=== PATIENT | male | born 1945 | race Caucasian/White ===

== ENCOUNTER 2022-11-19 13:27 | Inpatient (IN) | payer OTHER ==
--- OUTSIDE RECORDS SUMMARY | 2022-11-19 13:44 | XMS REPORT | Continuity of Care Document ---
:1945 Author Organization [facility] t Address [address] [place] [address] [place] [id number] Care Team Providers Name Role Phone Bishop Guerrero MD Primary Care Physician BISHOP GUERRERO Attending Clinician Unavailable Doctor Unassigned, [place] Attending Clinician Unavailable Bishop Guerrero MD Attending Clinician Minnie Appiah MD Attending Clinician [phone] Yaya Perea MD Attending Clinician Tran Ferrer MA Attending Clinician Unavailable Lab, Ang - Db Attending Clinician Unavailable Chaka Mcdaniels MD Attending Clinician [phone] Kasey Persaud MA Attending Clinician Unavailable Jamey CHISHOLM, Kameron Bass Attending Clinician Azalea CHISHOLM, Leonides Mccarty Attending Clinician Roger Beatty MD Attending Clinician Sonia Ortega APRN Attending Clinician Jayshree Wetzel LVN Attending Clinician Unavailable Davi CHISHOLM, Avinash Attending Clinician Monet Jaimes MA Attending Clinician Unavailable Mariely BANGURA, Kiera Attending Clinician Unavailable Jennifer BANGURA, Keke Attending Clinician Unavailable GHISLAINE SAPP Attending Clinician Unavailable Nicole CHRISTOPHER, Ghislaine Attending Clinician Jackson Bateman MD Attending Clinician Haley BANGURA, Candace Attending Clinician Unavailable Ladan ECHEVERRIA, Lorena Bell Attending Clinician [phone] Bay BANGURA, Mira Lauren Attending Clinician Unavailable Michi REFERRAL CLERK, Reina Attending Clinician [phone] Celine Go MD Attending Clinician Genesis Rocha RN, Anna Attending Clinician Unavailable Radha Andrews RN Attending Clinician Unavailable Emily Blunt MD Attending Clinician Morgan BANGURA, Katrina Rosales Attending Clinician Unavailable Provider, Unknown Attending Clinician Unavailable Brenda Contreras RN Attending Clinician Unavailable Teto CHISHOLM, Nohemi Attending Clinician Yuan Feng MD Attending Clinician Helen Bartholomew MD Attending Clinician Mariposa Gardner MD Attending Clinician SONIA STEWART Attending Clinician Unavailable CLAUDINE CLEMENTS Attending Clinician Unavailable MD CLAUDINE CLEMENTS Attending Clinician Unavailable RULA IRELAND Attending Clinician Unavailable Eze Gaston DO Attending Clinician MD RULA IRELAND Attending Clinician Unavailable MD SONIA STEWART Attending Clinician Unavailable LANRE HARRISON Attending Clinician Unavailable KAMERON CONCEPCION Admitting Clinician Unavailable CELINE GO Admitting Clinician Unavailable MD EMILY BLUNT Admitting Clinician Unavailable NOHEMI PLASCENCIA Admitting Clinician Unavailable CLAUDINE CLEMENTS Admitting Clinician Unavailable MD CLAUDINE CLEMENTS Admitting Clinician Unavailable RULA IRELAND Admitting Clinician Unavailable MD RULA IRELAND Admitting Clinician Unavailable SONIA STEWART Admitting Clinician Unavailable MD SONIA STEWART Admitting Clinician Unavailable Payers Payer Name Policy Type Policy Number Effective Date Expiration Date S ource Problems Condition Condition Condition Status Onset Resolution Last Treating Co mments Source Name Details Category Date Date Treatment Clinician Date Chronic Chronic Disease Active 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, tophus, 00:00: [place] unspecifie unspecifie 00 Me dical d cause, d cause, Branch unspecifie unspecifie d site d site Nontoxic Nontoxic Disease Active [facility] di single single 8-25 st thyroid thyroid 00:00: Hospita nodule nodule 00 l Thyroid Thyroid Disease Active Univers nodule nodule 6-07 ity of 00:00: [place] 00 Medical Branch Abnormal Abnormal Disease Active Unive rs thyroid thyroid 6-07 ity of biopsy biopsy 00:00: [place] [address] Medical Branch Stage 3 Stage 3 Disease Active Univers chronic chronic 5-24 ity of kidney kidney 00:00: [place] disease, disease, 00 Medica l unspecifie unspecifie Br anch d whether d whether stage 3a stage 3a or 3b CKD or 3b CKD Chronic Chronic Disease Active Univers congestive congestive 5-24 it y of heart heart 00:00: [place] failure, failure, 00 Medica l unspecifie unspecifie Br anch d heart d heart failure failure type type CKD CKD Disease Active [facility] (chronic (chronic 5-03 st kidney kidney 00:00: Hospita disease) disease) 00 l stage 3, stage 3, GFR 30-59 GFR 30-59 ml/min ml/min (HCC) Cr (HCC) Cr 1.6-1.8mg/ 1.6-1.8mg/ dL dL SÁNCHEZ (acute S[place]NCHEZ (acute Disease Active M [facility]i kidney kidney 5-03 st injury) injury) 00:00: Hospita (HCC) Cr (HCC) Cr 00 l 2.3-2.6mg/ 2.3-2.6mg/ dL dL Fluid Fluid Disease Active [facility] overload overload 07-05 st 00:00: Hospita 00 l HFrEF HFrEF Disease Active [facility] (heart (heart 07-05 st failure failure 00:00: Hospita with with 00 l reduced reduced ejection ejection fraction) fraction) Anemia Anemia Disease Active [facility] 07-05 st 00:00: Hospita 00 l Congestive Congestive Disease Active M [facility] heart heart 07-04 st failure failure 00:00: Hospita due to due to 00 l cardiomyop cardiomyop athy athy Brain Brain Disease Active [facility] metastases metastases 2-24 st 00:00: Hospita 00 l Thyroid Thyroid Disease Active [facility] nodule nodule 1-11 st 00:00: Hospita 00 l Malignant Malignant Disease Active Uni vers melanoma melanoma 8-30 ity of of scalp of scalp 00:00: [address] Branch Essential Essential Disease Active Uni vers hypertensi hypertensi 8-30 it y of on on 00:00: [address] Branch Weakness Weakness Disease Active [facility] di 3-03 st 00:00: Hospita 00 l Malignant Malignant Disease Active 2019-03 [facility] melanoma melanoma 2-15 st of scalp of scalp 00:00: Hospit a 00 l Metastatic Metastatic Disease Active 2019-03 M [facility]i melanoma melanoma 2-09 st 00:00: Hospita 00 l CKD CKD Disease Active 2019-03 [facility] (chronic (chronic [address] st kidney kidney 00:00: Hospita disease) disease) 00 l Melanoma Melanoma Disease Active 2019-03 [facility] di of scalp of scalp 1-10 st 00:00: Hospita 00 l Malignant Malignant Disease Active 2019-03 [facility] neoplasm neoplasm 1-09 st of scalp of scalp 00:00: Hospit a 00 l Arthritis Arthritis Disease Active [facility] of right of right 2- st knee knee 00:00: Hospita 00 l Chronic Chronic Disease Active [facility] pain of pain of 03-29 st right knee right knee 00:00: Ho spita 00 l 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 00:00: Ho spita replacemen replacemen 00 l t t Restless Restless Disease Active [facility] di leg leg st syndrome syndrome Hospit a l Localized Localized Disease Active Met hodi swelling, swelling, st mass and mass and Hospit a lump, head lump, head l Lymphadeno Lymphadeno Disease Active M ethodi andrew of andrew of st right right Hospita cervical cervical l region region 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 Ho spita 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) Muscle Muscle Disease Active [facility] weakness weakness st Hospita l 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 Allergies, Adverse Reactions, Alerts Allergy Allergy Status Severity Reaction(s) Onset Inactive Treating Comm ents Source Name Type Date Date Clinician NO KNOWN Drug Active Univers ALLERGIE Class ity of S [facility] Family History Family Member Diagnosis Comments Start Date Stop Date Source Natural brother Testicular cancer [facility] Natural brother Cancer [facility] Natural father Lung cancer [facility] Natural mother Skin cancer [facility] Natural sister Colon cancer [facility] Social History Social Habit Start Date Stop Date Quantity Comments Source Gender identity [facility] Sexual orientation Univer [facility] Alcohol intake 2022-09-22 2022-09-22 Current [facility] 00:00:00 00:00:00 non-drinker of Hospital alcohol (finding) History of Social 2022-09-22 2022-09-[address] function 00:00:00 00:00:00 Hospital Exposure to 2022-06-24 2022-07-04 Not sure University of SARS-CoV-2 (event) 00:00:00 09:07:00 [facility] [place] [facility] Tobacco use and 2021-10-26 2021-10-26 Smokeless [facility] exposure 00:00:00 00:00:00 tobacco non-user Hospital History [facility] 2020-05-05 2020-05-05 1 [facility] Alcohol Frequency 00:00:00 00:00:00 Hospita l History SDHI 2020-05-05 2020-05-05 99 [facility] Alcohol Std Drinks 00:00:00 00:00:00 Hospit al History [facility] 2020-05-05 2020-05-05 1 [facility] Alcohol Binge 00:00:00 00:00:00 Hospital Sex [birth year] At [birth year] Universit y of 00:00:00 00:00:00 [facility] Smoking Status Start Date Stop Date Source Never smoked tobacco [facility] Medications Ordered Filled Start Stop Current Ordering Indication Dosage Frequency Signature Comments Components Source Medication Medication Date Date Medication? Clinician (SIG) Name Name potassium Yes 10meq Q.5D Take 10 Meth [place] chloride 7-[address] (MICRO-K) 8 13:53: mouth 2 [facility] mEq CR 11 (two) l capsule times a day. metOLazone 0 Yes 5mg QD Take 1 [facility] di (ZAROXOLYN) 7-21 tablet (5 st 5 MG tablet 13:53: mg total) H ospita 11 by mouth l daily. ferrous 0 Yes 324mg QD Take 1 [facility] gluconate 7-[address] (FERGON) 13:53: (324 mg Hospit a 324 MG 11 total) by l tablet mouth daily with breakfast. cholecalcif Yes Take by Met hodi favian, 7-[address] vitamin D3, 13:53: Hospit a 50 mcg 11 l (2,000 unit) capsule capsule apixaban 0 Yes Q.5D Take by Method i (ELIQUIS) 5 7-[address] mg tablet 13:53: (two) Hospita 11 times a l day. vitamin B Yes Take by [facility] di complex 7-[address] (B-50 13:53: Hospita COMPLEX 11 l ORAL) FUROSEMIDE 0 Yes 40mg QD Take 40 mg M [facility]i ORAL 7-[address] 13:53: daily. Hospita 11 l LEVOTHYROXI 0 Yes [id number] TAKE 1 Univers NE 50 mcg 5-20 TABLET ity of tablet 00:00: EVERY [place] [address] MORNING [facility] Branch LEVOTHYROXI 2022-0 Yes [id number] TAKE 1 Univers NE 50 mcg 5-20 TABLET ity of tablet 00:00: EVERY [place] [address] MORNING [facility] Branch LEVOTHYROXI 0 Yes [id number] TAKE 1 Univers NE 50 mcg 5-20 TABLET ity of tablet 00:00: EVERY [place] 00 MORNING Medical Branch LEVOTHYROXI 2023-0 Yes [id number] TAKE 1 Univers NE 50 mcg 5-20 TABLET ity of tablet 00:00: EVERY [place] 00 MORNING Medical Branch LEVOTHYROXI 3-0 Yes [id number] TAKE 1 Univers NE 50 mcg 5-20 TABLET ity of tablet 00:00: EVERY [place] 00 MORNING Medical Branch LEVOTHYROXI 2023-0 Yes [id number] TAKE 1 Univers NE 50 mcg 5-20 TABLET ity of tablet 00:00: EVERY [place] 00 MORNING Medical Branch LEVOTHYROXI 2023-0 Yes [id number] TAKE 1 Univers NE 50 mcg 5-20 TABLET ity of tablet 00:00: EVERY [place] MORNING Medical Branch LEVOTHYROXI 2023-0 Yes [id number] TAKE 1 Univers [place] 50 mcg 5-20 TABLET ity of tablet 00:00: EVERY [place] MORNING Medical Branch LEVOTHYROXI 3-0 Yes [id number] TAKE 1 Univers NE 50 mcg 5-20 TABLET ity of tablet 00:00: EVERY [place] MORNING Medical Branch predniSONE 2023-0 Yes [id number] 20mg Take 1 U nivers 20 mg 3-02 tablet by ity of tablet 00:00: mouth in [place] the Medical morning. Branch predniSONE 3-0 Yes [id number] 20mg Take 1 U nivers 20 mg 3-02 tablet by ity of tablet 00:00: mouth in [place] the Medical morning. Branch predniSONE 2023-0 Yes [id number] 20mg Take 1 U nivers 20 mg 3-02 tablet by ity of tablet 00:00: mouth in [place] the Medical morning. Branch predniSONE 2023-0 Yes [id number] 20mg Take 1 U nivers 20 mg 3-02 tablet by ity of tablet 00:00: mouth in [place] the Medical morning. Branch predniSONE 2023-0 Yes [id number] 20mg Take 1 U nivers 20 mg 3-02 tablet by ity of tablet 00:00: mouth in [place] the Medical morning. Branch predniSONE 2023-0 Yes [id number] 20mg Take 1 U nivers 20 mg 3-02 tablet by ity of tablet 00:00: mouth in [place] the Medical morning. Branch predniSONE 2023-0 Yes [id number] 20mg Take 1 U nivers 20 mg 3-02 tablet by ity of tablet 00:00: mouth in [place] 00 the Medical morning. Branch predniSONE 2023-0 Yes [id number] 20mg Take 1 U nivers 20 mg 3-02 tablet by ity of tablet 00:00: mouth in [place] 00 the Medical morning. Branch predniSONE 2023-0 Yes [id number] 20mg Take 1 U nivers 20 mg 3-02 tablet by ity of tablet 00:00: mouth in [place] 00 the Medical morning. Branch predniSONE 2023-0 Yes [id number] 20mg Take 1 U nivers 20 mg 3-02 tablet by ity of tablet 00:00: mouth in [place] 00 the Medical morning. Branch predniSONE 2023-0 Yes [id number] 20mg Take 1 U nivers 20 mg 3-02 tablet by ity of tablet 00:00: mouth in [place] 00 the Medical morning. Branch predniSONE 2023-0 Yes [id number] 20mg Take 1 U nivers 20 mg 3-02 tablet by ity of tablet 00:00: mouth in [place] 00 the Medical morning. Branch predniSONE 2023-0 Yes [id number] 20mg Take 1 U nivers 20 mg 3-02 tablet by ity of tablet 00:00: mouth in [place] 00 the Medical morning. Branch predniSONE 2023-0 Yes [id number] 20mg Take 1 U nivers 20 mg 3-02 tablet by ity of tablet 00:00: mouth in [place] 00 the Medical morning. Branch predniSONE 2023-0 Yes [id number] 20mg Take 1 U nivers 20 mg 3-02 tablet by ity of tablet 00:00: mouth in [place] 00 the Medical morning. Branch predniSONE 2023-0 Yes [id number] 20mg Take 1 U nivers 20 mg 3-02 tablet by ity of tablet 00:00: mouth in [place] 00 the Medical morning. Branch predniSONE 2023-0 Yes [id number] 20mg Take 1 U nivers 20 mg 3-02 tablet by ity of tablet 00:00: mouth in [place] 00 the Medical morning. Branch predniSONE 2023-0 Yes [id number] 20mg Take 1 U nivers 20 mg 3-02 tablet by ity of tablet 00:00: mouth in [place] 00 the Medical morning. Branch predniSONE 2023-0 Yes [id number] 20mg Take 1 U nivers 20 mg 3-02 tablet by ity of tablet 00:00: mouth in [place] 00 the Medical morning. Branch predniSONE 3-0 Yes [id number] 20mg Take 1 U nivers 20 mg 3-02 tablet by ity of tablet 00:00: mouth in [place] 00 the Medical morning. Branch predniSONE 3-0 Yes [id number] 20mg Take 1 U nivers 20 mg 3-02 tablet by ity of tablet 00:00: mouth in [place] 00 the Medical morning. Branch predniSONE 3-0 Yes [id number] 20mg Take 1 U nivers 20 mg 3-02 tablet by ity of tablet 00:00: mouth in [place] 00 the Medical morning. Branch gabapentin 2022-0 2022- No 300mg [id number] Take 1 [facility] (NEURONTIN) 2- [id number] capsule st 300 mg 08:58: 00:00 3D (300 mg Hospita capsule 35 :00 total) by l mouth 3 (three) times a day. gabapentin 2022-0 2022- No 300mg Q.[id number] Take 1 [facility] (NEURONTIN) -27 04- [id number] capsule st 300 mg 08:58: 00:00 3D (300 mg Hospita capsule 35 :00 total) by l mouth 3 (three) times a day. gabapentin 0 Yes TAKE 1 [facility] di (NEURONTIN) 2-[address] 300 mg 00:00: TWICE Hospita capsule 00 DAILY l gabapentin 2022-0 Yes TAKE 1 Meth[facility] di (NEURONTIN) 2-[address] 300 mg 00:00: TWICE Hospita capsule 00 DAILY l pantoprazol 2022-0 2022- No 40mg QD Take 1 Met hodi e 04-04 tablet (40 st (PROTONIX) 07:41: 00:00 mg total) H ospita 40 MG EC 14 :00 by mouth l tablet daily. pantoprazol 2022-0 2022- No 40mg QD Take 1 Met hodi e 04-04 tablet (40 st (PROTONIX) 07:41: 00:00 mg total) H ospita 40 MG EC 14 :00 by mouth l tablet daily. pantoprazol 2022-0 Yes TAKE 1 Meth [facility] e 04-[address] (PROTONIX) 00:00: DAILY Hospit a 40 MG EC 00 l tablet pantoprazol Yes TAKE 1 Meth [facility] e 1-[address] (PROTONIX) 00:00: DAILY Hospit a 40 MG EC 00 l tablet levothyroxi 2021-03 Yes [id number] 50ug Take 1 Univers ne 50 mcg 2-12 tablet by ity o f tablet 00:00: mouth [place] 00 every Medical morning. [place] levothyroxi 2021-03 Yes [id number] 50ug Take 1 Univers ne 50 mcg 2-12 tablet by ity o f tablet 00:00: mouth [place] 00 every Medical morning. Branch levothyroxi 2021-03 Yes [id number] 50ug Take 1 Univers ne 50 mcg 2-12 tablet by ity o f tablet 00:00: mouth [place] 00 every Medical morning. Branch levothyroxi 2021-03 Yes [id number] 50ug Take 1 Univers ne 50 mcg 2-12 tablet by ity o f tablet 00:00: mouth [place] 00 every Medical morning. Branch levothyroxi 2021-03 Yes [id number] 50ug Take 1 Univers ne 50 mcg 2-12 tablet by ity o f tablet 00:00: mouth [place] 00 every Medical morning. Branch levothyroxi 2021-03 Yes [id number] 50ug Take 1 Univers ne 50 mcg 2-12 tablet by ity o f tablet 00:00: mouth [place] 00 every Medical morning. Branch levothyroxi 2021-03 Yes [id number] 50ug Take 1 Univers ne 50 mcg 2-12 tablet by ity o f tablet 00:00: mouth [place] 00 every Medical morning. Branch levothyroxi 2021-03 Yes [id number] 50ug Take 1 Univers ne 50 mcg 2-12 tablet by ity o f tablet 00:00: mouth [place] 00 every Medical morning. Branch levothyroxi 2021-03 Yes [id number] 50ug Take 1 Univers ne 50 mcg 2-12 tablet by ity o f tablet 00:00: mouth [place] 00 every Medical morning. Branch levothyroxi 2021-03 Yes [id number] 50ug Take 1 Univers ne 50 mcg 2-12 tablet by ity o f tablet 00:00: mouth [place] 00 every Medical morning. Branch levothyroxi 2021-03 Yes [id number] 50ug Take 1 Univers ne 50 mcg 2-12 tablet by ity o f tablet 00:00: mouth [place] 00 every Medical morning. Branch levothyroxi 2021-03 Yes [id number] 50ug Take 1 Univers ne 50 mcg 2-12 tablet by ity o f tablet 00:00: mouth [place] 00 every Medical morning. Branch levothyroxi 2021-03 Yes [id number] 50ug Take 1 Univers ne 50 mcg 2-12 tablet by ity o f tablet 00:00: mouth [place] 00 every Medical morning. Branch levothyroxi 2021-03 Yes [id number] 50ug Take 1 Univers ne 50 mcg 2-12 tablet by ity o f tablet 00:00: mouth [place] 00 every Medical morning. Branch levothyroxi 2021-03 Yes [id number] 50ug Take 1 Univers ne 50 mcg 2-12 tablet by ity o f tablet 00:00: mouth [place] 00 every Medical morning. Branch levothyroxi 2021-03 Yes [id number] 50ug Take 1 Univers ne 50 mcg 2-12 tablet by ity o f tablet 00:00: mouth [place] 00 every Medical morning. Branch levothyroxi 2021-03 Yes [id number] 50ug Take 1 Univers ne 50 mcg 2-12 tablet by ity o f tablet 00:00: mouth [place] 00 every Medical morning. Branch levothyroxi 2021-03 Yes [id number] 50ug Take 1 Univers ne 50 mcg 2-12 tablet by ity o f tablet 00:00: mouth [place] 00 every Medical morning. Branch levothyroxi 2021-03 Yes [id number] 50ug Take 1 Univers ne 50 mcg 2-12 tablet by ity o f tablet 00:00: mouth [place] 00 every Medical morning. Branch levothyroxi 2021-03 Yes [id number] 50ug Take 1 Univers ne 50 mcg 2-12 tablet by ity o f tablet 00:00: mouth [place] 00 every Medical morning. Branch levothyroxi 2021-03 Yes [id number] 50ug Take 1 Univers ne 50 mcg 2-12 tablet by ity o f tablet 00:00: mouth [place] 00 every Medical morning. Branch levothyroxi 2021-03 Yes [id number] 50ug Take 1 Univers ne 50 mcg 2-12 tablet by ity o f tablet 00:00: mouth [place] 00 every Medical morning. Branch levothyroxi 2021-03- No [id number] 50ug Take 1 Univers ne 50 mcg 2-12 05-20 tablet by ity of tablet 00:00: 00:00 mouth [place] 00 :00 every Medical morning. Branch furosemide 2021- Yes 40mg Take 40 mg U nivers 40 mg 2-08 by mouth ity of tablet 12:30: in the [place] [address] morning. Medical Branch furosemide 2021-1 Yes 40mg Take 40 mg U nivers 40 mg 2-08 by mouth ity of tablet 12:30: in the [place] [address] morning. Medical Branch furosemide 2021-1 Yes 40mg Take 40 mg U nivers 40 mg 2-08 by mouth ity of tablet 12:30: in the [place] [address] morning. Medical Branch furosemide 2021-1 Yes 40mg Take 40 mg U nivers 40 mg 2-08 by mouth ity of tablet 12:30: in the [place] [address] morning. Medical Branch furosemide 2021-1 Yes 40mg Take 40 mg U nivers 40 mg 2-08 by mouth ity of tablet 12:30: in the [place] [address] morning. Medical Branch furosemide 2021-1 Yes 40mg Take 40 mg U nivers 40 mg 2-08 by mouth ity of tablet 12:30: in the [place] [address] morning. Medical Branch furosemide 2021-1 Yes 40mg Take 40 mg U nivers 40 mg 2-08 by mouth ity of tablet 12:30: in the [place] [address] morning. Medical Branch furosemide 2021-1 Yes 40mg Take 40 mg U nivers 40 mg 2-08 by mouth ity of tablet 12:30: in the [place] [address] morning. Medical Branch furosemide 2021-1 Yes 40mg Take 40 mg U nivers 40 mg 2-08 by mouth ity of tablet 12:30: in the [place] [address] morning. Medical Branch furosemide 2021-1 Yes 40mg Take 40 mg U nivers 40 mg 2-08 by mouth ity of tablet 12:30: in the [place] [address] morning. Medical Branch furosemide 2021-1 Yes 40mg Take 40 mg U nivers 40 mg 2-08 by mouth ity of tablet 12:30: in the [place] [address] morning. Medical Branch furosemide 2021-1 Yes 40mg Take 40 mg U nivers 40 mg 2-08 by mouth ity of tablet 12:30: in the [place] [address] morning. Medical Branch furosemide 2021-1 Yes 40mg Take 40 mg U nivers 40 mg 2-08 by mouth ity of tablet 12:30: in the [place] [address] morning. Medical Branch furosemide 2022-1 Yes 40mg Take 40 mg U nivers 40 mg 2-08 by mouth ity of tablet 12:30: in the [place] [address] morning. Medical Branch furosemide 2022-1 Yes 40mg Take 40 mg U nivers 40 mg 2-08 by mouth ity of tablet 12:30: in the [place] [address] morning. Medical Branch furosemide 2022-1 Yes 40mg Take 40 mg U nivers 40 mg 2-08 by mouth ity of tablet 12:30: in the [place] [address] morning. Medical Branch furosemide 2022-1 Yes 40mg Take 40 mg U nivers 40 mg 2-08 by mouth ity of tablet 12:30: in the [place] [address] morning. Medical Branch furosemide 2-1 Yes 40mg Take 40 mg U nivers 40 mg 2-08 by mouth ity of tablet 12:30: in the [place] [address] morning. Medical Branch furosemide 2-1 Yes 40mg Take 40 mg U nivers 40 mg 2-08 by mouth ity of tablet 12:30: in the [place] [address] morning. Medical Branch furosemide 2-1 Yes 40mg Take 40 mg U nivers 40 mg 2-08 by mouth ity of tablet 12:30: in the [place] [address] morning. Medical Branch furosemide 2-1 Yes 40mg Take 40 mg U nivers 40 mg 2-08 by mouth ity of tablet 12:30: in the [place] [address] morning. Medical Branch furosemide 2-1 Yes 40mg Take 40 mg U nivers 40 mg 2-08 by mouth ity of tablet 12:30: in the [place] [address] morning. Medical Branch furosemide 2022-1 Yes 40mg Take 40 mg U nivers 40 mg 2-08 by mouth ity of tablet 12:30: in the [place] [address] morning. Medical Branch furosemide 2022-1 Yes 40mg Take 40 mg U nivers 40 mg 2-08 by mouth ity of tablet 12:30: in the [place] [address] morning. Medical Branch furosemide 2022-1 Yes 40mg Take 40 mg U nivers 40 mg 2-08 by mouth ity of tablet 12:30: in the [place] [address] morning. Medical Branch furosemide 2022-1 Yes 40mg Take 40 mg U nivers 40 mg 2-08 by mouth ity of tablet 12:30: in the [place] [address] morning. Medical Branch furosemide 2022- Yes 40mg Take 40 mg U nivers 40 mg 2-08 by mouth ity of tablet 12:30: in the [place] [address] morning. Medical Branch furosemide 2021-1 Yes 40mg Take 40 mg U nivers 40 mg 2-08 by mouth ity of tablet 12:30: in the [place] [address] morning. Medical Branch furosemide 2021- Yes 40mg Take 40 mg U nivers 40 mg 2-08 by mouth ity of tablet 12:30: in the [place] [address] morning. Medical Branch furosemide 2021- Yes 40mg Take 40 mg U nivers 40 mg 2-08 by mouth ity of tablet 12:30: in the [place] [address] morning. Medical Branch furosemide 2021-1 Yes 40mg Take 40 mg U nivers 40 mg 2-08 by mouth ity of tablet 12:30: in the [place] [address] morning. Medical Branch furosemide 2021- Yes 40mg Take 40 mg U nivers 40 mg 2-08 by mouth ity of tablet 12:30: in the [place] [address] morning. Medical Branch furosemide 2021- Yes 40mg Take 40 mg U nivers 40 mg 2-08 by mouth ity of tablet 12:30: in the [place] [address] morning. Medical Branch furosemide 2021-1 Yes 40mg Take 40 mg U nivers 40 mg 2-08 by mouth ity of tablet 12:30: in the [place] [address] morning. Medical Branch furosemide 2021- Yes 40mg Take 40 mg U nivers 40 mg 2-08 by mouth ity of tablet 12:30: in the [place] [address] morning. Medical Branch colchicine 2021- Yes [id number] .6mg Take 1 U nivers 0.6 mg 2-08 tablet by ity of tablet 00:00: mouth in [place] 00 the Medical morning. Branch colchicine 2021- Yes [id number] .6mg Take 1 U nivers 0.6 mg 2-08 tablet by ity of tablet 00:00: mouth in [place] the Medical morning. Branch colchicine 2021- Yes [id number] .6mg Take 1 U nivers 0.6 mg 2-08 tablet by ity of tablet 00:00: mouth in [place] the Medical morning. Branch colchicine 2021- Yes [id number] .6mg Take 1 U nivers 0.6 mg 2-08 tablet by ity of tablet 00:00: mouth in [place] 00 the Medical morning. Branch colchicine 2021-03 Yes [id number] .6mg Take 1 U nivers 0.6 mg 2-08 tablet by ity of tablet 00:00: mouth in [place] the Medical morning. Branch colchicine 2021-03 Yes [id number] .6mg Take 1 U nivers 0.6 mg 2-08 tablet by ity of tablet 00:00: mouth in [place] the Medical morning. Branch colchicine 2021-03 Yes [id number] .6mg Take 1 U nivers 0.6 mg 2-08 tablet by ity of tablet 00:00: mouth in [place] the Medical morning. Branch colchicine 2021-03 Yes [id number] .6mg Take 1 U nivers 0.6 mg 2-08 tablet by ity of tablet 00:00: mouth in [place] the Medical morning. Branch colchicine 2021-03 Yes [id number] .6mg Take 1 U nivers 0.6 mg 2-08 tablet by ity of tablet 00:00: mouth in [place] the Medical morning. Branch colchicine 2021-03 Yes [id number] .6mg Take 1 U nivers 0.6 mg 2-08 tablet by ity of tablet 00:00: mouth in [place] the Medical morning. Branch colchicine 2021-03 Yes [id number] .6mg Take 1 U nivers 0.6 mg 2-08 tablet by ity of tablet 00:00: mouth in [place] the Medical morning. Branch colchicine 2021-03 Yes [id number] .6mg Take 1 U nivers 0.6 mg 2-08 tablet by ity of tablet 00:00: mouth in [place] the Medical morning. Branch colchicine 2021-03 Yes [id number] .6mg Take 1 U nivers 0.6 mg 2-08 tablet by ity of tablet 00:00: mouth in [place] 00 the Medical morning. Branch colchicine 2021-03 Yes [id number] .6mg Take 1 U nivers 0.6 mg 2-08 tablet by ity of tablet 00:00: mouth in [place] 00 the Medical morning. Branch colchicine 2021-03 Yes [id number] .6mg Take 1 U nivers 0.6 mg 2-08 tablet by ity of tablet 00:00: mouth in [place] 00 the Medical morning. Branch colchicine 2021-03 Yes [id number] .6mg Take 1 U nivers 0.6 mg 2-08 tablet by ity of tablet 00:00: mouth in [place] 00 the Medical morning. Branch colchicine 2021-03 Yes [id number] .6mg Take 1 U nivers 0.6 mg 2-08 tablet by ity of tablet 00:00: mouth in [place] 00 the Medical morning. Branch colchicine 2021-03 Yes [id number] .6mg Take 1 U nivers 0.6 mg 2-08 tablet by ity of tablet 00:00: mouth in [place] 00 the Medical morning. Branch colchicine 2021-03 Yes [id number] .6mg Take 1 U nivers 0.6 mg 2-08 tablet by ity of tablet 00:00: mouth in [place] the Medical morning. Branch colchicine 2021-03 Yes [id number] .6mg Take 1 U nivers 0.6 mg 2-08 tablet by ity of tablet 00:00: mouth in [place] the Medical morning. Branch colchicine 2021-03 Yes [id number] .6mg Take 1 U nivers 0.6 mg 2-08 tablet by ity of tablet 00:00: mouth in [place] the Medical morning. Branch colchicine 2021-03 Yes [id number] .6mg Take 1 U nivers 0.6 mg 2-08 tablet by [facility]y of tablet 00:00: mouth in [place] the Medical morning. Branch colchicine 2021-03 Yes [id number] .6mg Take 1 U nivers 0.6 mg 2-08 tablet by ity of tablet 00:00: mouth in [place] 00 the Medical morning. Branch colchicine 2021-03 Yes [id number] .6mg Take 1 U nivers 0.6 mg 2-08 tablet by ity of tablet 00:00: mouth in [place] 00 the Medical morning. Branch colchicine 2021-03 Yes [id number] .6mg Take 1 U nivers 0.6 mg 2-08 tablet by ity of tablet 00:00: mouth in [place] 00 the Medical morning. Branch colchicine 2021-03 Yes [id number] .6mg Take 1 U nivers 0.6 mg 2-08 tablet by ity of tablet 00:00: mouth in [place] 00 the Medical morning. Branch colchicine 2021-03 Yes [id number] .6mg Take 1 U nivers 0.6 mg 2-08 tablet by ity of tablet 00:00: mouth in [place] the Medical morning. Branch colchicine 2021-03 Yes [id number] .6mg Take 1 U nivers 0.6 mg 2-08 tablet by ity of tablet 00:00: mouth in [place] the Medical morning. Branch colchicine 2021-03 Yes [id number] .6mg Take 1 U nivers 0.6 mg 2-08 tablet by ity of tablet 00:00: mouth in [place] the Medical morning. Branch colchicine 2021-03 Yes [id number] .6mg Take 1 U nivers 0.6 mg 2-08 tablet by ity of tablet 00:00: mouth in [place] the Medical morning. Branch colchicine 2021-03 Yes [id number] .6mg Take 1 U nivers 0.6 mg 2-08 tablet by ity of tablet 00:00: mouth in [place] the Medical morning. Branch colchicine 2021-03 Yes [id number] .6mg Take 1 U nivers 0.6 mg 2-08 tablet by ity of tablet 00:00: mouth in [place] the Medical morning. Branch colchicine 2021-03 Yes [id number] .6mg Take 1 U nivers 0.6 mg 2-08 tablet by ity of tablet 00:00: mouth in [place] the Medical morning. Branch colchicine 2021-03 Yes [id number] .6mg Take 1 U nivers 0.6 mg 2-08 tablet by ity of tablet 00:00: mouth in [place] the Medical morning. Branch colchicine 2021-03 Yes [id number] .6mg Take 1 U nivers 0.6 mg 2-08 tablet by ity of tablet 00:00: mouth in [place] the Medical morning. Branch levothyroxi 2021-03 Yes Univer s ne 50 mcg 1-21 ity of tablet 00:00: [place] 00 Medical Branch levothyroxi 2021-03 Yes Univer s ne 50 mcg 1-21 ity of tablet 00:00: [place] 00 Medical Branch levothyroxi 2021-03 Yes Univer s ne 50 mcg 1-21 ity of tablet 00:00: [place] 00 Medical Branch levothyroxi 2021-03 Yes Univer s ne 50 mcg 1-21 ity of tablet 00:00: [place] 00 Medical Branch levothyroxi 2022-1 2023- No 50ug QD Take 1 Met hodi ne 03-25-22 tablet (50 st (SYNTHROID) 00:00: 05:59 mcg total) [facility]osp[facility] 50 mcg 00 :00 by mouth l tablet daily. levothyroxi 2021-03- No 50ug QD Take 1 Met hodi ne 03-25 11-22 tablet (50 st (SYNTHROID) 00:00: 05:59 mcg total) Hospita 50 mcg 00 :00 by mouth l tablet daily. levothyroxi 2021-03- No 50ug QD Take 1 Met hodi ne 03-25-22 tablet (50 st (SYNTHROID) 00:00: 05:59 mcg total) Hospita 50 mcg 00 :00 by mouth l tablet daily. levothyroxi 2021-03- No Unive rs ne 50 mcg 03-25 ity of tablet 00:00: 00:00 [place] 00 :00 [facility] indomethaci 2021-03- No 25mg Take 1 Met hodi n (INDOCIN) 0-13 10-[address] 25 MG 10:29: 00:00 (25 mg Hospita capsule 50 :00 total) by l mouth as needed for mild pain. For gout- has not been taking for a year now. indomethaci 2021-03- No 25mg Take 1 Met hodi n (INDOCIN) 0-13 10-[address] 25 MG 10:29: 00:00 (25 mg Hospita capsule 50 :00 total) by l mouth as needed for mild pain. For gout- has not been taking for a year now. indomethaci 2021-03- No 25mg Take 1 Met hodi n (INDOCIN) 0-13 10-[address] 25 MG 10:29: 00:00 (25 mg Hospita capsule 50 :00 total) by l mouth as needed for mild pain. For gout- has not been taking for a year now. vitamin B 2021-03 Yes Take by Metho di complex 0-[address] (B-50 14:42: Hospita COMPLEX 55 l ORAL) FUROSEMIDE 2021-03 Yes 40mg QD Take 40 mg M ethodi ORAL 0-[address] 14:42: daily. Hospita 55 l potassium 2021-03 Yes 10meq Q.5D Take 10 Meth tanmay chloride 0-[address] (MICRO-K) 8 14:42: mouth 2 [facility] mEq CR 55 (two) l capsule times a day. metOLazone 2021-03 Yes 5mg QD Take 5 mg Me thodi (ZAROXOLYN) 0-[address] 5 MG tablet 14:42: daily. Hosp yang 55 l ferrous 2021-03 Yes 324mg QD Take 324 Metho di gluconate 0-[address] (FERGON) 14:42: mouth Hospita 324 MG 55 daily with l tablet breakfast. cholecalcif 2021-03 Yes Take by Met olgai favian, 0-[address] vitamin D3, 14:42: Hospit a 50 mcg 55 l (2,000 unit) capsule capsule apixaban 2021-03 Yes Q.5D Take by Method i (ELIQUIS) 5 0-[address] mg tablet 14:42: (two) Hospita 55 times a l day. vitamin B 2021-03 Yes Take by Metho di complex 0-[address] (B-50 14:42: Hospita COMPLEX 55 l ORAL) FUROSEMIDE 2021-03 Yes 40mg QD Take 40 mg M ethodi ORAL 0-[address] 14:42: daily. Hospita 55 l potassium 2021-03 Yes 10meq Q.5D Take 10 Meth tanmay chloride 0-[address] (MICRO-K) 8 14:42: mouth 2 [facility] mEq CR 55 (two) l capsule times a day. metOLazone 2021-03 Yes 5mg QD Take 5 mg [facility] (ZAROXOLYN) 0-[address] 5 MG tablet 14:42: daily. Hosp yang 55 l ferrous 2021-03 Yes 324mg QD Take 324 Metho di gluconate 0-[address] (FERGON) 14:42: mouth Hospita 324 MG 55 daily with l tablet breakfast. cholecalcif 2021-03 Yes Take by Met olgai favian, 0-[address] vitamin D3, 14:42: Hospit a 50 mcg 55 l (2,000 unit) capsule capsule pantoprazol 2021-03 Yes 40mg QD Take 1 Meth tanmay e 0-12 tablet (40 st (PROTONIX) 14:42: mg total) Ho spita 40 MG EC 55 by mouth l tablet daily. gabapentin 2021-03 Yes 300mg Q.[id number] Take 1 Methodi (NEURONTIN) 0-[id number] 300 mg 14:42: 3D (300 mg Hospita capsule 55 total) by l mouth 3 (three) times a day. apixaban 2021-03 Yes Q.5D Take by Method i (ELIQUIS) 5 0-[address] mg tablet 14:42: (two) Hospita 55 times a l day. magnesium 2021-0 2021- No 400mg Take 400 Un jorje oxide 400 9-15 09-15 mg by ity of mg 09:22: 00:00 mouth [place] magnesium 21 :00 daily. Medical Tab Branch magnesium 2021-0 2021- No 400mg Take 400 Un jorje oxide 400 9-15 09-15 mg by ity of mg 09:22: 00:00 mouth [place] magnesium 21 :00 daily. Medical Tab Branch colchicine Yes Methodi 0.6 mg 9-15 st tablet 00:00: Hospita 00 l colchicine 2021-0 Yes .6mg QD Take 1 Metho di 0.6 mg 9-[address] tablet 00:00: (0.6 mg Hospita 00 total) by l mouth every morning. colchicine 0 Yes [facility] 0[facility]6 mg 9-[facility]0 Yes .6mg QD Take 1 Metho di 0.6 mg 9-[address] tablet 00:00: (0.6 mg Hospita 00 total) by l mouth every morning. colchicine 0 Yes Methodi 0.6 mg 9-15 st tablet 00:00: Hospita 00 l colchicine 2021-0 Yes .6mg QD Take 1 Metho di 0.6 mg 9-[address] tablet 00:00: (0.6 mg Hospita 00 total) by l mouth every morning. colchicine 2021-0 Yes [id number] .6mg Take 1 U nivers 0.6 mg 9-15 tablet by ity of tablet 00:00: mouth in [place] 00 the Medical morning. Branch colchicine 2021-0 Yes [id number] .6mg Take 1 U nivers 0.6 mg 9-15 tablet by ity of tablet 00:00: mouth in [place] 00 the Medical morning. Branch colchicine 2021-0 Yes [id number] .6mg Take 1 U nivers 0.6 mg 9-15 tablet by ity of tablet 00:00: mouth in [place] 00 the Medical morning. Branch colchicine 0 Yes [id number] .6mg Take 1 U nivers 0.6 mg 9-15 tablet by ity of tablet 00:00: mouth in [place] 00 the Medical morning. Branch colchicine 2021- No [id number] .6mg Take 1 [facility] 0.6 mg 9-15 12-08 tablet by ity of tablet 00:00: 00:00 mouth in [place] 00 :00 the Medical morning. Branch colchicine 2021- No [id number] .6mg Take 1 [facility] 0.6 mg 9-15 12-08 tablet by ity of tablet 00:00: 00:00 mouth in [place] 00 :00 the Medical morning. Branch colchicine 2021- No [id number] .6mg Take 1 [facility] 0.6 mg 9-15 12-08 tablet by ity of tablet 00:00: 00:00 mouth in [place] 00 :00 the Medical morning. Branch docusate 2021- No 100mg Q.5D Take 1 Metho di sodium 10-28- capsule st (Colace) 00:00: 04:59 (100 mg Hospi ta 100 MG 00 :00 total) by l capsule mouth 2 (two) times a day for 30 days. docusate 2021- No 100mg Q.5D Take 1 Metho di sodium 10-28- capsule st (Colace) 00:00: 04:59 (100 mg Hospi ta 100 MG 00 :00 total) by l capsule mouth 2 (two) times a day for 30 days. docusate 2021- No 100mg Q.5D Take 1 Metho di sodium 10-28- capsule st (Colace) 00:00: 04:59 (100 mg Hospi ta 100 MG 00 :00 total) by l capsule mouth 2 (two) times a day for 30 days. traMADoL 2021- No [id number] 50mg Q6H Take 1 Metho di (Ultram) 50 10-28- tablet (50 s t mg tablet 00:00: 04:59 mg total) Ho spita 00 :00 by mouth l every 6 (six) hours as needed for moderate pain for up to 10 days .acute pain. traMADoL 2021-0 2021- [place] [id number] 50mg Q6H Take 1 Metho di (Ultram) 50 8- 09-06 tablet (50 s t mg tablet 00:00: 04:59 mg total) Ho spita 00 :00 by mouth l every 6 (six) hours as needed for moderate pain for up to 10 days .acute pain. ferrous 2021-0 Yes 324mg Take 324 Unive rs gluconate 8-10 mg by ity of 324 mg (38 09:40: [place] mg iron) 49 the Medical tablet morning Branch and 324 mg in the evening. ferrous 2021-0 Yes 324mg Take 324 Unive rs gluconate 8-10 mg by ity of 324 mg (38 09:40: [place] mg iron) 49 the Medical tablet morning Branch and 324 mg in the evening. ferrous 2021-0 Yes 324mg Take 324 Unive rs gluconate 8-10 mg by ity of 324 mg (38 09:40: [place] mg iron) 49 the Medical tablet morning Branch and 324 mg in the evening. ferrous 2021-0 Yes 324mg Take 324 Unive rs gluconate 8-10 mg by ity of 324 mg (38 09:40: [place] mg iron) 49 the Medical tablet morning Branch and 324 mg in the evening. ferrous 2022-0 Yes 324mg Take 324 Unive rs gluconate 8-10 mg by ity of 324 mg (38 09:40: [place] mg iron) 49 the Medical tablet morning Branch and 324 mg in the evening. ferrous 2-0 Yes 324mg Take 324 Unive rs gluconate 8-10 mg by ity of 324 mg (38 09:40: [place] mg iron) 49 the Medical tablet morning Branch and 324 mg in the evening. ferrous 2022-0 Yes 324mg Take 324 Unive rs gluconate 8-10 mg by ity of 324 mg (38 09:40: [place] mg iron) 49 the Medical tablet morning Branch and 324 mg in the evening. ferrous 2022-0 Yes 324mg Take 324 Unive rs gluconate 8-10 mg by ity of 324 mg (38 09:40: [place] mg iron) 49 the Medical tablet morning Branch and 324 mg in the evening. ferrous 2022-0 Yes 324mg Take 324 Unive rs gluconate 8-10 mg by ity of 324 mg (38 09:40: [place] mg iron) 49 the Medical tablet morning Branch and 324 mg in the evening. ferrous 2022-0 Yes 324mg Take 324 Unive rs gluconate 8-10 mg by ity of 324 mg (38 09:40: [place] mg iron) 49 the Medical tablet morning Branch and 324 mg in the evening. ferrous 2022-0 Yes 324mg Take 324 Unive rs gluconate 8-10 mg by ity of 324 mg (38 09:40: [place] mg iron) 49 the Medical tablet morning Branch and 324 mg in the evening. ferrous 2022-0 Yes 324mg Take 324 Unive rs gluconate 8-10 mg by ity of 324 mg (38 09:40: [place] mg iron) 49 the Medical tablet morning Branch and 324 mg in the evening. ferrous 2022-0 Yes 324mg Take 324 Unive rs gluconate 8-10 mg by ity of 324 mg (38 09:40: [place] mg iron) 49 the Medical tablet morning Branch and 324 mg in the evening. ferrous 2022-0 Yes 324mg Take 324 Unive rs gluconate 8-10 mg by ity of 324 mg (38 09:40: [place] mg iron) 49 the Medical tablet morning Branch and 324 mg in the evening. ferrous 2022-0 Yes 324mg Take 324 Unive rs gluconate 8-10 mg by ity of 324 mg (38 09:40: [place] mg iron) 49 the Medical tablet morning Branch and 324 mg in the evening. ferrous 2022-0 Yes 324mg Take 324 Unive rs gluconate 8-10 mg by ity of 324 mg (38 09:40: [place] mg iron) 49 the Medical tablet morning Branch and 324 mg in the evening. ferrous 2022-0 Yes 324mg Take 324 Unive rs gluconate 8-10 mg by ity of 324 mg (38 09:40: [place] mg iron) 49 the Medical tablet morning Branch and 324 mg in the evening. ferrous 2022-0 Yes 324mg Take 324 Unive rs gluconate 8-10 mg by ity of 324 mg (38 09:40: [place] mg iron) 49 the Medical tablet morning Branch and 324 mg in the evening. ferrous 2022-0 Yes 324mg Take 324 Unive rs gluconate 8-10 mg by ity of 324 mg (38 09:40: [place] mg iron) 49 the Medical tablet morning Branch and 324 mg in the evening. ferrous 2022-0 Yes 324mg Take 324 Unive rs gluconate 8-10 mg by ity of 324 mg (38 09:40: [place] mg iron) 49 the Medical tablet morning Branch and 324 mg in the evening. ferrous 2022-0 Yes 324mg Take 324 Unive rs gluconate 8-10 mg by ity of 324 mg (38 09:40: [place] mg iron) 49 the Medical tablet morning Branch and 324 mg in the evening. ferrous 2022-0 Yes 324mg Take 324 Unive rs gluconate 8-10 mg by ity of 324 mg (38 09:40: [place] mg iron) 49 the Medical tablet morning Branch and 324 mg in the evening. ferrous 2022-0 Yes 324mg Take 324 Unive rs gluconate 8-10 mg by ity of 324 mg (38 09:40: mouth in [place] mg iron) 49 the Medical tablet morning Branch and 324 mg in the evening. ferrous 2022-0 Yes 324mg Take 324 Unive rs gluconate 8-10 mg by ity of 324 mg (38 09:40: mouth [place] mg iron) 49 the Medical tablet morning Branch and 324 mg in the evening. ferrous 2022-0 Yes 324mg Take 324 Unive rs gluconate 8-10 mg by ity of 324 mg (38 09:40: mouth in [place] mg iron) 49 the Medical tablet morning Branch and 324 mg in the evening. ferrous 2022-0 Yes 324mg Take 324 Unive rs gluconate 8-10 mg by ity of 324 mg (38 09:40: mouth in [place] mg iron) 49 the Medical tablet morning Branch and 324 mg in the evening. ferrous 2022-0 Yes 324mg Take 324 Unive rs gluconate 8-10 mg by ity of 324 mg (38 09:40: mouth [place] mg iron) 49 the Medical tablet morning Branch and 324 mg in the evening. ferrous 2022-0 Yes 324mg Take 324 Unive rs gluconate 8-10 mg by ity of 324 mg (38 09:40: mouth in [place] mg iron) 49 the Medical tablet morning Branch and 324 mg in the evening. ferrous 2022-0 Yes 324mg Take 324 Unive rs gluconate 8-10 mg by ity of 324 mg (38 09:40: mouth in [place] mg iron) 49 the Medical tablet morning Branch and 324 mg in the evening. ferrous 2022-0 Yes 324mg Take 324 Unive rs gluconate 8-10 mg by ity of 324 mg (38 09:40: mouth in [place] mg iron) 49 the Medical tablet morning Branch and 324 mg in the evening. ferrous 2022-0 Yes 324mg Take 324 Unive rs gluconate 8-10 mg by ity of 324 mg (38 09:40: mouth in [place] mg iron) 49 the Medical tablet morning Branch and 324 mg in the evening. ferrous 2022-0 Yes 324mg Take 324 Unive rs gluconate 8-10 mg by ity of 324 mg (38 09:40: mouth in [place] mg iron) 49 the Medical tablet morning Branch and 324 mg in the evening. ferrous 2022-0 Yes 324mg Take 324 Unive rs gluconate 8-10 mg by ity of 324 mg (38 09:40: mouth in [place] mg iron) 49 the Medical tablet morning Branch and 324 mg in the evening. ferrous 2022-0 Yes 324mg Take 324 Unive rs gluconate 8-10 mg by ity of 324 mg (38 09:40: mouth in [place] mg iron) 49 the Medical tablet morning Branch and 324 mg in the evening. ferrous 2022-0 Yes 324mg Take 324 Unive rs gluconate 8-10 mg by ity of 324 mg (38 09:40: mouth in [place] mg iron) 49 the Medical tablet morning Branch and 324 mg in the evening. ferrous 2022-0 Yes 324mg Take 324 Unive rs gluconate 8-10 mg by ity of 324 mg (38 09:40: mouth in [place] mg iron) 49 the Medical tablet morning Branch and 324 mg in the evening. ferrous 2022-0 Yes 324mg Take 324 Unive rs gluconate 8-10 mg by ity of 324 mg (38 09:40: mouth in [place] mg iron) 49 the Medical tablet morning Branch and 324 mg in the evening. ferrous 2022-0 Yes 324mg Take 324 Unive rs gluconate 8-10 mg by ity of 324 mg (38 09:40: mouth in [place] mg iron) 49 the Medical tablet morning Branch and 324 mg in the evening. ferrous 2022-0 Yes 324mg Take 324 Unive rs gluconate 8-10 mg by ity of 324 mg (38 09:40: mouth in [place] mg iron) 49 the Medical tablet morning Branch and 324 mg in the evening. ferrous 2022-0 Yes 324mg Take 324 Unive rs gluconate 8-10 mg by ity of 324 mg (38 09:40: mouth in [place] mg iron) 49 the Medical tablet morning Branch and 324 mg in the evening. ferrous 2022-0 Yes 324mg Take 324 Unive rs gluconate 8-10 mg by ity of 324 mg (38 09:40: mouth in [place] mg iron) 49 the Medical tablet morning Branch and 324 mg in the evening. ferrous 2022-0 Yes 324mg Take 324 Unive rs gluconate 8-10 mg by ity of 324 mg (38 09:40: mouth in [place] mg iron) 49 the Medical tablet morning Branch and 324 mg in the evening. ferrous 2022-0 Yes 324mg Take 324 Unive rs gluconate 8-10 mg by ity of 324 mg (38 09:40: mouth in [place] mg iron) 49 the Medical tablet morning Branch and 324 mg in the evening. ferrous 2022-0 Yes 324mg Take 324 Unive rs gluconate 8-10 mg by ity of 324 mg (38 09:40: mouth in [place] as mg iron) 49 the Medical tablet morning Branch and 324 mg in the evening. ferrous 2022-0 Yes 324mg Take 324 Unive rs gluconate 8-10 mg by ity of 324 mg (38 09:40: mouth in [place] mg iron) 49 the Medical tablet morning Branch and 324 mg in the evening. ferrous 2022-0 Yes 324mg Take 324 Unive rs gluconate 8-10 mg by ity of 324 mg (38 09:40: mouth in [place] mg iron) 49 the Medical tablet morning Branch and 324 mg in the evening. cholecalcif 2021-0 Yes Take by Uni vers favian, 7-28 mouth. ity of vitamin D3, 07:59: [place] (VITAMIN D3 55 Medical ORAL) Branch cholecalcif 2022-0 Yes Take by [facility] vers favian, 7-28 mouth. ity of vitamin D3, 07:59: [place] (VITAMIN D3 55 Medical ORAL) Branch cholecalcif 2022-0 Yes Take by Uni vers favian, 7-28 mouth. ity of vitamin D3, 07:59: [place] (VITAMIN D3 55 Medical ORAL) Branch cholecalcif 2022-0 Yes Take by Uni vers favian, 7-28 mouth. ity of vitamin D3, 07:59: [place] (VITAMIN D3 55 Medical ORAL) Branch cholecalcif 2022-0 Yes Take by Uni vers favina, 7-28 mouth. ity of vitamin D3, 07:59: [place] (VITAMIN D3 55 Medical ORAL) Branch cholecalcif 2022-0 Yes Take by Uni vers favian, 7-28 mouth. ity of vitamin D3, 07:59: [place] (VITAMIN D3 55 Medical ORAL) Branch cholecalcif 2022-0 Yes Take by Uni vers favian, 7-28 mouth. ity of vitamin D3, 07:59: [place] (VITAMIN D3 55 Medical ORAL) Branch cholecalcif 2022-0 Yes Take by Uni vers favian, 7-28 mouth. ity of vitamin D3, 07:59: [place] (VITAMIN D3 55 Medical ORAL) Branch cholecalcif 2022-0 Yes Take by Uni vers favian, 7-28 mouth. ity of vitamin D3, 07:59: [place] (VITAMIN D3 55 Medical ORAL) Branch cholecalcif 2022-0 Yes Take by Uni vers favian, 7-28 mouth. ity of vitamin D3, 07:59: [place] (VITAMIN D3 55 Medical ORAL) Branch cholecalcif 2022-0 Yes Take by Uni vers favian, 7-28 mouth. ity of vitamin D3, 07:59: [place] (VITAMIN D3 55 Medical ORAL) Branch cholecalcif 2022-0 Yes Take by Uni vers favian, 7-28 mouth. ity of vitamin D3, 07:59: [place] (VITAMIN D3 55 Medical ORAL) Branch cholecalcif 2022-0 Yes Take by Uni vers favian, 7-28 mouth. ity of vitamin D3, 07:59: [place] (VITAMIN D3 55 Medical ORAL) Branch cholecalcif 2022-0 Yes Take by Uni vers favian, 7-28 mouth. ity of vitamin D3, 07:59: [place] (VITAMIN D3 55 Medical ORAL) Branch cholecalcif 2022-0 Yes Take by Uni vers favian, 7-28 mouth. ity of vitamin D3, 07:59: [place] (VITAMIN D3 55 Medical ORAL) Branch cholecalcif 2022-0 Yes Take by Uni vers favian, 7-28 mouth. ity of vitamin D3, 07:59: [place] (VITAMIN D3 55 Medical ORAL) Branch cholecalcif 2022-0 Yes Take by Uni vers favian, 7-28 mouth. ity of vitamin D3, 07:59: [place] (VITAMIN D3 55 Medical ORAL) Branch cholecalcif 2022-0 Yes Take by Uni vers favian, 7-28 mouth. ity of vitamin D3, 07:59: [place] (VITAMIN D3 55 Medical ORAL) Branch cholecalcif 2022-0 Yes Take by Uni vers favian, 7-28 mouth. ity of vitamin D3, 07:59: [place] (VITAMIN D3 55 Medical ORAL) Branch cholecalcif 2022-0 Yes Take by Uni vers favian, 7-28 mouth. ity of vitamin D3, 07:59: [place] (VITAMIN D3 55 Medical ORAL) Branch cholecalcif 2022-0 Yes Take by Uni vers favian, 7-28 mouth. ity of vitamin D3, 07:59: [place] (VITAMIN D3 55 Medical ORAL) Branch cholecalcif 2022-0 Yes Take by Uni vers favian, 7-28 mouth. ity of vitamin D3, 07:59: [place] (VITAMIN D3 55 Medical ORAL) Branch cholecalcif 2022-0 Yes Take by Uni vers favian, 7-28 mouth. ity of vitamin D3, 07:59: [place] (VITAMIN D3 55 Medical ORAL) Branch cholecalcif 2022-0 Yes Take by Uni vers favian, 7-28 mouth. ity of vitamin D3, 07:59: [place] (VITAMIN D3 55 Medical ORAL) Branch cholecalcif 2022-0 Yes Take by Uni vers favian, 7-28 mouth. ity of vitamin D3, 07:59: [place] (VITAMIN D3 55 Medical ORAL) Branch cholecalcif 2022-0 Yes Take by Uni vers favian, 7-28 mouth. ity of vitamin D3, 07:59: [place] (VITAMIN D3 55 Medical ORAL) Branch cholecalcif 2022-0 Yes Take by Uni vers favian, 7-28 mouth. ity of vitamin D3, 07:59: [place] (VITAMIN D3 55 Medical ORAL) Branch cholecalcif 2022-0 Yes Take by Uni vers favian, 7- mouth. ity of vitamin D3, 07:59: [place] (VITAMIN D3 55 Medical ORAL) Branch cholecalcif 2022-0 Yes Take by Uni vers favian, 7- mouth. ity of vitamin D3, 07:59: [place] (VITAMIN D3 55 Medical ORAL) Branch cholecalcif 2022-0 Yes Take by Uni vers favian, 7-28 mouth. ity of vitamin D3, 07:59: [place] (VITAMIN D3 55 Medical ORAL) Branch cholecalcif 2022-0 Yes Take by Uni vers favian, 7-28 mouth. ity of vitamin D3, 07:59: [place] (VITAMIN D3 55 Medical ORAL) Branch cholecalcif 2022-0 Yes Take by Un jorje favian, 7 mouth. ity of vitamin D3, 07:59: [place] (VITAMIN D3 55 Medical ORAL) Branch cholecalcif 2022-0 Yes Take by Uni vers favian, 7- mouth. ity of vitamin D3, 07:59: [place] (VITAMIN D3 55 Medical ORAL) Branch cholecalcif 2022-0 Yes Take by Uni vers favian, 7-28 mouth. ity of vitamin D3, 07:59: [place] (VITAMIN D3 55 Medical ORAL) Branch cholecalcif 2022-0 Yes Take by Uni vers favian, 7- mouth. ity of vitamin D3, 07:59: [place] (VITAMIN D3 55 Medical ORAL) Branch cholecalcif 2022-0 Yes Take by Uni vers favian, 7- mouth. ity of vitamin D3, 07:59: [place] (VITAMIN D3 55 Medical ORAL) Branch cholecalcif 2022-0 Yes Take by Uni vers favian, 7-28 mouth. ity of vitamin D3, 07:59: [place] (VITAMIN D3 55 Medical ORAL) Branch cholecalcif 2022-0 Yes Take by Uni vers favian, 7-28 mouth. ity of vitamin D3, 07:59: [place] (VITAMIN D3 55 Medical ORAL) Branch cholecalcif 2022-0 Yes Take by Uni vers favian, 7-28 mouth. ity of vitamin D3, 07:59: [place] (VITAMIN D3 55 Medical ORAL) Branch cholecalcif 2022-0 Yes Take by [facility], 7-28 mouth. [facility] of vitamin D3, 07:59: [place] (VITAMIN D3 55 Medical ORAL) Branch cholecalcif 2021-0 Yes Take by [facility], 7-28 mouth. ity of vitamin D3, 07:59: [place] (VITAMIN D3 55 Medical ORAL) Branch cholecalcif 0 Yes Take by [facility], 7-28 mouth. ity of vitamin D3, 07:59: [place] (VITAMIN D3 55 Medical ORAL) Branch cholecalcif 0 Yes Take by [facility], 7-28 mouth. ity of vitamin D3, 07:59: [place] (VITAMIN D3 55 Medical ORAL) Branch cholecalcif 0 Yes Take by [facility], 7-28 mouth. ity of vitamin D3, 07:59: [place] (VITAMIN D3 55 Medical ORAL) Branch cholecalcif 0 Yes Take by [facility], 7-28 mouth. ity of vitamin D3, 07:59: [place] (VITAMIN D3 55 Medical ORAL) Branch cholecalcif 0 Yes Take by [facility], 7-28 mouth. ity of vitamin D3, 07:59: [place] (VITAMIN D3 55 Medical ORAL) Branch cholecalcif 0 Yes Take by [facility], 7-28 mouth. ity of vitamin D3, 07:59: [place] (VITAMIN D3 55 Medical ORAL) Branch gabapentin 2021-0 2022- No 300mg Q.5D Take 1 [facility] (NEURONTIN) 09-[address] 300 mg 00:00: 04:59 (300 mg [facility] capsule 00 :00 total) by l mouth 2 (two) times a day for 90 days. gabapentin 2021-0 2022- No 300mg Q.5D Take 1 [facility] (NEURONTIN) 09-01- capsule st 300 mg 00:00: 04:59 (300 mg [facility] capsule 00 :00 total) by l mouth 2 (two) times a day for 90 days. gabapentin 2-0 2022- No 300mg Q.5D Take 1 [facility] (NEURONTIN) -02 12- capsule st 300 mg 00:00: 04:59 (300 mg [facility] capsule 00 :00 total) by l mouth 2 (two) times a day for 90 days. gabapentin 2022-0 2022- No TAKE 1 [facility] (NEURONTIN) 08-[address] 300 mg 00:00: 00:00 TWICE [facility] capsule 00 :00 DAILY l gabapentin 2021- No TAKE 1 [facility] (NEURONTIN) 08-[address] 300 mg 00:00: 00:00 TWICE [facility] capsule 00 :00 DAILY l pantoprazol 2021- No 50mg QD Take 50 mg [facility] 08-[address] (PROTONIX) 09:53: 00:00 daily. [facility] 40 MG EC 30 :00 l tablet pantoprazol 2021- No 50mg QD Take 50 mg [facility] 08[facility] (PROTONIX) 09:53: 00:00 daily. [facility] 40 MG EC 30 :00 l tablet metOLazone 2021-0 Yes 5mg Take 5 mg [facility] 5 mg tablet 6-07 by mouth ity of 11:06: daily. [address] metOLazone 2021-0 Yes 5mg Take 5 mg [facility] 5 mg tablet 6-07 by mouth ity of 11:06: daily. [address] metOLazone 2021-0 Yes 5mg Take 5 mg [facility] 5 mg tablet 6-07 by mouth ity of 11:06: daily. [address] metOLazone 2021-0 Yes 5mg Take 5 mg [facility] 5 mg tablet 6-07 by mouth ity of 11:06: daily. [address] metOLazone 2021-0 Yes 5mg Take 5 mg [facility] 5 mg tablet 6-07 by mouth ity of 11:06: daily. [address] metOLazone 2021-0 Yes 5mg Take 5 mg [facility] 5 mg tablet 6-07 by mouth ity of 11:06: daily. [address] metOLazone 2021-0 Yes 5mg Take 5 mg [facility] 5 mg tablet 6-07 by mouth ity of 11:06: daily. [address] metOLazone 2021-0 Yes 5mg Take 5 mg [facility] 5 mg tablet 6-07 by mouth ity of 11:06: daily. [address] metOLazone 2021-0 Yes 5mg Take 5 mg [facility] 5 mg tablet 6-07 by mouth ity of 11:06: daily. [address] metOLazone 2021-0 Yes 5mg Take 5 mg [facility] 5 mg tablet 6-07 by mouth ity of 11:06: daily. [address] metOLazone 2021-0 Yes 5mg Take 5 mg [facility] 5 mg tablet 6-07 by mouth ity of 11:06: daily. [address] metOLazone 2021-0 Yes 5mg Take 5 mg [facility] 5 mg tablet 6-07 by mouth ity of 11:06: daily. [address] metOLazone 2021-0 Yes 5mg Take 5 mg [facility] 5 mg tablet 6-07 by mouth ity of 11:06: daily. [address] metOLazone 2021-0 Yes 5mg Take 5 mg [facility] 5 mg tablet 6-07 by mouth ity of 11:06: daily. [address] metOLazone 2021-0 Yes 5mg Take 5 mg [facility] 5 mg tablet 6-07 by mouth ity of 11:06: daily. [address] metOLazone 2021-0 Yes 5mg Take 5 mg [facility] 5 mg tablet 6-07 by mouth ity of 11:06: daily. [address] metOLazone 2021-0 Yes 5mg Take 5 mg [facility] 5 mg tablet 6-07 by mouth ity of 11:06: daily. [address] metOLazone 2021-0 Yes 5mg Take 5 mg [facility] 5 mg tablet 6-07 by mouth ity of 11:06: daily. [address] metOLazone 2021-0 Yes 5mg Take 5 mg [facility] 5 mg tablet 6-07 by mouth ity of 11:06: daily. [address] metOLazone 2021-0 Yes 5mg Take 5 mg [facility] 5 mg tablet 6-07 by mouth ity of 11:06: daily. [address] metOLazone 2021-0 Yes 5mg Take 5 mg [facility] 5 mg tablet 6-07 by mouth ity of 11:06: daily. [address] metOLazone 2021-0 Yes 5mg Take 5 mg [facility] 5 mg tablet 6-07 by mouth ity of 11:06: daily. [address] metOLazone 2021-0 Yes 5mg Take 5 mg [facility] 5 mg tablet 6-07 by mouth ity of 11:06: daily. [address] metOLazone 2021-0 Yes 5mg Take 5 mg [facility] 5 mg tablet 6-07 by mouth ity of 11:06: daily. [address] metOLazone 2021-0 Yes 5mg Take 5 mg [facility] 5 mg tablet 6-07 by mouth ity of 11:06: daily. [address] metOLazone 2021-0 Yes 5mg Take 5 mg [facility] 5 mg tablet 6-07 by mouth ity of 11:06: daily. [address] metOLazone 2021-0 Yes 5mg Take 5 mg [facility] 5 mg tablet 6-07 by mouth ity of 11:06: daily. [address] metOLazone 2021-0 Yes 5mg Take 5 mg [facility] 5 mg tablet 6-07 by mouth ity of 11:06: daily. [address] metOLazone 2021-0 Yes 5mg Take 5 mg [facility] 5 mg tablet 6-07 by mouth ity of 11:06: daily. [address] metOLazone 2021-0 Yes 5mg Take 5 mg [facility] 5 mg tablet 6-07 by mouth ity of 11:06: daily. [address] metOLazone 2021-0 Yes 5mg Take 5 mg [facility] 5 mg tablet 6-07 by mouth ity of 11:06: daily. [address] metOLazone 2021-0 Yes 5mg Take 5 mg [facility] 5 mg tablet 6-07 by mouth ity of 11:06: daily. [address] metOLazone 2021-0 Yes 5mg Take 5 mg [facility] 5 mg tablet 6-07 by mouth ity of 11:06: daily. [address] metOLazone 2021-0 Yes 5mg Take 5 mg [facility] 5 mg tablet 6-07 by mouth ity of 11:06: daily. [address] metOLazone 2-0 Yes 5mg Take 5 mg [facility] 5 mg tablet 6-07 by mouth ity of 11:06: daily. [address] metOLazone 2021-0 Yes 5mg Take 5 mg [facility] 5 mg tablet 6-07 by mouth ity of 11:06: daily. [address] metOLazone 2021-0 Yes 5mg Take 5 mg [facility] 5 mg tablet 6-07 by mouth ity of 11:06: daily. [address] metOLazone 2021-0 Yes 5mg Take 5 mg [facility] 5 mg tablet 6-07 by mouth ity of 11:06: daily. [address] metOLazone 2021-0 Yes 5mg Take 5 mg [facility] 5 mg tablet 6-07 by mouth ity of 11:06: daily. [address] metOLazone 2021-0 Yes 5mg Take 5 mg [facility] 5 mg tablet 6-07 by mouth ity of 11:06: daily. [address] metOLazone 2021-0 Yes 5mg Take 5 mg [facility] 5 mg tablet 6-07 by mouth ity of 11:06: daily. [address] metOLazone 2021-0 Yes 5mg Take 5 mg [facility] 5 mg tablet 6-07 by mouth ity of 11:06: daily. [address] metOLazone 2021-0 Yes 5mg Take 5 mg [facility] 5 mg tablet 6-07 by mouth ity of 11:06: daily. [address] metOLazone 2021-0 Yes 5mg Take 5 mg [facility] 5 mg tablet 6-07 by mouth ity of 11:06: daily. [address] metOLazone 2021-0 Yes 5mg Take 5 mg [facility] 5 mg tablet 6-07 by mouth ity of 11:06: daily. [address] metOLazone 2021-0 Yes 5mg Take 5 mg [facility] 5 mg tablet 6-07 by mouth ity of 11:06: daily. [address] metOLazone 2021-0 Yes 5mg Take 5 mg [facility] 5 mg tablet 6-07 by mouth ity of 11:06: daily. [address] pantoprazol 2021-0 202- No 40mg QD Take 1 [facility] e -07 09-06 tablet (40 st (Protonix) 00:00: 04:59 mg total) [facility] 40 MG EC 00 :00 by mouth l tablet daily for 90 days. pantoprazol 2021-0 2021- No 40mg QD Take 1 [facility] e 08-09 tablet (40 st (Protonix) 00:00: 04:59 mg total) [facility] 40 MG EC 00 :00 by mouth l tablet daily for 90 days. pantoprazol 2-0 Yes 40mg Take 40 mg [facility] 40 mg EC 5-24 by mouth ity o f tablet 09:14: daily. [address] Branch VITAMIN B 2021-0 Yes 1{tbl} Take 1 [facility] ers COMPLEX 5-24 tablet by ity of ORAL 09:14: mouth [place] 14 daily. Medical Branch pantoprazol 2021-0 Yes 40mg Take 40 mg [facility] 40 mg EC 5-24 by mouth ity o f tablet 09:14: daily. [address] VITAMIN B 2021-0 Yes 1{tbl} Take 1 [facility] COMPLEX 5-24 tablet by ity of ORAL 09:14: mouth [place] 14 daily. Medical Branch pantoprazol 2021-0 Yes 40mg Take 40 mg [facility] 40 mg EC 5-24 by mouth ity o f tablet 09:14: daily. [address] Branch VITAMIN B 2021-0 Yes 1{tbl} Take 1 [facility] COMPLEX 5-24 tablet by ity of ORAL 09:14: mouth [place] 14 daily. Medical Branch pantoprazol 2021-0 Yes 40mg Take 40 mg [facility] 40 mg EC 5-24 by mouth ity o f tablet 09:14: daily. [address] Branch VITAMIN B 2021-0 Yes 1{tbl} Take 1 [facility] COMPLEX 5-24 tablet by ity of ORAL 09:14: mouth [place] 14 daily. Medical Branch pantoprazol 2021-0 Yes 40mg Take 40 mg [facility] 40 mg EC 5-24 by mouth ity o f tablet 09:14: daily. [address] Branch VITAMIN B 2021-0 Yes 1{tbl} Take 1 [facility] COMPLEX 5-24 tablet by ity of ORAL 09:14: mouth [place] 14 daily. Medical Branch pantoprazol 2021-0 Yes 40mg Take 40 mg [facility] 40 mg EC 5-24 by mouth ity o f tablet 09:14: daily. 14 [facility] VITAMIN B 2-0 Yes 1{tbl} Take 1 [facility] COMPLEX 5-24 tablet by ity of ORAL 09:14: mouth [place] 14 daily. Medical Branch pantoprazol 2-0 Yes 40mg Take 40 mg [facility] 40 mg EC 5-24 by mouth ity o f tablet 09:14: daily. 14 [facility] VITAMIN B 2021-0 Yes 1{tbl} Take 1 [facility] COMPLEX 5-24 tablet by ity of ORAL 09:14: mouth [place] 14 daily. [facility] Branch pantoprazol 2-0 Yes 40mg Take 40 mg [facility] 40 mg EC 5-24 by mouth ity o f tablet 09:14: daily. 14 [facility] VITAMIN B 2021-0 Yes 1{tbl} Take 1 [facility] COMPLEX 5-24 tablet by ity of ORAL 09:14: mouth [place] 14 daily. Medical Branch pantoprazol 2-0 Yes 40mg Take 40 mg [facility] 40 mg EC 5-24 by mouth ity o f tablet 09:14: daily. [facility] Branch furosemide 2-0 Yes 40mg Take 40 mg [facility] 40 mg 5-24 by mouth 2 ity of tablet 09:14: (two) [place] 14 times Medical daily. Branch VITAMIN B 2021-0 Yes 1{tbl} Take 1 [facility] COMPLEX 5-24 tablet by ity of ORAL 09:14: mouth [place] 14 daily. Medical Branch pantoprazol 2-0 Yes 40mg Take 40 mg [facility] 40 mg EC 5-24 by mouth ity o f tablet 09:14: daily. 14 [facility] Branch furosemide 2-0 Yes 40mg Take 40 mg [facility] 40 mg 5-24 by mouth 2 ity of tablet 09:14: (two) [place] 14 times Medical daily. Branch VITAMIN B 2021-0 Yes 1{tbl} Take 1 [facility] COMPLEX 5-24 tablet by ity of ORAL 09:14: mouth [place] 14 daily. Medical Branch pantoprazol 2-0 Yes 40mg Take 40 mg [facility] 40 mg EC 5-24 by mouth ity o f tablet 09:14: daily. 14 [facility] Branch furosemide 2-0 Yes 40mg Take 40 mg [facility] 40 mg 5-24 by mouth 2 ity of tablet 09:14: (two) [place] 14 times Medical daily. Branch VITAMIN B 2-0 Yes 1{tbl} Take 1 [facility] COMPLEX 5-24 tablet by ity of ORAL 09:14: mouth [place] 14 daily. Medical Branch pantoprazol 2-0 Yes 40mg Take 40 mg [facility] 40 mg EC 5-24 by mouth ity o f tablet 09:14: daily. 14 [facility] Branch furosemide 2-0 Yes 40mg Take 40 mg [facility] 40 mg 5-24 by mouth 2 ity of tablet 09:14: (two) [place] 14 times Medical daily. Branch VITAMIN B 2-0 Yes 1{tbl} Take 1 [facility] COMPLEX 5-24 tablet by ity of ORAL 09:14: mouth [place] 14 daily. Medical Branch pantoprazol 2-0 Yes 40mg Take 40 mg [facility] 40 mg EC 5-24 by mouth ity o f tablet 09:14: daily. 14 [facility] Branch furosemide 2-0 Yes 40mg Take 40 mg [facility] 40 mg 5-24 by mouth 2 ity of tablet 09:14: (two) [place] 14 times Medical daily. Branch VITAMIN B 2-0 Yes 1{tbl} Take 1 [facility] COMPLEX 5-24 tablet by ity of ORAL 09:14: mouth [place] 14 daily. Medical Branch pantoprazol 2-0 Yes 40mg Take 40 mg [facility] 40 mg EC 5-24 by mouth ity o f tablet 09:14: daily. 14 [facility] Branch furosemide 2-0 Yes 40mg Take 40 mg [facility] 40 mg 5-24 by mouth 2 ity of tablet 09:14: (two) [place] 14 times Medical daily. Branch VITAMIN B 2-0 Yes 1{tbl} Take 1 [facility] COMPLEX 5-24 tablet by ity of ORAL 09:14: mouth [place] 14 daily. Medical Branch pantoprazol 2-0 Yes 40mg Take 40 mg [facility] 40 mg EC 5-24 by mouth ity o f tablet 09:14: daily. 14 [facility] Branch furosemide 2-0 Yes 40mg Take 40 mg [facility] 40 mg 5-24 by mouth 2 ity of tablet 09:14: (two) [place] 14 times Medical daily. Branch VITAMIN B 2-0 Yes 1{tbl} Take 1 [facility] COMPLEX 5-24 tablet by ity of ORAL 09:14: mouth [place] 14 daily. Medical Branch pantoprazol 2-0 Yes 40mg Take 40 mg [facility] 40 mg EC 5-24 by mouth ity o f tablet 09:14: daily. [place] 14 Medical Branch furosemide 2-0 Yes 40mg Take 40 mg [facility] 40 mg 5-24 by mouth 2 ity of tablet 09:14: (two) [place] 14 times Medical daily. Branch VITAMIN B 2-0 Yes 1{tbl} Take 1 [facility] COMPLEX 5-24 tablet by ity of ORAL 09:14: mouth [place] 14 daily. Medical Branch pantoprazol 2-0 Yes 40mg Take 40 mg [facility] 40 mg EC 5-24 by mouth ity o f tablet 09:14: daily. [place] 14 Medical Branch furosemide 2-0 Yes 40mg Take 40 mg [facility] 40 mg 5-24 by mouth 2 ity of tablet 09:14: (two) [place] 14 times Medical daily. Branch VITAMIN B 2-0 Yes 1{tbl} Take 1 [facility] COMPLEX 5-24 tablet by ity of ORAL 09:14: mouth [place] 14 daily. Medical Branch pantoprazol 2-0 Yes 40mg Take 40 mg [facility] 40 mg EC 5-24 by mouth ity o f tablet 09:14: daily. [place] 14 Medical Branch furosemide 2-0 Yes 40mg Take 40 mg [facility] 40 mg 5-24 by mouth 2 ity of tablet 09:14: (two) [place] 14 times Medical daily. Branch VITAMIN B 2-0 Yes 1{tbl} Take 1 [facility] COMPLEX 5-24 tablet by ity of ORAL 09:14: mouth [place] 14 daily. Medical Branch pantoprazol 2-0 Yes 40mg Take 40 mg [facility] 40 mg EC 5-24 by mouth ity o f tablet 09:14: daily. [place] 14 Medical Branch furosemide 2-0 Yes 40mg Take 40 mg [facility] 40 mg 5-24 by mouth 2 ity of tablet 09:14: (two) [place] 14 times Medical daily. Branch VITAMIN B 2-0 Yes 1{tbl} Take 1 [facility] COMPLEX 5-24 tablet by ity of ORAL 09:14: mouth [place] 14 daily. Medical Branch pantoprazol 2022-0 Yes 40mg Take 40 mg [facility] 40 mg EC 5-24 by mouth ity o f tablet 09:14: daily. [place] 14 Medical Branch furosemide 2022-0 Yes 40mg Take 40 mg U nivers 40 mg 5-24 by mouth 2 ity of tablet 09:14: (two) [place] 14 times Medical daily. Branch VITAMIN B 2021-0 Yes 1{tbl} Take 1 [facility] COMPLEX 5-24 tablet by ity of ORAL 09:14: mouth [place] 14 daily. Medical Branch pantoprazol 2021-0 Yes 40mg Take 40 mg [facility] 40 mg EC 5-24 by mouth ity o f tablet 09:14: daily. 14 [facility] Branch VITAMIN B 2021-0 Yes 1{tbl} Take 1 [facility] COMPLEX 5-24 tablet by ity of ORAL 09:14: mouth [place] 14 daily. Medical Branch pantoprazol 2021-0 Yes 40mg Take 40 mg [facility] e 40 mg EC 5-24 by mouth ity o f tablet 09:14: daily. 14 [facility] VITAMIN B 2021-0 Yes 1{tbl} Take 1 [facility] COMPLEX 5-24 tablet by ity of ORAL 09:14: mouth [place] 14 daily. Medical Branch pantoprazol 2021-0 Yes 40mg Take 40 mg [facility] e 40 mg EC 5-24 by mouth ity o f tablet 09:14: daily. 14 [facility] VITAMIN B 2021-0 Yes 1{tbl} Take 1 [facility] COMPLEX 5-24 tablet by ity of ORAL 09:14: mouth [place] 14 daily. Medical Branch pantoprazol 2021-0 Yes 40mg Take 40 mg [facility] e 40 mg EC 5-24 by mouth ity o f tablet 09:14: daily. 14 Medical Branch VITAMIN B 2021-0 Yes 1{tbl} Take 1 [facility] COMPLEX 5-24 tablet by ity of ORAL 09:14: mouth [place] 14 daily. Medical Branch pantoprazol 2021-0 Yes 40mg Take 40 mg [facility] e 40 mg EC 5-24 by mouth ity o f tablet 09:14: daily. 14 Medical Branch VITAMIN B 2021-0 Yes 1{tbl} Take 1 [facility] COMPLEX 5-24 tablet by ity of ORAL 09:14: mouth [place] 14 daily. Medical Branch pantoprazol 2021-0 Yes 40mg Take 40 mg [facility] e 40 mg EC 5-24 by mouth ity o f tablet 09:14: daily. 14 Medical Branch VITAMIN B 2021-0 Yes 1{tbl} Take 1 [facility] COMPLEX 5-24 tablet by ity of ORAL 09:14: mouth [place] 14 daily. Medical Branch pantoprazol 2021-0 Yes 40mg Take 40 mg [facility] e 40 mg EC 5-24 by mouth ity o f tablet 09:14: daily. 14 [facility] Branch VITAMIN B 2021-0 Yes 1{tbl} Take 1 Univ ers COMPLEX 5-24 tablet by ity of ORAL 09:14: mouth [place] 14 daily. Medical Branch pantoprazol 2021-0 Yes 40mg Take 40 mg [facility] e 40 mg EC 5-24 by mouth ity o f tablet 09:14: daily. 14 Medical Branch VITAMIN B 2021-0 Yes 1{tbl} Take 1 [facility] ers COMPLEX 5-24 tablet by ity of ORAL 09:14: mouth [place] 14 daily. Medical Branch pantoprazol 2021-0 Yes 40mg Take 40 mg [facility] e 40 mg EC 5-24 by mouth ity o f tablet 09:14: daily. [facility] VITAMIN B 2021-0 Yes 1{tbl} Take 1 Univ ers COMPLEX 5-24 tablet by ity of ORAL 09:14: mouth [place] 14 daily. Medical Branch pantoprazol 2021-0 Yes 40mg Take 40 mg [facility] e 40 mg EC 5-24 by mouth ity o f tablet 09:14: daily. 14 [facility] Branch VITAMIN B 2021-0 Yes 1{tbl} Take 1 [facility] ers COMPLEX 5-24 tablet by ity of ORAL 09:14: mouth [place] 14 daily. Medical Branch pantoprazol 2021-0 Yes 40mg Take 40 mg [facility] e 40 mg EC 5-24 by mouth ity o f tablet 09:14: daily. 14 Medical Branch VITAMIN B 2021-0 Yes 1{tbl} Take 1 [facility] ers COMPLEX 5-24 tablet by ity of ORAL 09:14: mouth [place] 14 daily. Medical Branch pantoprazol 2021-0 Yes 40mg Take 40 mg [facility] e 40 mg EC 5-24 by mouth ity o f tablet 09:14: daily. 14 [facility] VITAMIN B 2021-0 Yes 1{tbl} Take 1 Univ ers COMPLEX 5-24 tablet by ity of ORAL 09:14: mouth [place] 14 daily. Medical Branch pantoprazol 2021-0 Yes 40mg Take 40 mg [facility] e 40 mg EC 5-24 by mouth ity o f tablet 09:14: daily. 14 [facility] VITAMIN B 2021-0 Yes 1{tbl} Take 1 [facility] ers COMPLEX 5-24 tablet by ity of ORAL 09:14: mouth [place] 14 daily. Medical Branch pantoprazol 2021-0 Yes 40mg Take 40 mg [facility] e 40 mg EC 5-24 by mouth ity o f tablet 09:14: daily. 14 [facility] VITAMIN B 2021-0 Yes 1{tbl} Take 1 Univ ers COMPLEX 5-24 tablet by ity of ORAL 09:14: mouth [place] 14 daily. Medical Branch pantoprazol 2021-0 Yes 40mg Take 40 mg [facility] e 40 mg EC 5-24 by mouth ity o f tablet 09:14: daily. 14 [facility] VITAMIN B 2021-0 Yes 1{tbl} Take 1 Univ ers COMPLEX 5-24 tablet by ity of ORAL 09:14: mouth [place] 14 daily. Medical Branch pantoprazol 2021-0 Yes 40mg Take 40 mg [facility] e 40 mg EC 5-24 by mouth ity o f tablet 09:14: daily. [address] VITAMIN B 2021-0 Yes 1{tbl} Take 1 Univ ers COMPLEX 5-24 tablet by ity of ORAL 09:14: mouth [place] 14 daily. [facility] Branch pantoprazol 2021-0 Yes 40mg Take 40 mg Univers e 40 mg EC 5-24 by mouth ity o f tablet 09:14: daily. [address] [place] [address] VITAMIN B 2021-0 Yes 1{tbl} Take 1 Univ ers COMPLEX 5-24 tablet by ity of ORAL 09:14: mouth [place] 14 daily. Medical Branch pantoprazol 2021-0 Yes 40mg Take 40 mg [facility] e 40 mg EC 5-24 by mouth ity o f tablet 09:14: daily. 14 [facility] VITAMIN B 2021-0 Yes 1{tbl} Take 1 Univ ers COMPLEX 5-24 tablet by ity of ORAL 09:14: mouth [place] 14 daily. [facility] Branch pantoprazol 2021-0 Yes 40mg Take 40 mg Univers e 40 mg EC 5-24 by mouth ity o f tablet 09:14: daily. [address] [place] [address] VITAMIN B 2021-0 Yes 1{tbl} Take 1 Univ ers COMPLEX 5-24 tablet by ity of ORAL 09:14: mouth [place] 14 daily. [facility] pantoprazol 2021-0 Yes 40mg Take 40 mg [facility] e 40 mg EC 5-24 by mouth ity o f tablet 09:14: daily. 14 Medical Branch VITAMIN B 2021-0 Yes 1{tbl} Take 1 [facility] ers COMPLEX 5-24 tablet by ity of ORAL 09:14: mouth [place] 14 daily. Medical Branch pantoprazol 2021-0 Yes 40mg Take 40 mg [facility] e 40 mg EC 5-24 by mouth ity o f tablet 09:14: daily. 14 Medical Branch VITAMIN B 2021-0 Yes 1{tbl} Take 1 [facility] ers COMPLEX 5-24 tablet by ity of ORAL 09:14: mouth [place] 14 daily. Medical Branch pantoprazol 2021-0 Yes 40mg Take 40 mg [facility] e 40 mg EC 5-24 by mouth ity o f tablet 09:14: daily. Medical Branch VITAMIN B 2021-0 Yes 1{tbl} Take 1 [facility] ers COMPLEX 5-24 tablet by ity of ORAL 09:14: mouth [place] 14 daily. Medical Branch pantoprazol 2021-0 Yes 40mg Take 40 mg [facility] e 40 mg EC 5-24 by mouth ity o f tablet 09:14: daily. [place] 14 Medical Branch VITAMIN B 2021-0 Yes 1{tbl} Take 1 [facility] ers COMPLEX 5-24 tablet by ity of ORAL 09:14: mouth [place] 14 daily. Medical Branch pantoprazol 2021-0 Yes 40mg Take 40 mg [facility] e 40 mg EC 5-24 by mouth ity o f tablet 09:14: daily. Medical Branch VITAMIN B 2021-0 Yes 1{tbl} Take 1 [facility] ers COMPLEX 5-24 tablet by ity of ORAL 09:14: mouth [place] 14 daily. Medical Branch pantoprazol 2021-0 Yes 40mg Take 40 mg [facility] e 40 mg EC 5-24 by mouth ity o f tablet 09:14: daily. 14 Medical Branch VITAMIN B 2021-0 Yes 1{tbl} Take 1 [facility] ers COMPLEX 5-24 tablet by ity of ORAL 09:14: mouth [place] 14 daily. Medical Branch pantoprazol 2021-0 Yes 40mg Take 40 mg [facility] e 40 mg EC 5-24 by mouth ity o f tablet 09:14: daily. Medical Branch VITAMIN B 2021-0 Yes 1{tbl} Take 1 [facility] ers COMPLEX 5-24 tablet by ity of ORAL 09:14: mouth [place] 14 daily. Medical Branch pantoprazol 2021-0 Yes 40mg Take 40 mg [facility] e 40 mg EC 5-24 by mouth ity o f tablet 09:14: daily. [place] 14 Medical Branch VITAMIN B 2021-0 Yes 1{tbl} Take 1 Univ ers COMPLEX 5-24 tablet by ity of ORAL 09:14: mouth [place] 14 daily. Medical Branch magnesium 2021-0 Yes 400mg Take 400 Uni vers oxide 400 5-24 mg by ity of mg 09:07: mouth [place] magnesium 09 daily. Medical Tab Branch magnesium 2021-0 Yes 400mg Take 400 Uni vers oxide 400 5-24 mg by ity of mg 09:07: mouth [place] magnesium 09 daily. Medical Tab Branch magnesium 2021-0 Yes 400mg Take 400 Uni vers oxide 400 5-24 mg by ity of mg 09:07: mouth [place] magnesium 09 daily. Medical Tab Branch magnesium 2021-0 Yes 400mg Take 400 Uni vers oxide 400 5-24 mg by ity of mg 09:07: mouth [place] magnesium 09 daily. Medical Tab Branch iron 2021-0 2021- No Take by Methodi bis-gly/FA/ 5-23 05-[address] C/B12/Ca/puente 10:47: 00:00 Hospi ta cc 09 :00 l (IRON-150 ORAL) iron 2021-0 2021- No Take by Methodi bis-gly/FA/ 5-23 05-[address] C/B12/Ca/puente 10:47: 00:00 Hospi ta cc 09 :00 l (IRON-150 ORAL) ELIQUIS 5 2021-0 Yes 5mg Take 5 mg Uni vers mg tablet 5-16 by mouth 2 ity of 00:00: (two) [place] 00 times Medical daily. Branch ELIQUIS 5 2021-0 Yes 5mg Take 5 mg [facility] mg tablet 5-16 by mouth 2 ity of 00:00: (two) [place] 00 times Medical daily. Branch ELIQUIS 5 2021-0 Yes 5mg Take 5 mg Uni vers mg tablet 5-16 by mouth 2 ity of 00:00: (two) [place] 00 times Medical daily. Branch ELIQUIS 5 2021-0 Yes 5mg Take 5 mg [facility] vers mg tablet 5-16 by mouth 2 ity of 00:00: (two) [place] 00 times Medical daily. Branch BRAEDENQUIS 5 2-0 Yes 5mg Take 5 mg [facility] vers mg tablet 5-16 by mouth 2 ity of 00:00: (two) [place] 00 times Medical daily. Branch ELIQUIS 5 2-0 Yes 5mg Take 5 mg [facility] vers mg tablet 5-16 by mouth 2 ity of 00:00: (two) [place] 00 times Medical daily. Branch ELIQUIS 5 2-0 Yes 5mg Take 5 mg [facility] vers mg tablet 5-16 by mouth 2 ity of 00:00: (two) [place] 00 times Medical daily. Branch ELIQUIS 5 2-0 Yes 5mg Take 5 mg [facility] vers mg tablet 5-16 by mouth 2 ity of 00:00: (two) [place] 00 times Medical daily. Branch ELIQUIS 5 2-0 Yes 5mg Take 5 mg Uni vers mg tablet 5-16 by mouth 2 ity of 00:00: (two) [place] 00 times Medical daily. Branch ELIQUIS 5 2021-0 Yes 5mg Take 5 mg Uni vers mg tablet 5-16 by mouth 2 ity of 00:00: (two) [place] 00 times Medical daily. Branch ELIQUIS 5 2021-0 Yes 5mg Take 5 mg [facility] vers mg tablet 5-16 by mouth 2 ity of 00:00: (two) [place] 00 times Medical daily. Branch ELIQUIS 5 2-0 Yes 5mg Take 5 mg Uni vers mg tablet 5-16 by mouth 2 ity of 00:00: (two) [place] 00 times Medical daily. Branch ELIQUIS 5 2-0 Yes 5mg Take 5 mg Uni vers mg tablet 5-16 by mouth 2 ity of 00:00: (two) [place] 00 times Medical daily. Branch ELIQUIS 5 2-0 Yes 5mg Take 5 mg [facility] vers mg tablet 5-16 by mouth 2 ity of 00:00: (two) [place] 00 times Medical daily. Branch ELIQUIS 5 2-0 Yes 5mg Take 5 mg [facility] vers mg tablet 5-16 by mouth 2 ity of 00:00: (two) [place] 00 times Medical daily. Branch ELIQUIS 5 2-0 Yes 5mg Take 5 mg [facility] vers mg tablet 5-16 by mouth 2 ity of 00:00: (two) [place] 00 times Medical daily. Branch ELIQUIS 5 2-0 Yes 5mg Take 5 mg [facility] vers mg tablet 5-16 by mouth 2 ity of 00:00: (two) [place] 00 times Medical daily. Branch ELIQUIS 5 2-0 Yes 5mg Take 5 mg [facility] vers mg tablet 5-16 by mouth 2 ity of 00:00: (two) [place] 00 times Medical daily. Branch ELIQUIS 5 2-0 Yes 5mg Take 5 mg Uni vers mg tablet 5-16 by mouth 2 ity of 00:00: (two) [place] 00 times Medical daily. Branch ELIQUIS 5 2-0 Yes 5mg Take 5 mg Uni vers mg tablet 5-16 by mouth 2 ity of 00:00: (two) [place] 00 times Medical daily. Branch ELIQUIS 5 2-0 Yes 5mg Take 5 mg [facility] mg tablet 5-16 by mouth 2 ity of 00:00: (two) [place] 00 times Medical daily. Branch ELIQUIS 5 2-0 Yes 5mg Take 5 mg [facility] mg tablet 5-16 by mouth 2 ity of 00:00: (two) [place] 00 times Medical daily. Branch ELIQUIS 5 2-0 Yes 5mg Take 5 mg [facility] mg tablet 5-16 by mouth 2 ity of 00:00: (two) [place] 00 times Medical daily. Branch ELIQUIS 5 2-0 Yes 5mg Take 5 mg [facility] mg tablet 5-16 by mouth 2 ity of 00:00: (two) [place] 00 times Medical daily. Branch ELIQUIS 5 2-0 Yes 5mg Take 5 mg [facility] mg tablet 5-16 by mouth 2 ity of 00:00: (two) [place] 00 times Medical daily. Branch ELIQUIS 5 2-0 Yes 5mg Take 5 mg [facility] mg tablet 5-16 by mouth 2 ity of 00:00: (two) [place] 00 times Medical daily. Branch ELIQUIS 5 2-0 Yes 5mg Take 5 mg [facility] mg tablet 5-16 by mouth 2 ity of 00:00: (two) [place] 00 times Medical daily. Branch ELIQUIS 5 2-0 Yes 5mg Take 5 mg [facility] mg tablet 5-16 by mouth 2 ity of 00:00: (two) [place] 00 times Medical daily. Branch ELIQUIS 5 2022-0 Yes 5mg Take 5 mg [facility] mg tablet 5-16 by mouth 2 ity of 00:00: (two) [place] 00 times Medical daily. Branch ELIQUIS 5 2022-0 Yes 5mg Take 5 mg [facility] mg tablet 5-16 by mouth 2 ity of 00:00: (two) [place] 00 times Medical daily. Branch ELIQUIS 5 2022-0 Yes 5mg Take 5 mg [facility] mg tablet 5-16 by mouth 2 ity of 00:00: (two) [place] 00 times Medical daily. Branch ELIQUIS 5 2-0 Yes 5mg Take 5 mg [facility] mg tablet 5-16 by mouth 2 ity of 00:00: (two) [place] 00 times Medical daily. Branch ELIQUIS 5 2022-0 Yes 5mg Take 5 mg [facility] mg tablet 5-16 by mouth 2 ity of 00:00: (two) [place] 00 times Medical daily. Branch ELIQUIS 5 2-0 Yes 5mg Take 5 mg [facility] mg tablet 5-16 by mouth 2 ity of 00:00: (two) [place] 00 times Medical daily. Branch ELIQUIS 5 2-0 Yes 5mg Take 5 mg [facility] mg tablet 5-16 by mouth 2 ity of 00:00: (two) [place] 00 times Medical daily. Branch ELIQUIS 5 2-0 Yes 5mg Take 5 mg [facility] mg tablet 5-16 by mouth 2 ity of 00:00: (two) [place] 00 times Medical daily. Branch ELIQUIS 5 2-0 Yes 5mg Take 5 mg [facility] mg tablet 5-16 by mouth 2 ity of 00:00: (two) [place] 00 times Medical daily. Branch ELIQUIS 5 2022-0 Yes 5mg Take 5 mg [facility] mg tablet 5-16 by mouth 2 ity of 00:00: (two) [place] 00 times Medical daily. Branch ELIQUIS 5 2022-0 Yes 5mg Take 5 mg [facility] mg tablet 5-16 by mouth 2 ity of 00:00: (two) [place] 00 times Medical daily. Branch ELIQUIS 5 2022-0 Yes 5mg Take 5 mg [facility] mg tablet 5-16 by mouth 2 ity of 00:00: (two) [place] 00 times Medical daily. Branch ELIQUIS 5 2021-0 Yes 5mg Take 5 mg [facility] mg tablet 5-16 by mouth 2 ity of 00:00: (two) [place] 00 times Medical daily. Branch ELIQUIS 5 2021-0 Yes 5mg Take 5 mg [facility] mg tablet 5-16 by mouth 2 ity of 00:00: (two) [place] 00 times Medical daily. Branch ELIQUIS 5 2021-0 Yes 5mg Take 5 mg [facility] mg tablet 5-16 by mouth 2 ity of 00:00: (two) [place] 00 times Medical daily. Branch ELIQUIS 5 2021-0 Yes 5mg Take 5 mg [facility] mg tablet 5-16 by mouth 2 ity of 00:00: (two) [place] 00 times Medical daily. Branch ELIQUIS 5 2021-0 Yes 5mg Take 5 mg [facility] mg tablet 5-16 by mouth 2 ity of 00:00: (two) [place] 00 times Medical daily. Branch ELIQUIS 5 2021-0 Yes 5mg Take 5 mg [facility] mg tablet 5-16 by mouth 2 ity of 00:00: (two) [place] 00 times Medical daily. Branch ELIQUIS 5 2021-0 Yes 5mg Take 5 mg [facility] mg tablet 5-16 by mouth 2 ity of 00:00: (two) [place] 00 times Medical daily. Branch cholecalcif 2021- No 50mg QD Take 50 mg [facility], 07-[address] vitamin D3, 18:00: 00:00 daily. [facility] (VITAMIN D3 52 :00 l ORAL) cholecalcif 2021- No 50mg QD Take 50 mg [facility], 07-[address] vitamin D3, 18:00: 00:00 daily. [facility] (VITAMIN D3 52 :00 l ORAL) metoprolol 2022- No 25mg Take 25 mg [facility] succinate 07-15 by mouth 2 ity of XL 25 mg 24 00:00: 04:59 (two) [place] tablet 00 :00 times [facility] daily. [facility] pramipexole 2022- No Take by [facility] 1 mg tablet 07-15 mouth ity of 00:00: 04:59 daily. [place] 00 :00 Medical Branch metoprolol 2022- No 25mg Take 25 mg [facility] succinate 07-15-14 by mouth 2 ity of XL 25 mg 24 00:00: 04:59 (two) [place] tablet 00 :00 times [facility] daily. [facility] pramipexole 2022- No Take by [facility] 1 mg tablet 07-15- mouth ity of 00:00: 04:59 daily. [place] 00 :00 Medical Branch metoprolol 2022- No 25mg Take 25 mg [facility] succinate 07-15-14 by mouth 2 ity of XL 25 mg 24 00:00: 04:59 (two) [place] tablet 00 :00 times Medical daily. [facility] pramipexole 2022- No Take by [facility] 1 mg tablet 07-15- mouth ity of 00:00: 04:59 daily. [place] 00 :00 Medical Branch metoprolol 2022- No 25mg Take 25 mg [facility] succinate 07-15-14 by mouth 2 ity of XL 25 mg 24 00:00: 04:59 (two) [place] tablet 00 :00 times Medical daily. [facility] pramipexole 2022- No Take by [facility] 1 mg tablet 07-15- mouth ity of 00:00: 04:59 daily. [place] 00 :00 Medical Branch metoprolol 2022- No 25mg Take 25 mg [facility] succinate 07-15-14 by mouth 2 ity of XL 25 mg 24 00:00: 04:59 (two) [place] tablet 00 :00 times Medical daily. [facility] pramipexole 2022- No Take by [facility] 1 mg tablet 07-15-14 mouth ity of 00:00: 04:59 daily. [place] 00 :00 Medical Branch metoprolol 2022- No 25mg Take 25 mg [facility] succinate 07-15 05-14 by mouth 2 ity of XL 25 mg 24 00:00: 04:59 (two) [place] tablet 00 :00 times Medical daily. [facility] pramipexole 2022- No Take by [facility] 1 mg tablet 07-15-14 mouth ity of 00:00: 04:59 daily. [place] 00 :00 Medical Branch metoprolol 2022- No 25mg Take 25 mg [facility] succinate 07-15-14 by mouth 2 ity of XL 25 mg 24 00:00: 04:59 (two) [place] tablet 00 :00 times Medical daily. [facility] pramipexole 2022- No Take by [facility] 1 mg tablet 07-15 mouth ity of 00:00: 04:59 daily. [place] 00 :00 Medical Branch metoprolol 2022- No 25mg Take 25 mg [facility] succinate 07-15-14 by mouth 2 ity of XL 25 mg 24 00:00: 04:59 (two) [place] tablet 00 :00 times Medical daily. [facility] pramipexole 2022- No Take by [facility] 1 mg tablet 07-15 mouth ity of 00:00: 04:59 daily. [place] 00 :00 Medical Branch metoprolol 2022- No 25mg Take 25 mg [facility] succinate 07-15 by mouth 2 ity of XL 25 mg 24 00:00: 04:59 (two) [place] tablet 00 :00 times Medical daily. Branch pramipexole 2022- No Take by [facility] 1 mg tablet 07-15 mouth ity of 00:00: 04:59 daily. [place] 00 :00 Medical Branch metoprolol 2022- No 25mg Take 25 mg [facility] succinate 07-1514 by mouth 2 ity of XL 25 mg 24 00:00: 04:59 (two) [place] tablet 00 :00 times Medical daily. Branch pramipexole 2022- No Take by [facility] 1 mg tablet 07-1514 mouth ity of 00:00: 04:59 daily. [place] 00 :00 Medical Branch metoprolol 2022- No 25mg Take 25 mg [facility] succinate 07-15-14 by mouth 2 ity of XL 25 mg 24 00:00: 04:59 (two) [place] tablet 00 :00 times Medical daily. Branch pramipexole 2022-0 2023- No Take by [facility] 1 mg tablet 07-15-14 mouth ity of 00:00: 04:59 daily. [place] 00 :00 Medical Branch metoprolol 2022- No 25mg Take 25 mg [facility] succinate 5- 05-14 by mouth 2 ity of XL 25 mg 24 00:00: 04:59 (two) [place] tablet 00 :00 times Medical daily. Branch pramipexole 2022- No Take by [facility] 1 mg tablet 07-15-14 mouth ity of 00:00: 04:59 daily. [place] 00 :00 Medical Branch metoprolol 2022- No 25mg Take 25 mg [facility] succinate 07-15 05-14 by mouth 2 ity of XL 25 mg 24 00:00: 04:59 (two) [place] tablet 00 :00 times Medical daily. Branch pramipexole 2022- No Take by [facility] 1 mg tablet 07-15-14 mouth ity of 00:00: 04:59 daily. [place] 00 :00 Medical Branch metoprolol 2022- No 25mg Take 25 mg [facility] succinate 07-15 05-14 by mouth 2 ity of XL 25 mg 24 00:00: 04:59 (two) [place] tablet 00 :00 times Medical daily. Branch pramipexole 2022- No Take by [facility] 1 mg tablet 07-15-14 mouth ity of 00:00: 04:59 daily. [place] 00 :00 Medical Branch metoprolol 2022- No 25mg Take 25 mg [facility] succinate 07-15 05-14 by mouth 2 ity of XL 25 mg 24 00:00: 04:59 (two) [place] tablet 00 :00 times Medical daily. Branch pramipexole 2022- No Take by [facility] 1 mg tablet 07-15-14 mouth ity of 00:00: 04:59 daily. [place] 00 :00 Medical Branch metoprolol 2022- No 25mg Take 25 mg [facility] succinate 5 05-14 by mouth 2 ity of XL 25 mg 24 00:00: 04:59 (two) [place] tablet 00 :00 times Medical daily. Branch pramipexole 2022- No Take by [facility] 1 mg tablet 07-15-14 mouth ity of 00:00: 04:59 daily. [place] 00 :00 Medical Branch metoprolol 2022- No 25mg Take 25 mg [facility] succinate 07-15-14 by mouth 2 ity of XL 25 mg 24 00:00: 04:59 (two) [place] tablet 00 :00 times Medical daily. Branch pramipexole 2022- No Take by [facility] 1 mg tablet 07-15-14 mouth ity of 00:00: 04:59 daily. [place] 00 :00 Medical Branch metoprolol 2022- No 25mg Take 25 mg [facility] succinate 07-15-14 by mouth 2 ity of XL 25 mg 24 00:00: 04:59 (two) [place] tablet 00 :00 times Medical daily. Branch pramipexole 2022- No Take by [facility] 1 mg tablet 07-15-14 mouth ity of 00:00: 04:59 daily. [place] 00 :00 Medical Branch metoprolol 2022- No 25mg Take 25 mg [facility] succinate 07-15-14 by mouth 2 ity of XL 25 mg 24 00:00: 04:59 (two) [place] tablet 00 :00 times Medical daily. Branch pramipexole 2022- No Take by [facility] 1 mg tablet 07-15-14 mouth ity of 00:00: 04:59 daily. [place] 00 :00 Medical Branch metoprolol 2022- No 25mg Take 25 mg [facility] succinate 07-15-14 by mouth 2 ity of XL 25 mg 24 00:00: 04:59 (two) [place] tablet 00 :00 times Medical daily. Branch pramipexole 2022- No Take by [facility] 1 mg tablet 07-15-14 mouth ity of 00:00: 04:59 daily. [place] 00 :00 Medical Branch metoprolol 2022- No 25mg Take 25 mg [facility] succinate 07-15 05-14 by mouth 2 ity of XL 25 mg 24 00:00: 04:59 (two) [place] tablet 00 :00 times Medical daily. Branch pramipexole 2022- No Take by [facility] 1 mg tablet 07-15-14 mouth ity of 00:00: 04:59 daily. [place] 00 :00 Medical Branch metoprolol 2022- No 25mg Take 25 mg [facility] succinate 07-15 05-14 by mouth 2 ity of XL 25 mg 24 00:00: 04:59 (two) [place] tablet 00 :00 times Medical daily. Branch pramipexole 2022- No Take by [facility] 1 mg tablet 07-15-14 mouth ity of 00:00: 04:59 daily. [place] 00 :00 Medical Branch metoprolol 2022- No 25mg Take 25 mg [facility] succinate 07-15-14 by mouth 2 ity of XL 25 mg 24 00:00: 04:59 (two) [place] tablet 00 :00 times Medical daily. Branch pramipexole 2022- No Take by [facility] 1 mg tablet 07-15-14 mouth ity of 00:00: 04:59 daily. [place] 00 :00 Medical Branch metoprolol 2022- No 25mg Take 25 mg [facility] succinate 07-15-14 by mouth 2 ity of XL 25 mg 24 00:00: 04:59 (two) [place] tablet 00 :00 times Medical daily. Branch pramipexole 2022- No Take by [facility] 1 mg tablet 07-15-14 mouth ity of 00:00: 04:59 daily. [place] 00 :00 Medical Branch metoprolol 2022- No 25mg Take 25 mg [facility] succinate 07-15 05-14 by mouth 2 ity of XL 25 mg 24 00:00: 04:59 (two) [place] tablet 00 :00 times Medical daily. Branch pramipexole 2022- No Take by [facility] 1 mg tablet 07-15-14 mouth ity of 00:00: 04:59 daily. [place] 00 :00 Medical Branch metoprolol 2022- No 25mg Take 25 mg [facility] succinate 07-15 05-14 by mouth 2 ity of XL 25 mg 24 00:00: 04:59 (two) [place] tablet 00 :00 times Medical daily. Branch pramipexole 2022- No Take by [facility] 1 mg tablet 07-15-14 mouth ity of 00:00: 04:59 daily. [place] 00 :00 Medical Branch metoprolol 2021-2022- No 25mg Take 25 mg [facility] succinate 07-15-14 by mouth 2 ity of XL 25 mg 24 00:00: 04:59 (two) [place] tablet 00 :00 times Medical daily. Branch pramipexole 2022- No Take by [facility] 1 mg tablet 07-15- mouth ity of 00:00: 04:59 daily. [place] 00 :00 Medical Branch metoprolol 2021-2022- No 25mg Take 25 mg [facility] succinate 07-15-14 by mouth 2 ity of XL 25 mg 24 00:00: 04:59 (two) [place] tablet 00 :00 times Medical daily. Branch pramipexole 2022- No Take by [facility] 1 mg tablet 07-15 mouth ity of 00:00: 04:59 daily. [place] 00 :00 Medical Branch metoprolol 2022- No 25mg Take 25 mg [facility] succinate 07-1514 by mouth 2 ity of XL 25 mg 24 00:00: 04:59 (two) [place] tablet 00 :00 times Medical daily. Branch pramipexole 2022- No Take by [facility] 1 mg tablet 07-15-14 mouth ity of 00:00: 04:59 daily. [place] 00 :00 Medical Branch metoprolol 2022- No 25mg Take 25 mg [facility] succinate 07-15 05-14 by mouth 2 ity of XL 25 mg 24 00:00: 04:59 (two) [place] tablet 00 :00 times Medical daily. Branch pramipexole 2022- No Take by [facility] 1 mg tablet 07-15-14 mouth ity of 00:00: 04:59 daily. [place] 00 :00 Medical Branch metoprolol 2021-2022- No 25mg Take 25 mg [facility] succinate 07-15-14 by mouth 2 ity of XL 25 mg 24 00:00: 04:59 (two) [place] tablet 00 :00 times Medical daily. Branch pramipexole 2022- No Take by [facility] 1 mg tablet 07-15-14 mouth ity of 00:00: 04:59 daily. [place] 00 :00 Medical Branch metoprolol 2022- No 25mg Take 25 mg [facility] succinate 07-15 05-14 by mouth 2 ity of XL 25 mg 24 00:00: 04:59 (two) [place] tablet 00 :00 times Medical daily. Branch pramipexole 2022- No Take by [facility] 1 mg tablet 07-15- mouth ity of 00:00: 04:59 daily. [place] 00 :00 Medical Branch metoprolol 2022- No 25mg Take 25 mg [facility] succinate 07-15-14 by mouth 2 ity of XL 25 mg 24 00:00: 04:59 (two) [place] tablet 00 :00 times Medical daily. Branch pramipexole 2022- No Take by [facility] 1 mg tablet 07-15-14 mouth ity of 00:00: 04:59 daily. [place] 00 :00 Medical Branch metoprolol 2022- No 25mg Take 25 mg [facility] succinate 07-15-14 by mouth 2 ity of XL 25 mg 24 00:00: 04:59 (two) [place] tablet 00 :00 times Medical daily. Branch pramipexole 2022- No Take by [facility] 1 mg tablet 07-15-14 mouth ity of 00:00: 04:59 daily. [place] 00 :00 Medical Branch metoprolol 2022- No 25mg Take 25 mg [facility] succinate 07-15 05-14 by mouth 2 ity of XL 25 mg 24 00:00: 04:59 (two) [place] tablet 00 :00 times Medical daily. Branch pramipexole 2022- No Take by [facility] 1 mg tablet 07-15-14 mouth ity of 00:00: 04:59 daily. [place] 00 :00 Medical Branch metoprolol 2022- No 25mg Take 25 mg [facility] succinate 07-15 by mouth 2 ity of XL 25 mg 24 00:00: 04:59 (two) [place] tablet 00 :00 times Medical daily. Branch pramipexole 2022- No Take by [facility] 1 mg tablet 07-15 mouth ity of 00:00: 04:59 daily. [place] 00 :00 Medical Branch metoprolol 2022- No 25mg Take 25 mg [facility] succinate 07-15 by mouth 2 ity of XL 25 mg 24 00:00: 04:59 (two) [place] tablet 00 :00 times Medical daily. Branch pramipexole 2022- No Take by [facility] 1 mg tablet 07-15 mouth ity of 00:00: 04:59 daily. [place] 00 :00 Medical Branch metoprolol 2022- No 25mg Take 25 mg [facility] succinate 07-15 by mouth 2 ity of XL 25 mg 24 00:00: 04:59 (two) [place] tablet 00 :00 times Medical daily. [facility] pramipexole 2022- No Take by [facility] 1 mg tablet 07-15 mouth ity of 00:00: 04:59 daily. [place] 00 :00 Medical Branch metoprolol 2022- No 25mg Q.5D Take 1 Meth [facility] succinate 07-15 tablet (25 st XL 00:00: 04:59 mg total) [facility] (TOPROL-XL) 00 :00 by mouth 2 l 25 mg 24 hr (two) tablet times a day. pramipexole 2022- No .125mg QD Take 1 M [facility] (MIRAPEX) 07-15-[address] 0[address]125 MG 00:00: 04:59 (0.125 mg [facility] tablet 00 :00 total) by l mouth nightly. metoprolol 2022- No 25mg Q.5D Take 1 Meth tanmay succinate 07-15- tablet (25 st XL 00:00: 04:59 mg total) [facility] (TOPROL-XL) 00 :00 by mouth 2 l 25 mg 24 hr (two) tablet times a day. pramipexole 2021-0 2022- No .125mg QD Take 1 M [facility] (MIRAPEX) 07-[address] 0.125 MG 00:00: 04:59 (0.125 mg [facility] tablet 00 :00 total) by l mouth nightly. metoprolol 2021-0 2022- No 25mg Q.5D Take 1 Meth tanmay succinate 07-15 tablet (25 st XL 00:00: 04:59 mg total) [facility] (TOPROL-XL) 00 :00 by mouth 2 l 25 mg 24 hr (two) tablet times a day. pramipexole 2021-0 2022- No .125mg QD Take 1 M [facility] (MIRAPEX) 07-[address] 0.125 MG 00:00: 04:59 (0.125 mg [facility] tablet 00 :00 total) by l mouth nightly. apixaban 0 2021- No 5mg Q.5D Take 1 [facility] (ELIQUIS) 5 07-1512 tablet (5 st mg tablet 00:00: 04:59 mg total) [facility] 00 :00 by mouth 2 l (two) times a day for 90 days. apixaban 2021-0 2021- No 5mg Q.5D Take 1 [facility] (ELIQUIS) 5 07-1512 tablet (5 st mg tablet 00:00: 04:59 mg total) [facility] 00 :00 by mouth 2 l (two) times a day for 90 days. mineral 2021-2021- No QD Administer [facility] oil/petrola 07-[address] [facility] 00:00: 00:00 [facility] (artificial 00 :00 nightly as l tears) needed ointment (dryness) for up to 30 days. mineral 2021-0 2021- No QD Administer [facility] oil/petrola 07-[address] [facility],white 00:00: 00:00 [facility] (artificial 00 :00 nightly as l tears) needed ointment (dryness) for up to 30 days. gabapentin Yes 300mg Take 300 [facility] 300 mg 5-06 mg by ity of capsule 00:00: mouth (two) Medical times Branch daily. gabapentin 2022-0 Yes 300mg Take 300 [facility] 300 mg 5-06 mg by ity of capsule 00:00: mouth (two) Medical times Branch daily. gabapentin 2022-0 Yes 300mg Take 300 [facility] 300 mg 5-06 mg by ity of capsule 00:00: mouth (two) Medical times Branch daily. gabapentin 2022-0 Yes 300mg Take 300 [facility] 300 mg 5-06 mg by ity of capsule 00:00: mouth (two) Medical times Branch daily. gabapentin 2022-0 Yes 300mg Take 300 [facility] 300 mg 5-06 mg by ity of capsule 00:00: mouth (two) Medical times Branch daily. gabapentin 2022-0 Yes 300mg Take 300 [facility] 300 mg 5-06 mg by ity of capsule 00:00: mouth (two) Medical times Branch daily. gabapentin 2022-0 Yes 300mg Take 300 [facility] 300 mg 5-06 mg by ity of capsule 00:00: mouth (two) Medical times Branch daily. gabapentin 2022-0 Yes 300mg Take 300 [facility] 300 mg 5-06 mg by ity of capsule 00:00: mouth (two) Medical times Branch daily. gabapentin 2022-0 Yes 300mg Take 300 [facility] 300 mg 5-06 mg by ity of capsule 00:00: mouth (two) Medical times Branch daily. gabapentin 2022-0 Yes 300mg Take 300 [facility] 300 mg 5-06 mg by ity of capsule 00:00: mouth (two) Medical times Branch daily. gabapentin 2022-0 Yes 300mg Take 300 [facility] 300 mg 5-06 mg by ity of capsule 00:00: mouth (two) Medical times Branch daily. gabapentin 2022-0 Yes 300mg Take 300 [facility] 300 mg 5-06 mg by ity of capsule 00:00: mouth (two) Medical times Branch daily. gabapentin 2022-0 Yes 300mg Take 300 [facility] 300 mg 5-06 mg by ity of capsule 00:00: mouth (two) Medical times Branch daily. gabapentin 2022-0 Yes 300mg Take 300 [facility] 300 mg 5-06 mg by ity of capsule 00:00: mouth (two) Medical times Branch daily. gabapentin 2022-0 Yes 300mg Take 300 [facility] 300 mg 5-06 mg by ity of capsule 00:00: mouth (two) Medical times Branch daily. gabapentin 2022-0 Yes 300mg Take 300 [facility] 300 mg 5-06 mg by ity of capsule 00:00: mouth (two) Medical times Branch daily. gabapentin 2022-0 Yes 300mg Take 300 [facility] 300 mg 5-06 mg by ity of capsule 00:00: mouth (two) Medical times Branch daily. gabapentin 2022-0 Yes 300mg Take 300 [facility] 300 mg 5-06 mg by ity of capsule 00:00: mouth (two) Medical times Branch daily. gabapentin 2022-0 Yes 300mg Take 300 [facility] 300 mg 5-06 mg by ity of capsule 00:00: mouth (two) Medical times Branch daily. gabapentin 2022-0 Yes 300mg Take 300 [facility] 300 mg 5-06 mg by ity of capsule 00:00: mouth (two) Medical times Branch daily. gabapentin 2022-0 Yes 300mg Take 300 [facility] 300 mg 5-06 mg by ity of capsule 00:00: mouth (two) Medical times Branch daily. gabapentin 2022-0 Yes 300mg Take 300 [facility] 300 mg 5-06 mg by ity of capsule 00:00: mouth (two) Medical times Branch daily. gabapentin 2022-0 Yes 300mg Take 300 [facility] 300 mg 5-06 mg by ity of capsule 00:00: mouth (two) Medical times Branch daily. gabapentin 2022-0 Yes 300mg Take 300 [facility] 300 mg 5-06 mg by ity of capsule 00:00: mouth (two) Medical times Branch daily. gabapentin 2022-0 Yes 300mg Take 300 [facility] 300 mg 5-06 mg by ity of capsule 00:00: mouth (two) Medical times Branch daily. gabapentin 2022-0 Yes 300mg Take 300 [facility] 300 mg 5-06 mg by ity of capsule 00:00: mouth (two) Medical times Branch daily. gabapentin 2022-0 Yes 300mg Take 300 [facility] 300 mg 5-06 mg by ity of capsule 00:00: mouth (two) Medical times Branch daily. gabapentin 2022-0 Yes 300mg Take 300 [facility] 300 mg 5-06 mg by ity of capsule 00:00: mouth (two) Medical times Branch daily. gabapentin 2022-0 Yes 300mg Take 300 [facility] 300 mg 5-06 mg by ity of capsule 00:00: mouth (two) Medical times Branch daily. gabapentin 2022-0 Yes 300mg Take 300 [facility] 300 mg 5-06 mg by ity of capsule 00:00: mouth (two) Medical times Branch daily. gabapentin 2022-0 Yes 300mg Take 300 [facility] 300 mg 5-06 mg by ity of capsule 00:00: mouth (two) Medical times Branch daily. gabapentin 2022-0 Yes 300mg Take 300 [facility] 300 mg 5-06 mg by ity of capsule 00:00: mouth (two) Medical times Branch daily. gabapentin 2022-0 Yes 300mg Take 300 [facility] 300 mg 5-06 mg by ity of capsule 00:00: mouth (two) Medical times Branch daily. gabapentin 2022-0 Yes 300mg Take 300 [facility] 300 mg 5-06 mg by ity of capsule 00:00: mouth (two) Medical times Branch daily. gabapentin 2022-0 Yes 300mg Take 300 [facility] 300 mg 5-06 mg by ity of capsule 00:00: mouth (two) Medical times Branch daily. gabapentin 2022-0 Yes 300mg Take 300 [facility] 300 mg 5-06 mg by ity of capsule 00:00: mouth (two) Medical times Branch daily. gabapentin 2022-0 Yes 300mg Take 300 [facility] 300 mg 5-06 mg by ity of capsule 00:00: mouth (two) Medical times Branch daily. gabapentin 2022-0 Yes 300mg Take 300 [facility] 300 mg 5-06 mg by ity of capsule 00:00: mouth (two) Medical times Branch daily. gabapentin 2022-0 Yes 300mg Take 300 [facility] 300 mg 5-06 mg by ity of capsule 00:00: mouth [place] (two) Medical times Branch daily. gabapentin 2022-0 Yes 300mg Take 300 [facility] 300 mg 5-06 mg by ity of capsule 00:00: mouth [place] (two) Medical times Branch daily. gabapentin 2022-0 Yes 300mg Take 300 [facility] 300 mg 5-06 mg by ity of capsule 00:00: mouth [place] (two) Medical times Branch daily. gabapentin 2022-0 Yes 300mg Take 300 [facility] 300 mg 5-06 mg by ity of capsule 00:00: mouth [place] (two) Medical times Branch daily. gabapentin 2022-0 Yes 300mg Take 300 [facility] 300 mg 5-06 mg by ity of capsule 00:00: mouth [place] (two) Medical times Branch daily. gabapentin 2022-0 Yes 300mg Take 300 [facility] 300 mg 5-06 mg by ity of capsule 00:00: mouth [place] (two) Medical times Branch daily. gabapentin 2022-0 Yes 300mg Take 300 [facility] 300 mg 5-06 mg by ity of capsule 00:00: mouth [place] (two) Medical times Branch daily. gabapentin 2022-0 Yes 300mg Take 300 [facility] 300 mg 5-06 mg by ity of capsule 00:00: mouth [place] (two) Medical times Branch daily. gabapentin 2022-0 Yes 300mg Take 300 [facility] 300 mg 5-06 mg by ity of capsule 00:00: mouth [place] (two) Medical times Branch daily. POTASSIUM 2022-0 2021- No [facility] CARBONATE 06-10 st MISC 09:25: 00:00 [facility] 48 :00 l pantoprazol 2021-0 2021- No Take by Me bills e sodium 06-[address] (PANTOPRAZO 09:21: 00:00 [facility] ta LE ORAL) 40 :00 l metOLazone 2022-0 2- No 5mg QD Take 1 Meth [facility] (ZAROXOLYN) 05-25- tablet (5 st 5 MG tablet 00:00: 04:59 mg total) [facility] 00 :00 by mouth l every morning for 7 days. Take 1 hour before furosemide . metOLazone 2022-0 2022- No 5mg QD Take 1 [facility] (ZAROXOLYN) 05-25 tablet (5 st 5 MG tablet 00:00: 00:00 mg total) [facility] 00 :00 by mouth l every morning for 7 days. Take 1 hour before furosemide . potassium 2022-0 Yes 10meq Take 10 [facility] chloride 10 3-16 mEq by ity of mEq CR 00:00: mouth 2 [place] capsule 00 (two) Medical times Branch daily. potassium 2022-0 Yes 10meq Take 10 [facility] ers chloride 10 3-16 mEq by ity of mEq CR 00:00: mouth 2 [place] capsule 00 (two) Medical times Branch daily. potassium 2022-0 Yes 10meq Take 10 [facility] ers chloride 10 3-16 mEq by ity of mEq CR 00:00: mouth 2 [place] capsule 00 (two) Medical times Branch daily. potassium 2022-0 Yes 10meq Take 10 [facility] ers chloride 10 3-16 mEq by ity of mEq CR 00:00: mouth 2 [place] capsule 00 (two) Medical times Branch daily. potassium 2022-0 Yes 10meq Take 10 [facility] chloride 10 3-16 mEq by ity of mEq CR 00:00: mouth 2 [place] capsule 00 (two) Medical times Branch daily. potassium 2022-0 Yes 10meq Take 10 [facility] ers chloride 10 3-16 mEq by ity of mEq CR 00:00: mouth 2 [place] capsule 00 (two) Medical times Branch daily. potassium 2022-0 Yes 10meq Take 10 [facility] ers chloride 10 3-16 mEq by ity of mEq CR 00:00: mouth 2 [place] capsule 00 (two) Medical times Branch daily. potassium 2022-0 Yes 10meq Take 10 [facility] ers chloride 10 3-16 mEq by ity of mEq CR 00:00: mouth 2 [place] capsule 00 (two) Medical times Branch daily. potassium 2022-0 Yes 10meq Take 10 [facility] chloride 10 3-16 mEq by [facility] mEq CR 00:00: mouth 2 [place] capsule 00 (two) [facility] times Branch daily. potassium 2022-0 Yes 10meq Take 10 [facility] chloride 10 3-16 mEq by [facility] mEq CR 00:00: mouth 2 [place] capsule 00 (two) Medical times Branch daily. potassium 2022-0 Yes 10meq Take 10 [facility] chloride 10 3-16 mEq by [facility] mEq CR 00:00: mouth 2 [place] capsule 00 (two) Medical times Branch daily. potassium 2022-0 Yes 10meq Take 10 [facility] chloride 10 3-16 mEq by [facility] mEq CR 00:00: mouth 2 [place] capsule 00 (two) Medical times Branch daily. potassium 2022-0 Yes 10meq Take 10 [facility] chloride 10 3-16 mEq by [facility] mEq CR 00:00: mouth 2 [place] capsule 00 (two) Medical times Branch daily. potassium 2022-0 Yes 10meq Take 10 [facility] chloride 10 3-16 mEq by [facility] mEq CR 00:00: mouth 2 [place] capsule 00 (two) Medical times Branch daily. potassium 2022-0 Yes 10meq Take 10 [facility] chloride 10 3-16 mEq by [facility] mEq CR 00:00: mouth 2 [place] capsule 00 (two) Medical times Branch daily. potassium 2022-0 Yes 10meq Take 10 [facility] chloride 10 3-16 mEq by [facility] mEq CR 00:00: mouth 2 [place] capsule 00 (two) Medical times Branch daily. potassium 2022-0 Yes 10meq Take 10 [facility] chloride 10 3-16 mEq by [facility] mEq CR 00:00: mouth 2 [place] capsule 00 (two) Medical times Branch daily. potassium 2022-0 Yes 10meq Take 10 [facility] chloride 10 3-16 mEq by [facility] mEq CR 00:00: mouth 2 [place] capsule 00 (two) Medical times Branch daily. potassium 2022-0 Yes 10meq Take 10 [facility] chloride 10 3-16 mEq by [facility] mEq CR 00:00: mouth 2 [place] capsule 00 (two) Medical times Branch daily. potassium 2022-0 Yes 10meq Take 10 [facility] chloride 10 3-16 mEq by [facility] mEq CR 00:00: mouth 2 [place] capsule 00 (two) Medical times Branch daily. potassium 2022-0 Yes 10meq Take 10 [facility] chloride 10 3-16 mEq by [facility] mEq CR 00:00: mouth 2 [place] capsule 00 (two) Medical times Branch daily. potassium 2022-0 Yes 10meq Take 10 [facility] chloride 10 3-16 mEq by [facility] mEq CR 00:00: mouth 2 [place] capsule 00 (two) Medical times Branch daily. potassium 2022-0 Yes 10meq Take 10 [facility] chloride 10 3-16 mEq by [facility] mEq CR 00:00: mouth 2 [place] capsule 00 (two) Medical times Branch daily. potassium 2022-0 Yes 10meq Take 10 [facility] chloride 10 3-16 mEq by [facility] mEq CR 00:00: mouth 2 [place] capsule 00 (two) Medical times Branch daily. potassium 2022-0 Yes 10meq Take 10 [facility] chloride 10 3-16 mEq by [facility] mEq CR 00:00: mouth 2 [place] capsule 00 (two) Medical times Branch daily. potassium 2022-0 Yes 10meq Take 10 [facility] chloride 10 3-16 mEq by [facility] mEq CR 00:00: mouth 2 [place] capsule 00 (two) Medical times Branch daily. potassium 2022-0 Yes 10meq Take 10 [facility] chloride 10 3-16 mEq by [facility] mEq CR 00:00: mouth 2 [place] capsule 00 (two) Medical times Branch daily. potassium 2022-0 Yes 10meq Take 10 [facility] chloride 10 3-16 mEq by [facility] mEq CR 00:00: mouth 2 [place] capsule 00 (two) Medical times Branch daily. potassium 2022-0 Yes 10meq Take 10 [facility] chloride 10 3-16 mEq by [facility] mEq CR 00:00: mouth 2 [place] capsule 00 (two) Medical times Branch daily. potassium 2022-0 Yes 10meq Take 10 [facility] chloride 10 3-16 mEq by [facility] mEq CR 00:00: mouth 2 [place] capsule 00 (two) Medical times Branch daily. potassium 2022-0 Yes 10meq Take 10 [facility] chloride 10 3-16 mEq by [facility] mEq CR 00:00: mouth 2 [place] capsule 00 (two) Medical times Branch daily. potassium 2022-0 Yes 10meq Take 10 [facility] chloride 10 3-16 mEq by [facility] mEq CR 00:00: mouth 2 [place] capsule 00 (two) Medical times Branch daily. potassium 2022-0 Yes 10meq Take 10 [facility] chloride 10 3-16 mEq by [facility] mEq CR 00:00: mouth 2 [place] capsule 00 (two) Medical times Branch daily. potassium 2022-0 Yes 10meq Take 10 [facility] chloride 10 3-16 mEq by [facility] of mEq CR 00:00: mouth 2 [place] capsule 00 (two) Medical times Branch daily. potassium 2022-0 Yes 10meq Take 10 [facility] chloride 10 3-16 mEq by [facility] of mEq CR 00:00: mouth 2 [place] capsule 00 (two) Medical times Branch daily. potassium 2022-0 Yes 10meq Take 10 [facility] chloride 10 3-16 mEq by [facility] of mEq CR 00:00: mouth 2 [place] capsule 00 (two) Medical times Branch daily. potassium 2022-0 Yes 10meq Take 10 [facility] chloride 10 3-16 mEq by [facility] of mEq CR 00:00: mouth 2 [place] capsule 00 (two) Medical times Branch daily. potassium 2022-0 Yes 10meq Take 10 [facility] chloride 10 3-16 mEq by [facility] of mEq CR 00:00: mouth 2 [place] capsule 00 (two) Medical times Branch daily. potassium 2022-0 Yes 10meq Take 10 [facility] chloride 10 3-16 mEq by [facility] of mEq CR 00:00: mouth 2 [place] capsule 00 (two) Medical times Branch daily. potassium 2022-0 Yes 10meq Take 10 [facility] chloride 10 3-16 mEq by [facility] of mEq CR 00:00: mouth 2 [place] capsule 00 (two) Medical times Branch daily. potassium 2022-0 Yes 10meq Take 10 [facility] chloride 10 3-16 mEq by [facility] of mEq CR 00:00: mouth 2 [place] capsule 00 (two) Medical times Branch daily. potassium 2022-0 Yes 10meq Take 10 [facility] chloride 10 3-16 mEq by [facility] of mEq CR 00:00: mouth 2 [place] capsule 00 (two) Medical times Branch daily. potassium 2022-0 Yes 10meq Take 10 [facility] chloride 10 3-16 mEq by [facility] of mEq CR 00:00: mouth 2 [place] capsule 00 (two) Medical times Branch daily. potassium 2022-0 Yes 10meq Take 10 [facility] chloride 10 3-16 mEq by [facility] of mEq CR 00:00: mouth 2 [place] capsule 00 (two) Medical times Branch daily. potassium 2022-0 Yes 10meq Take 10 [facility] chloride 10 3-16 mEq by [facility] of mEq CR 00:00: mouth 2 [place] capsule 00 (two) Medical times Branch daily. potassium 2022-0 Yes 10meq Take 10 [facility] chloride 10 3-16 mEq by [facility] of mEq CR 00:00: mouth 2 [place] capsule 00 (two) Medical times Branch daily. potassium Yes 10meq Take 10 [facility] chloride 10 3-16 mEq by [facility] mEq CR 00:00: mouth 2 [place] capsule 00 (two) Medical times Branch daily. gabapentin 2021- No TAKE 1 Meth tanmay (NEURONTIN) 05-18-[address] 300 mg 00:00: 00:00 [facility] :00 DAILY l gabapentin 2021- No TAKE 1 Meth tanmay (NEURONTIN) 05-[address] 300 mg 00:00: 00:00 [facility]ICE [facility] 00 :00 DAILY l pramipexole 2021- No 2mg QD Take 2 [facility] (MIRAPEX) 1 05-05-13 tablets (2 s t MG tablet 00:00: 00:00 mg total) [facility] 00 :00 by mouth l nightly. For restless leg syndrome amIODarone 2021- No 200mg Q.5D Take 1 [facility] (PACERONE) 05-[address] 200 MG 00:00: 00:00 (200 mg [facility] tablet 00 :00 total) by l mouth every 12 (twelve) hours for 60 days. metoprolol 2021- No 50mg Q.5D Take 1 Meth tanmay succinate 05-05 tablet (50 st XL 00:00: 00:00 mg total) [facility]osp[facility] (TOPROL-XL) 00 :00 by mouth 2 l 50 mg 24 hr (two) tablet times a day for 60 days. pramipexole 2021- No 2mg QD Take 2 [facility] (MIRAPEX) 1 05-05-13 tablets (2 s t MG tablet 00:00: 00:00 mg total) [facility] 00 :00 by mouth l nightly. For restless leg syndrome amIODarone 2021- No 200mg Q.5D Take 1 [facility] (PACERONE) 05-[address] 200 MG 00:00: 00:00 (200 mg [facility] tablet 00 :00 total) by l mouth every 12 (twelve) hours for 60 days. metoprolol 2021- No 50mg Q.5D Take 1 Meth tanmay succinate 05-05 tablet (50 st XL 00:00: 00:00 mg total) [facility] (TOPROL-XL) 00 :00 by mouth 2 l 50 mg 24 hr (two) tablet times a day for 60 days. levETIRAcet 2021- No 500mg Q.5D Take 1 [facility] (KEPPRA) 05-05-[address] 500 MG 00:00: 00:00 (500 mg [facility] tablet 00 :00 total) by l mouth 2 (two) times a day. levETIRAcet 2021- No 500mg Q.5D Take 1 [facility] (KEPPRA) 05-05-[address] 500 MG 00:00: 00:00 (500 mg [facility] tablet 00 :00 total) by l mouth 2 (two) times a day. dexamethaso No Take 2 [facility] ne 05-[address] (DECADRON) 00:00: 05:59 mouth this [facility] 2 MG tablet 00 :00 PM, then 2 l tablets 2X daily x2 days, then 2 tablets Daily x2 days, then 1 tablet Daily x2 days, then 0.5 tablets Daily x 2 [place] [id number] 1{tbl} Q4H Take 1 [facility]-codeine 05-[address] (TYLENOL 00:00: 05:59 mouth [facility] WITH 00 :00 every 4 l CODEINE #3) (four) 300-30 mg hours as per tablet needed for moderate pain for up to 7 days .acute pain. gabapentin 2020-03- No TAKE 1 Meth tanmay (NEURONTIN) 0-25 03-[address] 300 mg 00:00: 00:00 TWICE [facility] capsule 00 :00 DAILY l ferrous 2021- No 324mg Q.5D Take 1 [facility] gluconate 6- 06-[address] (FERGON) 00:00: 04:59 (324 mg [facility] ta 324 MG 00 :00 total) by l tablet mouth 2 (two) times a day with meals. ferrous 2021- No 324mg Q.5D Take 1 [facility] gluconate 6- 06-[address] (FERGON) 00:00: 04:59 (324 mg Hos[facility] ta 324 MG 00 :00 total) by l tablet mouth 2 (two) times a day with meals. pramipexole 2021- No 2mg Q.5D Take 2 mg [facility] (MIRAPEX) 1 04-26 03-03 by mouth 2 s t MG tablet 00:00: 00:00 (two) [facility] 00 :00 times a l day. For restless leg syndrome indomethaci 2018-03 Yes [id number] 25mg Take 1 [facility] 25 mg 2-04 capsule by [facility] capsule 00:00: mouth 2 [place] (two) Medical times Branch daily with meals. indomethaci 2018-03 Yes [id number] 25mg Take 1 [facility] n 25 mg 2-04 capsule by [facility] of capsule 00:00: mouth 2 [place] (two) Medical times Branch daily with meals. indomethaci 2018-03 Yes [id number] 25mg Take 1 [facility] n 25 mg 2-04 capsule by [facility] of capsule 00:00: mouth 2 [place] (two) Medical times Branch daily with meals. indomethaci 2018-03 Yes [id number] 25mg Take 1 [facility] n 25 mg 2-04 capsule by [facility] of capsule 00:00: mouth 2 [place] (two) Medical times Branch daily with meals. indomethaci 2018-03- No [id number] 25mg Take 1 [facility] n 25 mg 2-04 09-15 capsule by ity o f capsule 00:00: 00:00 mouth 2 [place] 00 :00 (two) Medical times Branch daily with meals. indomethaci 2018-03- No [id number] 25mg Take 1 [facility] n 25 mg 2-04 09-15 capsule by ity o f capsule 00:00: 00:00 mouth 2 [place] 00 :00 (two) Medical times Branch daily with meals. indomethaci 2021- No 25mg Q24H Take 25 mg [facility] (INDOCIN) 03-[address] 25 MG 00:00: 00:00 daily as [facility] capsule 00 :00 needed. As l needed indomethaci 2021- No 25mg Q24H Take 25 mg [facility] (INDOCIN) 03-[address] 25 MG 00:00: 00:00 daily as [facility] capsule 00 :00 needed. As l needed Immunizations Ordered Filled Immunization Date Status Comments [facility] e Immunization Name Name Influenza Virus 2021-11-17 Completed [facility] Vaccine,quad 00:00:[facility] [place] [facility] 65+ Influenza Virus 2021-11-17 Completed [facility] Vaccine,quad 00:00:00 [place] [facility] 65+ Influenza Virus 2021-11-17 Completed [facility] of Vaccine,quad 00:00:00 [place] [facility] 65+ Influenza Virus 2021-11-17 Completed [facility] of Vaccine,quad 00:00:00 [place] [facility] 65+ Influenza Virus 2021-11-17 Completed [facility] of Vaccine,quad 00:00:00 [place] [facility] 65+ Influenza Virus 2021-11-17 Completed [facility] of Vaccine,quad 00:00:00 [place] [facility] 65+ Influenza Virus 2021-11-17 Completed [facility] of Vaccine,quad 00:00:00 [place] [facility] 65+ Influenza Virus 2021-11-17 Completed [facility] of Vaccine,quad 00:00:00 [place] [facility] 65+ Influenza Virus 2021-11-17 Completed [facility] of Vaccine,quad 00:00:00 [place] [facility] 65+ Influenza Virus 2021-11-17 Completed [facility] of Vaccine,quad 00:00:00 [place] [facility] 65+ Influenza Virus 2021-11-17 Completed [facility] of Vaccine,quad 00:00:00 [place] [facility] 65+ Influenza Virus 2021-11-17 Completed [facility] of Vaccine,quad 00:00:00 [place] [facility] 65+ Influenza Virus 2021-11-17 Completed [facility] of Vaccine,quad 00:00:00 [place] [facility] 65+ Influenza Virus 2021-11-17 Completed [facility] of Vaccine,quad 00:00:00 [place] [facility] 65+ Influenza Virus 2021-11-17 Completed [facility] of Vaccine,quad 00:00:00 [place] [facility] 65+ Influenza Virus 2021-11-17 Completed [facility] of Vaccine,quad 00:00:00 [place] [facility] 65+ Influenza Virus 2021-11-17 Completed [facility] of Vaccine,quad 00:00:00 [place] [facility] 65+ Influenza Virus 2021-11-17 Completed [facility] of Vaccine,quad 00:00:00 [place] [facility] 65+ Influenza Virus 2021-11-17 Completed [facility] of Vaccine,quad 00:00:00 [place] [facility] 65+ Influenza Virus 2021-11-17 Completed [facility] of Vaccine,quad 00:00:00 [place] [facility] 65+ Influenza Virus 2021-11-17 Completed [facility] of Vaccine,quad 00:00:00 [place] [facility] 65+ Influenza Virus 2021-11-17 Completed [facility] of Vaccine,quad 00:00:00 [place] [facility] 65+ Influenza Virus 2021-11-17 Completed [facility] of Vaccine,quad 00:00:00 [place] [facility] 65+ Influenza Virus 2021-11-17 Completed [facility] of Vaccine,quad 00:00:00 [place] [facility] 65+ Influenza Virus 2021-11-17 Completed [facility] of Vaccine,quad 00:00:00 [place] [facility] 65+ Influenza Virus 2021-11-17 Completed [facility] of Vaccine,quad 00:00:00 [place] [facility] 65+ Influenza Virus 2021-11-17 Completed [facility] of Vaccine,quad 00:00:00 [place] [facility] 65+ Influenza Virus 2021-11-17 Completed [facility] of Vaccine,quad 00:00:00 [place] [facility] 65+ Influenza Virus 2021-11-17 Completed [facility] of Vaccine,quad 00:00:00 [place] [facility] 65+ Influenza Virus 2021-11-17 Completed [facility] of Vaccine,quad 00:00:00 [place] [facility] 65+ Influenza Virus 2021-11-17 Completed [facility] of Vaccine,quad 00:00:00 [place] [facility] 65+ Influenza Virus 2021-11-17 Completed [facility] of Vaccine,quad 00:00:00 [place] [facility] 65+ Influenza Virus 2021-11-17 Completed [facility] of Vaccine,quad 00:00:00 [place] [facility] 65+ Influenza Virus 2021-11-17 Completed [facility] y of Vaccine,quad 00:00:00 [place] [facility] 65+ (FLUAD) Influenza Virus 2021-11-17 Completed [facility] y of Vaccine,quad 00:00:00 [place] [facility] 65+ (FLUAD) Influenza Virus 2021-11-17 Completed [facility] y of Vaccine,quad 00:00:00 [place] [facility] 65+ (FLUAD) Influenza Virus 2021-11-17 Completed [facility] of Vaccine,quad 00:00:00 [place] [facility] 65+ Influenza Virus 2021-11-17 Completed [facility] of Vaccine,quad 00:00:00 [place] [facility] 65+ Influenza Virus 2021-11-17 Completed [facility] of Vaccine,quad 00:00:00 [place] [facility] 65+ Influenza Virus 2021-11-17 Completed [facility] of Vaccine,quad 00:00:00 [place] [facility] 65+ Influenza Virus 2021-11-17 Completed [facility] of Vaccine,quad 00:00:00 [place] [facility] 65+ Zoster Vaccine 2021-09-02 Completed [facility] of Recombinant 00:00:00 [facility] [place] [facility] Zoster Vaccine 2021-09-02 Completed [facility] of Recombinant 00:00:00 [facility] [place] [facility] Zoster Vaccine 2021-09-02 Completed [facility] of Recombinant 00:00:00 [facility] [place] [facility] Zoster Vaccine 2021-09-02 Completed University of Recombinant 00:00:00 [facility] [place] [facility] Zoster Vaccine 2021-09-02 Completed [facility] of Recombinant 00:00:00 [facility] [place] [facility] Zoster Vaccine 2021-09-02 Completed [facility] of Recombinant 00:00:00 [facility] [place] [facility] Zoster Vaccine 2021-09-01 Completed [facility] of Recombinant 00:00:00 [facility] [place] [facility] Zoster Vaccine 2021-09-01 Completed [facility] of Recombinant 00:00:00 [facility] [place] [facility] Zoster Vaccine 2021-09-01 Completed [facility] of Recombinant 00:00:00 [facility] [place] [facility] Zoster Vaccine 2021-09-01 Completed [facility] of Recombinant 00:00:00 [facility] [place] [facility] Zoster Vaccine 2021-09-01 Completed [facility] of Recombinant 00:00:00 [facility] [place] [facility] Zoster Vaccine 2021-09-01 Completed [facility] of Recombinant 00:00:00 [facility] [place] [facility] Zoster Vaccine 2021-09-01 Completed [facility] of Recombinant 00:00:00 [facility] [place] [facility] Zoster Vaccine 2021-09-01 Completed [facility] of Recombinant 00:00:00 [facility] [place] [facility] Zoster Vaccine 2021-09-01 Completed [facility] of Recombinant 00:00:00 [facility] [place] [facility] Zoster Vaccine 2021-09-01 Completed [facility] of Recombinant 00:00:00 [facility] [place] [facility] Zoster Vaccine 2021-09-01 Completed [facility] of Recombinant 00:00:00 [facility] [place] [facility] Zoster Vaccine 2021-09-01 Completed [facility] of Recombinant 00:00:00 [facility] [place] [facility] Zoster Vaccine 2021-09-01 Completed [facility] of Recombinant 00:00:00 [facility] [place] [facility] Zoster Vaccine 2021-09-01 Completed [facility] of Recombinant 00:00:00 [facility] [place] [facility] Zoster Vaccine 2021-09-01 Completed [facility] of Recombinant 00:00:00 [facility] [place] [facility] Zoster Vaccine 2021-09-01 Completed [facility] of Recombinant 00:00:00 [facility] [place] [facility] Zoster Vaccine 2021-09-01 Completed [facility] of Recombinant 00:00:00 [facility] [place] [facility] Zoster Vaccine 2021-09-01 Completed [facility] of Recombinant 00:00:00 [facility] [place] [facility] Zoster Vaccine 2021-09-01 Completed University of Recombinant 00:00:00 [facility] [place] [facility] Zoster Vaccine 2021-09-01 Completed [facility] of Recombinant 00:00:00 [facility] [place] [facility] Zoster Vaccine 2021-09-01 Completed University of Recombinant 00:00:00 [facility] [place] [facility] Zoster Vaccine 2021-09-01 Completed University of Recombinant 00:00:00 [facility] [place] [facility] Zoster Vaccine 2021-09-01 Completed [facility] of Recombinant 00:00:00 [facility] [place] [facility] Zoster Vaccine 2021-09-01 Completed [facility] of Recombinant 00:00:00 [facility] [place] [facility] Zoster Vaccine 2021-09-01 Completed [facility] of Recombinant 00:00:00 [facility] [place] [facility] Zoster Vaccine 2021-09-01 Completed University of Recombinant 00:00:00 [facility] [place] [facility] Zoster Vaccine 2021-09-01 Completed [facility] of Recombinant 00:00:00 [facility] [place] [facility] Zoster Vaccine 2021-09-01 Completed [facility] of Recombinant 00:00:00 [facility] [place] [facility] Zoster Vaccine 2021-09-01 Completed University of Recombinant 00:00:00 [facility] [place] [facility] Zoster Vaccine 2021-09-01 Completed [facility] of Recombinant 00:00:00 [facility] [place] [facility] Zoster Vaccine 2021-09-01 Completed [facility] of Recombinant 00:00:00 [facility] [place] [facility] Zoster Vaccine 2021-09-01 Completed University of Recombinant 00:00:00 [facility] [place] [facility] Zoster Vaccine 2021-09-01 Completed University of Recombinant 00:00:00 [facility] [place] [facility] Zoster Vaccine 2021-09-01 Completed [facility] of Recombinant 00:00:00 [facility] [place] [facility] Zoster Vaccine 2021-09-01 Completed [facility] of Recombinant 00:00:00 [facility] [place] [facility] Zoster Vaccine 2021-09-01 Completed University of Recombinant 00:00:00 [facility] [place] [facility] Zoster Vaccine 2021-09-01 Completed [facility] of Recombinant 00:00:00 [facility] [place] [facility] Pneumococcal 20 2021-08-25 Completed Universit y of Conjugate, PCV20 00:00:00 [facility] dical (Prevnar 20) Branch Pneumococcal 20 2021-08-25 Completed Universit y of Conjugate, PCV20 00:00:00 [facility] dical (Prevnar 20) Branch Pneumococcal 20 2021-08-25 Completed Universit y of Conjugate, PCV20 00:00:00 [facility] dical (Prevnar 20) Branch Pneumococcal 20 2021-08-25 Completed Univers[facility] y of Conjugate, PCV20 00:00:00 [facility] dical (Prevnar 20) Branch Pneumococcal 20 2021-08-25 Completed Universit y of Conjugate, PCV20 00:00:00 [facility] dical (Prevnar 20) Branch Pneumococcal 20 2021-08-25 Completed Universit y of Conjugate, PCV20 00:00:00 [facility] dical (Prevnar 20) Branch Pneumococcal 20 2021-08-25 Completed Universit y of Conjugate, PCV20 00:00:00 [facility] dical (Prevnar 20) Branch Pneumococcal 20 2021-08-25 Completed [facility] y of Conjugate, PCV20 00:00:00 [facility] dical (Prevnar 20) Branch Pneumococcal 20 2021-08-25 Completed [facility] y of Conjugate, PCV20 00:00:00 [place] [facility] (Prevnar 20) Branch Pneumococcal 20 2021-08-25 Completed [facility] y of Conjugate, PCV20 00:00:00 [place] [facility] (Prevnar 20) Branch Pneumococcal 20 2021-08-25 Completed [facility] y of Conjugate, PCV20 00:00:00 [place] [facility] (Prevnar 20) Branch Pneumococcal 20 2021-08-25 Completed [facility] y of Conjugate, PCV20 00:00:00 [place] [facility] (Prevnar 20) Branch Pneumococcal 20 2021-08-25 Completed [facility] y of Conjugate, PCV20 00:00:00 [place] [facility] (Prevnar 20) Branch Pneumococcal 20 2021-08-25 Completed [facility] y of Conjugate, PCV20 00:00:00 [place] [facility] (Prevnar 20) Branch Pneumococcal 20 2021-08-25 Completed [facility] y of Conjugate, PCV20 00:00:00 [facility] dical (Prevnar 20) Branch Pneumococcal 20 2021-08-25 Completed Univers[facility] y of Conjugate, PCV20 00:00:00 [facility] dical (Prevnar 20) Branch Pneumococcal 20 2021-08-25 Completed Univers[facility] y of Conjugate, PCV20 00:00:00 [facility] dical (Prevnar 20) Branch Pneumococcal 20 2021-08-25 Completed [facility] y of Conjugate, PCV20 00:00:00 [facility] dical (Prevnar 20) Branch Pneumococcal 20 2021-08-25 Completed [facility] y of Conjugate, PCV20 00:00:00 [facility] dical (Prevnar 20) Branch Pneumococcal 20 2021-08-25 Completed [facility] y of Conjugate, PCV20 00:00:00 [place] [facility] (Prevnar 20) Branch Pneumococcal 20 2021-08-25 Completed [facility] y of Conjugate, PCV20 00:00:00 [facility] dical (Prevnar 20) Branch Pneumococcal 20 2021-08-25 Completed [facility] y of Conjugate, PCV20 00:00:00 [place] [facility] (Prevnar 20) Branch Pneumococcal 20 2021-08-25 Completed [facility] y of Conjugate, PCV20 00:00:00 [facility] dical (Prevnar 20) Branch Pneumococcal 20 2021-08-25 Completed [facility] y of Conjugate, PCV20 00:00:00 [facility] dical (Prevnar 20) Branch Pneumococcal 20 2021-08-25 Completed [facility] y of Conjugate, PCV20 00:00:00 [facility] dical (Prevnar 20) Branch Pneumococcal 20 2021-08-25 Completed [facility] y of Conjugate, PCV20 00:00:00 [place] [facility] (Prevnar 20) Branch Pneumococcal 20 2021-08-25 Completed [facility] y of Conjugate, PCV20 00:00:00 [facility] dical (Prevnar 20) Branch Pneumococcal 20 2021-08-25 Completed [facility] y of Conjugate, PCV20 00:00:00 [facility] dical (Prevnar 20) Branch Pneumococcal 20 2021-08-25 Completed [facility] y of Conjugate, PCV20 00:00:00 [facility] dical (Prevnar 20) Branch Pneumococcal 20 2021-08-25 Completed [facility] y of Conjugate, PCV20 00:00:00 [facility] dical (Prevnar 20) Branch Pneumococcal 20 2021-08-25 Completed [facility] y of Conjugate, PCV20 00:00:00 [facility] dical (Prevnar 20) Branch Pneumococcal 20 2021-08-25 Completed [facility] y of Conjugate, PCV20 00:00:00 [facility] dical (Prevnar 20) Branch Pneumococcal 20 2021-08-25 Completed [facility] y of Conjugate, PCV20 00:00:00 [facility] dical (Prevnar 20) Branch Pneumococcal 20 2021-08-25 Completed [facility] y of Conjugate, PCV20 00:00:00 [facility] dical (Prevnar 20) Branch Pneumococcal 20 2021-08-25 Completed [facility] y of Conjugate, PCV20 00:00:00 [facility] dical (Prevnar 20) Branch Pneumococcal 20 2021-08-25 Completed Universit y of Conjugate, PCV20 00:00:00 [facility] dical (Prevnar 20) Branch Pneumococcal 20 2021-08-25 Completed [facility] Conjugate, PCV20 00:00:00 [facility] dical (Prevnar 20) Branch Influenza High Dose 2021-01-22 Completed [facility] 00:00:00 [facility] Influenza High Dose 2021-01-22 Completed [facility] 00:00:00 [facility] Influenza High Dose 2021-01-22 Completed [facility] 00:00:00 [facility] Influenza High Dose 2021-01-22 Completed [facility] 00:00:00 [facility] Influenza High Dose 2021-01-22 Completed [facility] 00:00:00 [facility] Influenza High Dose 2021-01-22 Completed [facility] 00:00:00 [facility] Influenza High Dose 2021-01-22 Completed [facility] 00:00:00 [facility] Influenza High Dose 2021-01-22 Completed [facility] 00:00:00 [facility] Influenza High Dose 2021-01-22 Completed [facility] 00:00:00 [facility] Influenza High Dose 2021-01-22 Completed [facility] 00:00:00 [facility] Influenza High Dose 2021-01-22 Completed [facility] 00:00:00 [facility] Influenza High Dose 2021-01-22 Completed [facility] 00:00:00 [facility] Influenza High Dose 2021-01-22 Completed [facility] 00:00:00 [facility] Influenza High Dose 2021-01-22 Completed [facility] 00:00:00 [facility] Influenza High Dose 2021-01-22 Completed [facility] 00:00:00 [facility] Influenza High Dose 2021-01-22 Completed [facility] 00:00:00 [facility] Influenza High Dose 2021-01-22 Completed [facility] 00:00:00 [facility] Influenza High Dose 2021-01-22 Completed [facility] 00:00:00 [facility] Influenza High Dose 2021-01-22 Completed [facility] 00:00:00 [facility] Influenza High Dose 2021-01-22 Completed [facility] 00:00:00 [facility] Influenza High Dose 2021-01-22 Completed [facility] 00:00:00 [facility] Influenza High Dose 2021-01-22 Completed [facility] 00:00:00 [facility] Influenza High Dose 2021-01-22 Completed [facility] 00:00:00 [facility] Influenza High Dose 2021-01-22 Completed [facility] 00:00:00 [facility] Influenza High Dose 2021-01-22 Completed [facility] 00:00:00 [facility] Influenza High Dose 2021-01-22 Completed [facility] 00:00:00 [facility] Influenza High Dose 2021-01-22 Completed [facility] 00:00:00 [facility] Influenza High Dose 2021-01-22 Completed [facility] 00:00:00 [facility] Influenza High Dose 2021-01-22 Completed [facility] 00:00:00 [facility] Influenza High Dose 2021-01-22 Completed [facility] 00:00:00 [facility] Influenza High Dose 2021-01-22 Completed [facility] 00:00:00 [facility] Influenza High Dose 2021-01-22 Completed [facility] 00:00:00 [facility] Influenza High Dose 2021-01-22 Completed [facility] 00:00:00 [facility] Influenza High Dose 2021-01-22 Completed [facility] 00:00:00 [facility] Influenza High Dose 2021-01-22 Completed [facility] 00:00:00 [facility] Influenza High Dose 2021-01-22 Completed [facility] 00:00:00 [facility] Influenza High Dose 2021-01-22 Completed [facility] 00:00:00 [facility] SARS-COV-2 COVID-19 2020-11-15 Completed [facility]ive [facility] of PFIZER VACCINE 00:00:00 [facility] SARS-COV-2 COVID-19 2020-11-15 Completed [facility]ive [facility]ity of PFIZER VACCINE 00:00:00 [facility] SARS-COV-2 COVID-19 2020-11-15 Completed [facility] of PFIZER VACCINE 00:00:00 [facility] SARS-COV-2 COVID-19 2020-11-15 Completed [facility] of PFIZER VACCINE 00:00:00 [facility] SARS-COV-2 COVID-19 2020-11-15 Completed [facility] of PFIZER VACCINE 00:00:00 [facility] SARS-COV-2 COVID-19 2020-11-15 Completed [facility] of PFIZER VACCINE 00:00:00 [facility] SARS-COV-2 COVID-19 2020-11-15 Completed [facility] of PFIZER VACCINE 00:00:00 [facility] SARS-COV-2 COVID-19 2020-11-15 Completed [facility] of PFIZER VACCINE 00:00:00 [facility] SARS-COV-2 COVID-19 2020-11-15 Completed [facility] of PFIZER VACCINE 00:00:00 [facility] SARS-COV-2 COVID-19 2020-11-15 Completed [facility] of PFIZER VACCINE 00:00:00 [facility] SARS-COV-2 COVID-19 2020-11-15 Completed [facility] of PFIZER VACCINE 00:00:00 [facility] SARS-COV-2 COVID-19 2020-11-15 Completed [facility] of PFIZER VACCINE 00:00:00 [facility] SARS-COV-2 COVID-19 2020-11-15 Completed [facility] of PFIZER VACCINE 00:00:00 [facility] SARS-COV-2 COVID-19 2020-11-15 Completed [facility] of PFIZER VACCINE 00:00:00 [facility] SARS-COV-2 COVID-19 2020-11-15 Completed [facility] of PFIZER VACCINE 00:00:00 [facility] SARS-COV-2 COVID-19 2020-11-15 Completed [facility] of PFIZER VACCINE 00:00:00 [facility] SARS-COV-2 COVID-19 2020-11-15 Completed [facility] of PFIZER VACCINE 00:00:00 [facility] SARS-COV-2 COVID-19 2020-11-15 Completed [facility] of PFIZER VACCINE 00:00:00 [facility] SARS-COV-2 COVID-19 2020-11-15 Completed [facility] of PFIZER VACCINE 00:00:00 [facility] SARS-COV-2 COVID-19 2020-11-15 Completed [facility] of PFIZER VACCINE 00:00:00 [facility] SARS-COV-2 COVID-19 2020-11-15 Completed [facility] of PFIZER VACCINE 00:00:00 [facility] SARS-COV-2 COVID-19 2020-11-15 Completed [facility]ive rsity of PFIZER VACCINE 00:00:00 [facility] SARS-COV-2 COVID-19 2020-11-15 Completed [facility] of PFIZER VACCINE 00:00:00 [facility] SARS-COV-2 COVID-19 2020-11-15 Completed [facility] of PFIZER VACCINE 00:00:00 [facility] SARS-COV-2 COVID-19 2020-11-15 Completed [facility] of PFIZER VACCINE 00:00:00 [facility] SARS-COV-2 COVID-19 2020-11-15 Completed [facility] of PFIZER VACCINE 00:00:00 [facility] SARS-COV-2 COVID-19 2020-11-15 Completed [facility] of PFIZER VACCINE 00:00:00 [facility] SARS-COV-2 COVID-19 2020-11-15 Completed [facility] of PFIZER VACCINE 00:00:00 [facility] SARS-COV-2 COVID-19 2020-11-15 Completed [facility] of PFIZER VACCINE 00:00:00 [facility] SARS-COV-2 COVID-19 2020-11-15 Completed [facility] of PFIZER VACCINE 00:00:00 [facility] SARS-COV-2 COVID-19 2020-11-15 Completed [facility] of PFIZER VACCINE 00:00:00 [facility] SARS-COV-2 COVID-19 2020-11-15 Completed [facility] of PFIZER VACCINE 00:00:00 [facility] SARS-COV-2 COVID-19 2020-11-15 Completed [facility] of PFIZER VACCINE 00:00:00 [facility] SARS-COV-2 COVID-19 2020-11-15 Completed [facility] of PFIZER VACCINE 00:00:00 [facility] SARS-COV-2 COVID-19 2020-11-15 Completed [facility] of PFIZER VACCINE 00:00:00 [facility] SARS-COV-2 COVID-19 2020-11-15 Completed [facility] of PFIZER VACCINE 00:00:00 [facility] SARS-COV-2 COVID-19 2020-11-15 Completed [facility] of PFIZER VACCINE 00:00:00 [facility] PFIZER COVID-19 2020-11-15 Com[facility]00 [facility] PFIZER COVID-19 2020-11-15 Completed [facility]00 [facility] PFIZER COVID-19 2020-11-15 Com[facility]00 [facility] SARS-COV-2 COVID-19 2020-04-14 Completed [facility] of PFIZER VACCINE 00:00:00 [facility] SARS-COV-2 COVID-19 2020-04-14 Completed [facility] of PFIZER VACCINE 00:00:00 [facility] SARS-COV-2 COVID-19 2020-04-14 Completed [facility] of PFIZER VACCINE 00:00:00 [facility] SARS-COV-2 COVID-19 2020-04-14 Completed [facility] of PFIZER VACCINE 00:00:00 [facility] SARS-COV-2 COVID-19 2020-04-14 Completed [facility] of PFIZER VACCINE 00:00:00 [facility] SARS-COV-2 COVID-19 2020-04-14 Completed [facility] of PFIZER VACCINE 00:00:00 [facility] SARS-COV-2 COVID-19 2020-04-14 Completed [facility] of PFIZER VACCINE 00:00:00 [facility] SARS-COV-2 COVID-19 2020-04-14 Completed [facility] of PFIZER VACCINE 00:00:00 [facility] SARS-COV-2 COVID-19 2020-04-14 Completed [facility] of PFIZER VACCINE 00:00:00 [facility] SARS-COV-2 COVID-19 2020-04-14 Completed [facility] of PFIZER VACCINE 00:00:00 [facility] SARS-COV-2 COVID-19 2020-04-14 Completed [facility] of PFIZER VACCINE 00:00:00 [facility] SARS-COV-2 COVID-19 2020-04-14 Completed [facility] of PFIZER VACCINE 00:00:00 [facility] SARS-COV-2 COVID-19 2020-04-14 Completed [facility] of PFIZER VACCINE 00:00:00 [facility] SARS-COV-2 COVID-19 2020-04-14 Completed [facility] of PFIZER VACCINE 00:00:00 [facility] SARS-COV-2 COVID-19 2020-04-14 Completed [facility] of PFIZER VACCINE 00:00:00 [facility] SARS-COV-2 COVID-19 2020-04-14 Completed [facility] of PFIZER VACCINE 00:00:00 [facility] SARS-COV-2 COVID-19 2020-04-14 Completed [facility] of PFIZER VACCINE 00:00:00 [facility] SARS-COV-2 COVID-19 2020-04-14 Completed [facility] of PFIZER VACCINE 00:00:00 [facility] SARS-COV-2 COVID-19 2020-04-14 Completed [facility] of PFIZER VACCINE 00:00:00 [facility] SARS-COV-2 COVID-19 2020-04-14 Completed [facility] of PFIZER VACCINE 00:00:00 [facility] SARS-COV-2 COVID-19 2020-04-14 Completed [facility] of PFIZER VACCINE 00:00:00 [facility] SARS-COV-2 COVID-19 2020-04-14 Completed [facility] of PFIZER VACCINE 00:00:00 [facility] SARS-COV-2 COVID-19 2020-04-14 Completed [facility] of PFIZER VACCINE 00:00:00 [facility] SARS-COV-2 COVID-19 2020-04-14 Completed [facility] of PFIZER VACCINE 00:00:00 [facility] SARS-COV-2 COVID-19 2020-04-14 Completed [facility] of PFIZER VACCINE 00:00:00 [facility] SARS-COV-2 COVID-19 2020-04-14 Completed [facility] of PFIZER VACCINE 00:00:00 [facility] SARS-COV-2 COVID-19 2020-04-14 Completed [facility] of PFIZER VACCINE 00:00:00 [facility] SARS-COV-2 COVID-19 2020-04-14 Completed [facility] of PFIZER VACCINE 00:00:00 [facility] SARS-COV-2 COVID-19 2020-04-14 Completed [facility] of PFIZER VACCINE 00:00:00 [facility] SARS-COV-2 COVID-19 2020-04-14 Completed [facility] of PFIZER VACCINE 00:00:00 [facility] SARS-COV-2 COVID-19 2020-04-14 Completed [facility] of PFIZER VACCINE 00:00:00 [facility] SARS-COV-2 COVID-19 2020-04-14 Completed [facility] of PFIZER VACCINE 00:00:00 [facility] SARS-COV-2 COVID-19 2020-04-14 Completed [facility] of PFIZER VACCINE 00:00:00 [facility] SARS-COV-2 COVID-19 2020-04-14 Completed [facility] of PFIZER VACCINE 00:00:00 [facility] SARS-COV-2 COVID-19 2020-04-14 Completed [facility] of PFIZER VACCINE 00:00:00 [facility] SARS-COV-2 COVID-19 2020-04-14 Completed [facility] of PFIZER VACCINE 00:00:00 [facility] SARS-COV-2 COVID-19 2020-04-14 Completed [facility] of PFIZER VACCINE 00:00:00 [facility] PFIZER COVID-19 2020-04-14 Completed [facility] PFIZER COVID-19 2020-04-14 Completed [facility]00 [facility] PFIZER COVID-19 2020-04-14 Completed [facility]00 [facility] SARS-COV-2 COVID-19 2020-03-24 Completed [facility] of PFIZER VACCINE 00:00:00 [facility] SARS-COV-2 COVID-19 2020-03-24 Completed [facility] of PFIZER VACCINE 00:00:00 [facility] SARS-COV-2 COVID-19 2020-03-24 Completed [facility] of PFIZER VACCINE 00:00:00 [facility] SARS-COV-2 COVID-19 2020-03-24 Completed [facility] of PFIZER VACCINE 00:00:00 [facility] SARS-COV-2 COVID-19 2020-03-24 Completed [facility] of PFIZER VACCINE 00:00:00 [facility] SARS-COV-2 COVID-19 2020-03-24 Completed [facility] of PFIZER VACCINE 00:00:00 [facility] SARS-COV-2 COVID-19 2020-03-24 Completed [facility] of PFIZER VACCINE 00:00:00 [facility] SARS-COV-2 COVID-19 2020-03-24 Completed [facility] of PFIZER VACCINE 00:00:00 [facility] SARS-COV-2 COVID-19 2020-03-24 Completed [facility] of PFIZER VACCINE 00:00:00 [facility] SARS-COV-2 COVID-19 2020-03-24 Completed [facility] of PFIZER VACCINE 00:00:00 [facility] SARS-COV-2 COVID-19 2020-03-24 Completed [facility] of PFIZER VACCINE 00:00:00 [facility] SARS-COV-2 COVID-19 2020-03-24 Completed [facility] of PFIZER VACCINE 00:00:00 [facility] SARS-COV-2 COVID-19 2020-03-24 Completed [facility] of PFIZER VACCINE 00:00:00 [facility] SARS-COV-2 COVID-19 2020-03-24 Completed [facility] of PFIZER VACCINE 00:00:00 [facility] SARS-COV-2 COVID-19 2020-03-24 Completed [facility] of PFIZER VACCINE 00:00:00 [facility] SARS-COV-2 COVID-19 2020-03-24 Completed [facility] of PFIZER VACCINE 00:00:00 [facility] SARS-COV-2 COVID-19 2020-03-24 Completed [facility] of PFIZER VACCINE 00:00:00 [facility] SARS-COV-2 COVID-19 2020-03-24 Completed [facility] of PFIZER VACCINE 00:00:00 [facility] SARS-COV-2 COVID-19 2020-03-24 Completed [facility] of PFIZER VACCINE 00:00:00 [facility] SARS-COV-2 COVID-19 2020-03-24 Completed [facility] of PFIZER VACCINE 00:00:00 [facility] SARS-COV-2 COVID-19 2020-03-24 Completed [facility] of PFIZER VACCINE 00:00:00 [facility] SARS-COV-2 COVID-19 2020-03-24 Completed [facility] of PFIZER VACCINE 00:00:00 [facility] SARS-COV-2 COVID-19 2020-03-24 Completed [facility] of PFIZER VACCINE 00:00:00 [facility] SARS-COV-2 COVID-19 2020-03-24 Completed [facility] of PFIZER VACCINE 00:00:00 [facility] SARS-COV-2 COVID-19 2020-03-24 Completed [facility] of PFIZER VACCINE 00:00:00 [facility] SARS-COV-2 COVID-19 2020-03-24 Completed [facility] of PFIZER VACCINE 00:00:00 [facility] SARS-COV-2 COVID-19 2020-03-24 Completed [facility] of PFIZER VACCINE 00:00:00 [facility] SARS-COV-2 COVID-19 2020-03-24 Completed [facility] of PFIZER VACCINE 00:00:00 [facility] SARS-COV-2 COVID-19 2020-03-24 Completed [facility] of PFIZER VACCINE 00:00:00 [facility] SARS-COV-2 COVID-19 2020-03-24 Completed [facility] of PFIZER VACCINE 00:00:00 [facility] SARS-COV-2 COVID-19 2020-03-24 Completed [facility] of PFIZER VACCINE 00:00:00 [facility] SARS-COV-2 COVID-19 2020-03-24 Completed [facility] of PFIZER VACCINE 00:00:00 [facility] SARS-COV-2 COVID-19 2020-03-24 Completed [facility] of PFIZER VACCINE 00:00:00 [facility] SARS-COV-2 COVID-19 2020-03-24 Completed [facility] of PFIZER VACCINE 00:00:00 [facility] SARS-COV-2 COVID-19 2020-03-24 Completed [facility] of PFIZER VACCINE 00:00:00 [facility] SARS-COV-2 COVID-19 2020-03-24 Completed [facility] of PFIZER VACCINE 00:00:00 [facility] SARS-COV-2 COVID-19 2020-03-24 Completed [facility] of PFIZER VACCINE 00:00:00 [facility] PFIZER COVID-19 2020-03-24 Completed [facility]00 [facility] PFIZER COVID-19 2020-03-24 Completed [facility]:00 [facility] PFIZER COVID-19 2020-03-24 Completed [facility]:00:00 [facility] Influenza High Dose 2020-01-01 Completed [facility] 00:00:00 [facility] Influenza High Dose 2020-01-01 Completed [facility] 00:00:00 [facility] Influenza High Dose 2020-01-01 Completed [facility] 00:00:00 [facility] Influenza High Dose 2020-01-01 Completed [facility] 00:00:00 [facility] Influenza High Dose 2020-01-01 Completed [facility] 00:00:00 [facility] Influenza High Dose 2020-01-01 Completed [facility] 00:00:00 [facility] Influenza High Dose 2020-01-01 Completed [facility] 00:00:00 [facility] Influenza High Dose 2020-01-01 Completed [facility] 00:00:00 [facility] Influenza High Dose 2020-01-01 Completed [facility] 00:00:00 [facility] Influenza High Dose 2020-01-01 Completed [facility] 00:00:00 [facility] Influenza High Dose 2020-01-01 Completed [facility] 00:00:00 [facility] Influenza High Dose 2020-01-01 Completed [facility] 00:00:00 [facility] Influenza High Dose 2020-01-01 Completed [facility] 00:00:00 [facility] Influenza High Dose 2020-01-01 Completed [facility] 00:00:00 [facility] Influenza High Dose 2020-01-01 Completed [facility] 00:00:00 [facility] Influenza High Dose 2020-01-01 Completed [facility] 00:00:00 [facility] Influenza High Dose 2020-01-01 Completed [facility] 00:00:00 [facility] Influenza High Dose 2020-01-01 Completed [facility] 00:00:00 [facility] Influenza High Dose 2020-01-01 Completed [facility] 00:00:00 [facility] Influenza High Dose 2020-01-01 Completed [facility] 00:00:00 [facility] Influenza High Dose 2020-01-01 Completed [facility] 00:00:00 [facility] Influenza High Dose 2020-01-01 Completed [facility] 00:00:00 [facility] Influenza High Dose 2020-01-01 Completed [facility] 00:00:00 [facility] Influenza High Dose 2020-01-01 Completed [facility] 00:00:00 [facility] Influenza High Dose 2020-01-01 Completed [facility] 00:00:00 [facility] Influenza High Dose 2020-01-01 Completed [facility] 00:00:00 [facility] Influenza High Dose 2020-01-01 Completed [facility] 00:00:00 [facility] Influenza High Dose 2020-01-01 Completed [facility] 00:00:00 [facility] Influenza High Dose 2020-01-01 Completed [facility] 00:00:00 [facility] Influenza High Dose 2020-01-01 Completed [facility] 00:00:00 [facility] Influenza High Dose 2020-01-01 Completed [facility] 00:00:00 [facility] Influenza High Dose 2020-01-01 Completed [facility] 00:00:00 [facility] Influenza High Dose 2020-01-01 Completed [facility] 00:00:00 [facility] Influenza High Dose 2020-01-01 Completed [facility] 00:00:00 [facility] Influenza High Dose 2020-01-01 Completed [facility] 00:00:00 [facility] Influenza High Dose 2020-01-01 Completed [facility] 00:00:00 [facility] Influenza High Dose 2020-01-01 Completed [facility] 00:00:00 [facility] TDAP 2019-04-16 Completed [facility] 00:00:00 [facility] TDAP 2019-04-16 Completed [facility] 00:00:00 [facility] TDAP 2019-04-16 Completed [facility] 00:00:00 [facility] TDAP 2019-04-16 Completed [facility] 00:00:00 [facility] TDAP 2019-04-16 Completed [facility] 00:00:00 [facility] TDAP 2019-04-16 Completed [facility] 00:00:00 [facility] TDAP 2019-04-16 Completed [facility] 00:00:00 [facility] TDAP 2019-04-16 Completed [facility] 00:00:00 [facility] TDAP 2019-04-16 Completed [facility] 00:00:00 [facility] TDAP 2019-04-16 Completed [facility] 00:00:00 [facility] TDAP 2019-04-16 Completed [facility] 00:00:00 [facility] TDAP 2019-04-16 Completed [facility] 00:00:00 [facility] TDAP 2019-04-16 Completed [facility] 00:00:00 [facility] TDAP 2019-04-16 Completed [facility] 00:00:00 [facility] TDAP 2019-04-16 Completed [facility] 00:00:00 [facility] TDAP 2019-04-16 Completed [facility] 00:00:00 [facility] TDAP 2019-04-16 Completed [facility] 00:00:00 [facility] TDAP 2019-04-16 Completed [facility] 00:00:00 [facility] TDAP 2019-04-16 Completed [facility] 00:00:00 [facility] TDAP 2019-04-16 Completed [facility] 00:00:00 [facility] TDAP 2019-04-16 Completed [facility] 00:00:00 [facility] TDAP 2019-04-16 Completed [facility] 00:00:00 [facility] TDAP 2019-04-16 Completed [facility] 00:00:00 [facility] TDAP 2019-04-16 Completed [facility] 00:00:00 [facility] TDAP 2019-04-16 Completed [facility] 00:00:00 [facility] TDAP 2019-04-16 Completed [facility] 00:00:00 [facility] TDAP 2019-04-16 Completed [facility] 00:00:00 [facility] TDAP 2019-04-16 Completed [facility] 00:00:00 [facility] TDAP 2019-04-16 Completed [facility] 00:00:00 [facility] TDAP 2019-04-16 Completed [facility] 00:00:00 [facility] TDAP 2019-04-16 Completed [facility] 00:00:00 [facility] TDAP 2019-04-16 Completed [facility] 00:00:00 [facility] TDAP 2019-04-16 Completed [facility] 00:00:00 [facility] TDAP 2019-04-16 Completed [facility] 00:00:00 [facility] TDAP 2019-04-16 Completed [facility] 00:00:00 [facility] TDAP 2019-04-16 Completed [facility] 00:00:00 [facility] TDAP 2019-04-16 Completed [facility] 00:00:00 [facility] TDAP 2019-04-16 Completed [facility] 00:00:00 [facility] TDAP 2019-04-16 Completed [facility] 00:00:00 [facility] TDAP 2019-04-16 Completed [facility] 00:00:00 [facility] TDAP 2019-04-16 Completed [facility] 00:00:00 [facility] TDAP 2019-04-16 Completed [facility] 00:00:00 [facility] TDAP 2019-04-16 Completed [facility] 00:00:00 [facility] Influenza High Dose 2018-12-26 Completed [facility]ive [facility]ity of 00:00:00 [facility] Pneumococcal 13 2018-12-26 Completed [facility] Conjugate, PCV13 00:00:00 [facility] dical (Prevnar 13) Branch Influenza High Dose 2018-12-26 Completed [facility]ive [facility]ity of 00:00:00 [facility] Pneumococcal 13 2018-12-26 Completed [facility] Conjugate, PCV13 00:00:00 [facility] dical (Prevnar 13) Branch Influenza High Dose 2018-12-26 Completed [facility] 00:[facility]00 [facility] System Pneumococcal 13 2018-12-26 Completed Universit y of Conjugate, PCV13 00:00:00 [facility] dical (Prevnar 13) Branch Influenza High Dose 2018-12-26 Completed Unive rsity of 00:00:00 [facility] Pneumococcal 13 2018-12-26 Completed Universit y of Conjugate, PCV13 00:00:00 [facility] dical (Prevnar 13) Branch Influenza High Dose 2018-12-26 Completed Unive rsity of 00:00:00 [facility] Pneumococcal 13 2018-12-26 Completed Universit y of Conjugate, PCV13 00:00:00 [facility] dical (Prevnar 13) Branch Influenza High Dose 2018-12-26 Completed Unive rsity of 00:00:00 [facility] Pneumococcal 13 2018-12-26 Completed Universit y of Conjugate, PCV13 00:00:00 [facility] dical (Prevnar 13) Branch Influenza High Dose 2018-12-26 Completed Unive rsity of 00:00:00 [facility] Pneumococcal 13 2018-12-26 Completed Universit y of Conjugate, PCV13 00:00:00 [place] [facility] (Prevnar 13) [facility] Influenza High Dose 2018-12-26 Completed Unive rsity of 00:00:00 [facility] Pneumococcal 13 2018-12-26 Completed Universit y of Conjugate, PCV13 00:00:00 [facility] dical (Prevnar 13) Branch Influenza High Dose 2018-12-26 Completed Unive rsity of 00:00:00 [facility] Pneumococcal 13 2018-12-26 Completed Universit y of Conjugate, PCV13 00:00:00 [facility] dical (Prevnar 13) Branch Influenza High Dose 2018-12-26 Completed Unive rsity of 00:00:00 [facility] Pneumococcal 13 2018-12-26 Completed Universit y of Conjugate, PCV13 00:00:00 [facility] dical (Prevnar 13) Branch Influenza High Dose 2018-12-26 Completed Unive rsity of 00:00:00 [facility] Pneumococcal 13 2018-12-26 Completed Universit y of Conjugate, PCV13 00:00:00 [facility] dical (Prevnar 13) Branch Influenza High Dose 2018-12-26 Completed Unive rsity of 00:00:00 [facility] Pneumococcal 13 2018-12-26 Completed Universit y of Conjugate, PCV13 00:00:00 [facility] dical (Prevnar 13) Branch Influenza High Dose 2018-12-26 Completed Unive rsity of 00:00:00 [facility] Pneumococcal 13 2018-12-26 Completed Universit y of Conjugate, PCV13 00:00:00 [facility] dical (Prevnar 13) Branch Influenza High Dose 2018-12-26 Completed Unive rsity of 00:00:00 [facility] Pneumococcal 13 2018-12-26 Completed Universit y of Conjugate, PCV13 00:00:00 [place] [facility] (Prevnar 13) Branch Influenza High Dose 2018-12-26 Completed Unive rsity of 00:00:00 [facility] Pneumococcal 13 2018-12-26 Completed Universit y of Conjugate, PCV13 00:00:00 [facility] dical (Prevnar 13) Branch Influenza High Dose 2018-12-26 Completed Unive rsity of 00:00:00 [facility] Pneumococcal 13 2018-12-26 Completed Universit y of Conjugate, PCV13 00:00:00 [place] [facility] (Prevnar 13) Branch Influenza High Dose 2018-12-26 Completed Unive rsity of 00:00:00 [facility] Pneumococcal 13 2018-12-26 Completed Universit y of Conjugate, PCV13 00:00:00 [place] [facility] (Prevnar 13) Branch Influenza High Dose 2018-12-26 Completed Unive rsity of 00:00:00 [facility] Pneumococcal 13 2018-12-26 Completed Universit y of Conjugate, PCV13 00:00:00 [place] [facility] (Prevnar 13) Branch Influenza High Dose 2018-12-26 Completed Unive rsity of 00:00:00 [facility] Pneumococcal 13 2018-12-26 Completed Universit y of Conjugate, PCV13 00:00:00 [place] [facility] (Prevnar 13) Branch Influenza High Dose 2018-12-26 Completed Unive rsity of 00:00:00 [facility] Pneumococcal 13 2018-12-26 Completed Universit y of Conjugate, PCV13 00:00:00 [place] [facility] (Prevnar 13) Branch Influenza High Dose 2018-12-26 Completed Unive rsity of 00:00:00 [facility] Pneumococcal 13 2018-12-26 Completed Universit y of Conjugate, PCV13 00:00:00 [facility] dical (Prevnar 13) Branch Influenza High Dose 2018-12-26 Completed Unive rsity of 00:00:00 [facility] Pneumococcal 13 2018-12-26 Completed Universit y of Conjugate, PCV13 00:00:00 [place] [facility] (Prevnar 13) Branch Influenza High Dose 2018-12-26 Completed Unive rsity of 00:00:00 [facility] Pneumococcal 13 2018-12-26 Completed Universit y of Conjugate, PCV13 00:00:00 [place] [facility] (Prevnar 13) Branch Influenza High Dose 2018-12-26 Completed Unive rsity of 00:00:00 [facility] Pneumococcal 13 2018-12-26 Completed Universit y of Conjugate, PCV13 00:00:00 [place] [facility] (Prevnar 13) Branch Influenza High Dose 2018-12-26 Completed Unive rsity of 00:00:00 [facility] Pneumococcal 13 2018-12-26 Completed Universit y of Conjugate, PCV13 00:00:00 [place] [facility] (Prevnar 13) Branch Influenza High Dose 2018-12-26 Completed Unive rsity of 00:00:00 [facility] Pneumococcal 13 2018-12-26 Completed Universit y of Conjugate, PCV13 00:00:00 [place] [facility] (Prevnar 13) Branch Influenza High Dose 2018-12-26 Completed Unive rsity of 00:00:00 [facility] Pneumococcal 13 2018-12-26 Completed Universit y of Conjugate, PCV13 00:00:00 [place] [facility] (Prevnar 13) Branch Influenza High Dose 2018-12-26 Completed Unive rsity of 00:00:00 [facility] Pneumococcal 13 2018-12-26 Completed Universit y of Conjugate, PCV13 00:00:00 [facility] dical (Prevnar 13) Branch Influenza High Dose 2018-12-26 Completed Unive rsity of 00:00:00 [facility] Pneumococcal 13 2018-12-26 Completed Universit y of Conjugate, PCV13 00:00:00 [facility] dical (Prevnar 13) Branch Influenza High Dose 2018-12-26 Completed Unive rsity of 00:00:00 [facility] Pneumococcal 13 2018-12-26 Completed Universit y of Conjugate, PCV13 00:00:00 [facility] dical (Prevnar 13) Branch Influenza High Dose 2018-12-26 Completed Unive rsity of 00:00:00 [facility] Pneumococcal 13 2018-12-26 Completed Universit y of Conjugate, PCV13 00:00:00 [facility] dical (Prevnar 13) Branch Influenza High Dose 2018-12-26 Completed Unive rsity of 00:00:00 [facility] Pneumococcal 13 2018-12-26 Completed Universit y of Conjugate, PCV13 00:00:00 [facility] dical (Prevnar 13) Branch Influenza High Dose 2018-12-26 Completed Unive rsity of 00:00:00 [facility] Pneumococcal 13 2018-12-26 Completed Universit y of Conjugate, PCV13 00:00:00 [place] [facility] (Prevnar 13) Branch Influenza High Dose 2018-12-26 Completed Unive rsity of 00:00:00 [facility] Pneumococcal 13 2018-12-26 Completed Universit y of Conjugate, PCV13 00:00:00 [place] [facility] (Prevnar 13) Branch Influenza High Dose 2018-12-26 Completed Unive rsity of 00:00:00 [facility] Pneumococcal 13 2018-12-26 Completed Universit y of Conjugate, PCV13 00:00:00 [place] [facility] (Prevnar 13) Branch Influenza High Dose 2018-12-26 Completed Unive rsity of 00:00:00 [facility] Pneumococcal 13 2018-12-26 Completed Universit y of Conjugate, PCV13 00:00:00 [place] [facility] (Prevnar 13) Branch Influenza High Dose 2018-12-26 Completed Unive rsity of 00:00:00 [facility] Pneumococcal 13 2018-12-26 Completed Universit y of Conjugate, PCV13 00:00:00 [place] [facility] (Prevnar 13) Branch Influenza High Dose 2018-12-26 Completed Unive rsity of 00:00:00 [facility] Pneumococcal 13 2018-12-26 Completed Universit y of Conjugate, PCV13 00:00:00 [place] [facility] (Prevnar 13) Branch Influenza High Dose 2018-12-26 Completed Unive rsity of 00:00:00 [facility] Pneumococcal 13 2018-12-26 Completed Universit y of Conjugate, PCV13 00:00:00 [place] [facility] (Prevnar 13) Branch Influenza High Dose 2018-12-26 Completed Unive rsity of 00:00:00 [facility] Pneumococcal 13 2018-12-26 Completed Universit y of Conjugate, PCV13 00:00:00 [facility] dical (Prevnar 13) Branch Influenza High Dose 2018-12-26 Completed Unive rsity of 00:00:00 [facility] Pneumococcal 13 2018-12-26 Completed Universit y of Conjugate, PCV13 00:00:00 [place] [facility] (Prevnar 13) Branch Influenza High Dose 2018-12-26 Completed Unive rsity of 00:00:00 [facility] Pneumococcal 13 2018-12-26 Completed Universit y of Conjugate, PCV13 00:00:00 [place] [facility] (Prevnar 13) Branch Influenza High Dose 2018-12-26 Completed Unive rsity of 00:00:00 [facility] Pneumococcal 13 2018-12-26 Completed Universit y of Conjugate, PCV13 00:00:00 [place] [facility] (Prevnar 13) Branch Influenza High Dose 2018-12-26 Completed Unive rsity of 00:00:00 [facility] Pneumococcal 13 2018-12-26 Completed Universit y of Conjugate, PCV13 00:00:00 [facility] dical (Prevnar 13) Branch Influenza High Dose 2018-12-26 Completed [facility]ive rsity of 00:00:00 [facility] Pneumococcal 13 2018-12-26 Completed Universit y of Conjugate, PCV13 00:00:00 [place] [facility] (Prevnar 13) Branch Influenza High Dose 2018-12-26 Completed Unive rsity of 00:00:00 [facility] Pneumococcal 13 2018-12-26 Completed Universit y of Conjugate, PCV13 00:00:00 [place] [facility] (Prevnar 13) Branch Influenza High Dose 2018-12-26 Completed Unive rsity of 00:00:00 [facility] Pneumococcal 13 2018-12-26 Completed Universit y of Conjugate, PCV13 00:00:00 [place] [facility] (Prevnar 13) Branch Vital Signs Vital Name Observation Time Observation Value Comments Source Systolic blood 2022-07-04 14:22:00 133 mm[Hg] Univer sity of pressure [facility] Diastolic blood 2022-07-04 14:22:00 80 mm[Hg] Unive rsity of [facility] Heart rate 2022-07-04 14:22:00 54 /min Universi ty of [facility] Body height 2022-07-04 14:22:00 193 cm Universi ty of [facility] Body weight 2022-07-04 14:22:00 135.716 kg Universi ty of [facility] BMI 2022-07-04 14:22:00 36.42 kg/m2 Universi ty [facility] Oxygen saturation in 2022-07-04 14:22:00 96 /min University of Arterial blood by [facility] Pulse oximetry Branch Systolic blood 2022-05-04 18:01:00 122 mm[Hg] Univer sity of pressure [facility] Diastolic blood 2022-05-04 18:01:00 69 mm[Hg] Unive rsity of pressure [facility] Heart rate 2022-05-04 18:01:00 95 /min Universi ty of [facility] Body weight 2022-05-04 18:01:00 133.085 kg [facility] BMI 2022-05-04 18:01:00 39.79 kg/m2 Universi ty [facility] Oxygen saturation in 2022-05-04 18:01:00 95 /min University of Arterial blood by [facility] Pulse oximetry Branch Systolic blood 2022-02-09 17:54:00 117 mm[Hg] Univer sity of pressure [facility] Diastolic blood 2022-02-09 17:54:00 73 mm[Hg] Unive rsity of pressure [facility] Heart rate 2022-02-09 17:54:00 54 /min Universi ty of [facility] Body height 2022-02-09 17:54:00 182.9 cm Universi ty of [facility] Body weight 2022-02-09 17:54:00 134.99 kg [facility]i [facility] BMI 2022-02-09 17:54:00 40.36 kg/m2 Universi ty [facility] Oxygen saturation in 2022-02-09 17:54:00 98 /min University of Arterial blood by [facility] Pulse oximetry Branch Systolic blood 2021-11-17 14:06:00 132 mm[Hg] Univer sity of pressure [facility] Diastolic blood 2021-11-17 14:06:00 80 mm[Hg] Unive rsity of pressure [facility] Heart rate 2021-11-17 13:58:00 52 /min Universi ty of [facility] Body weight 2021-11-17 13:58:00 131.77 kg [facility] BMI 2021-11-17 13:58:00 35.36 kg/m2 Universi ty [facility] Systolic blood 2022-09-22 18:51:00 104 mm[Hg] [facility] pressure Diastolic blood 2022-09-22 18:51:00 63 mm[Hg] [facility] pressure Heart rate 2022-09-22 18:51:00 81 /min [facility] Body temperature 2022-09-22 18:51:00 36.33 Leticia [facility] Body height 2022-09-22 18:51:00 193 cm [facility] Body weight 2022-09-22 18:51:00 132.677 kg [facility] BMI 2022-09-22 18:51:00 35.60 kg/m2 [facility] Oxygen saturation in 2022-09-22 18:51:00 100 /min [facility] Arterial blood by Pulse oximetry Systolic blood 2022-03-15 19:31:00 135 mm[Hg] [facility] pressure Diastolic blood 2022-03-15 19:31:00 69 mm[Hg] [facility] pressure Heart rate 2022-03-15 19:31:00 71 /min [facility] Body temperature 2022-03-15 19:31:00 36 Leticia [facility] Body height 2022-03-15 19:31:00 193 cm [facility] Body weight 2022-03-15 19:31:00 134.355 kg [facility] BMI 2022-03-15 19:31:00 36.05 kg/m2 [facility] Oxygen saturation in 2021-12-14 19:38:00 99 /min [facility] Arterial blood by Pulse oximetry Respiratory rate 2021-10-28 13:34:46 18 /min [facility] Procedures Procedure Date / Time Performing Clinician Source Performed EXTERNAL PROVIDER RECORDS 2022-11-14 05:01:00 Doctor Unassigned, [facility] Name [facility] MRI BRAIN W WO CONTRAST 2022-09-22 17:03:00 [facility] Mode PET CT WHOLE BODY 2022-09-22 15:58:04 [facility] Mode POC GLUCOSE 2022-09-22 13:37:00 Minnie Appiah REFERRAL- 2022-09-18 05:01:00 Doctor Unassigned, [facility] REQUEST/RESPONSE [place] [facility] [place] EXTERNAL PROVIDER RECORDS 2022-06-20 05:01:00 Doctor Unassigned, [facility] Name [facility] PET CT WHOLE BODY 2022-06-14 16:31:52 [facility] Mode POC GLUCOSE 2022-06-14 14:22:00 Minnie Appiah MRI BRAIN W WO CONTRAST 2022-06-14 13:52:00 [facility] Mode REFERRAL- 2022-06-09 05:01:00 Doctor Unassigned, [facility] REQUEST/RESPONSE [facility] INSURANCE CORRESPONDENCE 2022-05-31 05:01:00 Doctor Unassigned, [facility] Name [facility] [place] EXTERNAL PROVIDER RECORDS 2022-04-14 06:01:00 Doctor Unassigned, [facility] Name [facility] CBC WITH PLATELET AND 2022-03-31 16:45:00 Leonides Tristan [facility] DIFFERENTIAL COMPREHENSIVE METABOLIC 2022-03-31 16:45:[address] [facility] PANEL PHOSPHORUS LEVEL 2022-03-31 16:45:00 [facility]ID [facility] 2022-03-31 16:45:00 [facility] PARATHYROID HORMONE 2022-03-31 16:45:00 [facility] INSURANCE CORRESPONDENCE 2022-03-17 06:01:00 Doctor Unassigned, [facility] CBC WITH PLATELET AND 2022-03-15 20:28:00 [facility] DIFFERENTIAL Mode THYROID STIMULATING 2022-03-15 20:28:00 [facility] HORMONE Mode T4, FREE 2022-03-15 20:28:00 [facility] spital Mode COMPREHENSIVE METABOLIC 2022-03-15 20:28:00 [facility] PANEL Mode ESTIMATED GFR 2022-03-15 20:28:00 Minnie App[facility] MRI BRAIN W WO CONTRAST 2022-03-15 16:30:00 [facility] PET CT WHOLE BODY 2022-03-15 16:01:59 Mesfin [facility] POC GLUCOSE 2022-03-15 14:09:00 Minnie Appiah [facility] INSURANCE CORRESPONDENCE 2022-02-06 06:01:00 Doctor Unassigned, [facility] THYROID STIMULATING 2022-01-18 20:41:00 Kameron Concepcion [facility] HORMONE T4, FREE 2022-01-18 20:41:00 Kameron Concepcion [facility] INSURANCE CORRESPONDENCE 2021-12-19 05:01:00 Doctor Unassigned, [facility] MRI BRAIN W WO CONTRAST 2021-12-14 14:50[facility] 2021-12-14 14:01:[facility] 2021-12-12 05:01:00 Doctor Unassigned, [facility] EXTERNAL PROVIDER RECORDS 2021-11-29 05:01:00 Doctor Unassigned, [facility] FLU 2021-11-17 14:22:01 Guerrero, [facility] [place] VACC(),65+YR,0.5 Medica l Branch ML,IM,ADJUVANTED,QUAD(FLU AD) EXTERNAL PROVIDER RECORDS 2021-11-10 05:01:00 Doctor Unassigned, [facility] REFERRAL- 2021-10-29 05:01:00 Doctor Unassigned, [facility] REQUEST/RESPONSE [facility] SURGICAL PATHOLOGY 2021-10-27 15:06:00 [facility] ANESTHESIA INTUBATION 2021-10-27 12:55:00 Carleen Mckeon [facility] Didi THYROIDECTOMY, TOTAL 2021-10-27 12:39:00 Kameron Concepcion [facility] CBC WITH PLATELET AND 2021-10-19 12:54:00 [facility] DIFFERENTIAL COMPREHENSIVE METABOLIC 2021-10-19 12:54:00 [facility] PANEL URIC ACID LEVEL 2021-10-19 12:54:00 [facility] PHOSPHORUS LEVEL 2021-10-19 12:54:[address] [facility] PARATHYROID HORMONE 2021-10-19 12:54:00 [facility] CBC WITH PLATELET AND 2021-10-19 12:54:00 [facility] DIFFERENTIAL CBC WITH PLATELET AND 2021-10-14 18:19:00 Sonia Ortega [facility] DIFFERENTIAL COMPREHENSIVE METABOLIC 2021-10-14 18:19:00 Sonia Ortega [facility] PANEL HEMOGLOBIN A1C 2021-10-14 18:19:00 Sonia Ortega ospital ESTIMATED GFR 2021-10-14 18:19:00 Sonia Ortega ospital ECG PRE/POST OP 2021-10-14 18:11:29 Sonia Ortega ospital US THYROID AND LATERAL 2021-10-14 16:45:00 Kameron Concepcion [facility] NECK PATIENT QUESTIONNAIRE 2021-10-12 05:01:00 Doctor Unassigned, [facility] REFERRAL- 2021-09-20 05:01:00 Doctor Unassigned, [facility] REQUEST/RESPONSE [facility] PET CT WHOLE BODY 2021-09-19 15:59:57 Mesfin Minnie [facility] Juancarlos POC GLUCOSE 2021-09-19 13:49:00 Mesfin [facility] Ju[facility] MRI BRAIN W WO CONTRAST 2021-07-29 13:01:00 Lorena Pickering [facility] BASIC METABOLIC PANEL 2021-07-15 09:31:00 [facility] MAGNESIUM LEVEL 2021-07-15 09:31:00 Luthy, [facility] spital PHOSPHORUS LEVEL 2021-07-15 09:31:00 Lugood [facility] ospital CBC WITH PLATELET AND 2021-07-15 09:31:00 [facility] GFR 2021-07-15 09:31:00 Luthy, [facility] BASIC METABOLIC PANEL 2021-07-14 10:46:00 [facility] MAGNESIUM LEVEL 2021-07-14 10:46:00 Luthy, [facility] spital PHOSPHORUS LEVEL 2021-07-14 10:46:00 Luthy, [facility] ospital ALBUMIN LEVEL 2021-07-14 10:46:00 Luthy, [facility] spital LACTIC ACID LEVEL 2021-07-14 10:46:00 [facility] ESTIMATED GFR 2021-07-14 10:46:00 Luthy, [facility] CBC WITH PLATELET AND 2021-07-14 10:46:00 [facility] DIFFERENTIAL ARTERIAL BLOOD GAS 2021-07-14 01:18:00 [facility] MRI BRAIN WO CONTRAST 2021-07-13 21:30:00 [facility] CBC WITH PLATELET AND 2021-07-13 09:58:00 Celine Go [facility] DIFFERENTIAL ESTIMATED GFR 2021-07-13 09:58:00 Yves Nairah [facility] [place] BASIC METABOLIC PANEL 2021-07-13 09:58:00 [facility] MAGNESI[facility] L[facility] 2021-07-13 09:58:00 [facility] [place] ALBUMIN LEVEL 2021-07-12 09:32:00 Judy Elizalde Ho spital BASIC METABOLIC PANEL 2021-07-12 09:32:00 [facility] MAGNESIUM LEVEL 2021-07-12 09:32:00 Mercedes Nair ospital [place] ESTIMATED GFR 2021-07-12 09:32:00 Mercedes Nair ospital [place] URINE CULTURE 2021-07-11 09:49:00 Juan Miguel Chapin spital URINALYSIS SCREEN AND 2021-07-11 09:49:00 Tavares [facility] MICROSCOPY, WITH REFLEX TO CULTURE BASIC METABOLIC PANEL 2021-07-11 09:49:00 Fide [facility] MAGNESIUM LEVEL 2021-07-11 09:49:00 Judy Elizalde spital PHOSPHORUS LEVEL 2021-07-11 09:49:00 Sheeba [facility]ail [facility] ALBUMIN LEVEL 2021-07-11 09:49:00 LuSheeba parkinsongail [facility] ESTIMATED GFR 2021-07-11 09:49:00 Judy Elizalde spital XR CHEST 1 VW PORTABLE 2021-07-10 19:37:00 [facility] AMMONIA LEVEL 2021-07-10 18:34:00 [facility] COMPREHENSIVE METABOLIC 2021-07-10 18:34:00 [facility] PANEL CBC WITH PLATELET AND 2021-07-10 18:34:00 [facility] DIFFERENTIAL MAGNESIUM LEVEL 2021-07-10 18:34:00 [facility] spital PHOSPHORUS LEVEL 2021-07-10 18:34:00 [facility] ospital LACTIC ACID LEVEL 2021-07-10 18:34:00 [facility] B NATRIURETIC PEPTIDE 2021-07-10 18:34:00 [facility] ESTIMATED GFR 2021-07-10 18:34:00 [facility] POC GLUCOSE 2021-07-10 18:21:00 [facility] HEAD WO CONTRAST 2021-07-10 16:59:57 [facility] ARTERIAL BLOOD GAS 2021-07-10 16:27:00 [facility] BASIC METABOLIC PANEL 2021-07-10 09:46:00 Luthy, Judy [facility] MAGNESIUM LEVEL 2021-07-10 09:46:00 Luthy, Judy [facility] PHOSPHORUS LEVEL 2021-07-10 09:46:00 Luthy, [facility] ALBUMIN LEVEL 2021-07-10 09:46:00 Luthy, Judy [facility] CBC WITH PLATELET AND 2021-07-10 09:46:00 [facility] DIFFERENTIAL ESTIMATED GFR 2021-07-10 09:46:00 Luthy, Judy [facility] VENOUS BLOOD GAS 2021-07-09 11:10:00 Luthy, Judy [facility] ANTI XA, LOW MOLECULAR 2021-07-09 09:56:00 [facility] WEIGHT BASIC METABOLIC PANEL 2021-07-09 09:56:00 Luthy, Judy [facility] CBC WITH PLATELET AND 2021-07-09 09:56:00 [facility]ESIUM LEVEL 2021-07-09 09:56:00 Luthy, Judy [facility] PHOSPHORUS LEVEL 2021-07-09 09:56:00 Luthy, J[facility]d [facility] ALBUMIN LEVEL 2021-07-09 09:56:00 Luthy, Judy [facility] ESTIMATED GFR 2021-07-09 09:56:00 Luthy, Judy [facility] BASIC METABOLIC PANEL 2021-07-08 09:40:00 Luthy, Judy [facility] MAGNESIUM LEVEL 2021-07-08 09:40:00 Luthy, Judy [facility] PHOSPHORUS LEVEL 2021-07-08 09:40:00 Luthy, [facility] ESTIMATED GFR 2021-07-08 09:40:00 Luthy, Judy [facility] BASIC METABOLIC PANEL 2021-07-07 09:45:00 Luthy, Judy [facility] MAGNESIUM LEVEL 2021-07-07 09:45:00 Luthy, Judy [facility] PHOSPHORUS LEVEL 2021-07-07 09:45:00 Luthy, [facility] ESTIMATED GFR 2021-07-07 09:45:00 Luthy, [facility] CBC WITH PLATELET AND 2021-07-07 09:45:00 Luthy, [facility] [facility] CHEST WO CONTRAST 2021-07-06 13:49:02 [facility] ABDOMEN WO CONTRAST PELVIS WO CONTRAST CBC WITH PLATELET AND 2021-07-06 07:00:00 Celine Go [facility] DIFFERENTIAL BASIC METABOLIC PANEL 2021-07-06 07:00:00 Luthy, Judy [facility] MAGNESIUM LEVEL 2021-07-06 07:00:00 Luthy, [facility] PHOSPHORUS LEVEL 2021-07-06 07:00:00 Luthy, [facility] ESTIMATED GFR 2021-07-06 07:00:00 Luthy, Judy [facility] ANTI XA, LOW MOLECULAR 2021-07-06 06:59:00 [facility] WEIGHT US RENAL 2021-07-05 21:28:09 Je Morales spital US DUPLEX VENOUS LOWER 2021-07-05 18:47:26 [facility] EXTREMITY BILATERAL TTE COMPLETE, W CONTRAST, 2021-07-05 17:53:00 [facility] W DOPPLER (C8929) ECG 12-LEAD 2021-07-05 13:38:56 [facility] TROPONIN T 2021-07-05 13:27:00 [facility] CBC WITH PLATELET AND 2021-07-05 08:29:00 [facility] DIFFERENTIAL B NATRIURETIC PEPTIDE 2021-07-05 08:29:00 [place] [facility] BASIC METABOLIC PANEL 2021-07-05 08:29:00 [facility] ESTIMATED GFR 2021-07-05 08:29:00 [facility] LIPID PANEL 2021-07-05 08:29:00 [facility] URINE CULTURE 2021-07-05 08:20:00 [place] [facility] spital URINALYSIS SCREEN AND 2021-07-05 08:20:00 [facility] MICROSCOPY, WITH REFLEX TO CULTURE PROTHROMBIN TIME WITH INR 2021-07-05 02:49:00 [facility] PARTIAL THROMBOPLASTIN 2021-07-05 02:49:00 [facility] TIME (PTT) XR CHEST 2 VW 2021-07-04 22:18:15 [facility] ZZCOVID-19 ANTI-SPIKE IGG 2021-07-04 21:19:00 [facility] ANTIBODY TITER ZZCOVID-19 SEROLOGY 2021-07-04 21:19:00 [facility] PATIENT SURVEILLANCE CBC WITH PLATELET AND 2021-07-04 21:07:00 [facility] DIFFERENTIAL COMPREHENSIVE METABOLIC 2021-07-04 21:07:00 [facility] PANEL THYROID STIMULATING 2021-07-04 21:07:00 [facility] HORMONE T4, FREE 2021-07-04 21:07:00 [facility] TROPONIN T 2021-07-04 21:07:00 [facility] ESTIMATED GFR 2021-07-04 21:07:00 [facility] COVID-19 QUALITATIVE 2021-07-04 20:43:00 Celine Go [facility] RT-PCR US THYROID BIOPSY FNA 2021-06-24 20:15:22 Minnie Appiah [facility] Arsh Bauer CYTOLOGY 2021-06-24 19:50:00 Minnie Appiah spital (NON-GYNECOLOGICAL) Juancarlos REQUEST US THYROID 2021-06-08 19:58:14 Minnie Appiahtal Juancarlos RAD ONC COURSE SUMMARY 2021-06-02 18:48:43 Provider, Unknown [facility] RAD ONC DAILY TREATMENT 2021-06-01 16:20:14 Provider, Unknown [facility] COMPREHENSIVE METABOLIC 2021-05-31 15:52:00 Mesfin [facility] PANEL Juancarlos COVID-19 QUALITATIVE 2021-05-30 16:20:00 Emily Blunt [facility] RT-PCR MRI BRAIN W WO CONTRAST 2021-05-26 17:10:00 Jackson Bateman [facility] BASIC METABOLIC PANEL 2021-05-05 09:44:00 [facility]TE [facility] 2021-05-05 09:44[facility]00 [facility] W/AUTO DIFF MAGNESIUM LEVEL 2021-05-05 09:44:00 [facility] ospital PHOSPHORUS LEVEL 2021-05-05 09:44:00 [facility] IONIZED CALCIUM 2021-05-05 09:44:00 [facility] ospital ESTIMATED GFR 2021-05-05 09:44:00 [facility] POC GLUCOSE 2021-05-05 02:17:00 Nohemi Plasc[facility] POC GLUCOSE 2021-05-04 23:48:00 Nohemi Pl[facility] spital MRI BRAIN W WO CONTRAST 2021-05-04 23:20:23 Marta Carrion [facility] POC GLUCOSE 2021-05-04 21:07:00 Nohemi Plascencia spital POC GLUCOSE 2021-05-04 17:35:00 Nohemi Plascencia spital POC GLUCOSE 2021-05-04 13:38:00 Nohemi Plascencia spital POC GLUCOSE 2021-05-04 10:12:00 Nohemi Plascencia spital ECG 12-LEAD 2021-05-04 09:12:04 Nohemi Plascencia spital BASIC METABOLIC PANEL 2021-05-04 06:52:00 Organek, [facility] HC COMPLETE BLD COUNT 2021-05-04 06:52:00 Organek, [facility] W/AUTO DIFF MAGNESIUM LEVEL 2021-05-04 06:52:00 Organek, [facility] ospital PHOSPHORUS LEVEL 2021-05-04 06:52:00 Organek, [facility] IONIZED CALCIUM 2021-05-04 06:52:00 Organek, [facility] ospital ESTIMATED GFR 2021-05-04 06:52:00 Nohemi Plascencia spital POC GLUCOSE 2021-05-04 05:17:[address] HEAD WO CONTRAST 2021-05-03 20:16:40 Marta Carrion [facility] SURGICAL PATHOLOGY 2021-05-03 18:23:00 [facility] REQUEST ARTERIAL LINE 2021-05-03 18:11:18 Mariposa Gardner spital ARTERIAL BLOOD GAS, 2021-05-03 17:50:00 [facility] CORRECTED SODIUM LEVEL, SYRINGE 2021-05-03 17:50:00 [facility] POT[facility] 2021-05-03 17:50:00 [facility] HEMOGLOBIN, SYRINGE 2021-05-03 17:50:00 [facility] IONIZED CALCIUM, ARTERIAL 2021-05-03 17:50:00 [facility] GLU[facility] LEV[facility], SYRINGE 2021-05-03 17:50:00 [facility] MAGNESIUM LEVEL 2021-05-03 17:50:00 Nohemi Plascencia spital LACTIC ACID, SYRINGE 2021-05-03 17:50:00 [facility]i [facility] DE AN ELECTIVE 2021-05-03 16:35:00 Mariposa Gardner spital ENDOTRACHEAL AIRWAY CRANIOTOMY 2021-05-03 16:14:00 Yuan Feng [facility] BASIC METABOLIC PANEL 2021-05-03 10:57:00 Organek, [facility] HC COMPLETE BLD COUNT 2021-05-03 10:57:00 Organek, [facility] W/AUTO DIFF MAGNESIUM LEVEL 2021-05-03 10:57:00 [facility] PHOSPHORUS LEVEL 2021-05-03 10:57:00 [facility] ESTIMATED GFR 2021-05-03 10:57:00 Nohemi Plascencia spital TYPE AND SCREEN 2021-05-02 17:49:00 [facility] ABO AND RH CONFIRMATION 2021-05-02 17:49:00 [facility] BY PROTOCOL [facility] PARTIAL THROMBOPLASTIN 2021-05-02 17:48:00 [facility] TIME (PTT) [facility] PROTHROMBIN TIME WITH INR 2021-05-02 17:48:00 [facility] MRI BRAIN W WO CONTRAST 2021-05-02 15:30:00 [facility] BASIC METABOLIC PANEL 2021-05-02 11:15:00 Teto Nohemi [facility] HC COMPLETE BLD COUNT 2021-05-02 11:15:00 Teto [facility] W/AUTO DIFF MAGNESIUM LEVEL 2021-05-02 11:15:00 Nohemi Plascencia spital PHOSPHORUS LEVEL 2021-05-02 11:15:00 [facility] ESTIMATED GFR 2021-05-02 11:15:00 Nohemi Plascencia spital BASIC METABOLIC PANEL 2021-05-01 10:43:00 Teto, [facility] HC COMPLETE BLD COUNT 2021-05-01 10:43:00 Nohemi Plascencia [facility] W/AUTO DIFF MAGNESIUM LEVEL 2021-05-01 10:43:00 Nohemi Plascencia Ho spital PHOSPHORUS LEVEL 2021-05-01 10:43:00 Nohemi Plascencia ospital ESTIMATED GFR 2021-05-01 10:43:00 Nohemi Plascencia spital HEPATIC FUNCTION PANEL 2021-04-30 23:20:00 Haseeb [facility] THYROID STIMULATING 2021-04-30 23:20:00 [facility] HORMONE [facility] BASIC METABOLIC PANEL 2021-04-30 11:33:00 Nohemi Plascencia [facility] HC COMPLETE BLD COUNT 2021-04-30 11:33:00 Nohemi Plascencia [facility] W/AUTO DIFF MAGNESIUM LEVEL 2021-04-30 11:33:00 Nohemi Plascencia Ho spital PHOSPHORUS LEVEL 2021-04-30 11:33:00 Nohemi Plascencia ospital B NATRIURETIC PEPTIDE 2021-04-30 11:33:00 Je Morales [facility] ESTIMATED GFR 2021-04-30 11:33:00 Nohemi Plascencia spital BASIC METABOLIC PANEL 2021-04-29 11:16:00 Nohemi Plascencia [facility] HC COMPLETE BLD COUNT 2021-04-29 11:16:00 Nohemi Plascencia [facility] W/AUTO DIFF MAGNESIUM LEVEL 2021-04-29 11:16:00 Nohemi Plascencia Ho spital PHOSPHORUS LEVEL 2021-04-29 11:16:00 Nohemi Plascencia ospital ESTIMATED GFR 2021-04-29 11:16:00 Nohemi Plascencia spital TTE COMPLETE, W CONTRAST, 2021-04-29 03:30:00 Lora Ovalle [facility] W DOPPLER (C8929) Darell ECG 12-LEAD 2021-04-29 01:40:[address] HEAD WO CONTRAST 2021-04-29 00:43:38 Ovalle, [facility] Darell US DUPLEX VENOUS UPPER 2021-04-28 23:43:31 Vasquez [facility] EXTREMITY BILATERAL Darell US DUPLEX VENOUS LOWER 2021-04-28 23:42:44 Vasquez [facility] EXTREMITY BILATERAL Darell XR CHEST 1 VW PORTABLE 2021-04-28 22:25:00 [facility] COVID-19 QUALITATIVE 2021-04-28 20:49:00 [facility]PCR [facility] ANTI-SPIKE IGG 2021-04-28 20:49:00 [facility] ANTIBODY TITER Juancarlos HC COMPLETE BLD COUNT 2021-04-28 20:49:00 [facility] W/AUTO DIFF PARTIAL THROMBOPLASTIN 2021-04-28 20:49:00 [facility] TIME (PTT) Juancarlos PROTHROMBIN TIME WITH INR 2021-04-28 20:49:00 [facility] ZZCOVID-19 SEROLOGY 2021-04-28 20:49:00 [facility] 2021-04-28 20:49:00 Teto [facility] PANEL MAGNESIUM LEVEL 2021-04-28 20:49:00 Nohemi Plascencia spital PHOSPHORUS LEVEL 2021-04-28 20:49:00 Nohemi Plascencia H ospital ESTIMATED GFR 2021-04-28 20:49:00 Nohemi Plascencia spital MRI BRAIN W WO CONTRAST 2021-04-28 02:40:00 [facility] 2021-04-27 21:58:00 [facility] PANEL Mode HC COMPLETE BLD COUNT 2021-04-27 21:58:00 [facility] W/AUTO DIFF Mode ESTIMATED GFR 2021-04-27 21:58:00 [facility] Minnie Tomlinson brooke Bauer PET CT SKULL BASE TO MID 2021-04-27 17:55:52 Chaka Mcdaniels [facility] THIGH Mode POC GLUCOSE 2021-04-27 16:07:00 Minnie Appiah brooke Bauer Plan of Care Planned Activity Planned Date Details Comments Source Future Scheduled 2022-11-18 [facility] 11:27:07 screening (procedure) [code = 295524434] Future Scheduled 2022-11-18 COVID-19 VACCINE (4 [facility] Test 11:27:07 - Booster for Pfizer series) [code = COVID-19 VACCINE (4 - Booster for Pfizer series)] Future Scheduled 2022-11-18 SHINGLES [facility]ACCIN[facility] 11:27:07 (2 of 2) [code = SHINGLES VACCINES (2 of 2)] Future Scheduled 2022-11-18 INFLUENZA VACCINE [facility] 11:27:07 (#1) [code = INFLUENZA VACCINE (#1)] Future Scheduled 2022-06-12 [facility] 15:27:25 screening (procedure) [code = 335555886] Future Scheduled 2022-06-12 COVID-19 VACCINE (4 [facility] Test 15:27:25 - Booster for Pfizer series) [code = COVID-19 VACCINE (4 - Booster for Pfizer series)] Future Scheduled 2022-06-12 [facility]LES [facility]ACCINES [facility] 15:27:25 (2 of 2) [code = SHINGLES VACCINES (2 of 2)] Future Scheduled 2022-06-12 INFLUENZA VACCINE [facility] 15:27:25 [code = INFLUENZA VACCINE] Future Scheduled 2022-03-30 [facility] 05:12:29 screening (procedure) [code = 271761438] Future Scheduled 2022-03-30 COVID-19 VACCINE (4 [facility] Test 05:12:29 - Booster for Pfizer series) [code = COVID-19 VACCINE (4 - Booster for Pfizer series)] Future Scheduled 2022-03-30 SHINGLES VACCINES [facility] 05:12:29 (2 of 2) [code = SHINGLES VACCINES (2 of 2)] Encounters Start End Encounter Admission Attending Care Care Encounter Source Date/Time Date/Time Type Type Clinicians Facility Department ID 2022-11-14 2022-11-14 Orders Doctor LORA 1.2.840.114 [id number] [facility] 00:00:00 00:00:00 Only Unassigned, MARIAH 350.1.13.10 ity of [facility] 4.2.7.2.686 Foreign as [phone] [address] 2022-11-10 2022-11-[address] [facility] 1.2.011.361 [id number] Univers 00:00:00 00:00:00 [facility] 350.1.13.10 it y of [place] 4.2.7.2.686 Foreign as [place]?BLEA [id number] [address] MEDICAL OFFICE [facility] 2022-11-07 2022-11-[address] [facility] 1.2.974.019 [id number] Univers 00:00:00 00:00:00 [facility] 350.1.13.10 it y of [place] 4.2.7.2.686 Foreign as [place]?BLEA [id number] [address] MEDICAL OFFICE [facility] 2022-09-22 2022-09-22 [facility] 1.2.840.1 [id number] Methodi 10:17:55 23:59:00 Encounter Minnie Bauer 35446.1.[address] 3.430.2.7 Hospit a .3.451206 l .8 2022-09-22 2022-09-22 Office [facility] 1.2.840.1 [id number] Methodi 14:00:00 14:20:00 Visit Yaya 86594.1.[address] 3.430.2.7 Hospit a .3.824837 l .8 2022-09-22 2022-09-22 [facility] 1.2.840.1 [id number] Methodi 07:55:16 10:16:00 Encounter Minnie Bauer 93295.1.[address] 3.430.2.7 Hospit a .3.155302 l .8 2022-09-22 2022-09-22 [facility] [id number] [id number] [place] 00:00:00 00:00:00 MINNIE 123 Method i 2022-09-22 2022-09-22 Outpatient MESFIN, [facility] [id number] [place] 00:00:00 00:00:00 MINNIE 124 Method i 2022-09-22 2022-09-22 Outpatient ELIAZAR, [facility] [id number] [place] 00:00:00 00:00:00 YAYA 368 Method i 2022-09-18 2022-09-18 Orders Doctor LORA 1.2.840.114 [id number] [facility] 00:00:00 00:00:00 Only Unassigned, MARIAH 350.1.13.10 ity of [facility] 4.2.7.2.686 Foreign as [phone] [address] 2022-09-13 2022-09-13 Telephone Eliazar 1.2.840.1 [id number] Method 00:00:00 00:00:[address] 3.430.2.7 Hospit a .3.090751 l .8 2022-09-13 2022-09-[address] [facility] 1.2.138.772 [id number] Univers 00:00:00 00:00:00 [facility] 350.1.13.10 it y of [place] 4.2.7.2.686 Foreign as [place]?BLEA [phone] [address] MEDICAL OFFICE [facility] 2022-08-24 2022-08-24 Telephone [facility] 1.2.189.601 [id number] Univers 00:00:00 00:00:00 [facility] 350.1.13.10 it y of [place] 4.2.7.2.686 Foreign as [place]?BLEA [id number] [address] MEDICAL OFFICE [facility] 2022-08-22 2022-08-22 [facility] 1.2.292.084 [id number] [facility] 00:00:00 00:00:00 [facility] 350.1.13.10 it y [facility] 4.2.7.2.686 Foreign as [place]?BLEA [phone] Dc annel IBARRA 044 [facility] OFFICE [facility] 2022-08-18 2022-08-18 Telephone Nabil, 1.2.840.1 [id number] Methodi 00:00:00 00:00:[address] 3.430.2.7 Hospit a .3.447858 l .8 2022-08-17 2022-08-17 Telephone Perea, 1.2.840.1 [id number] Methodi 00:00:00 00:00:[address] 3.430.2.7 Hospit a .3.450070 l .8 2022-07-22 2022-07-22 Refill Cesar [facility] 1.2.840.114 [id number] Univers 00:00:00 00:00:00 Bishop KONG 350.1.13.10 i ty of [place]7.2.[place] [phone] Dc annel [address] 2022-07-04 2022-07-04 [employer], [facility] 1.2.840.1 [id number] Univers 10:00:00 10:15:00 Visit Bishop Guerrero [facility] 350.1.13.10 ity joie KONG 4.2.7.2.686 Foreign as [place]?BLEA [phone] Dc annel IBARRA 353 [facility] OFFICE [facility] 2022-07-04 2022-07-04 Outpatient R CESAR [facility] [id number] Univers 10:00:00 10:00:00 BISHOP uribe [facility] 2022-07-04 2022-07-04 Office Cesar [facility] 1.2.840.114 [id number] Univers 09:30:00 09:45:00 Visit Bishop [facility] 350.1.13.10 it y of [place] 4.2.7.2.686 Foreign as [place]?BLEA [phone] [facility] FRED [address] [place] [address] OFFICE [facility] 2022-06-27 2022-06-27 Telephone Cesar [facility] 1.2.362.490 [id number] [facility] 00:00:00 00:00:00 Bishop [facility] 350.1.13.10 it y of [place] 4.2.7.2.686 Foreign as [place]?BLEA [id number] Dc annel [address] MEDICAL OFFICE BUILDING 2022-06-20 2022-06-20 Orders Doctor PAULINO 1.2.840.114 [id number] [facility] 00:00:00 00:00:00 Only Unassigned, MARIAH 350.1.13.10 ity of [facility] 4.2.7.2.686 Foreign as [phone] [address] 2022-06-20 2022-06-20 Orders Coretta 1.2.840.1 [id number] Methodi 00:00:00 00:00:00 Only Minnie Bauer 27502.1.[address] 3.430.2.7 Hospit a .3.358975 l .8 2022-06-19 2022-06-19 Telephone Minnie Appiah 1.2.840.1 [id number] Methodi 12:30:00 13:23:50 Consult Chaka Mcdaniels 56638.1.[address] 3.430.2.7 Hospit a .3.067097 l .8 2022-06-19 2022-06-19 [facility] 2100 [id number] [place] 00:00:00 00:00:00 MINNIE [address] 2022-06-14 2022-06-14 [facility], 1.2.840.1 [id number] Methodi 09:21:18 23:59:00 Encounter Minnie Bauer 17277.1.[address] 3.430.2.7 Hospit a .3.379618 l .8 2022-06-14 2022-06-14 [facility] 1.2.840.1 [id number] Methodi 07:48:23 09:20:00 Encounter Minnie Baeur 72974.1.[address] 3.430.2.7 Hospit a .3.652247 l .8 2022-06-14 2022-06-14 Outpatient MESFIN [facility] [id number] [place] 00:00:00 00:00:00 MINNIE [address] 2022-06-14 2022-06-14 Outpatient MESFIN [facility] [id number] [place] 00:00:00 00:00:00 MINNIE [address] 2022-06-14 2022-06-14 Travel 1.2.840.1 1.2.531.556 [id number] Methodi 00:00:00 00:00:[address] 3.430.2.7 0.2.7.3.698 [facility] .[facility] 084.8 l .8 2022-06-12 2022-06-12 Telephone Mesfin, 1.2.840.1 [id number] Methodi 00:00:00 00:00:00 Minnie Bauer [address]004.1.[address] 3.430.2.7 Hospit a .3.307897 l .8 2022-06-12 2022-06-12 Telephone [facility] 1.2.382.902 [id number] [facility] 00:00:00 00:00:00 [facility] 350.1.13.10 it y of [place] 4.2.7.2.686 Foreign as [place]?BLEA [id number] [address] MEDICAL OFFICE [facility] 2022-06-12 2022-06-12 Telephone Mesfin, 1.2.840.1 [id number] Methodi 00:00:00 00:00:00 Minnie Juancarlos [address] 3.430.2.7 Hospit a .3.288373 l .8 2022-06-09 2022-06-09 Orders Doctor LORA 1.2.840.114 [id number] [facility] Univers 00:00:00 00:00:00 Only Unassigned, MARIAH 350.1.13.10 ity of [facility] 4.2.7.2.686 Foreign as [phone] [address] 2022-06-01 2022-06-[address] [facility] 1.2.453.120 [id number] Univers 00:00:00 00:00:00 [facility] 350.1.13.10 it y of [facility] 4.2.7.2.686 Foreign as [place]?BLEA [id number] [address] MEDICAL OFFICE [facility] 2022-05-31 2022-05-31 Orders Doctor LORA 1.2.840.114 [id number] Univers 00:00:00 00:00:00 Only Unassigned, MARIAH 350.1.13.10 ity of [facility] 4.2.7.2.686 Foreign as [phone] [address] 2022-05-22 2022-05-[address] [facility] 1.2.534.307 [id number] Univers 00:00:00 00:00:00 [facility] 350.1.13.10 it y of [place] 4.2.7.2.686 Foreign as [place]?BLEA [phone] [address] OFFICE [facility] 2022-05-04 2022-05-[address] [facility] 1.2.840.114 [id number] Univers 12:45:00 13:00:00 Visit [facility] 350.1.13.10 it y of [facility] 4.2.7.2.686 Foreign as [place]?BLEA [id number] [address] OFFICE [facility] 2022-05-04 2022-05-04 [facility] [id number] Univers 12:45:00 12:45:00 BISHOP ity [facility] 2022-04-26 2022-04-26 Daysi Appiah, 1.2.840.1 [id number] Methodi 00:00:00 00:00:00 Minnie Bauer 51524.1.[address] 3.430.2.7 Hospit a .3.159243 l .8 2022-04-26 2022-04-26 Daysi Appiah 1.2.840.1 [id number] Methodi 00:00:00 00:00:00 Minn[address] Bauer 51986.1.[address] 3.430.2.7 Hospit a .3.045119 l .8 2022-04-21 2022-04-[address] [facility] 1.2.704.084 [id number] Univers 00:00:00 00:00:00 [facility] 350.1.13.10 it y of [place] 4.2.7.2.686 Foreign as [place]?BLEA [id number] [address] MEDICAL OFFICE [facility] 2022-04-14 2022-04-14 Orders Doctor LORA 1.2.840.114 [id number] Univers 00:00:00 00:00:00 Only Unassigned, MARIAH 350.1.13.10 ity of [facility] 4.2.7.2.686 Foreign as [id number] [address] 2022-04-13 2022-04-13 Patient [facility] 1.2.840.114 [id number] Univers 00:00:00 00:00:00 Secure Msg [facility] 350.1.13.10 ity of [place] 4.2.7.2.686 Foreign as [place]?BLEA [id number] [address] OFFICE [facility] 2022-04-13 2022-04-[address] [facility] 1.2.880.921 [id number] Univers 00:00:00 00:00:00 [facility] 350.1.13.10 it y of [place] 4.2.7.2.686 Foreign as [place]?BLEA [phone] [address] OFFICE [facility] 2022-03-31 2022-03-31 Daysi Appiah 1.2.840.1 [id number] Methodi 00:00:00 00:00:00 Minnie Bauer 04892.1.[address] 3.430.2.7 Hospit a .3.373399 l .8 2022-03-31 2022-03-31 Daysi Appiah 1.2.840.1 [id number] Methodi 00:00:00 00:00:00 Minnie Bauer 17961.1.[address] 3.430.2.7 Hospit a .3.406946 l .8 2022-03-21 2022-03-21 Telephone Cesar [facility] 1.2.172.256 [id number] Univers 00:00:00 00:00:00 [facility] 350.1.13.10 it y of [place] 4.2.7.2.686 Foreign as [place]?BLEA [id number] Dc dical [address] MEDICAL OFFICE BUILDING 2022-03-17 2022-03-17 Orders Doctor LORA 1.2.840.114 [id number] Univers 00:00:00 00:00:00 Only Unassigned, MARIAH 350.1.13.10 ity of [facility] 4.2.7.2.686 Foreign as [phone] [address] 2022-03-15 2022-03-15 [facility], 1.2.840.1 [id number] Methodi 09:34:55 23:59:00 Encounter Minnie Bauer 94315.1.[address] 3.430.2.7 Hospit a .3.324226 l .8 2022-03-15 2022-03-15 [facility], 1.2.840.1 [id number] 21 [id number] Methodi 09:34:55 23:59:00 Encounter Minnie Bauer 51245.1.[address] 3.430.2.7 Hospit a .3.843091 l .8 2022-03-15 2022-03-15 Office MicroMinnie emerson 1.2.840.1 1 [id number] Methodi 13:30:00 14:39:20 Visit Chaka Mcdaniels 87820.1.[address] 3.430.2.7 Hospit a .3.866443 l .8 2022-03-15 2022-03-15 Office Minnie Appiah 1.2.840.1 1 [id number] Methodi 13:30:00 14:39:20 Visit Chaka Mcdaniels 25468.1.[address] 3.430.2.7 Hospit a .3.847244 l .8 2022-03-15 2022-03-15 [facility], 1.2.840.1 [id number] Methodi 14:30:00 14:35:00 Minnie Bauer [address]104.1.[address] 3.430.2.7 Hospit a .3.892023 l .8 2022-03-15 2022-03-15 [facility], 1.2.840.1 [id number] 099 [id number] Methodi 14:30:00 14:35:00 Minnie Bauer [address]69.1.[address] 3.430.2.7 Hospit a .3.052459 l .8 2022-03-15 2022-03-15 [facility], 1.2.840.1 [id number] Methodi 07:53:14 09:33:00 Encounter Minnie Bauer 43843.1.[address] 3.430.2.7 Hospit a .3.963969 l .8 2022-03-15 2022-03-15 [facility], 1.2.840.1 [id number] Methodi 07:53:14 09:33:00 Encounter Minnie Bauer 54761.1.[address] 3.430.2.7 Hospit a .3.362521 l .8 2022-03-15 2022-03-15 Telephone Cesar [facility] 1.2.477.369 9607 1994 Univers 00:00:00 00:00:00 [facility] 350.1.13.10 it y of [place] 4.2.7.2.686 Foreign as [place]?BLEA [phone] [address] OFFICE BUILDING 2022-03-14 2022-03-14 Travel 1.2.840.1 1.2.032.539 0224 536588 Methodi 00:00:00 00:00:[address] 3.430.2.7 0.2.7.3.698 Ho spita .3.441683 084.8 l .8 2022-03-14 2022-03-14 Travel 1.2.840.1 1.2.185.588 3619 131716 Methodi 00:00:00 00:00:[address] 3.430.2.7 0.2.7.3.698 Ho spita .3.279988 084.8 l .8 2022-03-08 2022-03-08 Telephone Mcdaniels, 1.2.840.1 [id number] 2099 [id number] Methodi 00:00:00 00:00:[address] Mode 3.430.2.7 Hosp yang .3.244547 l .8 2022-03-08 2022-03-08 Telephone Mcdaniels, 1.2.840.1 [id number] 2099 583972 Methodi 00:00:00 00:00:[address] Mode 3.430.2.7 Hosp yang .3.139609 l .8 2022-02-13 2022-02-[address] [facility] 1.2.895.680 1337 7470 Univers 00:00:00 00:00:00 Bishop KONG 350.1.13.10 i ty [facility] 4.2.7.2.[place] [phone] Dc annel CHILDRESS [address] [place] [address] 2022-02-09 2022-02-09 [employer], [place] [facility] 1.2.840.1 14 [id number] Univers 12:30:00 12:45:00 Visit Bishop Guerrero 350.1.13.10 ity [facility] 4.2.7.2.686 Foreign as [place]?BLEA [phone] Dc annel IBARRA [address] [place] [address] OFFICE BUILDING 2022-02-09 2022-02-09 Outpatient R CESAR [facility] [id number] Univers 12:00:00 12:23:22 BISHOP uribe [facility] 2022-02-09 2022-02-[address] [facility] 1.2.840.114 [id number] 60 Univers 12:00:00 12:23:22 Visit [facility] 350.1.13.10 it y of [place] 4.2.7.2.686 Foreign as [place]?BLEA [phone] Dc annel [address] MEDICAL OFFICE BUILDING 2022-02-06 2022-02-06 Orders Doctor LORA 1.2.840.114 [id number] 63 Univers 00:00:00 00:00:00 Only Unassigned, MARIAH 350.1.13.10 ity of [facility] 4.2.7.2.686 Foreign as [phone] [address] 2022-01-23 2022-01-23 Orders Hung 1.2.840.1 [id number] 73582 Methodi 00:00:00 00:00:00 Only Kasey 69053.1.[address] 3.430.2.7 Hospit a .3.994144 l .8 2022-01-23 2022-01-23 Orders Hung 1.2.840.1 [id number] 23808 Methodi 00:00:00 00:00:00 Only Kasey 84673.1.[address] 3.430.2.7 Hospit a .3.386929 l .8 2022-01-17 2022-01-17 Orders Hung 1.2.840.1 622184751 23950 10031 Methodi 00:00:00 00:00:00 Only Kasey 66720.1.[address] 3.430.2.7 Hospit a .3.969768 l .8 2022-01-17 2022-01-17 Orders Hung 1.2.840.1 [id number] 02351 Methodi 00:00:00 00:00:00 Only Kasey 12521.1.[address] 3.430.2.7 Hospit a .3.494578 l .8 2022-01-16 2022-01-16 Telephone Dwain Concepcion.2.840.1 [id number] 2 [id number] Methodi 00:00:00 00:00:00 Kameron Bass 47130.1.[address] 3.430.2.7 Hospit a .3.205064 l .8 2022-01-16 2022-01-16 Telephone Jamey, 1.2.840.1 [id number] 2 [id number] Methodi 00:00:00 00:00:00 [address]on Bass [address]829.1.[address] 3.430.2.7 Hospit a .3.369883 l .8 2021-12-19 2021-12-19 Orders Doctor LORA 1.2.840.114 [id number] 51 Univers 00:00:00 00:00:00 Only Unassigned, MARIAH 350.1.13.10 ity of [facility] 4.2.7.2.686 Foreign as [phone] [address] 2021-12-16 2021-12-16 Orders Nabil 1.2.840.1 315473738 59098 00074 Methodi 00:00:00 00:00:00 Only Tran 98198.1.[address] 3.430.2.7 Hospit a .3.900920 l .8 2021-12-16 2021-12-16 Orders Nabil 1.2.840.1 994191018 49526 23690 Methodi 00:00:00 00:00:00 Only Tran 93218.1.[address] 3.430.2.7 Hospit a .3.646053 l .8 2021-12-14 2021-12-14 [facility], 1.2.840.1 [id number] 21 [id number] Methodi 08:25:34 23:59:00 Encounter Minnie Bauer 44326.1.[address] 3.430.2.7 Hospit a .3.266821 l .8 2021-12-14 2021-12-14 [facility], 1.2.840.1 [id number] 21 [id number] Methodi 08:25:34 23:59:00 Encounter Minnie Bauer 94152.1.[address] 3.430.2.7 Hospit a .3.660991 l .8 2021-12-14 2021-12-14 [facility] Minnie Appiah 1.2.840.1 1 [id number] Methodi 14:30:00 15:25:51 Visit Chaka Mcdaniels 50245.1.[address] 3.430.2.7 Hospit a .3.225270 l .8 2021-12-14 2021-12-14 [facility] Minnie Appiah 1.2.840.1 1 [id number] Methodi 14:30:00 15:25:51 Visit Chaka Mcdaniels 69928.1.[address] 3.430.2.7 Hospit a .3.181930 l .8 2021-12-14 2021-12-14 [facility], 1.2.840.1 [id number] Methodi 07:08:30 08:24:00 Encounter Minnie Bauer 51063.1.[address] 3.430.2.7 Hospit a .3.445673 l .8 2021-12-14 2021-12-14 [facility], 1.2.840.1 [id number] Methodi 07:08:30 08:24:00 Encounter Minnie Bauer 12727.1.[address] 3.430.2.7 Hospit a .3.674826 l .8 2021-12-14 2021-12-14 Orders Nabil, 1.2.840.1 [id number] 21001 58158 Methodi 00:00:00 00:00:00 Only Tran 79630.1.[address] 3.430.2.7 Hospit a .3.290546 l .8 2021-12-14 2021-12-14 Travel 1.2.840.1 1.2.781.587 0291 050714 Methodi 00:00:00 00:00:[address] 3.430.2.7 0.2.7.3.698 Ho spita .3.343565 084.8 l .8 2021-12-14 2021-12-14 Orders Nabil, 1.2.840.1 [id number] 21001 41175 Methodi 00:00:00 00:00:00 Only Tran 38554.1.[address] 3.430.2.7 Hospit a .3.170007 l .8 2021-12-14 2021-12-14 Travel 1.2.840.1 1.2.233.316 9741 418270 Methodi 00:00:00 00:00:[address] 3.430.2.7 0.2.7.3.698 Ho spita .3.617997 084.8 l .8 2021-12-12 2021-12-12 Orders Doctor LORA 1.2.840.114 [id number] 605 Univers 00:00:00 00:00:00 Only Unassigned, MARIAH 350.1.13.10 ity of [facility] 4.2.7.2.686 Foreign as [phone] [address] 2021-12-05 2021-12-05 Telephone Mcdaniels, 1.2.840.1 [id number] 2099 155891 Methodi 00:00:00 00:00:[address] Mode 3.430.2.7 Hosp yang .3.838361 l .8 2021-12-05 2021-12-05 Telephone Mcdaniels, 1.2.840.1 [id number] 2099 195446 Methodi 00:00:00 00:00:[address] Mode 3.430.2.7 Hosp yang .3.605797 l .8 2021-11-29 2021-11-29 Orders Doctor LORA 1.2.840.114 [id number] 19 Univers 00:00:00 00:00:00 Only Unassigned, MARIAH 350.1.13.10 ity of [facility] 4.2.7.2.686 Foreign as [phone] [address] 2021-11-17 2021-11-17 Outpatient R CESAR [facility] [id number] 920 Univers 09:00:00 09:33:40 BISHOP uribe [facility] 2021-11-17 2021-11-17 Office Cesar [facility] 1.2.840.114 [id number] 83 Univers 09:00:00 09:33:40 Visit [facility] 350.1.13.10 it y of [place] 4.2.7.2.686 Foreign as [place]?BLEA [phone] [address] MEDICAL OFFICE [facility] 2021-11-15 2021-11-15 [facility]patient [facility] [id number] 688 Univers 09:30:00 09:30:00 BISHOP rony [facility] 2021-11-10 2021-11-10 Outpatient Yara GUERRERO [facility] [id number] 606 Univers 09:00:00 09:00:00 BISHOP itsarbjit [facility] 2021-11-10 2021-11-10 Orders Doctor PAULINO 1.2.840.114 [id number] Univers 00:00:00 00:00:00 Only Unassigned, MARIAH 350.1.13.10 ity of [facility] 4.2.7.2.686 Foreign as [phone] [address] 2021-11-10 2021-11-[address] [facility] 1.2.091.142 9012 0561 Univers 00:00:00 00:00:00 [facility] 350.1.13.10 it y of [place] 4.2.7.2.686 Foreign as [place] [phone] [address] MEDICAL OFFICE [facility] 2021-11-03 2021-11-03 Orders Jamey 1.2.840.1 [id number] 738 [id number] Methodi 00:00:00 00:00:00 Only Kameron Bass 93964.1.[address] 3.430.2.7 Hospit a .3.209038 l .8 2021-11-02 2021-11-02 Office Jamey 1.2.840.1 [id number] 306 0101098 Methodi 13:00:00 14:27:48 Visit Kameron Bass 58675.1.[address] 3.430.2.7 Hospit a .3.987565 l .8 2021-10-29 2021-10-29 Orders Doctor PAULINO 1.2.840.114 [id number] 75 Univers 00:00:00 00:00:00 Only Unassigned, MARIAH 350.1.13.10 ity of [facility] 4.2.7.2.686 Foreign as [phone] [place] [address] [place] 2021-10-27 2021-10-28 [facility], 1.2.840.1 [id number] 21 [id number] Methodi 05:46:00 11:27:00 Encounter Kameron Bass 69082.1.1 774 s t 3.430.2.7 Hospit a .3.548678 l .8 2021-10-26 2021-10-28 Office Azalea, 1.2.840.1 [id number] 2100 336622 Methodi 11:45:00 08:48:21 Visit Leonides Mccarty 88162.1.1 434 s t 3.430.2.7 Hospit a .3.334393 l .8 2021-10-27 2021-10-27 Anesthesia Roger Beatty 1.2.840.1 [id number] Methodi 07:39:00 10:55:00 Event EnidSonia norris 80086.1.[address] 3.430.2.7 Hospit a .3.892477 l .8 2021-10-27 2021-10-27 [facility], 1.2.840.1 [id number] 494 1033453 Methodi 07:30:00 10:55:[address] K[address] Bass [address]338.1.[address] 3.430.2.7 Hospit a .3.275379 l .8 2021-10-27 2021-10-27 Travel 1.2.840.1 1.2.660.026 2257 681528 Methodi 00:00:00 00:00:[address] 3.430.2.7 0.2.7.3.698 Ho spita .3.984991 084.8 l .8 2021-10-14 2021-10-14 [facility], 1.2.840.1 [id number] 21 [id number] Methodi 10:54:33 23:59:00 Jodee Bass 54935.1.1 019 s t 3.430.2.7 Hospit a .3.196121 l .8 2021-10-14 2021-10-14 Pre-Admiss Jamey, 1.2.840.1 [id number] Methodi 13:00:00 14:00:00 carly Bass 92229.1.[address] Testing 3.430.2.7 Hospit a .3.736036 l .8 2021-10-14 2021-10-14 Travel 1.2.840.1 1.2.017.368 7150 909486 Methodi 00:00:00 00:00:[address] 3.430.2.7 0.2.7.3.698 Ho spita .3.405475 084.8 l .8 2021-10-13 2021-10-[address] [facility] 1.2.717.976 3023 9479 Univers 00:00:00 00:00:00 [facility] 350.1.13.10 it y of [place] 4.2.7.2.686 Foreign as [place] [phone] [address] MEDICAL OFFICE [facility] 2021-10-13 2021-10-[address] [facility] 1.2.840.114 [id number] Univers 00:00:00 00:00:00 (Out) [facility] 350.1.13.10 it y of [place] 4.2.7.2.686 Foreign as [place] [phone] [address] MEDICAL OFFICE BUILDING 2021-10-12 2021-10-[address] [facility] 1.2.840.114 [id number] 90 Univers 09:30:00 10:09:56 Visit [facility] 350.1.13.10 it y of [place] 4.2.7.2.686 Foreign as [place] [phone] [address] MEDICAL OFFICE BUILDING 2021-10-12 2021-10-12 [facility] [id number] 090 Univers 09:30:00 10:09:56 BISHOP uribe [facility] 2021-10-12 2021-10-12 Outpatient Yara GUERRERO [facility] [id number] 090 Univers 09:30:00 10:09:56 BISHOP uribe [facility] 2021-10-12 2021-10-12 Outpatient Yara GUERRERO [facility] [id number] Univers 09:30:00 10:09:56 BISHOP uribe [facility] 2021-10-12 2021-10-12 Outpatient Yara GUERRERO [facility] [id number] 090 Univers 09:30:00 09:30:00 BISHOP sarbjit [facility] 2021-10-12 2021-10-12 Orders Doctor LORA 1.2.840.114 [id number] Univers 00:00:00 00:00:00 Only Unassigned, MARIAH 350.1.13.10 ity of [facility] 4.2.7.2.686 Foreign as [phone] [address] 2021-10-11 2021-10-11 Abstract Jayshree Wetzel [facility] 1.2.840.114 9 [id number] Univers 00:00:00 00:00:00 HEALTH 350.1.13.10 it y of [place] 4.2.7.2.686 Foreign as [place]?BLEA [phone] [address] MEDICAL OFFICE BUILDING 2021-10-03 2021-10-03 Telephone Davi, 1.2.840.1 [id number] 2099 [id number] Methodi 00:00:00 00:00:[address] 3.430.2.7 Hospit a .3.998560 l .8 2021-09-26 2021-09-26 Travel 1.2.840.1 1.2.918.940 1988 776740 Methodi 00:00:00 00:00:[address] 3.430.2.7 0.2.7.3.698 Ho spita .3.550017 084.8 l .8 2021-09-20 2021-09-20 Orders Doctor LORA 1.2.840.114 [id number] Univers 00:00:00 00:00:00 Only Unassigned, MARIAH 350.1.13.10 ity of [facility] 4.2.7.2.686 Foreign as [phone] [place] [address] [place] 2021-09-19 2021-09-19 [facility], 1.2.840.1 [id number] 21 [id number] Methodi 08:44:25 23:59:00 Encounter Minnie Bauer 43793.1.[address] 3.430.2.7 Hospit a .3.190004 l .8 2021-09-19 2021-09-19 Office Mesfin, 1.2.840.1 [id number] 598 [id number] Methodi 14:00:00 14:48:06 Visit Minnie Bauer 31876.1.[address] 3.430.2.7 Hospit a .3.839784 l .8 2021-09-19 2021-09-19 Travel 1.2.840.1 1.2.154.201 1111 216741 Methodi 00:00:00 00:00:[address] 3.430.2.7 0.2.7.3.698 Ho spita .3.235639 084.8 l .8 2021-09-13 2021-09-13 Orders Monet Jaimes 1.2.840.9 [id number] Methodi 00:00:00 00:00:00 Only C 12861.1.[address] 3.430.2.7 Hospit a .3.936626 l .8 2021-09-09 2021-09-09 Telephone Davi, 1.2.840.1 [id number] 2099 407843 Methodi 00:00:00 00:00:[address] 3.430.2.7 Hospit a .3.537150 l .8 2021-09-01 2021-09-01 Refill Mariely, 1.2.840.1 [id number] 21001 18922 Methodi 00:00:00 00:00:[address] 3.430.2.7 Hospit a .3.930458 l .8 2021-08-31 2021-08-31 Telephone [place], 1.2.840.1 [id number] 2 [id number] Methodi 00:00:00 00:00:00 Minnie Bauer 99834.1.[address] 3.430.2.7 Hospit a .3.364837 l .8 2021-08-30 2021-08-30 Refill Rosalbacristianoshimon, 1.2.840.1 [id number] 21 [id number] Methodi 00:00:00 00:00:[address] 3.430.2.7 Hospit a .3.437514 l .8 2021-08-25 2021-08-25 Refill [place], 1.2.840.1 [id number] 205 [id number] Methodi 00:00:00 00:00:00 Minnie Bauer 33549.1.[address] 3.430.2.7 Hospit a .3.520506 l .8 2021-08-20 2021-08-20 Orders Doctor LORA 1.2.840.114 [id number] 56 Univers 00:00:00 00:00:00 Only Unassigned, MARIAH 350.1.13.10 ity of [facility] 4.2.7.2.686 Foreign as [phone] [place] [address] [place] 2021-08-16 2021-08-16 Travel 1.2.840.1 1.2.134.649 4651 166000 Methodi 00:00:00 00:00:[address] 3.430.2.7 0.2.7.3.698 Ho spita .3.301707 084.8 l .8 2021-08-15 2021-08-15 Telephone Jamey, 1.2.840.1 [id number] 2 [id number] Methodi 00:00:00 00:00:00 Kamer[address] CortezMacario [address] 3.430.2.7 Hospit a .3.812461 l .8 2021-08-12 2021-08-12 Office Jamey 1.2.840.1 [id number] 863 [id number] Methodi 09:00:00 12:00:36 Visit Kameron Bass 35246.1.[address] 3.430.2.7 Hospit a .3.599848 l .8 2021-08-12 2021-08-12 Travel 1.2.840.1 1.2.485.655 1249 448523 Methodi 00:00:00 00:00:[address] 3.430.2.7 0.2.7.3.698 Ho spita .3.083166 084.8 l .8 2021-08-09 2021-08-09 [facility] [id number] Univers 11:00:00 11:25:10 GHISLAINE uribe [facility] 2021-08-09 2021-08-[address] [facility] 1.2.840.114 [id number] 28 Univers 11:00:00 11:25:10 Visit [facility] 350.1.13.10 it y of [place] 4.2.7.2.686 Foreign as [place]?BLEA [phone] [address] MEDICAL OFFICE BUILDING 2021-08-09 2021-08-09 Telephone Jamey, 1.2.840.1 [id number] 2 [id number] Methodi 00:00:00 00:00:00 Kameron Bass 80158.1.[address] 3.430.2.7 Hospit a .3.356476 l .8 2021-08-09 2021-08-09 Orders Mariely 1.2.840.1 [id number] 29678 67914 Methodi 00:00:00 00:00:00 Only Kiera 80015.1.[address] 3.430.2.7 Hospit a .3.877108 l .8 2021-08-09 2021-08-[address] [facility] 1.2.813.233 5739 5778 Univers 00:00:00 00:00:00 Infakt.pl 350.1.13.10 it y of [place] 4.2.7.2.686 Foreign as [place] [phone] Dc annel IBARRA [address] [place] [address] MEDICAL OFFICE BUILDING 2021-08-08 2021-08-08 Telephone Jamey 1.2.840.1 [id number] 2 [id number] Methodi 00:00:00 00:00:00 Kameron Bass [address]386.1.[address] 3.430.2.7 Hospit a .3.187240 l .8 2021-08-08 2021-08-08 Orders Doctor LORA 1.2.840.114 [id number] 25 Univers 00:00:00 00:00:00 Only Unassigned, MARIAH 350.1.13.10 ity of [facility] 4.2.7.2.686 Foreign as [phone] [address] 2021-08-05 2021-08-05 Hospital Jackson Bateman 1.2.840.1 69639 1011 [id number] Methodi 10:00:00 11:27:07 Encounter Candace De Leon 78095.1.[address] Lorena Pickering 3.430.2.7 Hospita .3.876288 l .8 2021-08-05 2021-08-05 Travel 1.2.840.1 1.2.445.794 1211 830713 Methodi 00:00:00 00:00:[address] 3.430.2.7 0.2.7.3.698 Ho spita .3.399850 084.8 l .8 2021-08-04 2021-08-04 Telephone Fransico 1.2.840.1 [id number] 2099 485024 Methodi 00:00:00 00:00:00 Jackson Arreguin 06247.1.[address] 3.430.2.7 Hospit a .3.869014 l .8 2021-08-03 2021-08-03 Hospital Bateman, 1.2.840.1 [id number] 62240 27438 Methodi 01:15:00 23:59:00 Encounter Jackson LeslieMacario 95966.1.[address] 3.430.2.7 Hospit a .3.734179 l .8 2021-08-03 2021-08-03 Telephone [place], 1.2.840.1 [id number] 952 [id number] Methodi 00:00:00 00:00:[address] Xin 3.430.2.7 Hospit a .3.164793 l .8 2021-08-02 2021-08-02 Travel 1.2.840.1 1.2.333.318 7008 111266 Methodi 00:00:00 00:00:[address] 3.430.2.7 0.2.7.3.698 Ho spita .3.598623 084.8 l .8 2021-08-02 2021-08-02 Orders Ferrer, 1.2.840.1 [id number] 14870 15901 Methodi 00:00:00 00:00:00 Only Tran 22072.1.[address] 3.430.2.7 Hospit a .3.790520 l .8 2021-07-29 2021-07-29 Hospital Fransico, 1.2.840.1 [id number] 90826 16536 Methodi 06:40:50 23:59:00 Encounter Jackson LeslieMacario 95773.1.[address] 3.430.2.7 Hospit a .3.607337 l .8 2021-07-29 2021-07-29 Travel 1.2.840.1 1.2.420.245 7154 909699 Methodi 00:00:00 00:00:[address] 3.430.2.7 0.2.7.3.698 Ho spita .3.441943 084.8 l .8 2021-07-26 2021-07-26 Outpatient Yara GUERRERO [facility] [id number] 532 Univers 09:15:00 09:31:[address] [facility] 2021-07-26 2021-07-[address] [facility] 1.2.840.114 [id number] 84 Univers 09:15:00 09:31:14 Visit [facility] 350.1.13.10 it y of [place] 4.2.7.2.686 Foreign as [place] [phone] [address] OFFICE [facility] 2021-07-26 2021-07-[address] [facility] 1.2.840.114 [id number] 84 Univers 09:15:00 09:31:14 Visit [facility] 350.1.13.10 [facility] 4.2.7.2.686 Foreign as [place]?BLEA [phone] [address] OFFICE [facility] 2021-07-26 2021-07-26 Outpatient R CESAR [facility] [id number] [facility] 09:15:00 09:31:14 [facility] 2021-07-26 2021-07-26 Travel 1.2.840.1 1.2.609.477 1352 114956 Methodi 00:00:00 00:00:[address] 3.430.2.7 0.2.7.3.698 Ho spita .3.776528 084.8 l .8 2021-07-25 2021-07-25 Office Azalea, 1.2.840.0 [id number] 2099 840593 Methodi 10:45:00 10:57:41 Visit Leonides Mccarty 39102.1.1 779 s t 3.430.2.7 Hospit a .3.646154 l .8 2021-07-25 2021-07-25 Travel 1.2.840.1 1.2.428.615 7568 559184 Methodi 00:00:00 00:00:[address] 3.430.2.7 0.2.7.3.698 Ho spita .3.987113 084.8 l .8 2021-07-21 2021-07-21 Travel 1.2.840.1 1.2.414.435 5212 483024 Methodi 00:00:00 00:00:[address] 3.430.2.7 0.2.7.3.698 Ho spita .3.535714 084.8 l .8 2021-07-20 2021-07-20 [facility] 1.2.840.1 [id number] Methodi 09:00:00 09:30:00 [place], [address].1.[address] Reina 3.430.2.7 Hospit a .3.774607 l .8 2021-07-20 2021-07-20 Orders Doctor PAULINO 1.2.840.114 [id number] 90 Univers 00:00:00 00:00:00 Only Unassigned, MARIAH 350.1.13.10 ity of [facility] 4.2.7.2.686 Foreign as [phone] [address] 2021-07-18 2021-07-18 Travel 1.2.840.1 1.2.647.074 3578 036267 Methodi 00:00:00 00:00:[address] 3.430.2.7 0.2.7.3.698 Ho spita .3.055116 084.8 l .8 2021-07-04 2021-07-15 [facility] Sebastian 1.2.840.1 [id number] 005 [id number] Methodi 13:23:00 18:00:00 Encounter Celine O. 34817.1.[address] 3.430.2.7 Hospit a .3.512058 l .8 2021-07-04 2021-07-04 Orders Sebastian 1.2.840.1 [id number] 2100 910901 Methodi 00:00:00 00:00:00 Only Celine O. 09492.1.[address] 3.430.2.7 Hospit a .3.571092 l .8 2021-07-04 2021-07-04 Travel 1.2.840.1 1.2.150.299 3259 032163 Methodi 00:00:00 00:00:[address] 3.430.2.7 0.2.7.3.698 Ho spita .3.347624 084.8 l .8 2021-07-01 2021-07-01 Daysi Guerrero [facility] 1.2.840.114 183068 75 Univers 00:00:00 00:00:00 [facility] 350.1.13.10 it y of [place] 4.2.7.2.686 Foreign as [place]?BLEA [phone] [address] MEDICAL OFFICE BUILDING 2021-06-24 2021-06-24 [facility] 1.2.840.1 [id number] 21 [id number] Methodi 14:15:00 23:59:00 Encounter Minnie Bauer 97115.1.[address] 3.430.2.7 Hospit a .3.210854 l .8 2021-06-24 2021-06-24 Travel 1.2.840.1 1.2.660.312 4529 316839 Methodi 00:00:00 00:00:[address] 3.430.2.7 0.2.7.3.698 Ho spita .3.588750 084.8 l .8 2021-06-23 2021-06-23 [facility] 1.2.840.1 [id number] 2 [id number] Methodi 00:00:00 00:00:00 Minn[address] Juanc[address]os [address]67.[address] 3.430.2.7 Hospit a .3.665794 l .8 2021-06-23 2021-06-23 Orders Doctor LORA 1.2.840.114 [id number] 81 Univers 00:00:00 00:00:00 Only Unassigned, MARIAH 350.1.13.10 ity of [facility] 4.2.7.2.686 Foreign as [phone] [address] 2021-06-22 2021-06-22 Travel 1.2.840.1 1.2.550.914 6703 660989 Methodi 00:00:00 00:00:[address] 3.430.2.7 0.2.7.3.698 Ho spita .3.423264 084.8 l .8 2021-06-11 2021-06-11 Daysi Guerrero [facility] 1.2.840.114 383137 69 Univers 00:00:00 00:00:00 [employer]) 350.1.13.10 it y of [place] 4.2.7.2.686 Foreign as [place]?BLEA [phone] Dc annel [address] MEDICAL OFFICE BUILDING 2021-06-10 2021-06-10 Travel 1.2.840.1 1.2.669.065 9075 188460 Methodi 00:00:00 00:00:[address] 3.430.2.7 0.2.7.3.698 Ho spita .3.209715 084.8 l .8 2021-06-10 2021-06-10 Telephone [facility] 1.2.840.1 [id number] 2099 766108 Methodi 00:00:00 00:00:[address] Anna 3.430.2.7 Hospit a .3.689155 l .8 2021-06-08 2021-06-08 [facility] 1.2.840.1 [id number] 21 [id number] Methodi 13:59:47 23:59:00 Encounter Minnie Bauer 30794.1.[address] 3.430.2.7 Hospit a .3.743258 l .8 2021-06-08 2021-06-08 Travel 1.2.840.1 1.2.061.198 3843 065256 Methodi 00:00:00 00:00:[address] 3.430.2.7 0.2.7.3.698 Ho spita .3.366678 084.8 l .8 2021-06-06 2021-06-06 Orders Mesfin, 1.2.840.1 [id number] 772 6973914 Methodi 00:00:00 00:00:00 Only Minnie Bauer 56358.1.[address] 3.430.2.7 Hospit a .3.152787 l .8 2021-06-03 2021-06-03 Travel 1.2.840.1 1.2.139.631 6720 189291 Methodi 00:00:00 00:00:[address] 3.430.2.7 0.2.7.3.698 Ho spita .3.048716 084.8 l .8 2021-06-03 2021-06-03 Orders Mesfin, 1.2.840.1 [id number] 596 [id number] Methodi 00:00:00 00:00:00 Only Minnie Bauer 60068.1.[address] 3.430.2.7 Hospit a .3.664087 l .8 2021-06-01 2021-06-02 [facility] Jackson Bateman 1.2.840.1 05272 1189 [id number] Methodi 12:00:00 09:30:19 Encounter Darryl Radha 51850.1.[address] 3.430.2.7 Hospit a .3.838339 l .8 2021-06-01 2021-06-01 [facility] Fransico 1.2.840.1 [id number] 17320 Methodi 10:00:00 11:37:31 Encounter Jackson Arreguin 35318.1.[address] 3.430.2.7 Hospit a .3.168232 l .8 2021-06-01 2021-06-01 [facility] Fransico 1.2.840.1 [id number] Methodi 08:00:00 09:45:09 Encounter Jackson Arreguin 52474.1.[address] 3.430.2.7 Hospit a .3.513918 l .8 2021-06-01 2021-06-01 [facility] Emily Blunt 1.2.840.1 10 5764595 [id number] Methodi 07:00:00 09:31:14 Encounter Radha Andrews 83660.1.[address] 3.430.2.7 Hospit a .3.490401 l .8 2021-06-01 2021-06-01 Orders Mora, 1.2.840.1 [id number] Methodi 00:00:00 00:00:00 Only Katrina 06096.1.[address] [place] 3.430.2.7 Hospit a .3.724347 l .8 2021-06-01 2021-06-01 Orders Provider, 1.2.840.1 [id number] 2099104 Methodi 00:00:00 00:00:00 Only Unknown 60553.1.[address] 3.430.2.7 Hospit a .3.273618 l .8 2021-06-01 2021-06-01 Travel 1.2.840.1 1.2.979.416 2137 068287 Methodi 00:00:00 00:00:[address] 3.430.2.7 0.2.7.3.698 Ho spita .3.450134 084.8 l .8 2021-05-31 2021-05-31 Telephone Mesfin, 1.2.840.1 [id number] 2 [id number] Methodi 00:00:00 00:00:00 Minnie Bauer 39070.1.[address] 3.430.2.7 Hospit a .3.686584 l .8 2021-05-30 2021-05-30 Lab Merlene, 1.2.840.1 [id number] 998 [id number] Methodi 14:30:00 14:45:00 Emily Sylvester 67765.1.[address] 3.430.2.7 Hospit a .3.811988 l .8 2021-05-30 2021-05-30 Office [facility], 1.2.840.1 [id number] 275 [id number] Methodi 10:00:00 10:42:58 Visit Emily Sylvester 24227.1.[address] 3.430.2.7 Hospit a .3.625448 l .8 2021-05-30 2021-05-30 Travel 1.2.840.1 1.2.065.826 5349 [id number] Methodi 00:00:00 00:00:[address] 3.430.2.7 0.2.7.3.698 Ho spita .3.085958 084.8 l .8 2021-05-30 2021-05-30 Orders [facility], 1.2.840.1 [id number] 535 [id number] Methodi 00:00:00 00:00:00 Only Emily Sylvester 14750.1.[address] 3.430.2.7 Hospit a .3.709876 l .8 2021-05-26 2021-05-26 [facility] 1.2.840.1 [id number] 21017 59296 Methodi 10:00:15 23:59:00 Encounter Jackson LeslieMacario 17006.1.[address] 3.430.2.7 Hospit a .3.594739 l .8 2021-05-26 2021-05-26 [facility] 1.2.840.1 [id number] 50316 17933 Methodi 08:30:00 09:36:37 Encounter Jackson Arreguin 16060.1.[address] 3.430.2.7 Hospit a .3.096699 l .8 2021-05-26 2021-05-26 [facility] 1.2.840[facility]1 20303 1189 [id number] Methodi 07:47:21 09:09:27 Encounter Candace De Leon 74915.1.[address] 3.430.2.7 Hospit a .3.311272 l .8 2021-05-26 2021-05-26 Travel 1.2.840.1 1.2.246.970 7444 610222 Methodi 00:00:00 00:00:[address] 3.430.2.7 0.2.7.3.698 Ho spita .3.122882 084.8 l .8 2021-05-25 2021-05-25 Telephone Morgan, 1.2.840.1 [id number] 964 [id number] Methodi 00:00:00 00:00:[address] Vone 3.430.2.7 Hospit a .3.009493 l .8 2021-05-25 2021-05-25 Orders Mora, 1.2.840.1 [id number] 27113 Methodi 00:00:00 00:00:00 Only Katrina 94995.1.[address] Vone 3.430.2.7 Hospit a .3.738119 l .8 2021-05-24 2021-05-24 Office Mesfin 1.2.840.1 [id number] 481 [id number] Methodi 14:00:00 15:07:59 Visit Minnie Bauer 88146.1.[address] 3.430.2.7 Hospit a .3.035709 l .8 2021-05-24 2021-05-24 Travel 1.2.840.1 1.2.560.644 8194 550551 Methodi 00:00:00 00:00:[address] 3.430.2.7 0.2.7.3.698 Ho spita .3.606627 084.8 l .8 2021-05-24 2021-05-24 Orders Doctor LORA 1.2.840.114 [id number] 73 Univers 00:00:00 00:00:00 Only Unassigned, MARIAH 350.1.13.10 ity of [facility] 4.2.7.2.686 Foreign as [phone] [place] [address] Branch 2021-05-23 2021-05-23 Travel 1.2.840.1 1.2.078.669 5007 939938 Methodi 00:00:00 00:00:[address] 3.430.2.7 0.2.7.3.698 Ho spita .3.587613 084.8 l .8 2021-05-23 2021-05-23 Orders Fransico, 1.2.840.1 [id number] 866567 4285 Methodi 00:00:00 00:00:00 Only Jackson Arreguin 52075.1.[address] 3.430.2.7 Hospit a .3.087040 l .8 2021-05-20 2021-05-20 Travel 1.2.840.1 1.2.786.692 5692 078356 Methodi 00:00:00 00:00:[address] 3.430.2.7 0.2.7.3.698 Ho spita .3.518398 084.8 l .8 2021-05-17 2021-05-17 Outpatient [facility] [id number] 740 [place] 00:00:00 00:00:[address] 2021-05-17 2021-05-17 Refkomal Appiah, 1.2.840.1 [id number] 745 [id number] Methodi 00:00:00 00:00:00 Minnie Bauer 17088.1.[address] 3.430.2.7 Hospit a .3.920116 l .8 2021-05-17 2021-05-17 Documentat Contreras, 1.2.840.1 [id number] 399 4092596 Methodi 00:00:00 00:00:00 ion Brenda 56140.1.[address] 3.430.2.7 Hospit a .3.782007 l .8 2021-05-16 2021-05-16 Hospital BatemanJackson henry 1.2.840.1 07867 1011 [id number] Methodi 11:00:00 15:25:56 Encounter Radha Andrews 82925.1.[address] 3.430.2.7 Hospit a .3.822957 l .8 2021-05-16 2021-05-16 Travel 1.2.840.1 1.2.018.293 4077 606337 Methodi 00:00:00 00:00:[address] 3.430.2.7 0.2.7.3.698 Ho spita .3.855792 084.8 l .8 2021-05-13 2021-05-13 Telephone Bateman, 1.2.840.1 [id number] Methodi 00:00:00 00:00:00 Jackson LeslieMacario 28935.1.[address] 3.430.2.7 Hospit a .3.709129 l .8 2021-05-12 2021-05-12 Telephone Mesfin, 1.2.840.1 [id number] Methodi 00:00:00 00:00:00 Minnie Bauer 40423.1.[address] 3.430.2.7 Hospit a .3.909881 l .8 2021-05-11 2021-05-11 Travel 1.2.840.1 1.2.569.840 6217 975194 Methodi 00:00:00 00:00:[address] 3.430.2.7 0.2.7.3.698 Ho spita .3.073068 084.8 l .8 2021-05-11 2021-05-11 Telephone Mcdaniels, 1.2.840.1 [id number] Methodi 00:00:00 00:00:[address] Mode 3.430.2.7 Hosp yang .3.922310 l .8 2021-05-09 2021-05-09 Hospital Fransico, 1.2.840.1 Methodi 07:00:00 11:10:00 Encounter Jackson Arreguin 81139.1.[address] 3.430.2.7 Hospit a .3.825472 l .8 2021-05-09 2021-05-09 Travel 1.2.840.1 1.2.579.045 9171 411369 Methodi 00:00:00 00:00:[address] 3.430.2.7 0.2.7.3.698 Ho spita .3.106795 084.8 l .8 2021-05-09 2021-05-09 Orders Doctor LORA 1.2.840.114 [id number] 44 Univers 00:00:00 00:00:00 Only Unassigned, MARIAH 350.1.13.10 ity of [facility] 4.2.7.2.686 Foreign as [phone] [facility] 009 Branch 2021-05-06 2021-05-06 Telephone Mcdaniels, 1.2.840.1 [id number] 2099 [id number] Methodi 00:00:00 00:00:[address] Mode 3.430.2.7 Hosp yang .3.928621 l .8 2021-05-06 2021-05-06 Orders Mcdaniels, 1.2.840.1 [id number] 452830 5153 Methodi 00:00:00 00:00:00 Only Chaka 75443.1.[address] Mode 3.430.2.7 Hosp yang .3.386039 l .8 2021-04-28 2021-05-05 Hospital [facility], 1.2.840.1 [id number] 21 [id number] Methodi 14:04:00 14:43:00 Encounter Nohemi 22632.1.[address] 3.430.2.7 Hospit a .3.824166 l .8 2021-05-03 2021-05-03 Surgery Jung, 1.2.840.1 [id number] 607074 9642 Methodi 10:00:00 14:45:00 Yuan Lindsey 59522.1.[address] 3.430.2.7 Hospit a .3.563040 l .8 2021-05-03 2021-05-03 Anesthesia Helen Bartholomew 1.2.840.1 [id number] Methodi 10:14:00 13:17:00 Event Mariposa Gardenr 35442.1.1 396 s t 3.430.2.7 Hospit a .3.962060 l .8 2021-04-29 2021-04-29 Orders Doctor LORA 1.2.840.114 [id number] 62 Univers 00:00:00 00:00:00 Only Unassigned, MARIAH 350.1.13.10 ity of [facility] 4.2.7.2.686 Foreign as [phone] Medi marissa 009 Branch 2021-04-28 2021-04-28 Orders Teto, 1.2.840.1 [id number] 648 [id number] Methodi 00:00:00 00:00:00 Only Nohemi 01959.1.[address] 3.430.2.7 Hospit a .3.345292 l .8 2021-04-28 2021-04-28 Telephone Morgan, 1.2.840.1 [id number] 866 [id number] Methodi 00:00:00 00:00:[address] Vone 3.430.2.7 Hospit a .3.667573 l .8 2021-04-28 2021-04-28 Orders Morgan, 1.2.840.1 [id number] 58717 83342 Methodi 00:00:00 00:00:00 Only Katrina 94501.1.[address] Vone 3.430.2.7 Hospit a .3.626879 l .8 2021-04-27 2021-04-27 [facility], 1.2.840.1 [id number] 21 [id number] Methodi 16:20:05 23:59:00 Encounter Minnie Bauer 95329.1.[address] 3.430.2.7 Hospit a .3.646929 l .8 2021-04-27 2021-04-27 [facility], 1.2.840.1 [id number] 21 [id number] Methodi 09:57:17 16:19:00 Encounter Minnie Bauer 76664.1.[address] 3.430.2.7 Hospit a .3.739070 l .8 2021-04-27 2021-04-27 [facility], 1.2.840.1 [id number] 286 [id number] Methodi 15:35:00 15:40:00 Minnie Bauer 14383.1.[address] 3.430.2.7 Hospit a .3.593156 l .8 2021-04-27 2021-04-27 Minnie Cali 1.2.840.1 1 04392910 [id number] Methodi 14:00:00 15:00:00 Visit Chaka Mcdaniels 81829.1.[address] 3.430.2.7 Hospit a .3.444348 l .8 2021-04-27 2021-04-27 Orders Mesfin, 1.2.840.1 [id number] 139 [id number] Methodi 00:00:00 00:00:00 Only Minnie Bauer 84923.1.[address] 3.430.2.7 Hospit a .3.707378 l .8 2021-04-27 2021-04-27 Orders Mesfin, 1.2.840.1 [id number] 579 [id number] Methodi 00:00:00 00:00:00 Only Minnie Bauer 05593.1.[address] 3.430.2.7 Hospit a .3.257774 l .8 2021-04-27 2021-04-27 Jesus Alberto Appiah, 1.2.840.1 [id number] 396 4575244 Methodi 00:00:00 00:00:00 Only Minnie Bauer 73393.1.[address] 3.430.2.7 Hospit a .3.309940 l .8 2021-04-27 2021-04-27 Travel 1.2.840.1 1.2.904.832 5618 235678 Methodi 00:00:00 00:00:[address] 3.430.2.7 0.2.7.3.698 Ho spita .3.721910 084.8 l .8 2021-04-20 2021-04-20 Daysi Guerrero [facility] 1.2.840.114 [id number] 87 Univers 00:00:00 00:00:00 [facility] 350.1.13.10 it y of [place] 4.2.7.2.686 Foreign as [place]?BLEA [phone] Dc annel ECHAVARRIA[address] OFFICE [facility] 2021-04-05 2021-04-[address] [facility] 1.2.530.094 5590 5596 [facility] 00:00:00 00:00:00 [facility] 350.1.13.10 it y of [place] 4.2.7.2.686 Foreign as [place]?BLEA [phone] Dc annel [address] OFFICE [facility] 2021-04-04 2021-04-[address] [facility] 1.2.840.[id number] [place] [address] 00:00:00 00:00:00 [facility] 350.1.13.10 it y of [place] 4.2.7.2.686 Foreign as [place]?BLEA [phone] Dc annel [address] 2021-03-30 2021-03-30 Telephone Davi, 1.2.840.1 [id number] 2100 [id number] Method 00:00:00 00:00:[address] 3.430.2.7 Hospit a .3.998371 l .8 2021-03-15 2021-03-[address] [facility] [id number] 9758 [place] 00:00:00 00:00:00 SONIA [address] 2021-03-11 2021-03-[address] [facility] 1.2.650.650 8280 7988 [facility] 00:00:00 00:00:00 [facility] 350.1.13.10 it y of [place] 4.2.7.2.686 Foreign as [place]?BLEA [phone] Dc dical [address] 2021-02-17 2021-02-[address] [facility] [id number] 5104 [place] 00:00:00 00:00:00 SONIA [address] 2021-01-17 2021-01-[address] [facility] [id number] 8311 [place] 00:00:00 00:00:00 SONIA 129 Meth tanmay 2021-01-17 2021-01-17 Outpatient TERRY [facility] [id number] 7117 [place] 00:00:00 00:00:00 SONIA 128 Meth tanmay 2021-01-04 2021-01-[address] [facility] 1.2.050.982 2609 2188 [facility] 00:00:00 00:00:00 [facility] 350.1.13.10 [facility] 4.2.7.2.686 Foreign as [place]?BLEA [phone] [address] OFFICE [facility] 2020-12-22 2020-12-22 Outpatient [facility] 2100 [id number] [place] 00:00:00 00:00:00 MINNIE 909 Method i 2020-12-22 2020-12-22 Outpatient [facility] 2100 [id number] [place] 00:00:00 00:00:00 MINNIE 932 Method i 2020-12-22 2020-12-22 Outpatient [facility] 2100 [id number] [place] 00:00:00 00:00:00 MINNIE 129 Method i 2020-12-16 2020-12-16 Orders Doctor LORA 1.2.840.[id number] [place] [address] 00:00:00 00:00:00 Only Unassigned, MARIAH 350.1.13.10 ity of [facility] 4.2.7.2.686 Foreign as [phone] [address] 2020-12-15 2020-12-[address] [facility] 1.2.636.917 2395 3077 [facility] 00:00:00 00:00:00 [facility] 350.1.13.10 it y of [place] 4.2.7.2.686 Foreign as [place]?Blea [phone] [address] Medical Office [facility] 2020-11-09 2020-11-[address] [facility] 1.2.882.594 8141 6990 [facility] 00:00:00 00:00:00 [facility] 350.1.13.10 it y of [place] 4.2.7.2.686 Foreign as [place]?Blea [phone] Dc annel ibarra 044 [facility] Office [facility] 2020-11-01 2020-11-01 [employer] Work[employer] Lab, Ang - Db [facility] 1.2.840.1 14 [id number] Univers 08:53:27 09:08:27 Visit Bishop Guerrero [facility] 350.1.13.10 ity of [place] 4.2.7.2.686 Foreign as [place]?Blea [phone] Dc annel ibarra 353 [facility] Office [facility] 2020-11-01 2020-11-01 [facility] [id number] 937 [facility] 08:30:00 08:30:00 BISHOP cesiasarbjit [facility] 2020-11-01 2020-11-[address] [facility] 1.2.840.114 [id number] 09 Univers 08:11:35 08:26:35 Visit [facility] 350.1.13.10 it y of [place] 4.2.7.2.686 Foreign as [place]?Blea [phone] Dc annel ibarra [address] [place] [address] Office [facility] 2020-11-01 2020-11-[address] [facility] 1.2.182.669 1499 0544 [facility] 00:00:00 00:00:00 [facility] 350.1.13.10 it y of [place] 4.2.7.2.686 Foreign as [place]?Blea [phone] Dc annel ibarra [address] [place] [address] Office [facility] 2020-10-26 2020-10-26 Outpatient [facility] [id number] [address] [place] [address] 00:00:00 00:00:00 AVINASH [address] 2020-10-13 2020-10-[address] [facility] 1.2.840.[id number] [place] [address] 00:00:00 00:00:00 [facility] 350.1.13.10 it y of [place] 4.2.7.2.686 Foreign as Professio [phone] Dc annel childress [address] [place] [address] Office [facility] One 2020-10-04 2020-10-04 Orders Doctor PAULINO 1.2.840.114 [id number] Univers 00:00:00 00:00:00 Only Unassigned, MARIAH 350.1.13.10 ity of [facility] 4.2.7.2.686 Foreign as [phone] [address] 2020-08-30 2020-08-30 Orders Doctor LORA 1.2.840.[id number] [place] [address] 00:00:00 00:00:00 Only Unassigned, MARIAH 350.1.13.10 ity of [facility] 4.2.7.2.686 Foreign as [phone] [address] 2020-08-25 2020-08-25 Outpatient BERNICKER, [facility] 2100 [id number] [place] 00:00:00 00:00:00 MINNIE 204 Method i 2020-08-05 2020-08-05 Outpatient BERNICKER, [facility] 2100 [id number] [place] 00:00:00 00:00:00 MINNIE 979 Method i 2020-08-05 2020-08-05 Outpatient BERNICKER, [facility] 2100 [id number] [place] 00:00:00 00:00:00 MINNIE 702 Method i 2020-08-05 2020-08-05 Outpatient BERNICKER, [facility] 2100 [id number] [place] 00:00:00 00:00:00 MINNIE 703 Method i 2020-07-06 2020-07-06 Outpatient DAVI, [facility] [id number] 425 [place] 00:00:00 00:00:00 AVINASH 423 Method i 2020-07-05 2020-07-05 Orders Doctor LORA 1.2.840.[id number] [place] [address] 00:00:00 00:00:00 Only Unassigned, MARIAH 350.1.13.10 ity of [facility] 4.2.7.2.686 Foreign as [phone] [address] 2020-06-24 2020-06-24 Telephone Cesar [facility] 1.2.637.772 9358 9860 [facility] 00:00:00 00:00:00 [facility] 350.1.13.10 it y of [place] 4.2.7.2.686 Foreign as Rigoberto [phone] [facility] 044 [place] Office [facility] 2020-06-14 2020-06-14 Orders Doctor LORA 1.2.840.114 [id number] [facility] 00:00:00 00:00:00 Only Unassigned, MARIAH 350.1.13.10 ity of [facility] 4.2.7.2.686 Foreign as [phone] [address] 2020-06-11 2020-06-11 [facility] 2[facility] [id number] [place] 00:00:00 00:00:00 MINNIE 166 Method i 2020-05-05 2020-05-19 [facility] [id number] 48 [place] 00:00:00 00:00:00 CLAUDINE 003 Method i 2020-05-14 2020-05-14 Orders Doctor LORA 1.2.840.114 [id number] [facility] 00:00:00 00:00:00 Only Unassigned, MARIAH 350.1.13.10 ity of [place] [facility] 4.2.7.2.686 Foreign as [phone] [address] 2020-05-06 2020-05-06 Orders Doctor LORA 1.2.840.114 [id number] 26 [facility] 00:00:00 00:00:00 Only Unassigned, MARIAH 350.1.13.10 ity of [facility] 4.2.7.2.686 Foreign as [phone] [address] 2020-05-05 2020-05-05 Outpatient [facility] 2100 [id number] [place] 00:00:00 00:00:00 MINNIE 671 Method i 2020-05-05 2020-05-05 [facility]patient [facility] 2100 [id number] [place] 00:00:00 00:00:00 MINNIE [address] 2020-05-05 2020-05-05 Telephone Cesar GACHELA 1.2.329.538 2417 0179 [facility] 00:00:00 00:00:00 [facility] 350.1.13.10 it y of [place] 4.2.7.2.686 Foreign as Professio [phone] Dc dical nal 044 Branch Office [facility] 2020-04-26 2020-04-26 Outpatient MESFIN [facility] 2100 [id number] [place] 00:00:00 00:00:00 MINNIE [address] 2020-04-26 2020-04-26 Outpatient MESFIN [facility] 2100 [id number] [place] 00:00:00 00:00:00 MINNIE [address] 2020-04-22 2020-04-22 Outpatient MESFIN [facility] 2100 [id number] [place] 00:00:00 00:00:00 MINNIE 943 Method i 2020-04-14 2020-04-14 Outpatient MESFIN [facility] 2100 [id number] [place] 00:00:00 00:00:00 MINNIE 944 Method i 2020-04-14 2020-04-14 Outpatient MESFIN [facility] 2100 [id number] [place] 00:00:00 00:00:00 MINNIE 640 Method i 2020-04-14 2020-04-14 Outpatient SHU [facility] [id number] [place] 00:00:00 00:00:00 RULA 023 Method i 2020-04-14 2020-04-14 Outpatient MESFIN [facility] 2100 [id number] [place] 00:00:00 00:00:00 MINNIE 540 Method i 2020-03-28 2020-03-[address] [facility] 1.2.840.114 [id number] Univers 00:00:00 00:00:00 Outreach [facility] 350.1.13.10 [facility] 4.2.7.2.686 [place] GARDINER [phone] Dc dical [address] 2020-03-24 2020-03-24 Outpatient MESFIN [facility] 2100 [id number] [place] 00:00:00 00:00:00 MINNIE 904 Method i 2020-03-24 2020-03-24 Outpatient MESFIN [facility] 2100 [id number] [place] 00:00:00 00:00:00 MINNIE 841 Method i 2020-03-24 2020-03-24 Outpatient SHU [facility] [id number] 7709 [place] 00:00:00 00:00:00 RULA 989 Method i 2020-03-16 2020-03-16 Outpatient TERRY, [facility] [id number] 5971 [place] 00:00:00 00:00:00 SONIA 067 Meth tanmay 2020-03-03 2020-03-03 Outpatient MESFIN [facility] 2100 [id number] [place] 00:00:00 00:00:00 MINNIE 639 Method i 2020-03-03 2020-03-03 Outpatient SHU [facility] [id number] 5342 [place] 00:00:00 00:00:00 RULA 052 Method i 2020-03-03 2020-03-03 Outpatient MESFIN [facility] 2100 [id number] [place] 00:00:00 00:00:00 MINNIE 918 Method i 2020-02-26 2020-02-26 Outpatient SHU [facility] [id number] 2342 [place] 00:00:00 00:00:00 RULA 884 Method i 2020-02-23 2020-02-23 Outpatient SHU [facility] [id number] 3063 [place] 00:00:00 00:00:00 RULA 738 Method i 2020-02-18 2020-02-18 Telephone [facility] 1.2.128.496 3209 1412 [facility] 00:00:00 00:00:00 [facility] 350.1.13.10 it y of [place] 4.2.7.2.686 Foreign as Professio [phone] Dc dical nal 044 [place] Office [facility] One 2020-02-18 2020-02-18 Orders Doctor LORA 1.2.840.[id number] [place] [address] 00:00:00 00:00:00 Only Unassigned, MARIAH 350.1.13.10 [facility] 4.2.7.2.686 Foreign as [phone] [address] 2020-02-17 2020-02-18 Outpatient SHU [facility] 021 [id number] 8916 [place] 00:00:00 00:00:00 RULA 663 Method i 2020-02-16 2020-02-16 Outpatient SHU [facility] [id number] 8975 [place] 00:00:00 00:00:00 RULA 963 Method i 2020-02-11 2020-02-11 Outpatient R [facility] [id number] Univers 11:00:00 11:00:00 ity of [facility] 2020-02-10 2020-02-10 Outpatient MESFIN [facility] 2100 [id number] [place] 00:00:00 00:00:00 MINNIE 222 Method i 2020-02-10 2020-02-10 Outpatient SHU [facility] [id number] [place] 00:00:00 00:00:00 RULA 240 [facility] i 2020-02-05 2020-02-05 Outpatient SHU [facility] [id number] [place] 00:00:00 00:00:00 RULA 021 [facility] i 2020-02-04 2020-02-04 Outpatient MESFIN [facility] [id number] [place] 00:00:00 00:00:00 MINNIE 043 Method i 2020-02-03 2020-02-03 Orders Doctor PAULINO [id number] [place] [id number] 00:00:00 00:00:00 Only Unassigned, MARIAH [id number] ity of [facility] [id number] Foreign as [phone] [address] 2020-02-03 2020-02-03 Outpatient TERRY [facility] [id number] [place] 00:00:00 00:00:00 SONIA 467 Meth atnmay 2020-01-27 2020-01-28 Outpatient SHU [facility] [id number] [place] 00:00:00 00:00:00 RULA 795 [facility] 2020-01-26 2020-01-26 [facility] [id number] [facility] 13:30:00 13:30:00 BISHOP uribe [facility] 2020-01-26 2020-01-26 Outpatient SHU [facility] [id number] [place] 00:00:00 00:00:00 RULA 290 Method i 2020-01-26 2020-01-[address] [facility] [id number] [facility] 00:00:00 00:00:00 [facility] [id number] it y of [place] [id number] Foreign as Professio [phone] Me dical nal 044 [facility] 2020-01-26 2020-01-26 Outpatient SHU [facility] [id number] [place] 00:00:00 00:00:00 RULA 199 Method i 2020-01-23 2020-01-23 Outpatient SHU [facility] [id number] [place] 00:00:00 00:00:00 RULA 655 Method i 2020-01-22 2020-01-22 Telephone Cesar [facility] [id number] [facility] 00:00:00 00:00:00 [facility] [id number] it y of [place] [id number] Foreign as Professio [phone] [facility] nal [address] [place] [address] 2020-01-21 2020-01-21 Orders Doctor LORA [id number] [place] [address] 00:00:00 00:00:00 Only Unassigned, MARIAH [id number] ity of [facility] [id number] Foreign as [phone] [address] 2020-01-21 2020-01-[address] [facility] 1.2.840.[id number] [place] [address] 00:00:00 00:00:00 [facility] [id number] it y of [place] [id number] Foreign as Professio [phone] [facility] nal [address] [place] [address] 2020-01-20 2020-01-20 Outpatient TERRY [facility] [id number] [place] 00:00:00 00:00:00 SONIA 251 Meth tanmay 2020-01-20 2020-01-20 Outpatient SHU [facility] [id number] [place] 00:00:00 00:00:00 RULA 148 Method i 2020-01-14 2020-01-16 Inpatient [facility] [id number] [place] 00:00:00 00:00:00 SONIA 020 Meth tanmay 2020-01-13 2020-01-13 [id number] [place] 00:00:00 00:00:00 SONIA 732 Meth tanmay 2020-01-13 2020-01-13 [facility] [id number] [place] 00:00:00 00:00:00 SONIA 395 Meth tanmay 2020-01-13 2020-01-13 Outpatient SHU [facility] [id number] [place] 00:00:00 00:00:00 RULA 581 Method i 2020-01-13 2020-01-[address] [facility] [id number] [place] 00:00:00 00:00:00 SONIA 062 Meth tanmay 2020-01-12 2020-01-12 [facility] [id number] [place] 00:00:00 00:00:00 SONIA 208 Meth tanmay 2020-01-12 2020-01-[address] [facility] [id number] [place] 00:00:00 00:00:00 SONIA 535 Meth tanmay 2020-01-09 2020-01-09 [id number] [place] 00:00:00 00:00:00 LANRE 477 Method i 2020-01-09 2020-01-09 Outpatient [facility] 021 [id number] 9067 [place] 00:00:00 00:00:00 SONIA 974 Meth tanmay 2020-01-08 2020-01-[address] [facility] [id number] [place] 00:00:00 00:00:00 SONIA 314 Meth tanmay 2020-01-08 2020-01-08 Orders Doctor LORA 1.2.840.114 [id number] 52 [facility] 00:00:00 00:00:00 Only Unassigned, MARIAH 350.1.13.10 [facility] 4.2.7.2.686 Foreign as [phone] [facility] marissa [facility] 2020-01-06 2020-01-[address] [facility] [id number] [place] 00:00:00 00:00:00 SONIA 610 Meth tanmay 2020-01-01 2020-01-01 Telephone JUAN C Guerrero [id number] [facility] 00:00:00 00:00:00 [facility] 350.1.13.10 it y of [place] 4.2.7.2.686 Foreign as Professio [id number] [address] One 2019-12-31 2019-12-31 Orders Doctor LORA 1.2.840.114 [id number] [facility] 00:00:00 00:00:00 Only Unassigned, MARIAH 350.1.13.10 [facility] [place] [facility] 4.2.7.2.686 Foreign as [phone] [address] 2019-12-23 2019-12-[address] [facility] [id number] [facility] 00:00:00 00:00:00 Outreach [facility] 350.1.13.10 i ty of [place] 4.2.7.2.686 Foreign as Professio [phone] [address] One 2019-12-11 2019-12-11 Orders Doctor LORA 1.2.840.114 [id number] [facility] 00:00:00 00:00:00 Only Unassigned, MARIAH 350.1.13.10 [facility] [place] [facility] 4.2.7.2.686 Foreign as [phone] [address] 2019-11-27 2019-11-[address] [facility] [id number] [facility] 00:00:00 00:00:00 [facility] 350.1.13.10 it y of [place] 4.2.7.2.686 Foreign as Professio [phone] [address] One 2019-11-24 2019-11-[address] [facility] [id number] [facility] 00:00:00 00:00:00 [facility] 350.1.13.10 it y of [place] 4.2.7.2.686 Foreign as Professio [phone] [address] One 2019-11-18 2019-11-[address] [facility] [id number] Univers 00:00:00 00:00:00 [facility] 350.1.13.10 it y of [place] 4.2.7.2.686 Foreign as Professio [phone] Dc dical nal [address] One Results Test Description Test Time Test Comments Results Result Comments Source POC glucose 2022-09-22 13:39:00 Test Item Value Reference Range Interpretation Comme nts POC glucose (test code = 97 mg/dL 65-99 Ope rator Name: Prakash Jones 19804-4) ID: [id number] hartable: No Action Needed [facility] [id number] 22:30:00 Test Item Value Reference Range Interpretation Comments Glucose (test code = 98 mg/dL 65-99 Fastin g 2345-7) reference interval BUN (test code = 44 mg/dL 7-25 H 3094-0) Creatinine (test 1.99 mg/dL 0.70-1.28 H code = 2160-0) eGFR (test code = 34 See_Comment L The eGFR i s based 63492-5) on the CKD-EPI 2020 equation. To calculate the n ew eGFR from a previous Creatinine or Cystatin Cresul t, go to [email or web address] ca lculator [Automated message] The system which generated this result transmitted reference range : > OR = 60 mL/min/1.73m2. The reference range was not used to interpr et this result as normal/abnormal . BUN/creatinine ratio 22 See_Comment [Autom ated (test code = 3097-3) message ] The system which generated this result transmitted reference range : 6 - 22 (calc). The reference range was not used to interpr et this result as normal/abnormal . Sodium (test code = 142 mmol/L 020-189 9449-2) Potassium (test code 4.2 mmol/L 3.5-5.3 = 2823-3) Chloride (test code 103 mmol/L 98-110 = 2075-0) CO2 (test code = 30 mmol/L 20-32 2027-9) Calcium (test code = 9.1 mg/dL 8.6-10.3 63004-4) Protein (test code = 7.1 g/dL 6.1-8.1 2885-2) Albumin, S (test 3.6 g/dL 3.6-5.1 code = 1751-7) Globulin, total 3.5 See_Comment [Automated (test code = message] The 55984-9) system which generated this result transmitted reference range : 1.9 - 3.7 g/dL (calc). The reference range was not used to interpret this result as normal/abnormal . Albumin/globulin 1.0 See_Comment [Automated ratio (test code = message] The 1759-0) system which generated this result transmitted reference range : 1.0 - 2.5 (calc ). The reference range was not used to interpr et this result as normal/abnormal . Total bilirubin 0.5 mg/dL 0.2-1.2 (test code = 1975-2) Alkaline phosphatase 82 U/L 35-144 (test code = 6768-6) AST (test code = 15 U/L 10-35 1920-8) ALT (test code = 14 U/L 9-46 1742-6) ANAHI (test code = FASTING:YES ANAHI) FASTING: YES RAC (test code = Performing RAC) Organization Information: Site ID: [facility] Name: [employer] Lab Address: [address] [place] [address] Director: Emily Rodriguez Lab Interpretation Abnormal (test code = 59349-1) [facility] [id number] 22:30:00 Test Item Value Reference Interpretation Comments Range PTH (test 43 pg/mL 16-77 Interpretive G uide Intact code = PTH Calcium---- 2731-8) ---- ---Normal Parathyroid Nor mal NormalHypoparat hyroidism Low or Low Normal LowHyperparathy roidism Primary Normal or High High Secondary High Normal or Low Tertiary High HighNon-Parathy roid Hypercalcemia L ow or Low Normal High ANAHI (test FASTING:YES code = FASTING: YES ANAHI) RAC (test Performing code = Organization RAC) Information: Site ID: [facility] Name: [employer] [facility] Lab Address: [address] [place] [address] Director: Emily Rodriguez [facility] [id number] 22:30:00 Test Item Value Reference Range Interpretation Comments Phosphorus (test code 4.2 mg/dL 2.1-4.3 = 2777-1) ANAHI (test code = ANAHI) FASTING:YES FASTING: YES RAC (test code = RAC) Performing Organization Information: Site ID: [facility]: [facility] Address: [address] [place] [address] Director: Emily Rodriguez [facility] [id number] 22:30:00 Test Item Value Reference Range Interpretation Comments Uric acid (test code 8.2 mg/dL 4.0-8.0 H Therape utic = 3084-1) target for gout patients: <6.0 mg/dL ANAHI (test code = FASTING:YES ANAHI) FASTING: YES RAC (test code = Performing RAC) Organization Information: Site ID: [facility]: [facility] Lab Address: [address] [place] [address] Director: Emily Rodriguez Lab Interpretation Abnormal (test code = 30727-8) [facility] with platelet and [id number] 22:30:00 Test Item Value Reference Range Interpretation Comments WBC (test code = 8.5 See_Comment [Automated 6690-2) message] The system which generated this result transmitted reference range : 3.8 - 10.8 Thousand/uL. Th e reference range was not used to interpret this result as normal/abnormal . RBC (test code = 3.56 See_Comment L [Automated 869-8) message] The system which generated this result transmitted reference range : 4.20 - 5.80 Million/uL. The reference range was not used to interpret this result as normal/abnormal . HGB (test code = 10.8 g/dL 13.2-17.1 L 718-7) HCT (test code = 33.2 % 38.5-50.0 L 4544-3) MCV (test code = 93.3 fL 80.0-100.0 787-2) MCH (test code = 30.3 pg 27.0-33.0 785-6) MCHC (test code = 32.5 g/dL 32.0-36.0 786-4) RDW (test code = 14.5 % 11.0-15.0 788-0) Platelet count (test 246 See_Comment [Autom ated code = 777-3) message] The system which generated this result transmitted reference range : 140 - 400 Thousand/uL. Th e reference range was not used to interpret this result as normal/abnormal . MPV (test code = 11.0 fL 7.5-12.5 776-5) Neutrophils, 7174 See_Comment [Automated absolute (test code message] The = 751-8) system which generated this result transmitted reference range : 1,500 - 7,800 cells/uL. The reference range was not used to interpret this result as normal/abnormal . Lymphocytes, 723 See_Comment L [Automated absolute (test code message] The = 731-0) system which generated this result transmitted reference range : 850 - 3,900 cells/uL. The reference range was not used to interpret this result as normal/abnormal . Monocytes, absolute 510 See_Comment [Automa femi (test code = 742-7) message] The system which generated this result transmitted reference range : 200 - 950 cells/uL. The reference range was not used to interpret this result as normal/abnormal . Eosinophils, 77 See_Comment [Automated absolute (test code message] The = 711-2) system which generated this result transmitted reference range : 15 - 500 cells/uL. The reference range was not used to interpret this result as normal/abnormal . Basophils, absolute 17 See_Comment [Automa femi (test code = 704-7) message] The system which generated this result transmitted reference range : 0 - 200 cells/u L. The reference range was not used to interpr et this result as normal/abnormal . Neutrophils (test 84.4 % code = 770-8) Lymphocytes (test 8.5 % code = 736-9) Monocytes (test code 6.0 % = 5905-5) Eosinophils (test 0.9 % code = 713-8) Basophils + RC (test 0.2 % code = 706-2) ANAHI (test code = FASTING:YES ANAHI) FASTING: YES RAC (test code = Performing RAC) Organization Information: Site ID: [facility] Name: [facility] Lab Address: [address] [place] [address] Director: Emily Rodriguez Lab Interpretation Abnormal (test code = 32006-4) [facility] [id number] 14:10:00 Test Item Value Reference Range Interpretation Comments POC glucose (test code 109 mg/dL 65-99 H Opera tor Name: = 70687-3) Girish lozoya KirstenDevice I D: [id number] able: No Action Neede d Lab Interpretation Abnormal (test code = 71806-8) [facility] [id number] 14:10:00 Test Item Value Reference Range Interpretation Comments POC glucose (test code 109 mg/dL 65-99 H Opera tor Name: = 76538-6) Girish Garcia oely KirstenDevice I D: [id number] able: No Action Neede d Lab Interpretation Abnormal (test code = 89712-5) [facility] pathology [id number] 21:38:45 Test Item Value Reference Range Interpretation Comments Case number (test code = [id number]) Surgical pathology See link below for report (test code = PDF Lab Report 2255) Result status (test code This is Final Report = [id number]) for [id number] [facility] [id number] 21:38:45 Test Item Value Reference Range Interpretation Comments Case number (test code = [id number]) Surgical pathology See link below for report (test code = PDF Lab Report 2255) Result status (test code This is Final Report = [id number]) for [id number] [facility] [id number] 21:43:00 Test Item Value Reference Interpretation Comments Range PTH (test 42 pg/mL 16-77 Interpretive G uide Intact code = PTH Calcium---- 2731-8) ---- ---Normal Parathyroid Nor mal NormalHypoparat hyroidism Low or Low Normal LowHyperparathy roidism Primary Normal or High High Secondary High Normal or Low Tertiary High HighNon-Parathy roid Hypercalcemia L ow or Low Normal High ANAHI (test FASTING:YES code = FASTING: YES ANAHI) RAC (test Performing code = Organization RAC) Information: Site ID: [facility] Name: [facility] [facility] Lab Address: [address] [place] [address] Director: Emily Rodriguez [facility] [id number] 21:43:00 Test Item Value Reference Range Interpretation Comments Phosphorus (test code 3.8 mg/dL 2.1-4.3 = 2777-1) ANAHI (test code = ANAHI) FASTING:YES FASTING: YES RAC (test code = RAC) Performing Organization Information: Site ID: [facility] Name: [facility] Lab Address: [address] [place] [address] Director: Emily GiffordMarion HospitalUric acid [id number] 21:43:00 Test Item Value Reference Range Interpretation Comments Uric acid (test code 10.1 mg/dL 4.0-8.0 H Therape utic = 3084-1) target for gout patients: <6.0 mg/dL ANAHI (test code = FASTING:YES ANAHI) FASTING: YES RAC (test code = Performing RAC) Organization Information: Site ID: [facility] Name: [facility] Lab Address: [address] [place] [address] Director: Emily Rodriguez Lab Interpretation Abnormal (test code = 13503-5) [facility] Pre/Post [id number] 19:08:04 Test Item Value Reference Range Interpretation Comments Ventricular rate (test 49 code = 253) Atrial rate (test code 49 = 255) DE interval (test code 234 = 266) QRSD interval (test 98 code = 260) QT interval (test code 528 = 264) QTC interval (test code 476 = 265) P axis 1 (test code = 58 267) QRS axis 1 (test code = -11 268) T wave axis (test code 27 = 270) EKG impression (test Sinus bradycardia with code = 273) 1st degree AV block-Otherwise normal ECG-- [facility] Pre/Post [id number] 19:08:04 Test Item Value Reference Range Interpretation Comments Ventricular rate (test code = 253) Atrial rate (test code = 255) DE interval (test code = 266) QRSD interval (test code = 260) QT interval (test code = 264) QTC interval (test code = 265) P axis 1 (test code = 267) QRS axis 1 (test code = 268) T wave axis (test code = 270) EKG impression (test Sinus bradycardia with code = 273) 1st degree AV block-Otherwise normal ECG-- [facility] [id number] 14:05:00 Test Item Value Reference Range Interpretation Comments Urine culture (test SEE COMMENT Bacteriu rony screen code = 2385368) negative. [facility] [id number] 14:05:00 Test Item Value Reference Range Interpretation Comments Urine culture (test SEE COMMENT Bacteriu rony screen code = 6358052) negative. [place] [address] [id number] 04:04:42 Test Item Value Reference Range Interpretation Comments Ventricular rate (test 44 code = 253) QRSD interval (test 86 code = 260) QT interval (test code 560 = 264) QTC interval (test code 478 = 265) QRS axis 1 (test code = -3 268) T wave axis (test code 19 = 270) EKG impression (test Junctional code = 273) bradycardia-Low voltage QRS-Abnormal ECG-- [place] [address] [id number] 04:04:42 Test Item Value Reference Range Interpretation Comments Ventricular rate (test code = 253) QRSD interval (test code = 260) QT interval (test code = 264) QTC interval (test code = 265) QRS axis 1 (test code = 268) T wave axis (test code = 270) EKG impression (test Junctional code = 273) bradycardia-Low voltage QRS-Abnormal ECG-- [facility] (COVID-19) RNA [Presence] in Respiratory specimen by FABRICE with probe [id number] 21:38:52 Test Item Value Reference Range Interpretation Comments SARS-CoV-2 (COVID-19) RNA Not detected [Presence] in Respiratory specimen by FABRICE with probe detection (test code = 32780-2) Whether patient is employed in a Unknown healthcare setting (test code = 13190-1) Whether the patient has symptoms Unknown related to condition of interest (test code = 99294-5) Whether the patient was Unknown hospitalized for condition of interest (test code = 36671-3) Whether the patient was admitted Unknown to intensive care unit (ICU) for condition of interest (test code = 86740-7) Whether patient resides in a Unknown congregate care setting (test code = 47019-8) status (test code = Unknown 76774-9) Date and time of symptom onset Unknown (test code = 05527-4) MORALES JAIN WESTCytology (non-gynecological) [id number] 23:04:29 Test Item Value Reference Range Interpretation Comments Case number (test code = [id number]) Cytology See link below for (non-gynecological) PDF Lab Report report (test code = 1178) Result status (test code This is Final Report = [id number]) for [id number] [facility] [id number] 23:04:29 Test Item Value Reference Range Interpretation Comments Case number (test code = [id number]) Cytology See link below for (non-gynecological) PDF Lab Report report (test code = 1178) Result status (test code This is Final Report = [id number]) for [id number] [facility] [id number] 18:48:43 Test Item Value Reference Range Interpretation Comments Course ID (test code = C1 5706) Course Start Date (test 2021-06-01 @08:38 code = 5707) Treatment Elapsed Days (test code = 5709) Course Intent (test code Unknown = 5686) Treatment Dates (test Course End Date: code = 5685) 2021-06-02 @13:48First Treatment Date: 2021-06-01 @11:20Last Treatment Date: 2021-06-01 @11:20 Reference Point ID (test R Occipital Resx code = 5710) Dosage Given to Date in Gy (test code = 5711) Plan ID (test code = R Occipital 5713) Plan Name (test code = R Occipital 5714) Fractions Treated to 1 of 1 Date (test code = 5715) Prescribed Dose Per Fraction in Gy (test code = 5716) Prescription Dose in cGy (test code = 5717) Beau Reaves ONC DAILY [id number] 16:20:14 Test Item Value Reference Range Interpretation Comments Course ID (test code = C1 5706) Course Start Date (test 2021-06-01 @08:38 code = 5707) Treatment Elapsed Days (test code = 5709) Course Intent (test code Unknown = 5686) Treatment Dates (test First Treatment Date: code = 5685) 2021-06-01 @11:20Last Treatment Date: 2021-06-01 @11:20 Reference Point ID (test R Occipital Resx code = 5710) Dosage Given to Date in Gy (test code = 5711) Session Dosage Given in Gy (test code = 5712) Plan ID (test code = R Occipital 5713) Plan Name (test code = R Occipital Resxn Cav 5714) PTV Fractions Treated to 1 of 1 Date (test code = 5715) Prescribed Dose Per Fraction in Gy (test code = 5716) Prescription Dose in cGy (test code = 5717) Beau NicholsonARS-CoV-2 (COVID-19) RNA [Presence] in Respiratory specimen by FABRICE with probe [id number] 17:55:44 Test Item Value Reference Range Interpretation Comments SARS-CoV-2 (COVID-19) RNA Not detected [Presence] in Respiratory specimen by FABRICE with probe detection (test code = 71777-3) Whether patient is employed in a Unknown healthcare setting (test code = 56087-2) Whether the patient has symptoms Unknown related to condition of interest (test code = 71903-1) Whether the patient was Unknown hospitalized for condition of interest (test code = 27743-0) Whether the patient was admitted Unknown to intensive care unit (ICU) for condition of interest (test code = 92119-7) Whether patient resides in a Unknown congregate care setting (test code = 07142-3) status (test code = Unknown 60215-3) Date and time of symptom onset Unknown (test code = 08246-4) CARMEN YANEZ WESTArterial blood gas, [id number] 18:06:00 Test Item Value Reference Range Interpretation Comments pH, arterial (test code 7.35-7.45 = 2744-1) pCO2, arterial (test See_Comment [Autom ated message] code = 2019-8) The system ich generated this result transmitted ref erence range: 35 - 45 mmHg. The reference r hernan was not used to interpret this result as normal/abnor mal. pO2, arterial (test code See_Comment H [A utomated message] = 2703-7) The system ic h generated this result transmitted ref erence range: 80 - 90 mmHg. The reference r hernan was not used to interpret this result as normal/abnor mal. Temperature, Celsius Degrees C (test code = 8310-5) O2 saturation, arterial 99 % 95-100 (test code = 2708-6) pH, arterial corrected (test code = 26607-0) pCO2, arterial corrected mmHg (test code = 80080-3) pO2, arterial corrected mmHg (test code = 99650-8) Base excess, arterial See_Comment H [Auto mated message] (test code = 1925-7) The s tem which generated this result transmitted ref erence range: -2 - 2 m Eq/L. The reference r hernan was not used to interpret this result as normal/abnor mal. Lab Interpretation (test Abnormal code = 72661-5) [facility], [id number] 18:06:00 Test Item Value Reference Range Interpretation Comments Glucose, syringe (test code = 109 mg/dL 65-99 H 2345-7) Lab Interpretation (test code = Abnormal 14458-3) [facility], [id number] 18:06:00 Test Item Value Reference Range Interpretation Comments Hemoglobin, syringe (test code = 11.7 g/dL 14.0-18.0 L 718-7) Lab Interpretation (test code = Abnormal 77086-6) [facility] HospitalIonized calcium, [id number] 18:06:00 Test Item Value Reference Range Interpretation Comments Ionized calcium, arterial (test 1.20 mmol/L 1.11-1.32 code = 28099-2) [facility] HospitalLactic acid, [id number] 18:06:00 Test Item Value Reference Range Interpretation Comments Lactic acid, syringe (test code = 1.5 mmol/L 0.5-2.2 66105-5) [facility], [id number] 18:06:00 Test Item Value Reference Range Interpretation Comments Potassium, syringe (test See_Comment L [A utomated message] code = 2007) The system [employer] generated this result transmitted ref erence range: 3.5 - 5. 0 mEq/L. The refe rence range was not u sed to interpret this result as normal/abnor mal. Lab Interpretation (test Abnormal code = 86713-8) [facility], [id number] 18:06:00 Test Item Value Reference Range Interpretation Comments Sodium, syringe (test See_Comment [Auto mated message] The code = 2947-0) system which generated this result tra nsmitted reference range : 135 - 148 mEq/L. The refe rence range was not used to interpret this result as normal/abnormal . [facility] YwqqxxdfRELA-OnL-8 (COVID-19) RNA [Presence] in Respiratory specimen by FABRICE with probe [id number] 20:16:40 Test Item Value Reference Range Interpretation Comments SARS coronavirus RNA [Presence] Not detected in Isolate by FABRICE with probe detection (test code = 77004-2) Whether patient is employed in a Unknown healthcare setting (test code = 79066-2) Whether the patient has symptoms Unknown related to condition of interest (test code = 36959-1) Whether the patient was Unknown hospitalized for condition of interest (test code = 09481-2) Whether the patient was admitted Unknown to intensive care unit (ICU) for condition of interest (test code = 78298-6) Whether patient resides in a Unknown congregate care setting (test code = 39969-1) status (test code = Unknown 56458-1) Date and time of symptom onset Unknown (test code = 90197-4) MORALES BEAU BELCHERSARS-CoV-2 (COVID-19) RNA [Presence] in Respiratory specimen by FABRICE with probe [id number] 20:16:40 Test Item Value Reference Range Interpretation Comments SARS-CoV-2 (COVID-19) RNA Not detected [Presence] in Respiratory specimen by FABRICE with probe detection (test code = 06750-8) Whether patient is employed in a Unknown healthcare setting (test code = 85387-9) Whether the patient has symptoms Unknown related to condition of interest (test code = 38590-3) Whether the patient was Unknown hospitalized for condition of interest (test code = 94845-8) Whether the patient was admitted Unknown to intensive care unit (ICU) for condition of interest (test code = 09976-7) Whether patient resides in a Unknown congregate care setting (test code = 94093-4) status (test code = Unknown 80098-7) Date and time of symptom onset Unknown (test code = 63856-1) CARMNE YANEZ AMAUCDNB-MbY-3 (COVID-19) RNA [Presence] in Respiratory specimen by FABRICE with probe [id number] 21:28:05 Test Item Value Reference Range Interpretation Comments SARS-CoV-2 (COVID-19) RNA Not detected Not-Detected [Presence] in Respiratory specimen by FABRICE with probe detection (test code = 72901-9) CARMEN YANEZ AFATFAIG-YaE-3 (COVID-19) RNA [Presence] in Respiratory specimen by FABRICE with probe vrspnsfux3981-12-80 15:26:07 Test Item Value Reference Range Interpretation Comments SARS-CoV-2 (COVID-19) RNA Not detected Not-Detected [Presence] in Respiratory specimen by FABRICE with probe detection (test code = 63570-1) CARMEN YANEZ MYHYAMSI-VaH-9 (COVID-19) RNA [Presence] in Respiratory specimen by FABRICE with probe [id number] 01:58:41 Test Item Value Reference Range Interpretation Comments SARS-CoV-2 (COVID-19) RNA Not detected Not-Detected [Presence] in Respiratory specimen by FABRICE with probe detection (test code = 73457-2) CARMEN YANEZ [id number] (COVID-19) RNA [Presence] in Respiratory specimen by FABRICE with probe [id number] 23:25:47 Test Item Value Reference Range Interpretation Comments SARS-CoV-2 (COVID-19) RNA Not detected Not-Detected [Presence] in Respiratory specimen by FABRICE with probe detection (test code = 24865-9) CARMEN YANEZ [id number] (COVID-19) RNA [Presence] in Respiratory specimen by FABRICE with probe [id number] 14:09:05 Test Item Value Reference Range Interpretation Comments SARS-CoV-2 (COVID-19) RNA Not detected Not-Detected [Presence] in Respiratory specimen by FABRICE with probe detection (test code = 88762-6) [facility] Notes Date/Time Note Provider Source 2022-11-10 10:43:04-00:00 Formatting of this note migh t be different from the original. [facility] Rerferral placed and faxed to Dr. Morales at . Patient has been notified and verbalized un derstanding. Lorna Covington LVN 11/10/2022 10:43 AM 2022-11-10 10:28:05-00:00 Formatting of this note migh t be different from the original. Yareli Lal [facility] Pt calling needing a re ferral for this pt that is at the other clinic right now. Its for cardiology at [facility] with Dr delmar morales Electronically signed by Yareli Lal at 10/2022 10:31 AM CDT 2022-11-07 11:58:39-00:00 Formatting of this note migh t be different from the original. Dneise Fam [facility] Patient's spouse is calling she in the hospital and cancelled his and her appointments for 11/14/2022. Patient is suppose to be seeing Dr Guerrero for thyroid follow up. They want to know if orders can be sent to [facility] in [facility] to check his thyroid and they will follow up? Spouse would like to speak to Dr Guerrero. Please call and advise thanks. Electronically signed by Denise Fam at 12:02 PM CDT
--- NOTE | 2022-11-19 14:35 | RAD REPORT ---
EXAM DESCRIPTION: CT - Ct Stroke Brain Wo Cont - 11/19/2022 2:13 pm CLINICAL HISTORY: STROKE ALERT;Mental status change COMPARISON: No comparisons TECHNIQUE: Noncontrast head CT images were obtained without IV contrast. Multiplanar reformats were generated and reviewed. All CT scans are performed using dose optimization technique as appropriate and may include automated exposure control or mA/KV adjustment according to patient size. FINDINGS: No intracranial hemorrhage, mass, or edema. Midline structures are unremarkable. Mild diffuse parenchymal volume loss. No evidence of hydrocephalus. Encephalomalacia involving the basal right frontal and left mesial temporal and occipital lobes, may relate to sequelae of prior ischemia or trauma. No evidence of acute infarct. No abnormal extra-axial fluid collections. Mastoid air cells and visualized portions of the paranasal sinuses are clear. No acute bony findings. Sequelae of right occipital craniotomy. Thinning of the right parietal subcut aneous soft tissues, may be related to prior trauma or surgery. IMPRESSION: No evidence of an acute intracranial process. Chronic findings as above.
[2022-11-19] MEDS ORDERED: NA CHLORIDE 0.9% 1,000 ML ONE (14:53)
[2022-11-19 15:02] LABS: Absolute Lymphocytes (CBC) 0.2 K/uL (0.7-4.9); Hematocrit 34.9 % (39.6-49.0); Lymphocytes % 0.8 % (15.3-44.8); MCV 91.1 fL (80-100); Platelets 236 thou/uL (152-406); RBC Red Blood Cell Count 3.83 M/uL (4.33-5.43)
[2022-11-19 15:04] LABS: Specific Gravity 1.012 (1.005-1.030); Urine Bilirubin NEGATIVE (Negative); Urine Blood Negative (Negative); Urine Clarity Clear (Clear); Urine Color Yellow (Yellow); Urine Glucose NEGATIVE (Negative); Urine Protein NEGATIVE (Negative); Urine Urobilinogen Normal (Normal)
[2022-11-19 15:08] LABS: Protime INR 1.54
--- NOTE | 2022-11-19 15:22 | RAD REPORT ---
EXAM DESCRIPTION: Jvt Single View11/19/2022 2:11 pm CLINICAL HISTORY: FEVER COMPARISON: Ct Stroke Brain Wo Cont dated 11/19/2022 TECHNIQUE: Portable AP view of the chest. FINDINGS: The lungs show central interstitial prominence and fluffy opacities. There may be a small left pleural effusion. No pneumothorax or right effusion. Heart is moderately enlarged. The mediasti nal contours are unremarkable. IMPRESSION: Findings suggestive of CHF or pulmonary edema.
[2022-11-19 15:26] LABS: Albumin 3.3 g/dL (3.4-5.0); Bilirubin Direct 0.4 mg/dL (0-0.2); Bilirubin Indirect, Calculated 0.9 mg/dL (0.2-0.8); Bilirubin Total 1.3 mg/dL (0.2-1.0); Potassium 3.4 mEq/L (3.5-5.1); Protein, Total 8.2 g/dL (6.4-8.2); Troponin High Sensitivity 20.5 pg/mL (<58.9)
[2022-11-19 15:38] LABS: Blood Morphology Comment NOT SEEN (NOT SEEN); Platelet Estimate ADEQ; White Blood Cell Scan OK (OK)
[2022-11-19] MEDS ORDERED: CEFTRIAXONE 1000 MG/VIAL ONE (16:12)
[2022-11-19] MEDS ORDERED: ACETAMINOPHEN 650MG/RECT SUPP PR ONE (16:45)
--- NOTE | 2022-11-19 16:58 | ER ---
Nurse's Notes [facility] Name: Eris Barbour Age: 77 yrs Sex: Male : 1945 Arrival Date: 11/19/2022 Time: 13:27 Bed 6 Private MD: Diagnosis: Unspecified combined systolic (congestive) and diastolic (congestive) heart failure;Unspecified atrial fibrillation;Acute kidney failure, unspecified Presentation: 11/19 13:55 Chief complaint: EMS states: toned out to patient home for altered mental status since ld1 1000 this morning, weakness, fever. Coronavirus screen: At this time, the client does not indicate any symptoms associated with coronavirus-19. Ebola Screen: No symptoms or risks identified at this time. Initial Sepsis Screen: Does the patient meet any 2 criteria? No. Patient's initial sepsis screen is negative. Does the patient have a suspected source of infection? No. Patient's initial sepsis screen is negative. Risk Assessment: Do you want to hurt yourself or someone else? Patient reports no desire to harm self or others. Onset of symptoms was November 19, 2022. 13:55 Method Of Arrival: EMS: [facility] ld1 13:55 Acuity: NAVA 2 hb Triage Assessment: 13:58 General: Appears in no apparent distress. comfortable, Behavior is calm, cooperative. ld1 Pain: Denies pain. EENT: No signs and/or symptoms were reported regarding the EENT system. Neuro: Level of Consciousness is awake, alert, obeys commands, Oriented to person, place, time, situation. Cardiovascular: Capillary refill < 3 seconds Patient's skin is warm and dry. Cardiovascular: Rhythm is sinus tachycardia. Respiratory: Airway is patent Respiratory effort is even, unlabored. GI: Abdomen is round non-distended. : No signs and/or symptoms were reported regarding the genitourinary system. Derm: No signs and/or symptoms reported regarding the dermatologic system. Musculoskeletal: No signs and/or symptoms reported regarding the musculoskeletal system. Historical: - Allergies: 13:58 No Known Allergies; ld1 - PMHx: 13:58 Chemotherapy - brain cancer; ld1 16:17 CHF; Atrial fibrillation; ld1 - Immunization history:: Adult Immunizations up to date. - Social history:: Smoking status: Patient denies any tobacco usage or history of. Patient/guardian denies using alcohol. Screenin:[address] [facility] ED Fall Risk Assessment (Adult) History of falling in the last 3 months, ld1 including since admission No falls in past 3 months (0 pts). Abuse screen: Denies threats or abuse. Denies injuries from another. Nutritional screening: No deficits noted. Tuberculosis screening: No symptoms or risk factors identified. Assessment: 13:59 Reassessment: See triage assessment. ld1 14:58 General: Appears in no apparent distress. comfortable, Behavior is calm, cooperative, ld1 appropriate for age. Pain: Denies pain. Neuro: Level of Consciousness is awake, alert, obeys commands, Oriented to person. Cardiovascular: Rhythm is irregular. Respiratory: Airway is patent Respiratory effort is even, unlabored. GI: Abdomen is round non-distended. 17:26 Reassessment: Notified ERP of VS - pt rhythm Afib RVR. Blood pressure continues to ld1 decrease with IV fluids. 19:13 Reassessment: Patient appears in no apparent distress at this time. family at bedside as6 feeding pt. Vital Signs: 13:55 BP 115 / 66; Pulse 122; Resp 15; Temp 99.1(O); Pulse Ox 96% on R/A; Weight 129.27 kg; ld1 Height 6 ft. 2 in. ; Pain 0/10; 14:58 BP 97 / 64; Pulse 128; Resp 18; Pulse Ox 98% on R/A; ld1 16:06 BP 90 / 70; Pulse 123; Resp 18; Pulse Ox 99% on R/A; ld1 17:26 BP 87 / 62; Pulse 123; Resp 18; Pulse Ox 97% on 2 lpm NC; ld1 18:20 BP 90 / 64; Pulse 127; Resp 18; Pulse Ox 99% on 2 lpm NC; ko1 19:13 BP 93 / 72; Pulse 106; Resp 19 S; Pulse Ox 100% on 2 lpm NC; as6 13:55 Body Mass Index 36.59 (129.27 kg, 187.96 cm) ld1 13:55 Pain Scale: Adult ld1 ED Course: 13:35 Patient arrived in ED. ds4 13:39 Michel Clemons is Attending Physician. ci 13:58 Triage completed. ld1 13:58 Arm band placed on right wrist. ld1 13:59 Patient has correct armband on for positive identification. Placed in gown. Bed in low ld1 position. Call light in reach. Side rails up X2. cafeteria monitor on. Pulse ox on. NIBP on. Door closed. Noise minimized. Warm blanket given. 13:59 No provider procedures requiring assistance completed. ld1 14:00 Xin Marquis, RN is Primary Nurse. ld1 14:13 Stroke CXR 1 View In Process Unspecified. EDMS 14:15 CT Stroke Brain w/o Contrast In Process Unspecified. EDMS 14:57 Blood Culture Adult (2) Sent. ld1 14:57 Lactate w/ 2H reflex if indic. Sent. ld1 14:57 Urinalysis w/ reflexes Sent. ld1 14:57 Magnesium Sent. ld1 14:57 Basic Metabolic Panel Sent. ld1 14:57 CBC with Diff Sent. ld1 14:57 Hepatic Function Sent. ld1 14:57 High Sensitivity Troponin Sent. ld1 14:57 Protime (+inr) Sent. ld1 14:57 Ptt, Activated Sent. ld1 14:57 Anthony cath inserted, using sterile technique, 16 Fr., by ED staff, balloon inflated, to ld1 gravity drainage, urine specimen collected. returned clear yellow urine. Patient tolerated well. Inserted saline lock: 20 gauge in left antecubital area, using aseptic technique. Blood collected. 16:55 Claudio Saunders MD is Hospitalizing Provider. ci 17:39 Extremity Venous Uni Ltd US In Process Unspecified. EDMS 18:[address] In Process Unspecified. EDMS 18:41 COVID-19 SARS RT PCR Sent. ld1 18:41 Flu Sent. ld1 18:41 T4 Free Sent. ld1 18:41 TSH Sent. ld1 18:41 CRP Sent. ld1 19:43 Patient admitted, IV remains in place. as6 19:44 Provided Education on: need for admit. as6 Administered Medications: 14:57 Drug: NS 0.9% IV 1000 ml Route: IV; Rate: 1000 ml; Site: left antecubital; ld1 19:44 Follow up: Response: No adverse reaction; IV Status: Completed infusion; IV Intake: as6 1000ml 16:03 Drug: Rocephin IV 1 grams Route: IV; Rate: per protocol; Site: left antecubital; ld1 19:44 Follow up: Response: No adverse reaction; IV Status: Completed infusion; IV Intake: [id number] 16:41 Drug: Acetaminophen [place] Suppository 650 mg Route: [place]; ld1 19:45 Follow up: Response: No adverse reaction as6 17:24 Drug: AZITHromycin IVPB 500 mg Route: IVPB; Infused Over: 1 hrs; Site: left antecubital;rs5 19:45 Follow up: Response: No adverse reaction; IV Status: Completed infusion; IV Intake: as6 250ml 17:39 Drug: NS 0.9% IV 1000 ml Route: IV; Rate: 75 ml/hr; Site: left antecubital; rs5 19:45 Follow up: Response: No adverse reaction; IV Status: Completed infusion; IV Intake: as6 200ml 18:41 Drug: amiodarone IVPB 150 mg Volume: 100 ml; Route: IVPB; Infused Over: 10 mins; Site: ld1 left antecubital; 19:45 Follow up: Response: No adverse reaction; IV Status: Completed infusion; IV Intake: as6 150ml 19:05 Drug: amiodarone IVPB 900 mg, D5W IV 500 ml Route: IVPB; Rate: 1 mg/min; Site: left ld1 antecubital; 19:45 Follow up: Response: No adverse reaction; IV Status: Infusion continued upon admission; as6 IV Intake: 40ml Medication: 13:59 VIS not applicable for this client. ld1 Intake: 19:44 IV: 1000ml; Total: 1000ml. as6 19:44 IV: 10ml; Total: 1010ml. as6 19:45 IV: 250ml; Total: 1260ml. as6 19:45 IV: 200ml; Total: 1460ml. as6 19:45 IV: 150ml; Total: 1610ml. as6 19:45 IV: 40ml; Total: 1650ml. as6 Outcome: 16:57 Decision to Hospitalize by Provider. ci 19:19 Condition: stable as6 19:19 Instructed on the need for admit. 19:44 Admitted to ICU accompanied by nurse, via stretcher, room 7, with oxygen, on monitor, as6 with chart. 20:06 Patient left the ED. cg3 Signatures: Dispatcher [employer] EDNate Parsons dsGaby Mata RN RN hb Xin Marquis RN RN ld1 Yandel Hunter RN RN as6 Andreea Ferraro RN RN ko1 Seth Foster RN RN rs5 Susy Gustafson 3 Michel Clemons Corrections: (The following items were deleted from the chart) 16:03 13:55 Acuity: NAVA 3 ld1 hb
--- NOTE | 2022-11-19 16:58 | EDPHYS ---
Physician Documentation [facility] Name: Eris Barbour Age: 77 yrs Sex: Male : 1945 Arrival Date: 11/19/2022 Time: 13:27 Bed 6 Private MD: ED Physician Michel Clemons HPI: 11/19 18:09 This 77 yrs old Male presents to ER via EMS with complaints of Altered Mental Status. ci 13:50 Patient is a 77-year-old male who presents to the ED for altered mental status, ci generalized weakness. Patient's son found him outside around noon leaning to the right but upon EMS arrival, negative stroke scale, noted to be warm and febrile rate generalized weakness. Per EMS patient was AOx4 and questionable A-fib on the monitor. 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 Patient is lethargic but AOx3 on exam.. Historical: - Allergies: 13:58 No Known Allergies; ld1 - PMHx: 13:58 Chemotherapy - brain cancer; ld1 16:17 CHF; Atrial fibrillation; ld1 - Immunization history:: Adult Immunizations up to date. - Social history:: Smoking status: Patient denies any tobacco usage or history of. Patient/guardian denies using alcohol. ROS: 16:29 Constitutional: Negative fever. No chills, and weight loss. +weakness Eyes: Negative ci for injury, pain, redness, and discharge, ENT: Negative for injury, pain, and discharge, Neck: Negative for injury, pain, and swelling, Cardiovascular: Negative for chest pain, palpitations. Positive Edema Respiratory: Negative for shortness of breath, cough, wheezing, and pleuritic chest pain, Abdomen/GI: Negative for abdominal pain, nausea, vomiting, diarrhea, and constipation, Back: Negative for injury and pain, MS/Extremity: Negative for injury and deformity, Skin: Negative for injury, rash, and discoloration. R shoulder Melanom skin excision. Neuro: Negative for headache, weakness, numbness, tingling, and seizure. + AMS Exam: 16:29 Constitutional: This is a well developed, well nourished patient who is awake, ci lethargic, and in no acute distress. Head/Face: Normocephalic, atraumatic. Eyes: Pupils equal round and reactive to light, extra-ocular motions intact. Lids and lashes normal. Conjunctiva and sclera are non-icteric and not injected. Cornea within normal limits. Periorbital areas with no swelling, redness, or edema. ENT: Nares patent. No nasal discharge, no septal abnormalities noted. Tympanic membranes are normal and external auditory canals are clear. Oropharynx with no redness, swelling, or masses, exudates, or evidence of obstruction, uvula midline. Mucous membranes moist. Neck: Trachea midline, no thyromegaly or masses palpated, and no cervical lymphadenopathy. Supple, full range of motion without nuchal rigidity, or vertebral point tenderness. No Meningismus. Chest/axilla: Normal chest wall appearance and motion. Nontender with no deformity. No lesions are appreciated. Cardiovascular: Irregular rate and rhythm with a normal S1 and S2. No gallops, murmurs, or rubs. No JVD. +ve pedal edema. No pulse deficits. Respiratory: Lungs have equal breath sounds bilaterally, clear to auscultation and percussion. No rales, rhonchi or wheezes noted. No increased work of breathing, no retractions or nasal flaring. Abdomen/GI: Soft, non-tender, with normal bowel sounds. No distension or tympany. No guarding or rebound. No evidence of tenderness throughout. Skin: Warm, dry with normal turgor. Normal color with no rashes, no lesions, and no evidence of cellulitis. R shoulder incison site clean and dry MS/ Extremity: Pulses equal, no cyanosis. Neurovascular intact. Full, normal range of motion. Neuro: Awake and alert, GCS 15, oriented to person, place, time, and situation. Cranial nerves II-XII grossly intact. Motor strength 5/5 in all extremities. Sensory grossly intact. Cerebellar exam normal. Normal gait. Psych: Awake, alert, with orientation to person, place and time. Behavior, mood, and affect are within normal limits. Vital Signs: 13:55 BP 115 / 66; Pulse 122; Resp 15; Temp 99.1(O); Pulse Ox 96% on R/A; Weight 129.27 kg; ld1 Height 6 ft. 2 in. ; Pain 0/10; 14:58 BP 97 / 64; Pulse 128; Resp 18; Pulse Ox 98% on R/A; ld1 16:06 BP 90 / 70; Pulse 123; Resp 18; Pulse Ox 99% on R/A; ld1 17:26 BP 87 / 62; Pulse 123; Resp 18; Pulse Ox 97% on 2 lpm NC; ld1 18:20 BP 90 / 64; Pulse 127; Resp 18; Pulse Ox 99% on 2 lpm NC; ko1 19:13 BP 93 / 72; Pulse 106; Resp 19 S; Pulse Ox 100% on 2 lpm NC; as6 13:55 Body Mass Index 36.59 (129.27 kg, 187.96 cm) ld1 13:55 Pain Scale: Adult ld1 MDM: 13:39 Patient medically screened. ci 16:29 Differential Diagnosis altered mental status, sepsis, flu, CHF exacerbation, A-fib RVR, ci electrolyte imbalance. Data reviewed: vital signs, nurses notes, EMS record, EKG. 17:00 I considered the following discharge prescriptions or medication management in the ci emergency department Medications were administered in the Emergency Department. See MAR Considered cardizem for Afib RVR but patient is hypotensive. Patient appears volume overloaded with pedal edema, gently hydrated with 1 L NS bolus. Care significantly affected by the following chronic conditions: Congestive Heart Failure, Afib. 18:00 ED course: Patient increasingly hypotensive, ICU was consulted and accepted patient for ci admission. Plan for amiodarone, cardiology consult. Possible cardiogenic vs septic shock. 11/19 13:53 Order name: Basic Metabolic Panel; Complete Time: 15:52 ci 11/19 15:52 Interpretation: Abnormal: CRE 2.20. ci 11/19 13:53 Order name: CBC with Diff; Complete Time: 15:52 ci 11/19 15:52 Interpretation: Abnormal: WBC 19.50. ci 11/19 13:53 Order name: Hepatic Function; Complete Time: 15:52 ci 11/19 13:53 Order name: High Sensitivity Troponin; Complete Time: 15:52 ci 11/19 13:53 Order name: Protime (+inr); Complete Time: 15:52 ci 11/19 13:53 Order name: Ptt, Activated; Complete Time: 15:52 ci 11/19 14:09 Order name: Blood Culture Adult (2) ci 11/19 14:09 Order name: Lactate w/ 2H reflex if indic.; Complete Time: 15:52 ci 11/19 15:53 Interpretation: Abnormal: LAC 2.3. ci 11/19 14:09 Order name: Urinalysis w/ reflexes; Complete Time: 15:52 ci 11/19 15:55 Interpretation: Within normal limits. ci 11/19 14:09 Order name: Magnesium; Complete Time: 15:52 ci 11/19 15:07 Order name: CBC Smear Scan; Complete Time: 15:52 EDID 11/19 17:10 Order name: NT PRO-BNP; Complete Time: 17:46 ci 11/19 18:07 Order name: Procalcitonin; Complete Time: 19:04 la1 11/19 18:11 Order name: COVID-19/FLU A+B la1 11/19 18:11 Order name: CRP; Complete Time: 18:48 la1 11/19 18:18 Order name: TSH; Complete Time: 19:04 la1 11/19 18:18 Order name: T4 Free; Complete Time: 19:04 la1 11/19 18:24 Order name: COVID-19 SARS RT PCR ld1 11/19 18:24 Order name: Flu ld1 11/19 19:18 Order name: Lactate Sepsis 2 HR Follow-up EDID 11/19 13:53 Order name: CT Stroke Brain w/o Contrast; Complete Time: 15:52 ci 11/19 15:55 Interpretation: Per Radiologist's finding(s): IMPRESSION: No evidence of an acute ci intracranial process. Chronic findings as above. 11/19 13:53 Order name: Stroke CXR 1 View; Complete Time: 15:52 ci 11/19 15:54 Interpretation: Per Radiologist's finding(s): IMPRESSION: Findings suggestive of CHF ci or pulmonary edema. 11/19 17:02 Order name: Extremity Venous Uni Ltd US; Complete Time: 18:43 ci 11/19 18:11 Order name: Chest Wo Con CT; Complete Time: 18:52 la1 11/19 13:53 Order name: EKG; Complete Time: 13:54 ci 11/19 17:03 Interpretation: Abnormal: A-fib RVR, HR 120, QTc 384, no acute ischemic changes. ci 11/19 13:53 Order name: Accucheck; Complete Time: 14:57 ci 11/19 13:53 Order name: Cardiac monitoring; Complete Time: 14:00 ci 11/19 13:53 Order name: EKG - Nurse/Tech; Complete Time: 14:04 ci 11/19 13:53 Order name: IV Saline Lock; Complete Time: 14:57 ci 11/19 13:53 Order name: Labs collected and sent; Complete Time: 14:57 ci 11/19 13:53 Order name: NPO; Complete Time: 14:00 ci 11/19 13:53 Order name: O2 Per Protocol; Complete Time: 14:00 ci 11/19 13:53 Order name: O2 Sat Monitoring; Complete Time: 14:00 ci 11/19 14:09 Order name: Vital Signs; Complete Time: 14:14 ci Administered Medications: 14:57 Drug: NS 0.9% IV 1000 ml Route: IV; Rate: 1000 ml; Site: left antecubital; ld1 19:44 Follow up: Response: No adverse reaction; IV Status: Completed infusion; IV Intake: as6 1000ml 16:03 Drug: Rocephin IV 1 grams Route: IV; Rate: per protocol; Site: left antecubital; ld1 19:44 Follow up: Response: No adverse reaction; IV Status: Completed infusion; IV Intake: [id number] 16:41 Drug: Acetaminophen [place] Suppository 650 mg Route: TN; ld1 19:45 Follow up: Response: No adverse reaction as6 17:24 Drug: AZITHromycin IVPB 500 mg Route: IVPB; Infused Over: 1 hrs; Site: left antecubital;rs5 19:45 Follow up: Response: No adverse reaction; IV Status: Completed infusion; IV Intake: as6 250ml 17:39 Drug: NS 0.9% IV 1000 ml Route: IV; Rate: 75 ml/hr; Site: left antecubital; rs5 19:45 Follow up: Response: No adverse reaction; IV Status: Completed infusion; IV Intake: as6 200ml 18:41 Drug: amiodarone IVPB 150 mg Volume: 100 ml; Route: IVPB; Infused Over: 10 mins; Site: ld left antecubital; 19:45 Follow up: Response: No adverse reaction; IV Status: Completed infusion; IV Intake: as6 150ml 19:05 Drug: amiodarone IVPB 900 mg, D5W IV 500 ml Route: IVPB; Rate: 1 mg/min; Site: left ld1 antecubital; 19:45 Follow up: Response: No adverse reaction; IV Status: Infusion continued upon admission; as6 IV Intake: 40ml Disposition Summary: 11/19/22 16:57 Hospitalization Ordered Hospitalization Status: Inpatient Admission ci Provider: Claudio Saunders Condition: Serious ci Problem: new ci Symptoms: are unchanged ci Bed/Room Type: Standard ci Location: Intensive Care Unit(11/19/22 19:18) cg Room Assignment: 7-(11/19/22 19:18) cg Diagnosis - Unspecified combined systolic (congestive) and diastolic (congestive) heart failure ci - Unspecified atrial fibrillation ci - Acute kidney failure, unspecified ci Forms: - Medication Reconciliation Form ci - SBAR form ci - Leadership Thank You Letter ci Critical care time excluding procedures: 17:00 Critical care time: Bedside Care: 45 minutes. Total time: 45 minutes ci Signatures: Dispatcher [employer] EDMS Karishma Beebe FNP-C FNP-Ckb Pablo Urban FNP-C FNP-ClaKarina Dickerson, RN RN Xin Marquis RN RN ld1 Seth Foster RN RN rs5 IheeloisaunekulisesuMichel ci Yandel Hunter RN as6 Corrections: (The following items were deleted from the chart) 19:18 16:57 Telemetry/MedSurg (Inpatient) ci 19:18 16:57 ci 11/20 19:46 11/19 18:00 ED course: Patient increasingly hypotensive, ICU was consulted and accepted ci patient for admission. Plan for amiodarone, cardiology consult.. ci
[2022-11-19] MEDS ORDERED: AZITHROMYCIN 500 MG INJ IVPB ONE (17:30)
[2022-11-19] MEDS ORDERED: NA CHLORIDE 0.9% 250 ML ONE (17:30)
[2022-11-19] MEDS ORDERED: AMIODARONE HCL 150 MG/3 ML INJ IV ONE (18:28)
[2022-11-19] MEDS ORDERED: AMIODARONE IN DEXTROSE,ISO-OSM 360 MG/200 ML BAG IV ONE (18:28)
[2022-11-19] MEDS ORDERED: D5W 100 ML IV ONE (18:28)
--- NOTE | 2022-11-19 18:40 | RAD REPORT ---
EXAM DESCRIPTION: US - Extremity Venous Uni Ltd - 11/19/2022 5:38 pm CLINICAL HISTORY: Swelling COMPARISON: 01/04/2021. TECHNIQUE: Real-time sonographic evaluation of the right lower extremity deep venous system was perf ormed. FINDINGS: Normal compressibility, flow augmentation, phasic flow and spontaneous flow is identified in the right lower extremity deep venous system. No intraluminal filling defects seen. Lower leg sub cutaneous edema noted. IMPRESSION: No DVT in the right lower extremity.
--- NOTE | 2022-11-19 18:52 | RAD REPORT ---
EXAM DESCRIPTION: CT - Thorax Wo Con - 11/19/2022 6:30 pm CLINICAL HISTORY: Pulm edema vs pneumonia, sepsis? COMPARISON: Chest Single View dated 11/19/2022 TECHNIQUE: Axial thin cut images of the chest were obtained without IV contrast. Multiplanar reforma ts were generated and reviewed. All CT scans are performed using dose optimization technique as appropriate and may include automated exposure control or mA/KV adjustment according to patient size. FINDINGS: No mass or infiltrate in the lung parenchyma. No pleural thickening or pleural effusion. N o pneumothorax. No abnormal mediastinal or hilar masses or lymphadenopathy seen. No significant aortic or pulmonary a rtery findings. Assessment is limited in the absence of IV contrast. Heart is mildly enlarged. Pulmonary artery is prominent in caliber, exceeding the caliber of the asce nding aorta. No chest wall mass or abnormal axillary lymphadenopathy. Evaluation of the solid abdominal structures reveals an exophytic left superior pole renal hypoattenu ating lesion suggestive of a cyst measuring 3.1 cm. IMPRESSION: No acute pulmonary process. Mild cardiomegaly. Prominent caliber of the pulmonary artery, exceeding that of the aorta, could relate to pulmonary hyp ertension.
[2022-11-19 18:59] LABS: Thyroid Stimulating Hormone 1.47 uIU/mL (0.358-3.740)
--- NOTE | 2022-11-19 19:22 | P.HP ---
Certification for Inpatient Patient admitted to: Inpatient With expected LOS: >2 Midnights Patient will require the following post-hospital care: None Practitioner: I am a practitioner with admitting privileges, knowledge of patient current condition, hospital course, and medical plan of care. Services: Services provided to patient in accordance with Admission requirements found in Title 42 Section 412.3 of the Code of Federal Regulations Patient History Date of Service: 11/19/22 Reason for admission: A-fib RVR History of Present Illness: 77-year-old male with history of chronic systolic ingestive heart failure, atrial fibrillation on chronic anticoagulation, stage IV melanoma, anemia, CKD 3, gout, hypertension presents emergency department with chief complaint of syncope. He was at home his son last spoke to him at 9 AM, he went to check on him and found him in the garage at 1045 in recliner incontinent of urine and had vomited. He was difficult to arouse, EMS was called and patient was transported to hospital, by the time he got to the hospital patient was awake, alert and oriented x4 does not recall episodes leading up to hospitalization. He was evaluated in the emergency department his labs are significant for white blood count 19.5 hemoglobin 11.5 medic at 34.9 creatinine 2.2 GFR 30 lactic acid 2.3 BNP 4235 procalcitonin 3.2 UA not suggestive of urinary tract infection chest x- ray showed suspected CHF CT of the chest contrast was performed which was negative for acute findings, pulmonary edema or pneumonia. DVT study the right lower extremity negative for DVT. Patient with baseline creatinine around 1.6, also in A-fib RVR with a rate between 115 and 130 with blood pressures in the 90s systolic, case was discussed with cardiology initiated amiodarone drip. Patient need to be admitted to the ICU. No clear source of infection identified currently he will be covered with broad-spectrum antibiotics. - Past Medical/Surgical History -: Chronic systolic distant heart failure -: Atrial fibrillation chronic anticoagulation -: Hypertension -: Stage IV melanoma -: Anemia -: Restless legs -: Melanoma removal Psychosocial/ Personal History: Lives at home with family - Family History Family History: Reviewed- Non-Contributory - Social History Smoking Status: Never smoker Alcohol use: No CD- Drugs: No Caffeine use: Yes Review of Systems 10-point ROS is otherwise unremarkable General: Weakness, Malaise Physical Examination - Physical Exam General: Alert, In no apparent distress, Oriented x3 HEENT: Atraumatic, PERRLA, Mucous membr. moist/pink, EOMI, Sclerae nonicteric Neck: Supple, 2+ carotid pulse no bruit, No LAD, Without JVD or thyroid abnormality Respiratory: Clear to auscultation bilaterally, Normal air movement Cardiovascular: Normal S1 S2, Edema, Irregular heart rate/rhythm (A-fib rate 120) Capillary refill: <2 Seconds Gastrointestinal: Normal bowel sounds, No tenderness Musculoskeletal: No tenderness Integumentary: Other (Wound present to the right elbow with ulceration, what appears to be fibrous tissue base mild surrounding erythema no pain with range of motion) Neurological: Normal speech, Normal strength at 5/5 x4 extr, Normal tone, Normal affect - Studies Laboratory Data (last 24 hrs) 11/19/22 11/19/22 11/19/22 14:45 14:45 14:45 WBC 19.50 H Hgb 11.5 L Hct 34.9 L Plt Count 236 PT 16.9 H INR 1.54 APTT 33.5 Sodium Potassium BUN Creatinine Glucose Magnesium 2.2 Total Bilirubin AST ALT Alkaline Phosphatase 11/19/22 14:45 WBC Hgb Hct Plt Count PT INR APTT Sodium 139 Potassium 3.4 L BUN 47 H Creatinine 2.20 H Glucose 109 H Magnesium Total Bilirubin 1.3 H AST 18 ALT 20 Alkaline Phosphatase 75 Assessment and Plan - Plan Assessment: Atrial fibrillation with RVR- on chronic anticoagulation SIRS criteria, elevated procalcitonin concern for infectionunknown source Chronic systolic congestive heart failure SÁNCHEZ on CKD 3 History of stage IV melanoma Plan: Atrial fibrillation with RVR- on chronic anticoagulation Initiated on amiodarone drip, continue overnight, monitor on telemetry, continue Eliquis. Echocardiogram ordered. SIRS criteria, elevated procalcitonin concern for infectionunknown source No clear source of infection identified thus far white blood count elevated 19.5, procalcitonin elevated as well no pneumonia or urinary tract infection, questionable area on right elbow with ulceration, fibrous tissue base with mild surrounding erythema. Continue empiric broad-spectrum antibiotics with vancomycin/cefepime. Additionally TTE ordered. Chronic systolic congestive heart failure About 2 weeks ago patient was seen by his inspector paper products was significantly edematous and had his Lasix and metolazone doubled, family reports significant improvement in lower extremity edema, no pulmonary edema noted on CT of the chest. Continue gentle IV fluids given hypotension, SÁNCHEZ. Appreciate further input from cardiology, nephrology. SÁNCHEZ on CKD 3 Gentle IV fluids overnight, renal ultrasound, nephrology consult. History of stage IV melanoma Continue outpatient management. DVT PPX: Continue Eliquis Code status: Full Discharge Plan: Home Plan to discharge in: Greater than 2 days - Advance Directives Does patient have a Living Will: No Does patient have a Durable POA for Healthcare: No - Code Status/Comfort Care Code Status Assessed: Yes (Full code) Critical Care: No Time Spent Managing Pts Care (In Minutes): 70
[2022-11-19] MEDS ORDERED: AMIODARONE HCL 900 MG in Dextrose 5%-Water 482 ML IV SCH (20:06)
[2022-11-19] MEDS ORDERED: ACETAMINOPHEN 500 MG TAB PO PRN (20:06)
[2022-11-19] MEDS ORDERED: CEFEPIME 1 GM in NA CHLORIDE 0.9% 100 ML IV SCH ×4 (21:00)
[2022-11-19] MEDS: APIXABAN 5 MG TABLET PO SCH (21:50)
[2022-11-19] MEDS: NA CHLORIDE 0.9% 1,000 ML IV SCH (21:50)
[2022-11-19] MEDS ORDERED: VANCOMYCIN 1 GM/VIAL ONE (21:50)
[2022-11-19] MEDS ORDERED: NA CHLORIDE 0.9% 500 ML ONE (21:50)
[2022-11-19] MEDS: VANCOMYCIN 2 GM in NA CHLORIDE 0.9% 500 ML IVPB SCH (21:51)
[2022-11-19] MEDS ORDERED: VANCOMYCIN 1 GM in NA CHLORIDE 0.9% 250 ML IVPB SCH (22:00)
[2022-11-19] MEDS ORDERED: GABAPENTIN 300 MG CAP PO ONE (22:00)
[2022-11-19] MEDS: PRAMIPEXOLE 1 MG TAB PO SCH (22:06)
[2022-11-20] MEDS ORDERED: AMIODARONE IN DEXTROSE,ISO-OSM 360 MG/200 ML BAG IV ONE (01:13)
[2022-11-20 05:18] LABS: Absolute Lymphocytes (CBC) 0.5 K/uL (0.7-4.9); Hematocrit 28.1 % (39.6-49.0); Lymphocytes % 2.4 % (15.3-44.8); MCV 90.7 fL (80-100); MPV 9.2 fL (7.6-11.3); Platelets 175 thou/uL (152-406)
[2022-11-20 05:32] LABS: Albumin 2.6 g/dL (3.4-5.0); Bilirubin Total 0.7 mg/dL (0.2-1.0); Magnesium 2.2 mg/dL (1.6-2.4); Potassium 3.5 mEq/L (3.5-5.1); Protein, Total 6.7 g/dL (6.4-8.2); Troponin High Sensitivity 25.9 pg/mL (<58.9)
[2022-11-20] MEDS: LEVOTHYROXINE SOD 0.05 MG TABLET PO SCH (05:49)
[2022-11-20] MEDS: PANTOPRAZOLE 40MG TABLET PO SCH (05:49)
--- NOTE | 2022-11-20 07:51 | RAD REPORT ---
EXAM DESCRIPTION: US - Renal Ultrasound-Complete - 11/20/2022 12:07 am CLINICAL HISTORY: Acute renal insufficiency COMPARISON: CT November 19, 2022 FINDINGS: The right kidney measures 12 cm with a normal echotexture. 3.8 centimeter right renal cyst . The left kidney measures 10 cm with a normal echotexture. 1.2 centimeter cyst extends off the lower p ole left kidney. There was suboptimal evaluation of upper pole left kidney due to body habitus. Hydronephrosis is not seen. A Anthony catheter is present within a collapsed bladder IMPRESSION: Bilateral renal cysts. No hydronephrosis
[2022-11-20] MEDS: CEFEPIME 2 GM in NA CHLORIDE 0.9% 100 ML IV SCH ×2 (09:16→21:58)
[2022-11-20] MEDS: FERROUS SULFATE 325 MG TAB PO SCH ×2 (09:16→21:58)
[2022-11-20] MEDS: GABAPENTIN 300 MG CAP PO SCH ×2 (09:17→21:58)
[2022-11-20] MEDS: APIXABAN 5 MG TABLET PO SCH ×2 (09:17→21:58)
[2022-11-20] MEDS: NA CHLORIDE 0.9% 1,000 ML IV SCH (09:26)
--- NOTE | 2022-11-20 10:38 | P.PN ---
Subjective Date of Service: 11/20/22 Chief Complaint: A-fib RVR Subjective: No new changes, Improving Physical Examination - Vital Signs Temperature: 97.5 F Blood Pressure: 105/67 Pulse: 78 Respirations: 17 Pulse Ox (%): 100 - Physical Exam General: Alert, Oriented x3 HEENT: Atraumatic, Normocephalic Neck: Supple Respiratory: Normal air movement Cardiovascular: Regular rate/rhythm, Normal S1 S2 Gastrointestinal: Soft and benign Neurological: Normal speech, Normal strength at 5/5 x4 extr - Studies Laboratory Data (last 24 hrs) 11/19/22 11/19/22 11/19/22 14:45 14:45 14:45 WBC 19.50 H Hgb 11.5 L Hct 34.9 L Plt Count 236 PT 16.9 H INR 1.54 APTT 33.5 Sodium Potassium BUN Creatinine Glucose Magnesium 2.2 Total Bilirubin AST ALT Alkaline Phosphatase 11/19/22 14:45 WBC Hgb Hct Plt Count PT INR APTT Sodium 139 Potassium 3.4 L BUN 47 H Creatinine 2.20 H Glucose 109 H Magnesium Total Bilirubin 1.3 H AST 18 ALT 20 Alkaline Phosphatase 75 Microbiology Data (last 24 hrs): 11/19/22 18:44 Nasopharnyx Influenza Type A Antigen Screen - Final 11/19/22 18:44 Nasopharnyx Influenza Type B Antigen Screen - Final Assessment And Plan - Plan Assessment: Atrial fibrillation with RVR- on chronic anticoagulation SIRS criteria, elevated procalcitonin concern for infectionunknown source Chronic systolic congestive heart failure SÁNCHEZ on CKD 3 History of stage IV melanoma Plan: Atrial fibrillation with RVR- on chronic anticoagulation Initiated on amiodarone drip on admission. rate controlled now. we will continue to monitor on telemetry and continue Eliquis. Echocardiogram ordered. Cardiology eval pending. SIRS criteria, elevated procalcitonin concern for infectionunknown source No clear source of infection identified thus far white blood count elevated 19.5, procalcitonin elevated as well no pneumonia or urinary tract infection, questionable area on right elbow with ulceration, fibrous tissue base with mild surrounding erythema. Continue empiric broad-spectrum antibiotics with vancomycin/cefepime. Additionally TTE ordered for endocarditis work up. Chronic systolic congestive heart failure About 2 weeks ago patient was seen by his street commissioner was significantly edematous and had his Lasix and metolazone doubled, family reports significant improvement in lower extremity edema, no pulmonary edema noted on CT of the chest. Continue gentle IV fluids given hypotension, SÁNCHEZ. Appreciate further input from cardiology, nephrology. SÁNCHEZ on CKD 3 Mild trend down of creatinine from 2.20 to 2.0 noted this am. Gentle IV fluid for rehydration, renal ultrasound result pending. Nephrology consult placed.. History of stage IV melanoma Continue outpatient management.
--- NOTE | 2022-11-20 11:27 | P.CNS ---
Date of Consult: 11/20/22 Reason for Consult: SÁNCHEZ/ CKD Requesting Physician: Yanick Deras Chief Complaint: A-fib RVR History of Present Illness: 77-year-old male with history of chronic systolic ingestive heart failure, atrial fibrillation on chronic anticoagulation, stage IV melanoma, anemia, CKD 3, gout, hypertension presents emergency department with chief complaint of syncope. He was at home his son last spoke to him at 9 AM, he went to check on him and found him in the garage at 1045 in recliner incontinent of urine and had vomited. He was difficult to arouse, EMS was called and patient was transported to hospital, by the time he got to the hospital patient was awake, alert and oriented x4 does not recall episodes leading up to hospitalization. He was evaluated in the emergency department his labs are significant for white blood count 19.5 hemoglobin 11.5 medic at 34.9 creatinine 2.2 GFR 30 lactic acid 2.3 BNP 4235 procalcitonin 3.2 UA not suggestive of urinary tract infection chest x- ray showed suspected CHF CT of the chest contrast was performed which was negative for acute findings, pulmonary edema or pneumonia. DVT study the right lower extremity negative for DVT. Patient with baseline creatinine around 1.6, also in A-fib RVR with a rate between 115 and 130 with blood pressures in the 90s systolic, case was discussed with cardiology initiated amiodarone drip. Patient need to be admitted to the ICU. No clear source of infection identified currently he will be covered with broad-spectrum antibiotics. 18:09 This 77 yrs old Male presents to ER via EMS with complaints of Altered Mental Status. ci 13:50 Patient is a 77-year-old male who presents to the ED for altered mental status, ci generalized weakness. Patient's son found him outside around noon leaning to the right but upon EMS arrival, negative stroke scale, noted to be warm and febrile rate generalized weakness. Per EMS patient was AOx4 and questionable A-fib on the monitor. Patient saw his delimber operator a week ago and had an unremarkable work-up. Patient is lethargic but AOx3 on exam. Allergies No Known Allergies Allergy (Verified 11/19/22 19:26) Home medications list reviewed: Yes Home Medications: Apixaban [Eliquis] 5 mg PO BID 11/19/22 Cholecalciferol (Vitamin D3) [Vitamin D3] 1 cap PO DAILY 11/19/22 Ferrous Sulfate [Iron] 325 mg PO BID 11/19/22 Furosemide [Lasix] 40 mg PO BIDL 11/19/22 Gabapentin 300 mg PO BID 11/19/22 Levothyroxine [Synthroid] 50 mcg PO [id number] 11/19/22 Metoprolol Tartrate 25 mg PO BID 11/19/22 Pantoprazole [Protonix Tab*] 40 mg PO DAILY 11/19/22 Pramipexole [Mirapex] 1 mg PO DAILY 11/19/22 Vitamin B Complex [B Complex] 1 tab PO DAILY 11/19/22 predniSONE [Deltasone] 20 mg PO PRN PRN 11/19/22 - Past Medical/Surgical History Diabetic: No -: Chronic systolic distant heart failure -: Atrial fibrillation chronic anticoagulation -: Hypertension -: Stage IV melanoma -: Anemia -: Restless legs -: Melanoma removal Psychosocial/ Personal History: Lives at home with family - Family History Father Medical History: Cancer Mother Medical History: Seizures Brother Medical History: Cancer Sister Medical History: Cancer - Social History Alcohol use: No CD- Drugs: No Caffeine use: Yes Place of Residence: Home Review of Systems 10-point ROS is otherwise unremarkable Cardiovascular: Edema Physical Examination Temp Pulse Resp BP Pulse Ox 97.5 F 78 17 105/67 100 11/20/22 10:42 11/20/22 10:42 11/20/22 10:42 11/20/22 10:42 11/20/22 10:42 General: In no apparent distress, Oriented x3, Cooperative HEENT: Atraumatic Neck: Supple Respiratory: Clear to auscultation bilaterally Cardiovascular: Regular rate/rhythm, Edema (trace) Gastrointestinal: Soft and benign, Non-distended Musculoskeletal: No clubbing, No contractures Integumentary: No rashes, No cyanosis Neurological: Normal speech Laboratory Data (last 24 hrs) 11/19/22 11/19/22 11/19/22 14:45 14:45 14:45 WBC 19.50 H Hgb 11.5 L Hct 34.9 L Plt Count 236 PT 16.9 H INR 1.54 APTT 33.5 Sodium Potassium BUN Creatinine Glucose Magnesium 2.2 Total Bilirubin AST ALT Alkaline Phosphatase 11/19/22 14:45 WBC Hgb Hct Plt Count PT INR APTT Sodium 139 Potassium 3.4 L BUN 47 H Creatinine 2.20 H Glucose 109 H Magnesium Total Bilirubin 1.3 H AST 18 ALT 20 Alkaline Phosphatase 75 Imagings Data: EXAM DESCRIPTION: US - Renal Ultrasound-Complete - 11/20/2022 12:07 am CLINICAL HISTORY: Acute renal insufficiency COMPARISON: CT November 19, 2022 FINDINGS: The right kidney measures 12 cm with a normal echotexture. 3.8 centimeter right renal cyst. The left kidney measures 10 cm with a normal echotexture. 1.2 centimeter cyst extends off the lower pole left kidney. There was suboptimal evaluation of upper pole left kidney due to body habitus. Hydronephrosis is not seen. A Anthony catheter is present within a collapsed bladder IMPRESSION: Bilateral renal cysts. No hydronephrosis EXAM DESCRIPTION: CT - Thorax Wo Con - 11/19/2022 6:30 pm CLINICAL HISTORY: Pulm edema vs pneumonia, sepsis? COMPARISON: Chest Single View dated 11/19/2022 TECHNIQUE: Axial thin cut images of the chest were obtained without IV contrast. Multiplanar reformats were generated and reviewed. All CT scans are performed using dose optimization technique as appropriate and may include automated exposure control or mA/KV adjustment according to patient size. FINDINGS: No mass or infiltrate in the lung parenchyma. No pleural thickening or pleural effusion. No pneumothorax. No abnormal mediastinal or hilar masses or lymphadenopathy seen. No significant aortic or pulmonary artery findings. Assessment is limited in the absence of IV contrast. Heart is mildly enlarged. Pulmonary artery is prominent in caliber, exceeding the caliber of the ascending aorta. No chest wall mass or abnormal axillary lymphadenopathy. Evaluation of the solid abdominal structures reveals an exophytic left superior pole renal hypoattenuating lesion suggestive of a cyst measuring 3.1 cm. IMPRESSION: No acute pulmonary process. Mild cardiomegaly. Prominent caliber of the pulmonary artery, exceeding that of the aorta, could relate to pulmonary hypertension. EXAM DESCRIPTION: US - Extremity Venous Uni Ltd - 11/19/2022 5:38 pm CLINICAL HISTORY: Swelling COMPARISON: 01/04/2021. TECHNIQUE: Real-time sonographic evaluation of the right lower extremity deep venous system was performed. FINDINGS: Normal compressibility, flow augmentation, phasic flow and spontaneous flow is identified in the right lower extremity deep venous system. No intraluminal filling defects seen. Lower leg subcutaneous edema noted. IMPRESSION: No DVT in the right lower extremity. Conclusions/Impression: Stage I SÁNCHEZ in the setting of hypovolemia CKD III -No NSAIDs -Change IVF to 1/2NS Hypokalemia -Replete prn HTN with CKD/ CHF -Hold antihypertensives at this time Systolic CHF, chronic -Daily weight Anemia in chronic illness -Monitor H&H -Continue iron supplementation Stage IV Melanoma -Follow up with oncology Hospitalist note reviewed Thank you kindly for the consultation
[2022-11-20] MEDS ORDERED: AMIODARONE HCL 900 MG in Dextrose 5%-Water 482 ML IV SCH (13:00)
--- NOTE | 2022-11-20 19:06 | EKG ---
Test Date: 2022-11-19 Test Time: 14:02:09 Ux Interaction Designer: MARIA D MEASUREMENT RESULTS: Intervals: Rate: 120 NE: QRSD: 82 QT: 272 QTc: 384 [place]: P: NE: QRS: -28 T: 113 INTERPRETIVE STATEMENTS: Atrial fibrillation Inferior infarct, age undetermined Abnormal ECG No previous ECG available for comparison Electronically Signed On 11-20-22 19:04:10 CDT by Adolph Elise
[2022-11-20] MEDS: PRAMIPEXOLE 1 MG TAB PO SCH (21:58)
[2022-11-20] MEDS: MELATONIN 5 MG TABLET PO PRN (21:58)
--- NOTE | 2022-11-20 22:04 | CON ---
Date of Consultation: 11/20/2022 Reason For Consultation: Atrial fibrillation. History Of Present Illness: A 77-year-old male with past medical history of diastolic heart failure, chronic atrial fibrillation, hypertension, anemia, diastolic heart failure, presented to the emergen cy room with syncopal episode. He was found in his garage at 10:45 in recliner, incontinent of urine , vomited, and difficult to arouse. In the hospital, he was found to be in atrial fibrillation with rapid ventricular response, rate between 115 to 130. Past Medical History: As outlined above in HPI. Medications: Refer to reconciliation sheet for detailed list. Allergies: NO KNOWN DRUG ALLERGIES. Family History: No premature coronary artery disease or cancer. Social History: Does not smoke or drink. Does not use any drugs. Review of Systems: All systems reviewed were negative except as mentioned in the HPI. Physical Examination: Vital signs: Reviewed. Head and Neck: Pupils are equal, reactive to light. Intact eye movements. No JVD. No cervical lym phadenopathy. Neck: Supple. Thyroid is not enlarged. Lungs: Decreased breathing sounds. No accessory muscle use or muscle retraction. Heart: Irregularly irregular. No extra sounds. Abdomen: Soft, nontender. Bowel sounds positive. No organomegaly. No masses or hernia. No rigidi ty or rebound. Extremities: No clubbing, cyanosis. Positive edema. Neurologic: Alert, awake, oriented x3. No acute focal deficits appreciated. Investigations: BUN 51; creatinine is 2.0, down from 2.2. Troponins are negative. Assessment/recommendation: 1.Atrial fibrillation with rapid ventricular response. Continue IV amiodarone. Once the 24 hours l oad is complete, to switch him to 200 mg by mouth twice a day and continue Eliquis. However, I recom mend to cut down the dose to 2.5 mg twice a day due to high creatinine. 2.Chronic renal failure. This is controlled and stable. 3.Sepsis, on wide-spectrum antibiotics and workup is in progress. SR/MODL Voice ID: [id number] Report ID: [id number]
[2022-11-20] MEDS: NACHLORIDE 0.45% 1,000 ML IV SCH (22:14)
[2022-11-21 04:42] LABS: Absolute Lymphocytes (CBC) 0.4 K/uL (0.7-4.9); Hematocrit 29.6 % (39.6-49.0); Lymphocytes % 3.7 % (15.3-44.8); MCV 90.7 fL (80-100); MPV 9.1 fL (7.6-11.3); Platelets 174 thou/uL (152-406); RBC Red Blood Cell Count 3.27 M/uL (4.33-5.43)
[2022-11-21 05:05] LABS: Albumin 2.5 g/dL (3.4-5.0); Bilirubin Total 0.8 mg/dL (0.2-1.0); Magnesium 2.6 mg/dL (1.6-2.4); Potassium 3.5 mEq/L (3.5-5.1); Protein, Total 7.1 g/dL (6.4-8.2)
[2022-11-21] MEDS: LEVOTHYROXINE SOD 0.05 MG TABLET PO SCH (06:10)
[2022-11-21] MEDS: PANTOPRAZOLE 40MG TABLET PO SCH (06:10)
--- NOTE | 2022-11-21 07:04 | ECHO ---
HEIGHT: 6 ft 2 in WEIGHT: 285 lb 0 oz DATE OF STUDY: 11/20/[address]: Pablo Urban NP 2-DIMENSIONAL: YES M.MODE: YES DOPPLER: YES COLOR FLOW: YES TDS: PORTABLE: YES DEFINITY: BUBBLE STUDY: DIAGNOSIS: ATRIAL FIBRILLATION WITH RAPID VENTRICULAR RESPONSE, CONGESTIVE HEART FAILURE CARDIAC HISTORY: CATHERIZATION: NO SURGERY: NO PROSTHETIC VALVE: NO PACEMAKER: NO MEASUREMENTS (cm) DIASTOLIC (NORMALS) SYSTOLIC (NORMALS) IVSd 1.4 (0.6-1.2) LA Diam 3.6 (1.9-4.0) LVEF 50% LVIDd 4.6 (3.5-5.7) LVIDs 3.6 (2.0-3.5) %FS 21% LVPWd 1.4 (0.6-1.2) Ao Diam 3.0 (2.0-3.7) 2 DIMENSIONAL ASSESSMENT: RIGHT ATRIUM: NORMAL LEFT ATRIUM: NORMAL RIGHT VENTRICLE: NORMAL LEFT VENTRICLE: NORMAL TRICUSPID VALVE: MILD TRICUSPID REGURGITATION MITRAL VALVE: MILD MITRAL REGURGITATION PULMONIC VALVE: MILD PULMONIC INSUFFICIENCY AORTIC VALVE: NORMAL PERICARDIAL EFFUSION: NONE AORTIC ROOT: NORMAL LEFT VENTRICULAR WALL MOTION: NORMAL DOPPLER/COLOR FLOW: SEE BELOW COMMENTS: 1. NORMAL LEFT VENTRICULAR EJECTION FRACTION 50-55% 2. NORMAL WALL MOTION 3. MILD MITRAL REGURGITATION 4. MILD TRICUSPID REGURGITATION 5. ATRIAL FIBRILLATION TECHNOLOGIST: NAN GO
[2022-11-21] MEDS: GABAPENTIN 300 MG CAP PO SCH ×2 (08:22→20:20)
[2022-11-21] MEDS: FERROUS SULFATE 325 MG TAB PO SCH ×2 (08:22→20:20)
[2022-11-21] MEDS: AMIODARONE HCL 200 MG TAB PO SCH ×2 (08:22→20:21)
[2022-11-21] MEDS: APIXABAN 5 MG TABLET PO SCH ×2 (08:22→20:21)
[2022-11-21] MEDS: CEFEPIME 2 GM in NA CHLORIDE 0.9% 100 ML IV SCH ×2 (08:23→20:20)
[2022-11-21] MEDS: VANCOMYCIN 2 GM in NA CHLORIDE 0.9% 500 ML IVPB SCH (09:49)
[2022-11-21] MEDS: NACHLORIDE 0.45% 1,000 ML IV SCH ×3 (10:35→23:58)
--- NOTE | 2022-11-21 16:24 | P.PN ---
Subjective Date of Service: 11/21/22 Chief Complaint: A-fib RVR Patient has no new complaint. Atrial fibrillation is rate controlled. He denies any shortness of breath or palpitation. Physical Examination - Vital Signs Temperature: 97.6 F Blood Pressure: 117/86 Pulse: 87 Respirations: 20 Pulse Ox (%): 97 Assessment And Plan - Plan Physical Exam General: Alert, Oriented x3, obese. HEENT: Anicteric sclera. Neck: No elevated JVD Respiratory: Normal air movement. No crackles Cardiovascular: Normal rate, irregular rhythm, Normal S1 S2 Gastrointestinal: Soft and benign Neurological: Normal speech, Normal strength at 5/5 x4 extr Diagnosis Atrial fibrillation with RVR- on chronic anticoagulation SIRS criteria, elevated procalcitonin concern for infectionunknown source Chronic systolic congestive heart failure SÁNCHEZ on CKD 3 History of stage IV melanoma Plan: Atrial fibrillation with RVR on chronic anticoagulation Initiated on amiodarone drip on admission. Amiodarone drip transition to oral amiodarone. Cardiology is following rate controlled now. Continue Eliquis. Echocardiogram result is pending. Activity as tolerated. Sepsis elevated procalcitonin concern for infectionunknown source No clear source of infection. Leukocytosis almost resolved. Procalcitonin elevated. No pneumonia or urinary tract infection. Blood cultures: No growth to date. Continue empiric broad-spectrum antibiotics with vancomycin/cefepime. Echocardiogram is pending. Chronic systolic congestive heart failure Currently appears compensated for CHF Lasix is on hold due to SÁNCHEZ with hypotension Nephrology is following. Blood pressure has improved. SÁNCHEZ on CKD 3 Serum creatinine is trending down Continue IV fluid for rehydration. Nephrology is following. History of stage IV melanoma Outpatient management.
[2022-11-21] MEDS: METOPROLOL TAR 25 MG TAB PO SCH (18:21)
--- NOTE | 2022-11-21 18:46 | PN ---
Date of Progress Note: 11/21/2022 Subjective: Seen by bedside. His heart rate is much better. He is on amiodarone, but still is in a trial fibrillation. Review of Systems: No chest pain, shortness of breath, orthopnea, or cough. No nausea, vomiting, diarrhea. All other s ystems reviewed are negative. Objective: Vital signs: Reviewed. Head and Neck: Pupils are equal, reactive to light. Intact eye movements. No JVD. No cervical lym phadenopathy. Neck is supple. Thyroid is not enlarged. Lungs: Clear to auscultation bilaterally. No rhonchi, wheezing, or crackles. No accessory muscle u se. Heart: Irregularly irregular. No extra sounds. Abdomen: Soft, nontender. Bowel sounds positive. No organomegaly. No masses or hernia. No rigidi ty or rebound. Extremities: No edema, clubbing, cyanosis. Intact pulses. Skin: No rash. No nodules. Neurologic: Alert, awake, oriented x3. No acute focal deficits appreciated. Investigation: Labs were reviewed. Assessment/recommendations: 1.Atrial fibrillation. Rate is much better. Switch to oral amiodarone 200 mg twice a day and initi ate metoprolol 25 mg twice a day and continue Eliquis. His creatinine is improving. 2.Acute renal failure, improving. His creatinine is approaching normal limits. SR/MODL Voice ID: [id number] Report ID: [id number]
--- NOTE | 2022-11-21 20:15 | P.PN ---
Date of Service: 11/21/22 Vital Signs Temp Pulse Resp BP Pulse Ox 97.6 F 85 21 H 129/71 99 11/21/22 16:26 11/21/22 18:21 11/21/22 18:00 11/21/22 18:21 11/21/22 18:00 Medications Acetaminophen (Acetaminophen 500 Mg Tab) 500 mg PO Q4HP PRN PRN Reason: Pain scale 2-4 (Mild) Amiodarone HCl (Amiodarone Hcl 200 Mg Tab) 200 mg PO BID [facility] Last Admin: 11/21/22 08:22 Dose: 200 mg Apixaban (Apixaban 5 Mg Tablet) 5 mg PO BID [facility] Last Admin: 11/21/22 08:22 Dose: 5 mg Ferrous Sulfate (Ferrous Sulfate 325 Mg Tab) 325 mg PO BID [facility] Last Admin: 11/21/22 08:22 Dose: 325 mg Gabapentin (Gabapentin 300 Mg Cap) 300 mg PO BID [facility] Last Admin: 11/21/22 08:22 Dose: 300 mg Vancomycin HCl 2 gm/ Sodium (Chloride) 500 mls @ 250 mls/hr IVPB Q36H [facility] Last Admin: 11/21/22 09:49 Dose: 500 mls Cefepime HCl 2 gm/ Sodium (Chloride) 100 mls @ 200 mls/hr IV Q12HR [facility]; Protocol Last Admin: 11/21/22 08:23 Dose: 100 mls Sodium Chloride (Sodium Chloride 0.45%) 1,000 mls @ 85 mls/hr IV [id number] [facility] Last Admin: 11/21/22 10:35 Dose: 1,000 mls Levothyroxine Sodium (Levothyroxine Sod 0.05 Mg Tablet) 0.05 mg PO [id number] [facility] Last Admin: 11/21/22 06:10 Dose: 0.05 mg Melatonin (Melatonin 5 Mg Tablet) 10 mg PO BEDTIME PRN PRN PRN Reason: INSOMNIA Last Admin: 11/20/22 21:58 Dose: 10 mg Metoprolol Tartrate (Metoprolol Tar 25 Mg Tab) 25 mg PO BID 6AM 6PM [facility] Last Admin: 11/21/22 18:21 Dose: 25 mg Pantoprazole Sodium (Pantoprazole 40mg Tablet) 40 mg PO DAILYAC [facility]; Protocol Last Admin: 11/21/22 06:10 Dose: 40 mg Pramipexole Dihydrochloride (Pramipexole 1 Mg Tab) 1 mg PO BEDTIME [facility] Last Admin: 11/20/22 21:58 Dose: 1 mg Sodium Chloride (Flush Normal Saline 10 Ml) 10 ml IV BID [facility] Last Admin: 11/21/22 08:23 Dose: 10 ml Microbiology Results 11/19/22 14:40 Blood - Blood Aerobic Blood Culture - Preliminary No growth in 24 hours. 11/19/22 14:40 Blood - Blood Anaerobic Blood Culture - Preliminary No growth in 24 hours. 11/19/22 14:50 Blood - Blood Aerobic Blood Culture - Preliminary No growth in 24 hours. 11/19/22 14:50 Blood - Blood Anaerobic Blood Culture - Preliminary No growth in 24 hours. 11/19/22 18:44 Nasopharnyx Influenza Type A Antigen Screen - Final 11/19/22 18:44 Nasopharnyx Influenza Type B Antigen Screen - Final Assessment/ Plan: Nephrology No dyspnea No chest pain Feeling better Good urine output No acute events overnight Vitals, medications, blood work and imaging reviewed in the chart. General: In no apparent distress, Oriented x3, Cooperative HEENT: Atraumatic Neck: Supple Respiratory: Clear to auscultation bilaterally Cardiovascular: Regular rate/rhythm, Edema (trace) Gastrointestinal: Soft and benign, Non-distended Musculoskeletal: No clubbing, No contractures Integumentary: No rashes, No cyanosis Neurological: Normal speech Laboratory Data (last 24 hrs) 11/19/22 11/19/22 11/19/22 14:45 14:45 14:45 WBC 19.50 H Hgb 11.5 L Hct 34.9 L Plt Count 236 PT 16.9 H INR 1.54 APTT 33.5 Sodium Potassium BUN Creatinine Glucose Magnesium 2.2 Total Bilirubin AST ALT Alkaline Phosphatase 11/19/22 14:45 WBC Hgb Hct Plt Count PT INR APTT Sodium 139 Potassium 3.4 L BUN 47 H Creatinine 2.20 H Glucose 109 H Magnesium Total Bilirubin 1.3 H AST 18 ALT 20 Alkaline Phosphatase 75 Imagings Data: EXAM DESCRIPTION: US - Renal Ultrasound-Complete - 11/20/2022 12:07 am CLINICAL HISTORY: Acute renal insufficiency COMPARISON: CT November 19, 2022 FINDINGS: The right kidney measures 12 cm with a normal echotexture. 3.8 centimeter right renal cyst. The left kidney measures 10 cm with a normal echotexture. 1.2 centimeter cyst extends off the lower pole left kidney. There was suboptimal evaluation of upper pole left kidney due to body habitus. Hydronephrosis is not seen. A Anthony catheter is present within a collapsed bladder IMPRESSION: Bilateral renal cysts. No hydronephrosis EXAM DESCRIPTION: CT - Thorax Wo Con - 11/19/2022 6:30 pm CLINICAL HISTORY: Pulm edema vs pneumonia, sepsis? COMPARISON: Chest Single View dated 11/19/2022 TECHNIQUE: Axial thin cut images of the chest were obtained without IV contrast. Multiplanar reformats were generated and reviewed. All CT scans are performed using dose optimization technique as appropriate and may include automated exposure control or mA/KV adjustment according to patient size. FINDINGS: No mass or infiltrate in the lung parenchyma. No pleural thickening or pleural effusion. No pneumothorax. No abnormal mediastinal or hilar masses or lymphadenopathy seen. No significant aortic or pulmonary artery findings. Assessment is limited in the absence of IV contrast. Heart is mildly enlarged. Pulmonary artery is prominent in caliber, exceeding the caliber of the ascending aorta. No chest wall mass or abnormal axillary lymphadenopathy. Evaluation of the solid abdominal structures reveals an exophytic left superior pole renal hypoattenuating lesion suggestive of a cyst measuring 3.1 cm. IMPRESSION: No acute pulmonary process. Mild cardiomegaly. Prominent caliber of the pulmonary artery, exceeding that of the aorta, could relate to pulmonary hypertension. EXAM DESCRIPTION: US - Extremity Venous Uni Ltd - 11/19/2022 5:38 pm CLINICAL HISTORY: Swelling COMPARISON: 01/04/2021. TECHNIQUE: Real-time sonographic evaluation of the right lower extremity deep venous system was performed. FINDINGS: Normal compressibility, flow augmentation, phasic flow and spontaneous flow is identified in the right lower extremity deep venous system. No intraluminal filling defects seen. Lower leg subcutaneous edema noted. IMPRESSION: No DVT in the right lower extremity. Conclusions/Impression: Stage I SÁNCHEZ in the setting of hypovolemia CKD III -No NSAIDs -Discontinue IVF Hypokalemia -Replete prn HTN with CKD/ CHF -Continue Metoprolol Systolic CHF, chronic -Daily weight Anemia in chronic illness -Monitor H&H -Continue iron supplementation Stage IV Melanoma -Follow up with oncology Hospitalist note reviewed
[2022-11-21] MEDS: PRAMIPEXOLE 1 MG TAB PO SCH (20:20)
[2022-11-21] MEDS ORDERED: MELATONIN 5 MG TABLET PO SCH (21:00)
[2022-11-21] MEDS: MELATONIN 5 MG TABLET PO PRN (22:37)
[2022-11-22 05:23] LABS: Absolute Lymphocytes (CBC) 0.3 K/uL (0.7-4.9); Lymphocytes % 2.6 % (15.3-44.8); MCV 90.5 fL (80-100); MPV 9.3 fL (7.6-11.3); Platelets 190 thou/uL (152-406); RBC Red Blood Cell Count 3.21 M/uL (4.33-5.43)
[2022-11-22 05:27] LABS: Potassium 3.6 mEq/L (3.5-5.1)
[2022-11-22] MEDS: METOPROLOL TAR 25 MG TAB PO SCH ×2 (06:00→17:19)
[2022-11-22] MEDS: LEVOTHYROXINE SOD 0.05 MG TABLET PO SCH (06:19)
[2022-11-22] MEDS: PANTOPRAZOLE 40MG TABLET PO SCH (06:19)
[2022-11-22] MEDS: GABAPENTIN 300 MG CAP PO SCH ×2 (08:28→18:48)
[2022-11-22] MEDS: APIXABAN 5 MG TABLET PO SCH ×2 (08:28→20:06)
[2022-11-22] MEDS: FERROUS SULFATE 325 MG TAB PO SCH ×2 (08:28→20:06)
[2022-11-22] MEDS: AMIODARONE HCL 200 MG TAB PO SCH ×2 (08:28→20:06)
[2022-11-22] MEDS: CEFEPIME 2 GM in NA CHLORIDE 0.9% 100 ML IV SCH ×2 (08:29→20:06)
[2022-11-22] MEDS ORDERED: POTASSIUM CL SA 10 MEQ TAB PO ONE (09:33)
--- NOTE | 2022-11-22 12:42 | P.PN ---
Subjective Date of Service: 11/22/22 Chief Complaint: A-fib RVR Patient states he feels much better today Atrial fibrillation is rate controlled on oral amiodarone. He has good oral intake. Physical Examination - Vital Signs Temperature: 98.4 F Blood Pressure: 109/76 Pulse: 94 Respirations: 19 Pulse Ox (%): 98 Assessment And Plan - Plan Physical Exam General: Alert, Oriented x3, obese. HEENT: Anicteric sclera. Neck: No elevated JVD Respiratory: Normal air movement. No crackles Cardiovascular: Normal rate, irregular rhythm, Normal S1 S2 Gastrointestinal: Soft and benign Neurological: Normal speech, Normal strength at 5/5 x4 extr Diagnosis Atrial fibrillation with RVR- on chronic anticoagulation SIRS criteria, elevated procalcitonin concern for infectionunknown source Chronic systolic congestive heart failure SÁNCHEZ on CKD 3 History of stage IV melanoma Plan: Atrial fibrillation with RVR on chronic anticoagulation Initiated on amiodarone drip on admission. Amiodarone drip transition to oral amiodarone. Heart rate is controlled on the amiodarone. Cardiology is following Continue Eliquis. Echocardiogram: Normal EF. Activity as tolerated. Sepsis elevated procalcitonin concern for infectionunknown source No clear source of infection. Leukocytosis almost resolved. Procalcitonin elevated. No pneumonia or urinary tract infection. Blood cultures: No growth to date. Continue empiric broad-spectrum antibiotics with vancomycin/cefepime. Echocardiogram is unremarkable. PT consult. Chronic diastolic congestive heart failure Currently appears compensated for CHF Lasix is on hold due to SÁNCHEZ with hypotension Nephrology is following. Blood pressure has improved. SÁNCHEZ on CKD 3 Serum creatinine continues to trend down Of IV fluid Nephrology is following. History of stage IV melanoma Outpatient management.
[2022-11-22] MEDS: PRAMIPEXOLE 1 MG TAB PO SCH (18:48)
--- NOTE | 2022-11-22 18:53 | PN ---
Date of Progress Note: 11/22/2022 Subjective: Seen by bedside. Has shortness of breath on exertion. Lower extremity edema. No nause a, vomiting, or diarrhea. No dysuria, polyuria, urinary urgency, or chest pain. Review of Systems: All systems were reviewed, they were negative except what is mentioned above. Physical Examination: Vital signs: Reviewed. Head and Neck: Pupils are equal, reactive to light. Intact eye movements. Mild JVD elevation. Lungs: Decreased breathing sounds bilaterally. No accessory muscle use or muscle retraction. Heart: Irregularly irregular. No extra sounds. Abdomen: Soft, nontender. Bowel sounds positive. No organomegaly. No masses or hernia. No rigidi ty or rebound. Extremities: No clubbing, cyanosis. Intact pulses. Skin: No rash. Neurologic: Alert, awake. No acute focal deficits appreciated. Investigations: BUN is 36, creatinine is 1.57, and hemoglobin is 9.8. Assessment/recommendations: 1.Atrial fibrillation. Rate is better. Continue amiodarone 200 mg twice a day. Increase metoprolo l to 50 mg twice a day to have him better controlled rate and continue Eliquis. 2.Acute renal failure. It is improving. 3.Fluid retention and patient is short of breath. He might benefit from low-dose Lasix. Challenge him with that and re-assess his kidney function and also recommend st rict low-salt diet. SR/MODL Voice ID: [id number] Report ID: [id number]
[2022-11-22] MEDS: MELATONIN 5 MG TABLET PO PRN (20:06)
[2022-11-22] MEDS ORDERED: TRAMADOL HCL 50 MG TAB PO PRN (20:34)
--- NOTE | 2022-11-22 21:18 | P.PN ---
Date of Service: 11/22/22 Vital Signs Temp Pulse Resp BP Pulse Ox 99.8 F 112 H 16 119/75 99 11/22/22 20:05 11/22/22 17:34 11/22/22 17:34 11/22/22 17:34 11/22/22 17:34 Medications Acetaminophen (Acetaminophen 500 Mg Tab) 500 mg PO Q4HP PRN PRN Reason: Pain scale 2-4 (Mild) Last Admin: 11/22/22 20:05 Dose: 500 mg Amiodarone HCl (Amiodarone Hcl 200 Mg Tab) 200 mg PO BID [facility] Last Admin: 11/22/22 20:06 Dose: 200 mg Apixaban (Apixaban 5 Mg Tablet) 5 mg PO BID [facility] Last Admin: 11/22/22 20:06 Dose: 5 mg Ferrous Sulfate (Ferrous Sulfate 325 Mg Tab) 325 mg PO BID [facility] Last Admin: 11/22/22 20:06 Dose: 325 mg Gabapentin (Gabapentin 300 Mg Cap) 300 mg PO BID [facility] Last Admin: 11/22/22 18:48 Dose: 300 mg Vancomycin HCl 2 gm/ Sodium (Chloride) 500 mls @ 250 mls/hr IVPB Q36H [facility] Last Admin: 11/21/22 09:49 Dose: 500 mls Cefepime HCl 2 gm/ Sodium (Chloride) 100 mls @ 200 mls/hr IV Q12HR [facility]; Protocol Last Admin: 11/22/22 20:06 Dose: 100 mls Levothyroxine Sodium (Levothyroxine Sod 0.05 Mg Tablet) 0.05 mg PO [id number] [facility] Last Admin: 11/22/22 06:19 Dose: 0.05 mg Melatonin (Melatonin 5 Mg Tablet) 10 mg PO BEDTIME PRN PRN PRN Reason: INSOMNIA Last Admin: 11/22/22 20:06 Dose: 10 mg Metoprolol Tartrate (Metoprolol Tar 25 Mg Tab) 25 mg PO BID 6AM 6PM [facility] Last Admin: 11/22/22 17:19 Dose: 25 mg Pantoprazole Sodium (Pantoprazole 40mg Tablet) 40 mg PO DAILYAC [facility]; Protocol Last Admin: 11/22/22 06:19 Dose: 40 mg Pramipexole Dihydrochloride (Pramipexole 1 Mg Tab) 1 mg PO BEDTIME [facility] Last Admin: 11/22/22 18:48 Dose: 1 mg Sodium Chloride (Flush Normal Saline 10 Ml) 10 ml IV BID [facility] Last Admin: 11/22/22 20:06 Dose: 10 ml Tramadol HCl (Tramadol Hcl 50 Mg Tab) 50 mg PO TID PRN PRN Reason: Pain scale 5-7 (Moderate) Microbiology Results 11/19/22 14:40 Blood - Blood Aerobic Blood Culture - Preliminary No growth in 24 hours. 11/19/22 14:40 Blood - Blood Anaerobic Blood Culture - Preliminary No growth in 24 hours. 11/19/22 14:50 Blood - Blood Aerobic Blood Culture - Preliminary No growth in 24 hours. 11/19/22 14:50 Blood - Blood Anaerobic Blood Culture - Preliminary No growth in 24 hours. 11/19/22 18:44 Nasopharnyx Influenza Type A Antigen Screen - Final 11/19/22 18:44 Nasopharnyx Influenza Type B Antigen Screen - Final Assessment/ Plan: Nephrology No dyspnea No chest pain Feeling better Good urine output No acute events overnight Vitals, medications, blood work and imaging reviewed in the chart. General: In no apparent distress, Oriented x3, Cooperative HEENT: Atraumatic Neck: Supple Respiratory: Clear to auscultation bilaterally Cardiovascular: Regular rate/rhythm, Edema (trace) Gastrointestinal: Soft and benign, Non-distended Musculoskeletal: No clubbing, No contractures Integumentary: No rashes, No cyanosis Neurological: Normal speech [facility] Laboratory Data (last 24 hrs) 11/19/22 11/19/22 11/19/22 14:45 14:45 14:45 WBC 19.50 H Hgb 11.5 L Hct 34.9 L Plt Count 236 PT 16.9 H INR 1.54 APTT 33.5 Sodium Potassium BUN Creatinine Glucose Magnesium 2.2 Total Bilirubin AST ALT Alkaline Phosphatase 11/19/22 14:45 WBC Hgb Hct Plt Count PT INR APTT Sodium 139 Potassium 3.4 L BUN 47 H Creatinine 2.20 H Glucose 109 H Magnesium Total Bilirubin 1.3 H AST 18 ALT 20 Alkaline Phosphatase 75 Imagings Data: EXAM DESCRIPTION: US - Renal Ultrasound-Complete - 11/20/2022 12:07 am CLINICAL HISTORY: Acute renal insufficiency COMPARISON: CT November 19, 2022 FINDINGS: The right kidney measures 12 cm with a normal echotexture. 3.8 centimeter right renal cyst. The left kidney measures 10 cm with a normal echotexture. 1.2 centimeter cyst extends off the lower pole left kidney. There was suboptimal evaluation of upper pole left kidney due to body habitus. Hydronephrosis is not seen. A Anthony catheter is present within a collapsed bladder IMPRESSION: Bilateral renal cysts. No hydronephrosis EXAM DESCRIPTION: CT - Thorax Wo Con - 11/19/2022 6:30 pm CLINICAL HISTORY: Pulm edema vs pneumonia, sepsis? COMPARISON: Chest Single View dated 11/19/2022 TECHNIQUE: Axial thin cut images of the chest were obtained without IV contrast. Multiplanar reformats were generated and reviewed. All CT scans are performed using dose optimization technique as appropriate and may include automated exposure control or mA/KV adjustment according to patient size. FINDINGS: No mass or infiltrate in the lung parenchyma. No pleural thickening or pleural effusion. No pneumothorax. No abnormal mediastinal or hilar masses or lymphadenopathy seen. No significant aortic or pulmonary artery findings. Assessment is limited in the absence of IV contrast. Heart is mildly enlarged. Pulmonary artery is prominent in caliber, exceeding the caliber of the ascending aorta. No chest wall mass or abnormal axillary lymphadenopathy. Evaluation of the solid abdominal structures reveals an exophytic left superior pole renal hypoattenuating lesion suggestive of a cyst measuring 3.1 cm. IMPRESSION: No acute pulmonary process. Mild cardiomegaly. Prominent caliber of the pulmonary artery, exceeding that of the aorta, could relate to pulmonary hypertension. EXAM DESCRIPTION: US - Extremity Venous Uni Ltd - 11/19/2022 5:38 pm CLINICAL HISTORY: Swelling COMPARISON: 01/04/2021. TECHNIQUE: Real-time sonographic evaluation of the right lower extremity deep venous system was performed. FINDINGS: Normal compressibility, flow augmentation, phasic flow and spontaneous flow is identified in the right lower extremity deep venous system. No intraluminal filling defects seen. Lower leg subcutaneous edema noted. IMPRESSION: No DVT in the right lower extremity. Conclusions/Impression: Stage I SÁNCHEZ in the setting of hypovolemia CKD III -No NSAIDs -Discontinue IVF Hypokalemia -Replete prn HTN with CKD/ CHF -Continue Metoprolol Systolic CHF, chronic -Daily weight Anemia in chronic illness -Monitor H&H -Continue iron supplementation Stage IV Melanoma -Follow up with oncology Hospitalist note reviewed
[2022-11-22] MEDS: VANCOMYCIN 2 GM in NA CHLORIDE 0.9% 500 ML IVPB SCH (22:28)
[2022-11-23 04:31] LABS: Albumin 2.2 g/dL (3.4-5.0); Phosphorus 2.9 mg/dL (2.5-4.9); Potassium 4.1 mEq/L (3.5-5.1)
[2022-11-23] MEDS: LEVOTHYROXINE SOD 0.05 MG TABLET PO SCH (06:03)
[2022-11-23] MEDS: METOPROLOL TAR 25 MG TAB PO SCH ×2 (06:03→18:45)
[2022-11-23] MEDS: PANTOPRAZOLE 40MG TABLET PO SCH (06:03)
[2022-11-23] MEDS: AMIODARONE HCL 200 MG TAB PO SCH ×2 (10:04→20:39)
[2022-11-23] MEDS: FERROUS SULFATE 325 MG TAB PO SCH ×2 (10:04→20:39)
[2022-11-23] MEDS: GABAPENTIN 300 MG CAP PO SCH ×2 (10:04→20:39)
[2022-11-23] MEDS: APIXABAN 5 MG TABLET PO SCH ×2 (10:04→20:39)
[2022-11-23] MEDS: CEFEPIME 2 GM in NA CHLORIDE 0.9% 100 ML IV SCH ×2 (10:05→20:40)
--- NOTE | 2022-11-23 11:33 | P.PN ---
Date of Service: 11/23/22 Vital Signs Temp Pulse Resp BP Pulse Ox 97.8 F 85 20 111/56 L 97 11/23/22 08:00 11/23/22 08:00 11/23/22 08:00 11/23/22 08:00 11/23/22 08:00 Medications Acetaminophen (Acetaminophen 500 Mg Tab) 500 mg PO Q4HP PRN PRN Reason: Pain scale 2-4 (Mild) Last Admin: 11/22/22 20:05 Dose: 500 mg Amiodarone HCl (Amiodarone Hcl 200 Mg Tab) 200 mg PO BID [facility] Last Admin: 11/23/22 10:04 Dose: 200 mg Apixaban (Apixaban 5 Mg Tablet) 5 mg PO BID [facility] Last Admin: 11/23/22 10:04 Dose: 5 mg Ferrous Sulfate (Ferrous Sulfate 325 Mg Tab) 325 mg PO BID [facility] Last Admin: 11/23/22 10:04 Dose: 325 mg Gabapentin (Gabapentin 300 Mg Cap) 300 mg PO BID [facility] Last Admin: 11/23/22 10:04 Dose: 300 mg Vancomycin HCl 2 gm/ Sodium (Chloride) 500 mls @ 250 mls/hr IVPB Q36H [facility] Last Admin: 11/22/22 22:28 Dose: 500 mls Cefepime HCl 2 gm/ Sodium (Chloride) 100 mls @ 200 mls/hr IV Q12HR [facility]; Protocol Last Admin: 11/23/22 10:05 Dose: 100 mls Levothyroxine Sodium (Levothyroxine Sod 0.05 Mg Tablet) 0.05 mg PO [id number] [facility] Last Admin: 11/23/22 06:03 Dose: 0.05 mg Melatonin (Melatonin 5 Mg Tablet) 10 mg PO BEDTIME PRN PRN PRN Reason: INSOMNIA Last Admin: 11/22/22 20:06 Dose: 10 mg Metoprolol Tartrate (Metoprolol Tar 25 Mg Tab) 25 mg PO BID 6AM 6PM [facility] Last Admin: 11/23/22 06:03 Dose: 25 mg Pantoprazole Sodium (Pantoprazole 40mg Tablet) 40 mg PO DAILYAC [facility]; Protocol Last Admin: 11/23/22 06:03 Dose: 40 mg Pramipexole Dihydrochloride (Pramipexole 1 Mg Tab) 1 mg PO BEDTIME [facility] Last Admin: 11/22/22 18:48 Dose: 1 mg Sodium Chloride (Flush Normal Saline 10 Ml) 10 ml IV BID [facility] Last Admin: 11/23/22 10:05 Dose: 10 ml Tramadol HCl (Tramadol Hcl 50 Mg Tab) 50 mg PO TID PRN PRN Reason: Pain scale 5-7 (Moderate) Microbiology Results 11/19/22 14:40 Blood - Blood Aerobic Blood Culture - Preliminary No growth in 24 hours. 11/19/22 14:40 Blood - Blood Anaerobic Blood Culture - Preliminary No growth in 24 hours. 11/19/22 14:50 Blood - Blood Aerobic Blood Culture - Preliminary No growth in 24 hours. 11/19/22 14:50 Blood - Blood Anaerobic Blood Culture - Preliminary No growth in 24 hours. 11/19/22 18:44 Nasopharnyx Influenza Type A Antigen Screen - Final 11/19/22 18:44 Nasopharnyx Influenza Type B Antigen Screen - Final Assessment/ Plan: Nephrology No dyspnea No chest pain +Appetite No acute events overnight Vitals, medications, blood work and imaging reviewed in the chart. General: In no apparent distress, Oriented x3, Cooperative HEENT: Atraumatic Neck: Supple Respiratory: Clear to auscultation bilaterally Cardiovascular: Regular rate/rhythm, Edema (trace) Gastrointestinal: Soft and benign, Non-distended Musculoskeletal: No clubbing, No contractures Integumentary: No rashes, No cyanosis Neurological: Normal speech Laboratory Data (last 24 hrs) 11/19/22 11/19/22 11/19/22 14:45 14:45 14:45 WBC 19.50 H Hgb 11.5 L Hct 34.9 L Plt Count 236 PT 16.9 H INR 1.54 APTT 33.5 Sodium Potassium BUN Creatinine Glucose Magnesium 2.2 Total Bilirubin AST ALT Alkaline Phosphatase 11/19/22 14:45 WBC Hgb Hct Plt Count PT INR APTT Sodium 139 Potassium 3.4 L BUN 47 H Creatinine 2.20 H Glucose 109 H Magnesium Total Bilirubin 1.3 H AST 18 ALT 20 Alkaline Phosphatase 75 Imagings Data: EXAM DESCRIPTION: US - Renal Ultrasound-Complete - 11/20/2022 12:07 am CLINICAL HISTORY: Acute renal insufficiency COMPARISON: CT November 19, 2022 FINDINGS: The right kidney measures 12 cm with a normal echotexture. 3.8 centimeter right renal cyst. The left kidney measures 10 cm with a normal echotexture. 1.2 centimeter cyst extends off the lower pole left kidney. There was suboptimal evaluation of upper pole left kidney due to body habitus. Hydronephrosis is not seen. A Anthony catheter is present within a collapsed bladder IMPRESSION: Bilateral renal cysts. No hydronephrosis EXAM DESCRIPTION: CT - Thorax Wo Con - 11/19/2022 6:30 pm CLINICAL HISTORY: Pulm edema vs pneumonia, sepsis? COMPARISON: Chest Single View dated 11/19/2022 TECHNIQUE: Axial thin cut images of the chest were obtained without IV contrast. Multiplanar reformats were generated and reviewed. All CT scans are performed using dose optimization technique as appropriate and may include automated exposure control or mA/KV adjustment according to patient size. FINDINGS: No mass or infiltrate in the lung parenchyma. No pleural thickening or pleural effusion. No pneumothorax. No abnormal mediastinal or hilar masses or lymphadenopathy seen. No significant aortic or pulmonary artery findings. Assessment is limited in the absence of IV contrast. Heart is mildly enlarged. Pulmonary artery is prominent in caliber, exceeding the caliber of the ascending aorta. No chest wall mass or abnormal axillary lymphadenopathy. Evaluation of the solid abdominal structures reveals an exophytic left superior pole renal hypoattenuating lesion suggestive of a cyst measuring 3.1 cm. IMPRESSION: No acute pulmonary process. Mild cardiomegaly. Prominent caliber of the pulmonary artery, exceeding that of the aorta, could relate to pulmonary hypertension. EXAM DESCRIPTION: US - Extremity Venous Uni Ltd - 11/19/2022 5:38 pm CLINICAL HISTORY: Swelling COMPARISON: 01/04/2021. TECHNIQUE: Real-time sonographic evaluation of the right lower extremity deep venous system was performed. FINDINGS: Normal compressibility, flow augmentation, phasic flow and spontaneous flow is identified in the right lower extremity deep venous system. No intraluminal filling defects seen. Lower leg subcutaneous edema noted. IMPRESSION: No DVT in the right lower extremity. Conclusions/Impression: Stage I SÁNCHEZ in the setting of hypovolemia CKD III -No NSAIDs Hypokalemia -Replete prn HTN with CKD/ CHF -Continue Metoprolol Systolic CHF, chronic -Daily weight Anemia in chronic illness -Monitor H&H -Continue iron supplementation Stage IV Melanoma -Follow up with oncology Hospitalist note reviewed Case reviewed with Dr. Montalvo
--- NOTE | 2022-11-23 14:12 | PN ---
Date of Progress Note: 11/23/2022 Subjective: Seen by bedside. He is doing clinically well. Does not have any chest pain. Has short ness of breath on exertion with lower extremity edema that is improved. Review of Systems: No chest pain. Has shortness of breath that is mild. No nausea, vomiting, diarrhea. No dysuria, po lyuria, or urinary urgency. No skin rash. All other systems reviewed are negative. Physical Examination: Vital Signs: Reviewed. Head and Neck: Pupils are equal, reactive to light. Intact eye movements. No cervical lymphadenopa thy. Neck is supple. Thyroid is not enlarged. Lungs: Clear to auscultation bilaterally. No rhonchi, wheezing, or crackles. No accessory muscle u se. Heart: Irregularly irregular. No extra sounds. Abdomen: Soft, nontender. Bowel sounds positive. No organomegaly. No masses or hernia. No rigidi ty or rebound. Extremities: No clubbing or cyanosis. Positive edema improvement. Neurologic: Alert, awake, oriented x3. No gross focal deficits appreciated. Investigations: BUN is 44, creatinine 1.79. Assessment And Recommendations: 1.Atrial fibrillation. Rate is borderline. Recommend adjustment of metoprolol to 25 mg twice a day if blood pressure allows, and continue Eliquis and amiodarone. 2.Acute on chronic diastolic heart failure exacerbation. Patient has significant fluid retention. Ejection fraction is normal. I recommend gentle diuresis with Lasix 20 mg IV daily and assess the re sponse to that. 3.Acute on chronic renal failure, probably elevated central venous pressure from the heart failure i s a cause. I recommend gentle diuresis with Lasix and careful monitoring via BUN and creatinine .. SR/MODL Voice ID: [id number] Report ID: [id number]
--- NOTE | 2022-11-23 15:12 | P.PN ---
Subjective Date of Service: 11/23/22 Chief Complaint: A-fib RVR Patient states denies any complaint today. Heart rate mostly above 100 at rest. He has good oral intake. Physical Examination - Vital Signs Temperature: 97.6 F Blood Pressure: 112/76 Pulse: 115 Respirations: 22 Pulse Ox (%): 98 Assessment And Plan - Plan Physical Exam General: Alert, Oriented x3, obese. HEENT: Anicteric sclera. Neck: No elevated JVD Respiratory: Normal air movement. No crackles Cardiovascular: Normal rate, irregular rhythm, Normal S1 S2 Gastrointestinal: Soft and benign Neurological: Normal speech, Normal strength at 5/5 x4 extr Diagnosis Atrial fibrillation with RVR- on chronic anticoagulation SIRS criteria, elevated procalcitonin concern for infectionunknown source Chronic systolic congestive heart failure SÁNCHEZ on CKD 3 History of stage IV melanoma Plan: Atrial fibrillation with RVR on chronic anticoagulation Initiated on amiodarone drip on admission. Amiodarone drip transition to oral amiodarone. Cardiology is following and added metoprolol, titrated to 25 mg twice daily. Continue Eliquis. Echocardiogram: Normal EF. Patient is currently maximum assist with transfer. He should benefit from skilled rehab placement for Sepsis elevated procalcitonin concern for infectionunknown source No clear source of infection. Leukocytosis almost resolved. Procalcitonin elevated. No pneumonia or urinary tract infection. Blood cultures: No growth to date. Leukocytosis improved Continue empiric broad-spectrum antibiotics with vancomycin/cefepime for 1 more day and transition to oral antibiotics. Echocardiogram is unremarkable. Continue PT Chronic diastolic congestive heart failure Currently appears compensated for CHF Lasix has been on hold due to SÁNCHEZ with hypotension Nephrology is following. Blood pressure has improved. Lasix IV as needed. SÁNCHEZ on CKD 3 Serum creatinine continues to trend down Off IV fluid Nephrology is following. History of stage IV melanoma Outpatient management.
[2022-11-23] MEDS: MELATONIN 5 MG TABLET PO PRN (20:38)
[2022-11-23] MEDS: PRAMIPEXOLE 1 MG TAB PO SCH (20:39)
[2022-11-24 03:28] LABS: Albumin 2.1 g/dL (3.4-5.0); Phosphorus 2.4 mg/dL (2.5-4.9); Potassium 3.8 mEq/L (3.5-5.1)
[2022-11-24] MEDS: METOPROLOL TAR 25 MG TAB PO SCH ×2 (06:07→20:27)
[2022-11-24] MEDS: PANTOPRAZOLE 40MG TABLET PO SCH (06:07)
[2022-11-24] MEDS: LEVOTHYROXINE SOD 0.05 MG TABLET PO SCH (06:08)
[2022-11-24] MEDS: FERROUS SULFATE 325 MG TAB PO SCH ×2 (08:45→20:28)
[2022-11-24] MEDS: GABAPENTIN 300 MG CAP PO SCH ×2 (08:45→20:20)
[2022-11-24] MEDS: APIXABAN 5 MG TABLET PO SCH ×2 (08:45→20:19)
[2022-11-24] MEDS: AMIODARONE HCL 200 MG TAB PO SCH ×2 (08:45→20:28)
[2022-11-24] MEDS: CEFEPIME 2 GM in NA CHLORIDE 0.9% 100 ML IV SCH (08:47)
[2022-11-24] MEDS: VANCOMYCIN 2 GM in NA CHLORIDE 0.9% 500 ML IVPB SCH (10:57)
--- NOTE | 2022-11-24 11:56 | P.PN ---
Nephrology note (S) Pt denies any CP, dyspnea or palpitations, he reports peripheral edema improved. (O) Vitals, medications, blood work and imaging reviewed in the chart. General: In no apparent distress, Oriented x3, Cooperative HEENT: Atraumatic, sclera anicteric Neck: Supple Respiratory: b/l air entry, no rales Cardiovascular: Irregularly irregular, mildly tachy, no sig edema Gastrointestinal: Soft and benign, obese Musculoskeletal: No clubbing, No contractures Integumentary: No rashes, Neurological: Normal speech, non focal Laboratory Data (last 24 hrs) Reviewed in the EMR Imagings Data: EXAM DESCRIPTION: US - Renal Ultrasound-Complete - 11/20/2022 12:07 am CLINICAL HISTORY: Acute renal insufficiency COMPARISON: CT November 19, 2022 FINDINGS: The right kidney measures 12 cm with a normal echotexture. 3.8 centimeter right renal cyst. The left kidney measures 10 cm with a normal echotexture. 1.2 centimeter cyst extends off the lower pole left kidney. There was suboptimal evaluation of upper pole left kidney due to body habitus. Hydronephrosis is not seen. A Anthony catheter is present within a collapsed bladder IMPRESSION: Bilateral renal cysts. No hydronephrosis Conclusions/Impression: Stage I SÁNCHEZ in the setting of hypovolemia, pre-renal azotemia Possible underlying CKD III unspecified -Cont to monitor renal function closely Afib unspecified. CHF unspecified, no sig LVEF dysfunction reported on echo -If lasix resumed on discharge, recommend lower maintenance dose -BP non elevated currently so will not add any RAMON inhibitors -Can assess role for aldosterone antagonist as OP Desean Guzmán MD, JOSR
[2022-11-24] MEDS ORDERED: POTASSIUM CL SA 10 MEQ TAB PO ONE (12:05)
--- NOTE | 2022-11-24 15:34 | P.PN ---
Subjective Date of Service: 11/24/22 Chief Complaint: A-fib RVR Patient states denies any complaint today. His heart rate has been around 100. He has good oral intake. No issues overnight. Physical Examination - Vital Signs Temperature: 97.9 F Blood Pressure: 114/80 Pulse: 127 Respirations: 18 Pulse Ox (%): 98 - Studies Microbiology Data (last 24 hrs): 11/19/22 14:40 Blood - Blood Aerobic Blood Culture - Final No growth in 5 days. 11/19/22 14:40 Blood - Blood Anaerobic Blood Culture - Final No growth in 5 days. 11/19/22 14:50 Blood - Blood Aerobic Blood Culture - Final No growth in 5 days. 11/19/22 14:50 Blood - Blood Anaerobic Blood Culture - Final No growth in 5 days. Assessment And Plan - Plan Physical Exam General: Alert, Oriented x3, obese. Neck: No elevated JVD Respiratory: Normal air movement. No crackles Cardiovascular: Normal rate, irregular rhythm, Normal S1 S2 Gastrointestinal: Soft and benign, nondistended, nontender. Neurological: Normal speech, Normal strength at 5/5 x4 extr Diagnosis Atrial fibrillation with RVR- on chronic anticoagulation SIRS criteria, elevated procalcitonin concern for infectionunknown source Chronic systolic congestive heart failure SÁNCHEZ on CKD 3 History of stage IV melanoma Plan: Atrial fibrillation with RVR on chronic anticoagulation/impaired mobility Initiated on amiodarone drip on admission. Amiodarone drip transition to oral amiodarone. Cardiology is following and added metoprolol, titrate metoprolol. Continue Eliquis. Echocardiogram: Normal EF. Patient is currently maximum assist with transfer. He should benefit from skilled rehab placement. Sepsis elevated procalcitonin concern for infectionunknown source No clear source of infection. Leukocytosis almost resolved. Procalcitonin elevated. No pneumonia or urinary tract infection. Blood cultures: No growth to date. Leukocytosis improved Change IV cefepime and vancomycin to oral antibiotic. Echocardiogram is unremarkable. Continue PT Chronic diastolic congestive heart failure Currently appears compensated for CHF. Lower extremity edema significantly improved. Lasix has been on hold due to SÁNCHEZ with hypotension Nephrology is following. Blood pressure has improved. Lasix IV as needed. SÁNCHEZ on CKD 3 Serum creatinine trended own Off IV fluid Nephrology is following. Continue to monitor renal function. History of stage IV melanoma Outpatient management.
--- NOTE | 2022-11-24 17:49 | PN ---
Date of Progress Note: 11/24/2022 Subjective: Seen by bedside. Doing clinically well. Does not have any chest pain. No shortness of breath. Still with borderline fast heart rate. Review of Systems: No chest pain, shortness of breath, orthopnea, cough. No nausea, vomiting, diarrhea. All other syst ems reviewed are negative. Physical Examination: Vital Signs: Reviewed. Head and Neck: Pupils are equal, reactive to light. Intact eye movements. No JVD. No cervical lym phadenopathy. Neck is supple. Thyroid is not enlarged. Lungs: Clear to auscultation bilaterally. No rhonchi, wheezing, or crackles. No accessory muscle u se. Heart: Irregularly irregular. No extra sounds. Abdomen: Soft, nontender. Bowel sounds positive. No organomegaly. No masses or hernia. No rigidi ty or rebound. Extremities: No clubbing, cyanosis. 1+ edema. No clubbing, no cyanosis. Neurologic: Alert, awake, oriented x3. No acute focal deficits appreciated. Investigations: BUN 41, creatinine 1.60. Assessment/recommendations: 1.Atrial fibrillation with rapid ventricular response. As heart rate is improving, agree with the t itration of metoprolol and next to go up to 50 mg 3 times a day within next 24 hours if his heart rat e continues to be fast and continue amiodarone and apixaban. 2.Acute on chronic renal failure. Kidney function improved. Continue to monitor. 3.Chronic diastolic heart failure. Appears to be euvolemic for the present time. We will monitor. SR/MODL Voice ID: [id number] Report ID: [id number]
[2022-11-24] MEDS: DOXYCYCLINE 100 MG CAP PO SCH (20:19)
[2022-11-24] MEDS: AMOX/K CLAV 875 MG TAB PO SCH (20:20)
[2022-11-24] MEDS: PRAMIPEXOLE 1 MG TAB PO SCH (20:28)
[2022-11-24] MEDS: MELATONIN 5 MG TABLET PO PRN (20:28)
[2022-11-25] MEDS: PANTOPRAZOLE 40MG TABLET PO SCH (06:18)
[2022-11-25] MEDS: LEVOTHYROXINE SOD 0.05 MG TABLET PO SCH (06:18)
[2022-11-25 06:36] LABS: Absolute Lymphocytes (CBC) 0.4 K/uL (0.7-4.9); Hematocrit 27.8 % (39.6-49.0); Lymphocytes % 4.8 % (15.3-44.8); MCV 90.4 fL (80-100); MPV 8.9 fL (7.6-11.3); Platelets 220 thou/uL (152-406); RBC Red Blood Cell Count 3.08 M/uL (4.33-5.43)
[2022-11-25 06:46] LABS: Albumin 2.1 g/dL (3.4-5.0); Phosphorus 2.6 mg/dL (2.5-4.9); Potassium 4.1 mEq/L (3.5-5.1)
[2022-11-25 08:11] LABS: Blood Morphology Comment NOT SEEN (NOT SEEN); Platelet Estimate ADEQ; White Blood Cell Scan OK (OK)
[2022-11-25] MEDS: AMIODARONE HCL 200 MG TAB PO SCH ×2 (08:41→22:47)
[2022-11-25] MEDS: METOPROLOL TAR 25 MG TAB PO SCH (08:41)
[2022-11-25] MEDS: FERROUS SULFATE 325 MG TAB PO SCH ×2 (08:41→22:51)
[2022-11-25] MEDS: GABAPENTIN 300 MG CAP PO SCH ×2 (08:42→22:47)
[2022-11-25] MEDS: DOXYCYCLINE 100 MG CAP PO SCH ×2 (08:42→22:49)
[2022-11-25] MEDS: APIXABAN 5 MG TABLET PO SCH ×2 (08:43→22:49)
[2022-11-25] MEDS: AMOX/K CLAV 875 MG TAB PO SCH ×2 (08:43→22:47)
--- NOTE | 2022-11-25 13:40 | P.PN ---
Subjective Date of Service: 11/25/22 Chief Complaint: A-fib RVR Patient has no new complain His heart rate has been mostly greater than 100 at rest No issues overnight. Physical Examination - Vital Signs Temperature: 97.7 F Blood Pressure: 119/79 Pulse: 101 Respirations: 20 Pulse Ox (%): 96 - Studies Microbiology Data (last 24 hrs): 11/19/22 14:40 Blood - Blood Aerobic Blood Culture - Final No growth in 5 days. 11/19/22 14:40 Blood - Blood Anaerobic Blood Culture - Final No growth in 5 days. 11/19/22 14:50 Blood - Blood Aerobic Blood Culture - Final No growth in 5 days. 11/19/22 14:50 Blood - Blood Anaerobic Blood Culture - Final No growth in 5 days. Assessment And Plan - Plan Physical Exam General: Alert, Oriented x3. Neck: No elevated JVD Respiratory: Normal air movement. No crackles Cardiovascular: Normal rate, irregular rhythm, Normal S1 S2 Gastrointestinal: Soft and benign, nondistended, nontender. Neurological: Normal speech, Normal strength at 5/5 x4 extr Diagnosis Atrial fibrillation with RVR- on chronic anticoagulation SIRS criteria, elevated procalcitonin concern for infectionunknown source Chronic systolic congestive heart failure SÁNCHEZ on CKD 3 History of stage IV melanoma Plan: Atrial fibrillation with RVR on chronic anticoagulation/impaired mobility Initiated on amiodarone drip on admission. Amiodarone drip transition to oral amiodarone. Cardiology is following and added metoprolol. Metoprolol titrated to 50 mg 2 times daily Continue Eliquis. Echocardiogram: Normal EF. Patient is currently maximum assist with transfer. He should benefit from skilled rehab placement. Sepsis elevated procalcitonin concern for infectionunknown source No clear source of infection. Leukocytosis almost resolved. Procalcitonin elevated. No pneumonia or urinary tract infection. Blood cultures: No growth to date. Leukocytosis improved Change IV cefepime and vancomycin to oral antibiotic. Echocardiogram is unremarkable. Continue PT Chronic diastolic congestive heart failure Currently appears compensated for CHF. Lower extremity edema significantly improved. Lasix was initially on hold due to SÁNCHEZ with hypotension Nephrology is following. Blood pressure has improved. Serum creatinine has significantly improved, hypotension resolved. Will resume home dose Lasix. SÁNCHEZ on CKD 3 Serum creatinine has trended down. I suspect serum creatinine at baseline Status post brief IV fluid for SÁNCHEZ. Nephrology is following. Continue to monitor renal function. Home dose Lasix resumed. Impaired mobility Patient is still needing assistance with transfers. He is able to ambulate with a walker with SBA. He is slated for skilled rehab placement. Patient's son has been updated on patient's clinical status. History of stage IV melanoma Outpatient management.
[2022-11-25] MEDS ORDERED: METOPROLOL TAR 50 MG TAB PO SCH ×2 (14:00→21:00)
[2022-11-25] MEDS: FUROSEMIDE 40 MG TABLET PO SCH (16:07)
[2022-11-25] MEDS: PRAMIPEXOLE 1 MG TAB PO SCH (22:48)
[2022-11-25] MEDS: METOPROLOL TAR 50 MG TAB PO SCH (22:48)
[2022-11-26 06:42] LABS: Absolute Lymphocytes (CBC) 0.6 K/uL (0.7-4.9); Hematocrit 27.5 % (39.6-49.0); Lymphocytes % 6.8 % (15.3-44.8); MCV 90.6 fL (80-100); MPV 8.8 fL (7.6-11.3); Platelets 253 thou/uL (152-406); RBC Red Blood Cell Count 3.03 M/uL (4.33-5.43)
[2022-11-26] MEDS: PANTOPRAZOLE 40MG TABLET PO SCH (06:43)
[2022-11-26] MEDS: LEVOTHYROXINE SOD 0.05 MG TABLET PO SCH (06:44)
[2022-11-26 06:58] LABS: Potassium 3.8 mEq/L (3.5-5.1)
[2022-11-26] MEDS ORDERED: POTASSIUM CL SA 10 MEQ TAB PO ONE (09:00)
[2022-11-26] MEDS: FUROSEMIDE 40 MG TABLET PO SCH ×2 (09:49→16:39)
[2022-11-26] MEDS: AMOX/K CLAV 875 MG TAB PO SCH ×2 (09:50→21:11)
[2022-11-26] MEDS: GABAPENTIN 300 MG CAP PO SCH ×2 (09:50→21:10)
[2022-11-26] MEDS: FERROUS SULFATE 325 MG TAB PO SCH ×2 (09:50→21:11)
[2022-11-26] MEDS: DOXYCYCLINE 100 MG CAP PO SCH ×2 (09:50→21:10)
[2022-11-26] MEDS: AMIODARONE HCL 200 MG TAB PO SCH ×2 (09:50→21:12)
[2022-11-26] MEDS: METOPROLOL TAR 50 MG TAB PO SCH ×2 (09:51→21:00)
[2022-11-26] MEDS: APIXABAN 5 MG TABLET PO SCH ×2 (09:51→21:11)
--- NOTE | 2022-11-26 13:51 | P.PN ---
Subjective Date of Service: 11/26/22 Chief Complaint: A-fib RVR Patient has no new complain His heart rate is better controlled. Physical Examination - Vital Signs Temperature: 99.2 F Blood Pressure: 106/76 Pulse: 92 Respirations: 18 Pulse Ox (%): 99 Assessment And Plan - Plan Physical Exam General: Alert, Oriented x3. Neck: No elevated JVD Respiratory: Normal air movement. No crackles Cardiovascular: Normal rate, irregular rhythm, Normal S1 S2 Gastrointestinal: Soft and benign, nondistended, nontender. Neurological: Normal speech, Normal strength at 5/5 x4 extr Diagnosis Atrial fibrillation with RVR- on chronic anticoagulation SIRS criteria, elevated procalcitonin concern for infectionunknown source Chronic systolic congestive heart failure SÁNCHEZ on CKD 3 History of stage IV melanoma Plan: Atrial fibrillation with RVR on chronic anticoagulation/impaired mobility Initiated on amiodarone drip on admission. Status post amiodarone drip, now on oral amiodarone. Cardiology is following and added metoprolol. Metoprolol titrated to 50 mg 2 times daily. Heart rate is better, blood pressure has been stable. Continue Eliquis. Echocardiogram: Normal EF. Patient is currently maximum assist with transfer. He should benefit from skilled rehab placement. Sepsis elevated procalcitonin concern for infectionunknown source No clear source of infection. Leukocytosis almost resolved. Procalcitonin elevated. No pneumonia or urinary tract infection. Blood cultures: No growth to date. Leukocytosis improved Continue oral doxycycline. Echocardiogram is unremarkable. Continue PT Chronic diastolic congestive heart failure Currently appears compensated for CHF. Lower extremity edema significantly improved. Lasix was initially on hold due to SÁNCHEZ with hypotension. Nephrology is following. Blood pressure has improved. Serum creatinine has significantly improved, hypotension resolved. Lasix resumed. SÁNCHEZ on CKD 3 Serum creatinine has trended down. I suspect serum creatinine at baseline Status post brief IV fluid for SÁNCHEZ. Nephrology is following. Continue to monitor renal function. Home dose Lasix resumed. Renal function stable so far. Impaired mobility Patient is still needing assistance with transfers. He is able to ambulate with a walker with SBA. He is slated for skilled rehab placement. History of stage IV melanoma Outpatient management.
[2022-11-26] MEDS: PRAMIPEXOLE 1 MG TAB PO SCH (21:10)
[2022-11-26] MEDS: MELATONIN 5 MG TABLET PO PRN (21:13)
[2022-11-27] MEDS: PANTOPRAZOLE 40MG TABLET PO SCH (05:53)
[2022-11-27] MEDS: LEVOTHYROXINE SOD 0.05 MG TABLET PO SCH (05:57)
--- NOTE | 2022-11-27 09:02 | PN ---
Date of Progress Note: 11/27/2022 Subjective: Seen by bedside. He is doing well. Still rapid rate and atrial fibrillation. Review of Systems: No chest pain, shortness of breath, orthopnea, cough. No nausea, vomiting, diarrhea. All other syst ems reviewed and they were negative. Physical Examination: Vital Signs: Reviewed. Head and Neck: Pupils are equal, reactive to light. Intact eye movements. No JVD. No cervical lym phadenopathy. Neck is supple. Thyroid is not enlarged. Lungs: Clear to auscultation bilaterally. No rhonchi, wheezing, or crackles. No accessory muscle u se. Heart: Irregularly irregular. No extra sounds. Abdomen: Soft, nontender. Bowel sounds positive. No organomegaly. No masses or hernia. No rigidi ty or rebound. Extremities: No clubbing or cyanosis. Intact pulses. Skin: No rash. Neurologic: Alert, awake, oriented x3. No acute focal deficits appreciated. Investigations: BUN 37, creatinine 0.40, hemoglobin 9.3. Assessment And Recommendations: 1.Atrial fibrillation with rapid ventricular response. Still rate is not controlled. Loaded with a miodarone and we will plan for ROMA cardioversion tomorrow if he continues to be in atrial fibrillatio n. 2.Congestive heart failure, diastolic heart failure. Continue p.o. Lasix. The patient is doing clinically better with that. 3.Acute on chronic renal failure with improvement. SR/MODL Voice ID: [id number] Report ID: [id number]
[2022-11-27] MEDS: FERROUS SULFATE 325 MG TAB PO SCH ×2 (09:44→22:58)
[2022-11-27] MEDS: AMOX/K CLAV 875 MG TAB PO SCH ×2 (09:44→22:58)
[2022-11-27] MEDS: FUROSEMIDE 40 MG TABLET PO SCH ×2 (09:44→18:08)
[2022-11-27] MEDS: GABAPENTIN 300 MG CAP PO SCH ×2 (09:47→22:58)
[2022-11-27] MEDS: APIXABAN 5 MG TABLET PO SCH ×2 (09:47→23:00)
[2022-11-27] MEDS: AMIODARONE HCL 200 MG TAB PO SCH ×2 (09:47→22:59)
[2022-11-27] MEDS: DOXYCYCLINE 100 MG CAP PO SCH ×2 (09:47→23:00)
[2022-11-27] MEDS: METOPROLOL TAR 50 MG TAB PO SCH ×2 (09:48→22:59)
--- NOTE | 2022-11-27 12:22 | PN ---
Date of Progress Note: 11/25/2022 Subjective: Seen by bedside. Doing clinically well. Had no distress. No chest pain. Has lower ex tremity edema and still in AFib. Review of Systems: No chest pain, shortness of breath, orthopnea, cough. No nausea, vomiting, diarrhea. Has lower extr emity edema. All other systems reviewed and they were negative. Physical Examination: Vital Signs: Reviewed. Head and Neck: Pupils are equal, reactive to light. Intact eye movements. No JVD. No cervical lym phadenopathy. Neck is supple. Thyroid is not enlarged. Lungs: Clear to auscultation bilaterally. No rhonchi, wheezing, or crackles. No accessory muscle u se. Heart: Irregularly irregular. No extra sounds. Abdomen: Soft, nontender. Bowel sounds positive. No organomegaly. No masses or hernia. No rigidi ty or rebound. Extremities: No clubbing or cyanosis. Positive edema bilaterally 1+. Neurologic: Alert, awake, oriented x3. No acute focal deficits appreciated. Investigations: Labs were reviewed. BUN 44, creatinine 1.46. Assessment And Recommendations: 1.Atrial fibrillation. Rate is borderline. Continue metoprolol, amiodarone, and Eliquis. 2.Chronic diastolic heart failure, on oral Lasix and he is getting euvolemic. Continue current management. 3.Acute on chronic renal failure, improved with diuretics. SR/MODL Voice ID: [id number] Report ID: [id number]
--- NOTE | 2022-11-27 14:22 | P.PN ---
Subjective Date of Service: 11/27/22 Chief Complaint: A-fib RVR Patient has no new complain His heart rate has been borderline around 100. Physical Examination - Vital Signs Temperature: 97.5 F Blood Pressure: 120/73 Pulse: 61 Respirations: 16 Pulse Ox (%): 99 Assessment And Plan - Plan Physical Exam General: Alert, Oriented x3. Neck: No elevated JVD Respiratory: Normal air movement. No crackles Cardiovascular: Normal rate, irregular rhythm, Normal S1 S2 Gastrointestinal: Soft and benign, nondistended, nontender. Neurological: Normal speech, Normal strength at 5/5 x4 extr Diagnosis Atrial fibrillation with RVR- on chronic anticoagulation SIRS criteria, elevated procalcitonin concern for infectionunknown source Chronic systolic congestive heart failure SÁNCHEZ on CKD 3 History of stage IV melanoma Plan: Atrial fibrillation with RVR on chronic anticoagulation/impaired mobility Initiated on amiodarone drip on admission. Status post amiodarone drip, now on oral amiodarone 200 mg twice daily. Metoprolol titrated to 50 mg 2 times daily. Heart rate is better, blood pressu re has been stable. Continue Eliquis. Echocardiogram: Normal EF. Dr. Elise is planning ROMA with electrocardioversion. Patient is currently maximum assist with transfer. He should benefit from skilled rehab placement. Sepsis elevated procalcitonin concern for infectionunknown source No clear source of infection. Leukocytosis almost resolved. Procalcitonin elevated. No pneumonia or urinary tract infection. Blood cultures: No growth to date. Leukocytosis improved Continue oral doxycycline. Echocardiogram is unremarkable. Continue PT Chronic diastolic congestive heart failure Currently appears compensated for CHF. Lower extremity edema significantly improved. Lasix was initially on hold due to SÁNCHEZ with hypotension. Nephrology is following. Blood pressure has improved. Serum creatinine has significantly improved, hypotension resolved. Lasix resumed. SÁNCHEZ on CKD 3 Serum creatinine has trended down. I suspect serum creatinine at baseline Status post brief IV fluid for SÁNCHEZ. Nephrology is following. Continue to monitor renal function. Home dose Lasix resumed. Renal function stable so far. Impaired mobility Patient is still needing assistance with transfers. He is able to ambulate with a walker with SBA. He is slated for skilled rehab placement. History of stage IV melanoma Outpatient management.
--- NOTE | 2022-11-27 21:18 | P.PN ---
Date of Service: 11/27/22 Vital Signs Temp Pulse Resp BP Pulse Ox 97.1 F 96 H 18 112/76 98 11/27/22 20:00 11/27/22 20:00 11/27/22 20:00 11/27/22 20:00 11/27/22 20:00 Medications Acetaminophen (Acetaminophen 500 Mg Tab) 500 mg PO Q4HP PRN PRN Reason: Pain scale 2-4 (Mild) Last Admin: 11/22/22 20:05 Dose: 500 mg Amiodarone HCl (Amiodarone Hcl 200 Mg Tab) 200 mg PO BID [facility] Last Admin: 11/27/22 09:47 Dose: 200 mg Amoxicillin/Clavulanate Potassium (Amox/K Clav 875 Mg Tab) 875 mg PO BID [facility]; Protocol Last Admin: 11/27/22 09:44 Dose: 875 mg Apixaban (Apixaban 5 Mg Tablet) 5 mg PO BID [facility] Last Admin: 11/27/22 09:47 Dose: 5 mg Doxycycline Monohydrate (Doxycycline 100 Mg Cap) 100 mg PO BID [facility]; Protocol Last Admin: 11/27/22 09:47 Dose: 100 mg Ferrous Sulfate (Ferrous Sulfate 325 Mg Tab) 325 mg PO BID [facility] Last Admin: 11/27/22 09:44 Dose: 325 mg Furosemide (Furosemide 40 Mg Tablet) 40 mg PO BIDL [facility] Last Admin: 11/27/22 18:08 Dose: 40 mg Gabapentin (Gabapentin 300 Mg Cap) 300 mg PO BID [facility] Last Admin: 11/27/22 09:47 Dose: 300 mg Levothyroxine Sodium (Levothyroxine Sod 0.05 Mg Tablet) 0.05 mg PO [id number] [facility] Last Admin: 11/27/22 05:57 Dose: 0.05 mg Melatonin (Melatonin 5 Mg Tablet) 10 mg PO BEDTIME PRN PRN PRN Reason: INSOMNIA Last Admin: 11/26/22 21:13 Dose: 10 mg Metoprolol Tartrate (Metoprolol Tar 50 Mg Tab) 50 mg PO BID [facility] Last Admin: 11/27/22 09:48 Dose: 50 mg Pantoprazole Sodium (Pantoprazole 40mg Tablet) 40 mg PO DAILYAC [facility]; Protocol Last Admin: 11/27/22 05:53 Dose: 40 mg Pramipexole Dihydrochloride (Pramipexole 1 Mg Tab) 1 mg PO BEDTIME [facility] Last Admin: 11/26/22 21:10 Dose: 1 mg Sodium Chloride (Flush Normal Saline 10 Ml) 10 ml IV BID [facility] Last Admin: 11/27/22 09:48 Dose: 10 ml Tramadol HCl (Tramadol Hcl 50 Mg Tab) 50 mg PO TID PRN PRN Reason: Pain scale 5-7 (Moderate) Microbiology Results 11/19/22 14:40 Blood - Blood Aerobic Blood Culture - Final No growth in 5 days. 11/19/22 14:40 Blood - Blood Anaerobic Blood Culture - Final No growth in 5 days. 11/19/22 14:50 Blood - Blood Aerobic Blood Culture - Final No growth in 5 days. 11/19/22 14:50 Blood - Blood Anaerobic Blood Culture - Final No growth in 5 days. 11/19/22 18:44 Nasopharnyx Influenza Type A Antigen Screen - Final 11/19/22 18:44 Nasopharnyx Influenza Type B Antigen Screen - Final Assessment/ Plan: Nephrology No dyspnea No chest pain +Appetite Good urine output No acute events overnight Vitals, medications, blood work and imaging reviewed in the chart. General: In no apparent distress, Oriented x3, Cooperative HEENT: Atraumatic Neck: Supple Respiratory: Clear to auscultation bilaterally Cardiovascular: Regular rate/rhythm, Edema (trace) Gastrointestinal: Soft and benign, Non-distended Musculoskeletal: No clubbing, No contractures Integumentary: No rashes, No cyanosis Neurological: Normal speech Laboratory Data (last 24 hrs) 11/19/22 11/19/22 11/19/22 14:45 14:45 14:45 WBC 19.50 H Hgb 11.5 L Hct 34.9 L Plt Count 236 PT 16.9 H INR 1.54 APTT 33.5 Sodium Potassium BUN Creatinine Glucose Magnesium 2.2 Total Bilirubin AST ALT Alkaline Phosphatase 11/19/22 14:45 WBC Hgb Hct Plt Count PT INR APTT Sodium 139 Potassium 3.4 L BUN 47 H Creatinine 2.20 H Glucose 109 H Magnesium Total Bilirubin 1.3 H AST 18 ALT 20 Alkaline Phosphatase 75 Imagings Data: EXAM DESCRIPTION: US - Renal Ultrasound-Complete - 11/20/2022 12:07 am CLINICAL HISTORY: Acute renal insufficiency COMPARISON: CT November 19, 2022 FINDINGS: The right kidney measures 12 cm with a normal echotexture. 3.8 centimeter right renal cyst. The left kidney measures 10 cm with a normal echotexture. 1.2 centimeter cyst extends off the lower pole left kidney. There was suboptimal evaluation of upper pole left kidney due to body habitus. Hydronephrosis is not seen. A Anthony catheter is present within a collapsed bladder IMPRESSION: Bilateral renal cysts. No hydronephrosis EXAM DESCRIPTION: CT - Thorax Wo Con - 11/19/2022 6:30 pm CLINICAL HISTORY: Pulm edema vs pneumonia, sepsis? COMPARISON: Chest Single View dated 11/19/2022 TECHNIQUE: Axial thin cut images of the chest were obtained without IV contrast. Multiplanar reformats were generated and reviewed. All CT scans are performed using dose optimization technique as appropriate and may include automated exposure control or mA/KV adjustment according to patient size. FINDINGS: No mass or infiltrate in the lung parenchyma. No pleural thickening or pleural effusion. No pneumothorax. No abnormal mediastinal or hilar masses or lymphadenopathy seen. No significant aortic or pulmonary artery findings. Assessment is limited in the absence of IV contrast. Heart is mildly enlarged. Pulmonary artery is prominent in caliber, exceeding the caliber of the ascending aorta. No chest wall mass or abnormal axillary lymphadenopathy. Evaluation of the solid abdominal structures reveals an exophytic left superior pole renal hypoattenuating lesion suggestive of a cyst measuring 3.1 cm. IMPRESSION: No acute pulmonary process. Mild cardiomegaly. Prominent caliber of the pulmonary artery, exceeding that of the aorta, could relate to pulmonary hypertension. EXAM DESCRIPTION: US - Extremity Venous Uni Ltd - 11/19/2022 5:38 pm CLINICAL HISTORY: Swelling COMPARISON: 01/04/2021. TECHNIQUE: Real-time sonographic evaluation of the right lower extremity deep venous system was performed. FINDINGS: Normal compressibility, flow augmentation, phasic flow and spontaneous flow is identified in the right lower extremity deep venous system. No intraluminal filling defects seen. Lower leg subcutaneous edema noted. IMPRESSION: No DVT in the right lower extremity. Conclusions/Impression: Stage I SÁNCHEZ in the setting of hypovolemia CKD III -No NSAIDs Hypokalemia -Replete prn HTN with CKD/ CHF -Continue Metoprolol Systolic CHF, chronic -Daily weight Anemia in chronic illness -Monitor H&H -Continue iron supplementation Stage IV Melanoma -Follow up with oncology Hospitalist note reviewed Case reviewed with Dr. Montalvo
[2022-11-27] MEDS: PRAMIPEXOLE 1 MG TAB PO SCH (22:58)
[2022-11-28 04:29] LABS: Absolute Lymphocytes (CBC) 0.7 K/uL (0.7-4.9); Lymphocytes % 8.6 % (15.3-44.8); MCV 89.4 fL (80-100); MPV 8.1 fL (7.6-11.3); Platelets 300 thou/uL (152-406); RBC Red Blood Cell Count 3.25 M/uL (4.33-5.43)
[2022-11-28 04:43] LABS: Potassium 3.7 mEq/L (3.5-5.1)
[2022-11-28] MEDS: PANTOPRAZOLE 40MG TABLET PO SCH (05:04)
[2022-11-28] MEDS: LEVOTHYROXINE SOD 0.05 MG TABLET PO SCH (05:05)
[2022-11-28 05:08] VITALS: BMI 35.6
--- NOTE | 2022-11-28 07:21 | P.PN ---
Date of Service: 11/28/22 Subjective: Doing okay no new / worsening problems remains in a-fib; plan for ROMA guided cardioversion today SOB when getting out of bed; reports breathing strength are better once ambulating, has most trouble "getting out of these beds" ROS: 10 point ROS as noted above, otherwise negative Physical Exam: GEN: Alert, oriented, NAD HEENT: Normal conjunctiva, sclera anicteric CV: Irregularly Irregular rate and rhythm, no edema Pulm: Nonlabored respirations on room air at rest, clear bilaterally, diminished at bases bilaterally ABD: Soft, nontender, nondistended Neuro: Normal speech, normal affect vitals reviewed Problem List: Atrial fibrillation with RVR- on chronic anticoagulation Chronic diastolic CHF SIRS criteria, elevated procalcitonin concern for infectionunknown source SÁNCHEZ on CKD 3 Impaired mobility History of stage IV melanoma Atrial fibrillation with RVR - on chronic anticoagulation Chronic diastolic CHF Cardiology consulted amiodarone drip on admission. transitioned to PO amiodarone 200 mg BID continue metoprolol 50 mg BID. Heart rate is better, blood pressure has been stable. Echocardiogram(11/20): 50% EF, mild MR, mild TR, A-fib Continue Eliquis. continue PO lasix tentative plan for ROMA electrocardioversion today 11/28 SIRS criteria, elevated procalcitonin concern for infectionunknown source No clear source of infection. No specific symptoms beyond SOB / weakness Procalcitonin elevated. No pneumonia or urinary tract infection. Blood cultures: No growth. afebrile, Leukocytosis resolved Continue PO doxycycline / Augmentin Continue PT SÁNCHEZ on CKD 3 Nephrology is following. Continue to monitor renal function. continue PO Lasix improved, ~baseline Impaired mobility Patient is still needing assistance with transfers. He is able to ambulate with a walker with SBA. ss/cm assisting with SNF History of stage IV melanoma Outpatient management VTE: home eliquis Code: Full Dispo: SNF - pending approval, pending cardioversion; ~1-2 days ss/cm consulted
[2022-11-28] MEDS: METOPROLOL TAR 50 MG TAB PO SCH ×2 (09:00→20:14)
[2022-11-28] MEDS ORDERED: POTASSIUM CL SA 10 MEQ TAB PO ONE (09:00)
[2022-11-28] MEDS: FUROSEMIDE 40 MG TABLET PO SCH ×2 (09:00→18:20)
[2022-11-28] MEDS: FERROUS SULFATE 325 MG TAB PO SCH ×2 (09:00→20:13)
[2022-11-28] MEDS: GABAPENTIN 300 MG CAP PO SCH ×2 (10:51→20:14)
[2022-11-28] MEDS: AMIODARONE HCL 200 MG TAB PO SCH ×2 (10:52→20:21)
[2022-11-28] MEDS: AMOX/K CLAV 875 MG TAB PO SCH ×2 (10:52→20:13)
[2022-11-28] MEDS: APIXABAN 5 MG TABLET PO SCH ×2 (10:52→20:14)
[2022-11-28] MEDS: DOXYCYCLINE 100 MG CAP PO SCH ×2 (10:53→20:14)
[2022-11-28] MEDS ORDERED: ATROPINE SULF 1 MG/10 ML SYR IV ONE ×2 (14:29→14:37)
[2022-11-28] MEDS ORDERED: NA CHLORIDE 0.9% 500 ML ONE (14:29)
[2022-11-28] MEDS ORDERED: METOPROLOL TARTRATE 5 MG/5 ML INJ IV ONE ×2 (14:29→14:37)
[2022-11-28] MEDS ORDERED: HYDRALAZINE HCL 20 MG/ML VIAL ONE ×2 (14:29→14:37)
[2022-11-28] MEDS ORDERED: AMIODARONE IN DEXTROSE,ISO-OSM 0 MG/0 ML BAG IV ONE (14:37)
[2022-11-28] MEDS ORDERED: propofoL 200 MG/20 ML VIAL IV ONE (14:40)
[2022-11-28] MEDS ORDERED: LIDOCAINE 2% MPF 5 ML VIAL ONE (14:41)
--- NOTE | 2022-11-28 15:59 | PN ---
Date of Progress Note: 11/28/2022 Subjective: Seen by bedside. Doing well. Still in atrial fibrillation. Review of Systems: No chest pain, shortness of breath, orthopnea, cough. Has lower extremity edema with improvement. N o nausea, vomiting, diarrhea. No abdominal pain. All other systems reviewed and they were negative. Physical Examination: Vital Signs: Reviewed. Head and Neck: Pupils are equal, reactive to light. Intact eye movements. No JVD. No cervical lym phadenopathy. Neck is supple. Thyroid is not enlarged. Lungs: Clear to auscultation bilaterally. No rhonchi, wheezing, or crackles. No accessory muscle u se. Heart: Irregularly irregular. No extra sounds. Abdomen: Soft, nontender. Bowel sounds positive. No organomegaly. No masses or hernia. No rigidi ty or rebound. Extremities: No clubbing or cyanosis. Trace edema. Neurologic: Alert, awake, oriented x3. No acute focal deficits appreciated. Investigations: BUN 45, creatinine 1.50, hemoglobin 9.9. Assessment And Recommendations: 1.Atrial fibrillation. Still in atrial fibrillation and rate still goes above 100. We will plan fo r ROMA-guided cardioversion. Continue amiodarone, beta-fay, and Eliquis. 2.Acute on chronic diastolic heart failure exacerbation with improvement. Continue Lasix by mouth. 3.Hypertension. Blood pressure is controlled. SR/MODL Voice ID: [id number] Report ID: [id number]
--- NOTE | 2022-11-28 17:35 | OP ---
Date of Procedure: 11/28/2022 Surgeon: DAVIS DAILY Procedures Performed: 1.Transesophageal echocardiogram. 2.Electrical cardioversion into sinus rhythm. Diagnosis: Atrial fibrillation, difficult to control the rate. Description Of Procedure: After risks and benefits and alternatives were explained, patient agreed t o procedure and signed informal consent. Patient was brought into the OR room 1 and after proper danni e-out, he received propofol by Anesthesia team and then a ROMA probe was inserted and no left atrial t hrombus was seen and ROMA probe was removed and then synchronized 200 joules electrical cardioversion was performed successfully converting the rhythm into normal sinus rhythm. Conclusion: Successful ROMA-guided electrical cardioversion. SR/MODL Voice ID: [id number] Report ID: [id number]
[2022-11-28] MEDS: PRAMIPEXOLE 1 MG TAB PO SCH (20:14)
--- NOTE | 2022-11-28 22:00 | P.PN ---
Date of Service: 11/28/22 Vital Signs Temp Pulse Resp BP Pulse Ox 97.5 F 72 17 147/84 H 95 11/28/22 20:00 11/28/22 20:00 11/28/22 20:00 11/28/22 20:00 11/28/22 20:00 Medications Acetaminophen (Acetaminophen 500 Mg Tab) 500 mg PO Q4HP PRN PRN Reason: Pain scale 2-4 (Mild) Last Admin: 11/22/22 20:05 Dose: 500 mg Amiodarone HCl (Amiodarone Hcl 200 Mg Tab) 200 mg PO BID [facility] Last Admin: 11/28/22 20:21 Dose: 200 mg Amoxicillin/Clavulanate Potassium (Amox/K Clav 875 Mg Tab) 875 mg PO BID [facility]; Protocol Last Admin: 11/28/22 20:13 Dose: 875 mg Apixaban (Apixaban 5 Mg Tablet) 5 mg PO BID [facility] Last Admin: 11/28/22 20:14 Dose: 5 mg Doxycycline Monohydrate (Doxycycline 100 Mg Cap) 100 mg PO BID [facility]; Protocol Last Admin: 11/28/22 20:14 Dose: 100 mg Ferrous Sulfate (Ferrous Sulfate 325 Mg Tab) 325 mg PO BID [facility] Last Admin: 11/28/22 20:13 Dose: 325 mg Furosemide (Furosemide 40 Mg Tablet) 40 mg PO BIDL [facility] Last Admin: 11/28/22 18:20 Dose: 40 mg Gabapentin (Gabapentin 300 Mg Cap) 300 mg PO BID [facility] Last Admin: 11/28/22 20:14 Dose: 300 mg Levothyroxine Sodium (Levothyroxine Sod 0.05 Mg Tablet) 0.05 mg PO [id number] [facility] Last Admin: 11/28/22 05:05 Dose: 0.05 mg Melatonin (Melatonin 5 Mg Tablet) 10 mg PO BEDTIME PRN PRN PRN Reason: INSOMNIA Last Admin: 11/26/22 21:13 Dose: 10 mg Metoprolol Tartrate (Metoprolol Tar 50 Mg Tab) 50 mg PO BID [facility] Last Admin: 11/28/22 20:14 Dose: 50 mg Pantoprazole Sodium (Pantoprazole 40mg Tablet) 40 mg PO DAILYAC [facility]; Protocol Last Admin: 11/28/22 05:04 Dose: 40 mg Pramipexole Dihydrochloride (Pramipexole 1 Mg Tab) 1 mg PO BEDTIME [facility] Last Admin: 11/28/22 20:14 Dose: 1 mg Sodium Chloride (Flush Normal Saline 10 Ml) 10 ml IV BID [facility] Last Admin: 11/28/22 20:15 Dose: 10 ml Microbiology Results 11/19/22 14:40 Blood - Blood Aerobic Blood Culture - Final No growth in 5 days. 11/19/22 14:40 Blood - Blood Anaerobic Blood Culture - Final No growth in 5 days. 11/19/22 14:50 Blood - Blood Aerobic Blood Culture - Final No growth in 5 days. 11/19/22 14:50 Blood - Blood Anaerobic Blood Culture - Final No growth in 5 days. 11/19/22 18:44 Nasopharnyx Influenza Type A Antigen Screen - Final 11/19/22 18:44 Nasopharnyx Influenza Type B Antigen Screen - Final Assessment/ Plan: Nephrology No dyspnea No chest pain +Appetite Good urine output Cardioversion today No acute events overnight Vitals, medications, blood work and imaging reviewed in the chart. General: In no apparent distress, Oriented x3, Cooperative HEENT: Atraumatic Neck: Supple Respiratory: Clear to auscultation bilaterally Cardiovascular: Regular rate/rhythm, Edema (trace) Gastrointestinal: Soft and benign, Non-distended Musculoskeletal: No clubbing, No contractures Integumentary: No rashes, No cyanosis Neurological: Normal speech Laboratory Data (last 24 hrs) 11/19/22 11/19/22 11/19/22 14:45 14:45 14:45 WBC 19.50 H Hgb 11.5 L Hct 34.9 L Plt Count 236 PT 16.9 H INR 1.54 APTT 33.5 Sodium Potassium BUN Creatinine Glucose Magnesium 2.2 Total Bilirubin AST ALT Alkaline Phosphatase 11/19/22 14:45 WBC Hgb Hct Plt Count PT INR APTT Sodium 139 Potassium 3.4 L BUN 47 H Creatinine 2.20 H Glucose 109 H Magnesium Total Bilirubin 1.3 H AST 18 ALT 20 Alkaline Phosphatase 75 Imagings Data: EXAM DESCRIPTION: US - Renal Ultrasound-Complete - 11/20/2022 12:07 am CLINICAL HISTORY: Acute renal insufficiency COMPARISON: CT November 19, 2022 FINDINGS: The right kidney measures 12 cm with a normal echotexture. 3.8 centimeter right renal cyst. The left kidney measures 10 cm with a normal echotexture. 1.2 centimeter cyst extends off the lower pole left kidney. There was suboptimal evaluation of upper pole left kidney due to body habitus. Hydronephrosis is not seen. A Anthony catheter is present within a collapsed bladder IMPRESSION: Bilateral renal cysts. No hydronephrosis EXAM DESCRIPTION: CT - Thorax Wo Con - 11/19/2022 6:30 pm CLINICAL HISTORY: Pulm edema vs pneumonia, sepsis? COMPARISON: Chest Single View dated 11/19/2022 TECHNIQUE: Axial thin cut images of the chest were obtained without IV contrast. Multiplanar reformats were generated and reviewed. All CT scans are performed using dose optimization technique as appropriate and may include automated exposure control or mA/KV adjustment according to patient size. FINDINGS: No mass or infiltrate in the lung parenchyma. No pleural thickening or pleural effusion. No pneumothorax. No abnormal mediastinal or hilar masses or lymphadenopathy seen. No significant aortic or pulmonary artery findings. Assessment is limited in the absence of IV contrast. Heart is mildly enlarged. Pulmonary artery is prominent in caliber, exceeding the caliber of the ascending aorta. No chest wall mass or abnormal axillary lymphadenopathy. Evaluation of the solid abdominal structures reveals an exophytic left superior pole renal hypoattenuating lesion suggestive of a cyst measuring 3.1 cm. IMPRESSION: No acute pulmonary process. Mild cardiomegaly. Prominent caliber of the pulmonary artery, exceeding that of the aorta, could relate to pulmonary hypertension. EXAM DESCRIPTION: US - Extremity Venous Uni Ltd - 11/19/2022 5:38 pm CLINICAL HISTORY: Swelling COMPARISON: 01/04/2021. TECHNIQUE: Real-time sonographic evaluation of the right lower extremity deep venous system was performed. FINDINGS: Normal compressibility, flow augmentation, phasic flow and spontaneous flow is identified in the right lower extremity deep venous system. No intraluminal filling defects seen. Lower leg subcutaneous edema noted. IMPRESSION: No DVT in the right lower extremity. Conclusions/Impression: Stage I SÁNCHEZ in the setting of hypovolemia CKD III -No NSAIDs Hypokalemia -Replete prn HTN with CKD/ CHF -Continue Metoprolol Systolic CHF, chronic -Daily weight -Cardiology to give a dose of Lasix today Anemia in chronic illness -Monitor H&H -Continue iron supplementation Stage IV Melanoma -Follow up with oncology Hospitalist note reviewed Case reviewed with Dr. Saunders and Dr. Elise
[2022-11-29 03:22] LABS: Albumin 2.3 g/dL (3.4-5.0); Phosphorus 3.8 mg/dL (2.5-4.9); Potassium 4.1 mEq/L (3.5-5.1)
[2022-11-29] MEDS: PANTOPRAZOLE 40MG TABLET PO SCH (05:39)
[2022-11-29] MEDS: LEVOTHYROXINE SOD 0.05 MG TABLET PO SCH (05:39)
--- NOTE | 2022-11-29 06:45 | P.PN ---
Date of Service: 11/29/22 Subjective: Breathing more comfortably on room air converted to sinus rhythm post cardioversion swelling in legs improving no new / worsening problems ROS: 10 point ROS as noted above, otherwise negative Physical Exam: GEN: Alert, oriented, NAD HEENT: Normal conjunctiva, sclera anicteric CV: Regular rate and rhythm, no edema Pulm: Nonlabored respirations on room air at rest, clear bilaterally, diminished at bases bilaterally ABD: Soft, nontender, nondistended Neuro: Normal speech, normal affect vitals reviewed Problem List: Atrial fibrillation with RVR- on chronic anticoagulation Chronic diastolic CHF SIRS criteria, elevated procalcitonin concern for infectionunknown source SÁNCHEZ on CKD 3 Impaired mobility History of stage IV melanoma Atrial fibrillation with RVR - on chronic anticoagulation Chronic diastolic CHF Cardiology consulted amiodarone drip on admission. transitioned to PO amiodarone 200 mg BID continue metoprolol 50 mg BID. Heart rate is better, blood pressure has been stable. Echocardiogram(11/20): 50% EF, mild MR, mild TR, A-fib Continue Eliquis. continue PO lasix s/p ROMA guided electrocardioversion 11/28 converted to normal sinus rhythym post cardioversion SIRS criteria, elevated procalcitonin concern for infectionunknown source No clear source of infection. No specific symptoms beyond SOB / weakness Procalcitonin elevated. No pneumonia or urinary tract infection. Blood cultures: No growth. afebrile, Leukocytosis resolved Continue PO doxycycline / Augmentin Continue PT SÁNCHEZ on CKD 3 Nephrology is following. Continue to monitor renal function. continue PO Lasix improved, ~baseline; mild bump in creatinine this morning Impaired mobility Patient is still needing assistance with transfers. He is able to ambulate with a walker with SBA. ss/cm assisting with SNF History of stage IV melanoma Outpatient management VTE: home eliquis Code: Full Dispo: SNF - pending approval, anticipate dc tomorrow ss/cm consulted
[2022-11-29] MEDS: DOXYCYCLINE 100 MG CAP PO SCH ×2 (08:39→20:17)
[2022-11-29] MEDS: METOPROLOL TAR 50 MG TAB PO SCH ×2 (08:39→20:17)
[2022-11-29] MEDS: FUROSEMIDE 40 MG TABLET PO SCH (08:40)
[2022-11-29] MEDS: GABAPENTIN 300 MG CAP PO SCH ×2 (08:40→20:17)
[2022-11-29] MEDS: FERROUS SULFATE 325 MG TAB PO SCH ×2 (08:40→20:17)
[2022-11-29] MEDS: APIXABAN 5 MG TABLET PO SCH ×2 (08:40→20:17)
[2022-11-29] MEDS: AMIODARONE HCL 200 MG TAB PO SCH ×2 (08:40→20:17)
[2022-11-29] MEDS: AMOX/K CLAV 875 MG TAB PO SCH ×2 (08:40→20:16)
--- NOTE | 2022-11-29 09:57 | P.PN ---
Date of Service: 11/29/22 Vital Signs Temp Pulse Resp BP Pulse Ox 97.1 F 65 16 130/61 96 11/29/22 08:00 11/29/22 08:00 11/29/22 08:00 11/29/22 08:00 11/29/22 08:00 Medications Acetaminophen (Acetaminophen 500 Mg Tab) 500 mg PO Q4HP PRN PRN Reason: Pain scale 2-4 (Mild) Last Admin: 11/22/22 20:05 Dose: 500 mg Amiodarone HCl (Amiodarone Hcl 200 Mg Tab) 200 mg PO BID [facility] Last Admin: 11/29/22 08:40 Dose: 200 mg Amoxicillin/Clavulanate Potassium (Amox/K Clav 875 Mg Tab) 875 mg PO BID [facility]; Protocol Last Admin: 11/29/22 08:40 Dose: 875 mg Apixaban (Apixaban 5 Mg Tablet) 5 mg PO BID [facility] Last Admin: 11/29/22 08:40 Dose: 5 mg Doxycycline Monohydrate (Doxycycline 100 Mg Cap) 100 mg PO BID [facility]; Protocol Last Admin: 11/29/22 08:39 Dose: 100 mg Ferrous Sulfate (Ferrous Sulfate 325 Mg Tab) 325 mg PO BID [facility] Last Admin: 11/29/22 08:40 Dose: 325 mg Furosemide (Furosemide 40 Mg Tablet) 40 mg PO BIDL [facility] Last Admin: 11/29/22 08:40 Dose: 40 mg Gabapentin (Gabapentin 300 Mg Cap) 300 mg PO BID [facility] Last Admin: 11/29/22 08:40 Dose: 300 mg Levothyroxine Sodium (Levothyroxine Sod 0.05 Mg Tablet) 0.05 mg PO [id number] [facility] Last Admin: 11/29/22 05:39 Dose: 0.05 mg Melatonin (Melatonin 5 Mg Tablet) 10 mg PO BEDTIME PRN PRN PRN Reason: INSOMNIA Last Admin: 11/26/22 21:13 Dose: 10 mg Metoprolol Tartrate (Metoprolol Tar 50 Mg Tab) 50 mg PO BID [facility] Last Admin: 11/29/22 08:39 Dose: 50 mg Pantoprazole Sodium (Pantoprazole 40mg Tablet) 40 mg PO DAILYAC [facility]; Protocol Last Admin: 11/29/22 05:39 Dose: 40 mg Pramipexole Dihydrochloride (Pramipexole 1 Mg Tab) 1 mg PO BEDTIME [facility] Last Admin: 11/28/22 20:14 Dose: 1 mg Sodium Chloride (Flush Normal Saline 10 Ml) 10 ml IV BID [facility] Last Admin: 11/29/22 08:39 Dose: 10 ml Microbiology Results 11/19/22 14:40 Blood - Blood Aerobic Blood Culture - Final No growth in 5 days. 11/19/22 14:40 Blood - Blood Anaerobic Blood Culture - Final No growth in 5 days. 11/19/22 14:50 Blood - Blood Aerobic Blood Culture - Final No growth in 5 days. 11/19/22 14:50 Blood - Blood Anaerobic Blood Culture - Final No growth in 5 days. 11/19/22 18:44 Nasopharnyx Influenza Type A Antigen Screen - Final 11/19/22 18:44 Nasopharnyx Influenza Type B Antigen Screen - Final Assessment/ Plan: Nephrology No dyspnea No chest pain +Appetite Good urine output Cardioversion yesterday No acute events overnight Vitals, medications, blood work and imaging reviewed in the chart. General: In no apparent distress, Oriented x3, Cooperative HEENT: Atraumatic Neck: Supple Respiratory: Clear to auscultation bilaterally Cardiovascular: Regular rate/rhythm, Edema none Gastrointestinal: Soft and benign, Non-distended Musculoskeletal: No clubbing, No contractures Integumentary: No rashes, No cyanosis Neurological: Normal speech Laboratory Data (last 24 hrs) 11/19/22 11/19/22 11/19/22 14:45 14:45 14:45 WBC 19.50 H Hgb 11.5 L Hct 34.9 L Plt Count 236 PT 16.9 H INR 1.54 APTT 33.5 Sodium Potassium BUN Creatinine Glucose Magnesium 2.2 Total Bilirubin AST ALT Alkaline Phosphatase 11/19/22 14:45 WBC Hgb Hct Plt Count PT INR APTT Sodium 139 Potassium 3.4 L BUN 47 H Creatinine 2.20 H Glucose 109 H Magnesium Total Bilirubin 1.3 H AST 18 ALT 20 Alkaline Phosphatase 75 Imagings Data: EXAM DESCRIPTION: US - Renal Ultrasound-Complete - 11/20/2022 12:07 am CLINICAL HISTORY: Acute renal insufficiency COMPARISON: CT November 19, 2022 FINDINGS: The right kidney measures 12 cm with a normal echotexture. 3.8 centimeter right renal cyst. The left kidney measures 10 cm with a normal echotexture. 1.2 centimeter cyst extends off the lower pole left kidney. There was suboptimal evaluation of upper pole left kidney due to body habitus. Hydronephrosis is not seen. A Anthony catheter is present within a collapsed bladder IMPRESSION: Bilateral renal cysts. No hydronephrosis EXAM DESCRIPTION: CT - Thorax Wo Con - 11/19/2022 6:30 pm CLINICAL HISTORY: Pulm edema vs pneumonia, sepsis? COMPARISON: Chest Single View dated 11/19/2022 TECHNIQUE: Axial thin cut images of the chest were obtained without IV contrast. Multiplanar reformats were generated and reviewed. All CT scans are performed using dose optimization technique as appropriate and may include automated exposure control or mA/KV adjustment according to patient size. FINDINGS: No mass or infiltrate in the lung parenchyma. No pleural thickening or pleural effusion. No pneumothorax. No abnormal mediastinal or hilar masses or lymphadenopathy seen. No significant aortic or pulmonary artery findings. Assessment is limited in the absence of IV contrast. Heart is mildly enlarged. Pulmonary artery is prominent in caliber, exceeding the caliber of the ascending aorta. No chest wall mass or abnormal axillary lymphadenopathy. Evaluation of the solid abdominal structures reveals an exophytic left superior pole renal hypoattenuating lesion suggestive of a cyst measuring 3.1 cm. IMPRESSION: No acute pulmonary process. Mild cardiomegaly. Prominent caliber of the pulmonary artery, exceeding that of the aorta, could relate to pulmonary hypertension. EXAM DESCRIPTION: US - Extremity Venous Uni Ltd - 11/19/2022 5:38 pm CLINICAL HISTORY: Swelling COMPARISON: 01/04/2021. TECHNIQUE: Real-time sonographic evaluation of the right lower extremity deep venous system was performed. FINDINGS: Normal compressibility, flow augmentation, phasic flow and spontaneous flow is identified in the right lower extremity deep venous system. No intraluminal filling defects seen. Lower leg subcutaneous edema noted. IMPRESSION: No DVT in the right lower extremity. Conclusions/Impression: Stage I SÁNCHEZ in the setting of hypovolemia CKD III -No NSAIDs Hypokalemia -Replete prn HTN with CKD/ CHF -Continue Metoprolol Systolic CHF, chronic -Daily weight -Lasix prn Anemia in chronic illness -Monitor H&H -Continue iron supplementation Stage IV Melanoma -Follow up with oncology Hospitalist note reviewed Case reviewed with Dr. Saunders and Dr. Elise
--- NOTE | 2022-11-29 12:56 | EKG ---
Test Date: 2022-11-28 Test Time: 14:40:26 [place] Tally Clerk: PHILIP MEASUREMENT RESULTS: Intervals: Rate: 63 AR: 282 QRSD: 86 QT: 464 QTc: 474 [place]: P: 52 AR: 282 QRS: -16 T: 6 INTERPRETIVE STATEMENTS: Sinus rhythm with 1st degree AV block with premature supraventricular complexes Possible Inferior infarct, age undetermined Abnormal ECG Compared to ECG 11/19/2022 14:02:09 Atrial premature complex(es) now present First degree AV block now present Atrial fibrillation no longer present Myocardial infarct finding still present Electronically Signed On 11-29-22 12:54:42 CDT by Adolph Elise
--- NOTE | 2022-11-29 13:10 | TEE ---
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 TRANSESOPHAGEAL ECHOCARDIOGRAM WAS INSERTED, NO DIFFICULTY 2. NO LEFT ATRIAL APPENDAGE THROMBUS 3. NORMAL LEFT VENTRICULAR EJECTION FRACTION 55-60% TECHNOLOGIST: SAMREEN MARCUM
--- NOTE | 2022-11-29 17:06 | PN ---
Date of Progress Note: 11/29/2022 Subjective: Seen by bedside. He is still in sinus rhythm. Doing very well. No symptoms. Review of Systems: No chest pain, shortness of breath, orthopnea, cough. No nausea, vomiting, diarrhea. All other syst ems reviewed and they were negative. Physical Examination: Vital Signs: Reviewed. Head and Neck: Pupils are equal, reactive to light. Intact eye movements. No JVD. No cervical lym phadenopathy. Neck is supple. Thyroid is not enlarged. Lungs: Clear to auscultation bilaterally. No rhonchi, wheezing, or crackles. No accessory muscle u se. Heart: Regular rate and rhythm. No extra sounds. Abdomen: Soft, nontender. Bowel sounds positive. No organomegaly. No masses or hernia. No rigidi ty or rebound. Extremities: Trace edema. No clubbing or cyanosis. Intact pulses. Skin: No rash. Neurologic: Alert, awake, oriented x3. No acute focal deficits appreciated. Lymph Nodes: No cervical or axillary lymphadenopathy. Investigations: Labs were reviewed. Assessment And Recommendations: 1.Atrial fibrillation with rapid ventricular response, now resolved after ROMA cardioversion. Contin ue amiodarone and Eliquis and metoprolol. If his creatinine keeps rising, then cut down the Eliquis to 2.5 mg twice a day. 2.Acute on chronic diastolic heart failure exacerbation. He appears to be euvolemic now. His BUN a nd creatinine started to increase gradually. Change the Lasix to 40 mg once a day. 3.Hypertension. Blood pressure is controlled. SR/MODL Voice ID: [id number] Report ID: [id number]
[2022-11-29] MEDS: PRAMIPEXOLE 1 MG TAB PO SCH (20:17)
[2022-11-30 03:41] LABS: Albumin 2.2 g/dL (3.4-5.0); Phosphorus 3.7 mg/dL (2.5-4.9)
[2022-11-30] MEDS: PANTOPRAZOLE 40MG TABLET PO SCH (06:31)
[2022-11-30] MEDS: LEVOTHYROXINE SOD 0.05 MG TABLET PO SCH (06:32)
[2022-11-30] MEDS: GABAPENTIN 300 MG CAP PO SCH (08:32)
[2022-11-30 08:33] VITALS: TEMP 97.1
[2022-11-30] MEDS: METOPROLOL TAR 50 MG TAB PO SCH (08:34)
[2022-11-30] MEDS: DOXYCYCLINE 100 MG CAP PO SCH (08:34)
[2022-11-30] MEDS: APIXABAN 5 MG TABLET PO SCH (08:34)
[2022-11-30] MEDS: AMIODARONE HCL 200 MG TAB PO SCH (08:34)
[2022-11-30] MEDS: FERROUS SULFATE 325 MG TAB PO SCH (08:34)
[2022-11-30] MEDS: AMOX/K CLAV 875 MG TAB PO SCH (08:34)
[2022-11-30 08:36] VITALS: BP 108/52
--- NOTE | 2022-11-30 08:40 | P.DS ---
Admission Date: 11/19/22 Discharge Date: 11/30/22 Disposition: TRANSFER TO SNF - REHAB Reason for Admission: A-fib RVR Consultations: Cardiology - Dr. Elise Nephrology - Dr. Hidalgo, Dr. Guzmán Brief History of Present Illness: 77 yo M, PMH: chronic systolic ingestive heart failure, atrial fibrillation on chronic anticoagulation, stage IV melanoma, anemia, CKD 3, gout, hypertension Patient presents emergency department with chief complaint of syncope. He was at home his son last spoke to him at 9 AM, he went to check on him and found him in the garage at 1045 in recliner incontinent of urine and had vomited. He was difficult to arouse, EMS was called and patient was transported to hospital, by the time he got to the hospital patient was awake, alert and oriented x4 does not recall episodes leading up to hospitalization. He was evaluated in the emergency department his labs are significant for white blood count 19.5 hemoglobin 11.5 medic at 34.9 creatinine 2.2 GFR 30 lactic acid 2.3 BNP 4235 procalcitonin 3.2 UA not suggestive of urinary tract infection chest x-ray showed suspected CHF CT of the chest contrast was performed which was negative for acute findings, pulmonary edema or pneumonia. DVT study the right lower extremity negative for DVT. Patient with baseline creatinine around 1.6, also in A-fib RVR with a rate between 115 and 130 with blood pressures in the 90s systolic, case was discussed with cardiology initiated amiodarone drip. Patient need to be admitted to the ICU. No clear source of infection identified currently he will be covered with broad-spectrum antibiotics. Hospital Course: Problem List: Atrial fibrillation with RVR- on chronic anticoagulation Chronic diastolic CHF SIRS criteria, elevated procalcitonin concern for infectionunknown source SÁNCHEZ on CKD 3 Impaired mobility History of stage IV melanoma Patient presented to ED after a syncopal episode. Patient was noted to be in A- fib with RVR while in the ED, admitted to the ICU. Cardiology was consulted. He was started on an amiodarone drip, given IV metoprolol and had improvement of his heart rate but remained in a-fib. Metoprolol/amiodarone were transitioned to PO and HR/BP remained stable but continued with a-fib with HR in 90-110s. Dr. Elise recommended Cardioversion. Patient underwent ROMA guided electrocardioversion on 11/[address] Elise and converted into normal sinus rhythm. He was maintained on amiodarone 200mg bid and metoprolol 50mg BID. His heart rate was in the 50-60s and his metoprolol was decreased back to 25mg twice daily. Blood pressure was low-normal as well, Dr. Elise recommended holding lasix for next 2-3 days, recheck BMP. On admission patient met SIRS criteria with elevated leukocytosis and had elevated procalcitonin concerning for infection. There was no clear source on exam and none on imaging/testing (chest x-ray, UA, CT chest). Cultures were negative. Patient was initially given empiric IV antibiotics vancomycin/cefepime and deescalated to PO doxycycline and augmentin to treat for possible infection, completing 10 day total course of antibiotics. Patient remained afebrile without leukocytosis for > 1 week. Patient was also noted to have an SÁNCHEZ during hospitalization. Nephrology was consulted. Patients renal function improved / responded well with diuresis. Creatinine improved with gentle IVF initially. Lasix was resumed and his creatinine slightly trended up , but mostly stable 1.5 - 1.7. Lasix decreased to 40mg daily. Repeat BMP in ~3 days to monitor renal function. If renal function worsens, consider decrease dose of eliquis from 5mg twice daily to 2.5mg twice daily. Medications: Amiodarone 200mg twice daily Metoprolol 25mg twice daily continue eliquis hold lasix for 2-3 days, restart at 40mg daily Follow up: PCP 3-5 days Cardiology ~2 weeks Nephrology ~2-3 weeks Physical Exam: GEN: Alert, oriented, NAD HEENT: Normal conjunctiva, sclera anicteric CV: Regular rate and rhythm, Trace BLE pedal edema Pulm: Nonlabored respirations on room air at rest, clear bilaterally, diminished at bases bilaterally ABD: Soft, nontender, nondistended Neuro: Normal speech, normal affect Vital Signs/Physical Exam: Temp Pulse Resp BP Pulse Ox 97.6 F 56 16 113/63 95 11/30/22 04:00 11/30/22 04:00 11/30/22 04:00 11/30/22 04:00 11/30/22 04:00 Laboratory Data at Discharge: WBC 8.20 thou/uL (4.3-10.9) 11/28/22 03:55 Hgb 9.9 g/dL (13.6-17.9) L 11/28/22 03:55 Hct 29.0 % (39.6-49.0) L 11/28/22 03:55 Plt Count 300 thou/uL (152-406) 11/28/22 03:55 PT 16.9 SECONDS (9.5-12.5) H 11/19/22 14:45 INR 1.54 11/19/22 14:45 APTT 33.5 SECONDS (24.3-36.9) 11/19/22 14:45 Sodium 136 mEq/L (136-145) 11/30/22 02:42 Potassium 4.0 mEq/L (3.5-5.1) 11/30/22 02:42 BUN 49 mg/dL (7-18) H 11/30/22 02:42 Creatinine 1.78 mg/dL (0.70-1.30) H 11/30/22 02:42 Glucose 132 mg/dL (74-106) H 11/30/22 02:42 Phosphorus 3.7 mg/dL (2.5-4.9) 11/30/22 02:42 Magnesium 2.6 mg/dL (1.6-2.4) H 11/21/22 04:15 Total Bilirubin 0.8 mg/dL (0.2-1.0) 11/21/22 04:15 AST 15 U/L (15-37) 11/21/22 04:15 ALT 17 U/L (16-61) 11/21/22 04:15 Alkaline Phosphatase 60 U/L (45-117) 11/21/22 04:15 Home Medications: Apixaban [Eliquis] 5 mg PO BID 11/19/22 Cholecalciferol (Vitamin D3) [Vitamin D3] 1 cap PO DAILY 11/19/22 Ferrous Sulfate [Iron] 325 mg PO BID 11/19/22 Furosemide [Lasix] 40 mg PO BIDL 11/19/22 Gabapentin 300 mg PO BID 11/19/22 Levothyroxine [Synthroid] 50 mcg PO DANBP2PT 11/19/22 Metoprolol Tartrate 25 mg PO BID 11/19/22 Pantoprazole [Protonix Tab*] 40 mg PO DAILY 11/19/22 Pramipexole [Mirapex] 1 mg PO DAILY 11/19/22 Vitamin B Complex [B Complex] 1 tab PO DAILY 11/19/22 predniSONE [Deltasone] 20 mg PO PRN PRN 11/19/22 Physician Discharge Instructions: Patient presented to ED after a syncopal episode. Patient was noted to be in A- fib with RVR while in the ED, admitted to the ICU. Cardiology was consulted. He was started on an amiodarone drip, given IV metoprolol and had improvement of his heart rate but remained in a-fib. Metoprolol/amiodarone were transitioned to PO and HR/BP remained stable but continued with a-fib with HR in 90-110s. Dr. Elise recommended Cardioversion. Patient underwent ROMA guided electrocardioversion on 11/[address] Elise and converted into normal sinus rhythm. On admission patient met SIRS criteria with elevated leukocytosis and had elevated procalcitonin concerning for infection. There was no clear source on exam and none on imaging/testing (chest x-ray, UA, CT chest). Cultures were negative. Patient was initially given empiric IV antibiotics vancomycin/cefepime and deescalated to PO doxycycline and augmentin to treat for possible infection, completing 10 day total course of antibiotics. Patient remained afebrile without leukocytosis for > 1 week. Patient was also noted to have an SÁNCHEZ during hospitalization. Nephrology was co nsulted. Patients renal function improved / responded well with diuresis. Creatinine improved with gentle IVF initially. Lasix was resumed and his creatinine slightly trended up , but mostly stable 1.5 - 1.7. Lasix decreased to 40mg daily. Repeat blood work with PCP in 1 week to monitor renal function. If renal function worsens, consider decrease dose of eliquis from 5mg twice daily to 2.5mg twice daily. Medications: Amiodarone Metoprolol continue eliquis Follow up: PCP 3-5 days Cardiology ~2 weeks Nephrology ~2-3 weeks Followup: OOT,OOT [Primary Care Provider] -
[2022-11-30] MEDS ORDERED: METOPROLOL TAR 50 MG TAB PO SCH (09:00)
[2022-11-30] MEDS ORDERED: METOPROLOL TAR 25 MG TAB PO SCH (09:00)
[2022-11-30] MEDS ORDERED: FUROSEMIDE 40 MG TABLET PO SCH (09:00)
[2022-11-30 09:07] VITALS: O2SAT 95
--- NOTE | 2022-11-30 21:12 | P.PN ---
Date of Service: 11/30/22 Vital Signs Temp Pulse Resp BP Pulse Ox 97.1 F 56 18 108/52 L 100 11/30/22 08:00 11/30/22 08:34 11/30/22 08:00 11/30/22 08:34 11/30/22 08:00 Microbiology Results 11/19/22 14:40 Blood - Blood Aerobic Blood Culture - Final No growth in 5 days. 11/19/22 14:40 Blood - Blood Anaerobic Blood Culture - Final No growth in 5 days. 11/19/22 14:50 Blood - Blood Aerobic Blood Culture - Final No growth in 5 days. 11/19/22 14:50 Blood - Blood Anaerobic Blood Culture - Final No growth in 5 days. 11/19/22 18:44 Nasopharnyx Influenza Type A Antigen Screen - Final 11/19/22 18:44 Nasopharnyx Influenza Type B Antigen Screen - Final Assessment/ Plan: Nephrology No dyspnea No chest pain +Appetite Good urine output No acute events overnight Vitals, medications, blood work and imaging reviewed in the chart. General: In no apparent distress, Oriented x3, Cooperative HEENT: Atraumatic Neck: Supple Respiratory: Clear to auscultation bilaterally Cardiovascular: Regular rate/rhythm, Edema none Gastrointestinal: Soft and benign, Non-distended Musculoskeletal: No clubbing, No contractures Integumentary: No rashes, No cyanosis Neurological: Normal speech Laboratory Data (last 24 hrs) 11/19/22 11/19/22 11/19/22 14:45 14:45 14:45 WBC 19.50 H Hgb 11.5 L Hct 34.9 L Plt Count 236 PT 16.9 H INR 1.54 APTT 33.5 Sodium Potassium BUN Creatinine Glucose Magnesium 2.2 Total Bilirubin AST ALT Alkaline Phosphatase 11/19/22 14:45 WBC Hgb Hct Plt Count PT INR APTT Sodium 139 Potassium 3.4 L BUN 47 H Creatinine 2.20 H Glucose 109 H Magnesium Total Bilirubin 1.3 H AST 18 ALT 20 Alkaline Phosphatase 75 Imagings Data: EXAM DESCRIPTION: US - Renal Ultrasound-Complete - 11/20/2022 12:07 am CLINICAL HISTORY: Acute renal insufficiency COMPARISON: CT November 19, 2022 FINDINGS: The right kidney measures 12 cm with a normal echotexture. 3.8 centimeter right renal cyst. The left kidney measures 10 cm with a normal echotexture. 1.2 centimeter cyst extends off the lower pole left kidney. There was suboptimal evaluation of upper pole left kidney due to body habitus. Hydronephrosis is not seen. A Anthony catheter is present within a collapsed bladder IMPRESSION: Bilateral renal cysts. No hydronephrosis EXAM DESCRIPTION: CT - Thorax Wo Con - 11/19/2022 6:30 pm CLINICAL HISTORY: Pulm edema vs pneumonia, sepsis? COMPARISON: Chest Single View dated 11/19/2022 TECHNIQUE: Axial thin cut images of the chest were obtained without IV contrast. Multiplanar reformats were generated and reviewed. All CT scans are performed using dose optimization technique as appropriate and may include automated exposure control or mA/KV adjustment according to patient size. FINDINGS: No mass or infiltrate in the lung parenchyma. No pleural thickening or pleural effusion. No pneumothorax. No abnormal mediastinal or hilar masses or lymphadenopathy seen. No significant aortic or pulmonary artery findings. Assessment is limited in the absence of IV contrast. Heart is mildly enlarged. Pulmonary artery is prominent in caliber, exceeding the caliber of the ascending aorta. No chest wall mass or abnormal axillary lymphadenopathy. Evaluation of the solid abdominal structures reveals an exophytic left superior pole renal hypoattenuating lesion suggestive of a cyst measuring 3.1 cm. IMPRESSION: No acute pulmonary process. Mild cardiomegaly. Prominent caliber of the pulmonary artery, exceeding that of the aorta, could relate to pulmonary hypertension. EXAM DESCRIPTION: US - Extremity Venous Uni Ltd - 11/19/2022 5:38 pm CLINICAL HISTORY: Swelling COMPARISON: 01/04/2021. TECHNIQUE: Real-time sonographic evaluation of the right lower extremity deep venous system was performed. FINDINGS: Normal compressibility, flow augmentation, phasic flow and spontaneous flow is identified in the right lower extremity deep venous system. No intraluminal filling defects seen. Lower leg subcutaneous edema noted. IMPRESSION: No DVT in the right lower extremity. Conclusions/Impression: Stage I SÁNCHEZ in the setting of hypovolemia CKD III -No NSAIDs Hypokalemia -Replete prn HTN with CKD/ CHF -Continue Metoprolol Systolic CHF, chronic -Daily weight -Lasix prn Anemia in chronic illness -Monitor H&H -Continue iron supplementation Stage IV Melanoma -Follow up with oncology Hospitalist note reviewed Case reviewed with Dr. Saunders
== END 2022-11-30 10:59 | DRG 309 ==
LOC: ER 13:27 → ERHOLD 19:10 → 3RD-ICU 19:20 → 2ND 11-22 15:34
PROVIDERS: ADMIT Internal Medicine Nephrology; ATTEND Hospitalist
PROC: B24BZZ4 Ultrasonography of Heart with Aorta, Transesophageal (ICD-10-PCS; principal; 2022-11-28)
PROC: 5A2204Z Restoration of Cardiac Rhythm, Single (ICD-10-PCS; 2022-11-28)
DX: I48.91 Unspecified atrial fibrillation (principal); I13.0 Hypertensive heart and chronic kidney disease with heart failure and stage 1 through stage 4 chronic kidney disease, or unspecified chronic kidney disease; N17.9 Acute kidney failure, unspecified; R65.10 Systemic inflammatory response syndrome (SIRS) of non-infectious origin without acute organ dysfunction; I50.32 Chronic diastolic (congestive) heart failure; N18.30 Chronic kidney disease, stage 3 unspecified; D63.1 Anemia in chronic kidney disease; N28.1 Cyst of kidney, acquired; M10.9 Gout, unspecified; E87.6 Hypokalemia; D72.829 Elevated white blood cell count, unspecified; Z79.01 Long term (current) use of anticoagulants; Z79.52 Long term (current) use of systemic steroids; Z92.21 Personal history of antineoplastic chemotherapy; Z85.841 Personal history of malignant neoplasm of brain; Z79.890 Hormone replacement therapy; Z79.899 Other long term (current) drug therapy; Z20.822 Contact with and (suspected) exposure to COVID-19
CPT/HCPCS: 36415; 51702; 70450; 71045; 71250; 76770; 80048; 80053; 80069; 80076; 80202; 81003; 82550; 83605; 83735; 83880; 84145; 84439; 84443; 84484; 85025; 85610; 85730; 86140; 87040; 87635; 87804; 92960; 93005; 93306; 93312; 93971; 96361; 96365; 96366; 96367; 97116; 97161; 97530; 99285; J0282; J0360; J0461; J0692; J0696; J2001; J2704; J7030; J7040; J7050; J7060

== ENCOUNTER 2023-03-30 21:26 | Inpatient (IN) | payer OTHER ==
[2023-03-30 22:47] LABS: Specific Gravity 1.016 (1.005-1.030); Urine Bacteria 20-50 /HPF (<20); Urine Bilirubin NEGATIVE (Negative); Urine Blood 3+ (Negative); Urine Clarity Turbid (Clear); Urine Color Yellow (Yellow); Urine Glucose NEGATIVE (Negative); Urine Mucus Slight /HPF (None Seen); Urine Protein TRACE (Negative); Urine RBC >50 /HPF (None Seen); Urine Urobilinogen 1+ (Normal); Urine pH 7.5 (5.0-7.0)
[2023-03-30 22:48] LABS: Absolute Lymphocytes (CBC) 0.2 K/uL (0.7-4.9); Hematocrit 30.4 % (39.6-49.0); Lymphocytes % 1.1 % (15.3-44.8); MCV 93.7 fL (80-100); MPV 8.1 fL (7.6-11.3); Platelets 203 thou/uL (152-406); RBC Red Blood Cell Count 3.25 M/uL (4.33-5.43)
[2023-03-30 22:54] LABS: Protime INR 2.5
[2023-03-30 23:03] LABS: Bilirubin Direct 0.5 mg/dL (0-0.2); Bilirubin Indirect, Calculated 0.7 mg/dL (0.2-0.8); Bilirubin Total 1.2 mg/dL (0.2-1.0); Magnesium 2.7 mg/dL (1.6-2.4); Potassium 3.8 mEq/L (3.5-5.1); Protein, Total 7.1 g/dL (6.4-8.2); Troponin High Sensitivity 35.3 pg/mL (<58.9)
[2023-03-30 23:16] LABS: Blood Morphology Comment NOT SEEN (NOT SEEN); Platelet Estimate ADEQ
[2023-03-31] MEDS ORDERED: CEFTRIAXONE 1000 MG/VIAL ONE (00:30)
[2023-03-31] MEDS ORDERED: NA CHLORIDE 0.9% 100 ML ONE (00:30)
--- NOTE | 2023-03-31 03:09 | ER ---
Nurse's Notes [facility] Name: Eris Barbour Age: 77 yrs Sex: Male : 1945 Arrival Date: 03/30/2023 Time: : Bed 14 Private MD: Diagnosis: UTI/ Urinary tract infection, site not specified;Fall on same level from slipping, tripping and stumbling with subsequent striking against object Presentation: 03/30 21:43 Chief complaint: EMS states: initially asked for lift assist, pt was bet wall and bed, rv checked VS, bp is 70/30, pt is alert, was given 300ml of NS. BP normalized. Coronavirus screen: At this time, the client does not indicate any symptoms associated with coronavirus-19. Ebola Screen: No symptoms or risks identified at this time. Initial Sepsis Screen: Does the patient meet any 2 criteria? No. Patient's initial sepsis screen is negative. Does the patient have a suspected source of infection? No. Patient's initial sepsis screen is negative. Risk Assessment: Do you want to hurt yourself or someone else? Patient reports no desire to harm self or others. Onset of symptoms was March 30, 2023. 21:43 Method Of Arrival: EMS: [facility] rv 21:43 Acuity: NAVA 2 rv Triage Assessment: 21:45 General: Appears uncomfortable, Behavior is calm, cooperative. Pain: Denies pain. rv Neuro: Level of Consciousness is awake, alert, obeys commands, Oriented to person, place, time, situation. Cardiovascular: Capillary refill < 3 seconds Patient's skin is warm and dry. Respiratory: Airway is patent Respiratory effort is even, unlabored. GI: Abdomen is round distended, obese. :. Musculoskeletal: Swelling present in right leg and left leg. Historical: - Allergies: 21:45 No Known Allergies; rv - PMHx: 21:45 Atrial fibrillation; Chemotherapy - brain cancer; CHF; rv - PSHx: 21:45 knee sx, kaley; rv - Immunization history:: Adult Immunizations up to date. - Social history:: Smoking status: unknown. Screenin:48 [facility] ED Fall Risk Assessment (Adult) History of falling in the last 3 months, rv including since admission Yes- fall prone (multiple falls) (3 pts) Impaired Gait Score/Fall Risk Level 3 or more points = High Risk Oriented to surroundings, Maintained a safe environment, Educated pt \T\ family on fall prevention, incl call for assistance when getting out of bed, Assessed \T\ reinforced patient's understanding of fall precautions. Abuse screen: Denies threats or abuse. Denies injuries from another. Nutritional screening: No deficits noted. Tuberculosis screening: No symptoms or risk factors identified. Assessment: 22:35 General: Appears uncomfortable, obese, well groomed, well developed, well nourished, me1 Behavior is calm, cooperative, appropriate for age, Reports EMS initially asked for lift assist, pt was bet wall and bed, checked VS, bp is 70/30, pt is alert, was given 300ml of NS. BP normalized. Pain: Denies pain. Neuro: Level of Consciousness is awake, alert, obeys commands, Oriented to person, place, time, situation, Appropriate for age. Cardiovascular: Reports syncope, Capillary refill < 3 seconds Patient's skin is warm and dry. Respiratory: Airway is patent Trachea midline Respiratory effort is even, unlabored, Respiratory pattern is regular, symmetrical. Musculoskeletal: Swelling present in left leg and right leg. Vital Signs: 21:43 BP 122 / 58; Pulse 76 MON; Resp 18; Temp 98.1; Pulse Ox 96% on R/A; Weight 147.87 kg rv (M); Height 6 ft. 4 in. (R); Pain 0/10; 21:45 BP 123 / 78; Pulse 64; Resp 16; Pulse Ox 97% on R/A; me1 22:45 BP 106 / 78; Pulse 72; Resp 22; Pulse Ox 97% on R/A; me1 23:45 BP 118 / 72; Pulse 71; Resp 21; Pulse Ox 99% on R/A; me1 03/31 04:43 BP 103 / 66; Pulse 51; Resp 17; Temp 98; Pulse Ox 99% ; rv 03/30 21:43 Body Mass Index 39.68 (147.87 kg, 193.04 cm) rv 21:43 A fib rv 03/30 21:43 Pain Scale: Adult rv ED Course: 03/30 21:36 Patient arrived in ED. rv 21:36 Dawn Dyer, RN is Primary Nurse. me1 21:45 Triage completed. rv 21:45 Arm band placed on right wrist. rv 21:48 Patient has correct armband on for positive identification. Client placed on continuous rv cardiac and pulse oximetry monitoring. NIBP monitoring applied. monitoring tech on. 21:48 No provider procedures requiring assistance completed. Maintain EMS IV. Dressing rv intact. Good blood return noted. Site clean \T\ dry. Gauge \T\ site: 18 lac. 21:50 Octavio Ahuja PA is PHCP. cp 21:50 Octavio Medel MD is Attending Physician. cp 22:34 Troponin HS Sent. me1 22:34 PT-INR Sent. me1 22:34 NT PRO-BNP Sent. me1 22:34 Magnesium Sent. me1 22:34 LFT's Sent. me1 22:34 CBC with Diff Sent. me1 22:34 Basic Metabolic Panel Sent. me1 22:35 Provided Education on: POC. Verbalized understanding. . me1 22:35 Urinalysis W/Microscopic Sent. me1 23:05 XRAY Pelvis In Process Unspecified. EDMS 23:05 XRAY Femur RIGHT In Process Unspecified. EDMS 23:05 XRAY Chest (1 view) In Process Unspecified. EDMS 03/31 01:03 CT Traumagram (Head C Spine CAP wo con) In Process Unspecified. EDMS 03:05 Won Goodson MD is Hospitalizing Provider. cp 04:44 Patient admitted, IV remains in place. rv Administered Medications: 00:36 Drug: Rocephin IV 1 grams IV at calculated rate once; Given slow IV push per pharmacy rv instructions Route: IV; Rate: calculated rate; Site: right antecubital; 02:02 Follow up: Response: No adverse reaction; IV Status: Completed infusion rv 03:23 CANCELLED (Physician Discretion): [id number] mg IVP once; give over 2 minutes cp 04:43 Not Given (Physician Discretion): [id number] mg IVP once; give over 2 minutes rv Medication: 03/30 21:48 VIS not applicable for this client. rv Outcome: 03/31 03:08 Decision to Hospitalize by Provider. cp 04:44 Admitted to Med/surg accompanied by nurse, via stretcher, room 222, with chart, Report rv called to meri ellison 04:44 Condition: good 04:44 Instructed on the need for admit, 05:06 Patient left the ED. rv Signatures: Dispatcher [employer] EDMS Octavio Ahuja PA PA cp Nghia Mcnair RN RN rv Dawn Dyer, WILLEM RN me1 Corrections: (The following items were deleted from the chart) 03/30 22:35 21:43 Chief complaint: EMS states: initially asked for lift assist, pt was bet wall and me1 bed, checked VS, bp is 70/30, pt is alert, was given 300ml of NS. BP normalized. rv
--- NOTE | 2023-03-31 03:09 | EDPHYS ---
Physician Documentation [facility] Name: Eris Barbour Age: 77 yrs Sex: Male : 1945 Arrival Date: 03/30/2023 Time: : Bed 14 Private MD: ED Physician Octavio Medel HPI: 03/30 22:00 This 77 yrs old Male presents to ER via EMS with complaints of Fall. cp 22:00 Details of fall: The patient fell from an upright position, while standing. Onset: The cp symptoms/episode began/occurred just prior to arrival. Associated injuries: The patient sustained right hip and leg, painful injury. Patient is a 77-year-old male with past medical history significant for A-fib, CHF, obesity who presents to the emergency department via EMS after reported fall from standing in which he could not get himself up off the ground. Patient complains of general weakness and reports he lost his balance due to the pain in his right lower back that caused him to fall. Historical: - Allergies: 21:45 No Known Allergies; rv - PMHx: 21:45 Atrial fibrillation; Chemotherapy - brain cancer; CHF; rv - PSHx: 21:45 knee sx, kaley; rv - Immunization history:: Adult Immunizations up to date. - Social history:: Smoking status: unknown. ROS: 22:05 Constitutional: Positive for poor PO intake, Negative for fever, cp 22:05 Eyes: Negative for injury, pain, redness, and discharge, cp 22:05 ENT: Negative for drainage from ear(s), ear pain, sore throat, difficulty swallowing, difficulty handling secretions, 22:05 Cardiovascular: Positive for edema, Negative for chest pain, 22:05 Respiratory: Positive for shortness of breath, Negative for cough, 22:05 Abdomen/GI: Negative for abdominal pain, vomiting, diarrhea, constipation, 22:05 Back: Positive for pain at rest, pain with movement, 22:05 Neuro: Positive for weakness, Negative for altered mental status, loss of consciousness, syncope, 22:05 All other systems are negative, Exam: 22:10 Constitutional: The patient appears in no acute distress, alert, awake, cp non-diaphoretic, non-toxic, well developed, well nourished, obese, uncomfortable, 22:10 Head/Face: Normocephalic, atraumatic. cp 22:10 Eyes: Periorbital structures: appear normal, Conjunctiva: normal, no exudate, no injection, Sclera: no appreciated abnormality, Lids and lashes: appear normal, bilaterally, 22:10 ENT: External ear(s): are unremarkable, Nose: is normal, Mouth: Lips: moist, Oral mucosa: moist, Posterior pharynx: Airway: no evidence of obstruction, patent, 22:10 Neck: C-spine: vertebral tenderness, is not appreciated, crepitus, is not appreciated, 22:10 Chest/axilla: Inspection: normal, Palpation: is normal, no crepitus, no tenderness, 22:10 Cardiovascular: Rate: normal, Rhythm: irregular, Edema: ankle edema, that is marked, JVD: is not appreciated, 22:10 Respiratory: the patient does not display signs of respiratory distress, Respirations: labored breathing, that is mild, Breath sounds: decreased breath sounds, that are mild, throughout, stridor, is not appreciated, 22:10 Abdomen/GI: Inspection: obese Bowel sounds: active, all quadrants, Palpation: abdomen is soft and non-tender, in all quadrants, 22:10 Back: pain, that is moderate, ROM is painful, with all movement, 22:10 : Male external genitalia: swelling, penile, scrotal, 22:10 Skin: cellulitis, is not appreciated, 22:10 Neuro: Orientation: to person, place \T\ time. Mentation: able to follow commands, slow to respond, Motor: moves all fours, no focal deficits, Sensation: no obvious gross deficits, Vital Signs: 21:43 BP 122 / 58; Pulse 76 MON; Resp 18; Temp 98.1; Pulse Ox 96% on R/A; Weight 147.87 kg rv (M); Height 6 ft. 4 in. (R); Pain 0/10; 21:45 BP 123 / 78; Pulse 64; Resp 16; Pulse Ox 97% on R/A; me1 22:45 BP 106 / 78; Pulse 72; Resp 22; Pulse Ox 97% on R/A; me1 23:45 BP 118 / 72; Pulse 71; Resp 21; Pulse Ox 99% on R/A; me1 03/31 04:43 BP 103 / 66; Pulse 51; Resp 17; Temp 98; Pulse Ox 99% ; rv 03/30 21:43 Body Mass Index 39.68 (147.87 kg, 193.04 cm) rv 21:43 A fib rv 03/30 21:43 Pain Scale: Adult rv MDM: 03/30 21:50 Patient medically screened. cp 03/31 00:00 Differential diagnosis: closed head injury, contusion, fracture, laceration, multiple cp trauma. 03:10 Data reviewed: vital signs, nurses notes, lab test result(s), EKG, radiologic studies, cp CT scan, plain films. 03:10 Consideration of Admission/Observation Patient was admitted/placed on observation. I cp considered the following discharge prescriptions or medication management in the emergency department Medications were administered in the Emergency Department. See MAR. Independent interpretation of the following test(s) in the Emergency Department EKG: See my EKG interpretation above. Care significantly affected by the following chronic conditions: Hypertension, Congestive Heart Failure, Obesity. Counseling: I had a detailed discussion with the patient and/or guardian regarding the historical points, exam findings, and any diagnostic results supporting the discharge/admit diagnosis, lab results, radiology results, the need for further work-up and treatment in the hospital. 03/30 22:18 Order name: Basic Metabolic Panel; Complete Time: 23:31 03/30 23:31 Interpretation: Normal except: BUN 52; CRE 2.35; GFR 28. cp 03/30 22:18 Order name: CBC with Diff; Complete Time: 23:31 03/30 23:32 Interpretation: Normal except: WBC 19.00; RBC 3.25; HGB 10.0; HCT 30.4; RDW 18.2; YANCI% cp 93.4; NEUT A 17.8; LYMA 0.2; LYM% 1.1. 03/30 22:18 Order name: LFT's; Complete Time: 23:31 cp 03/31 02:54 Interpretation: Normal except: BILIT 1.2; BILID 0.5; ALB 3.0; GLOB 4.1; A/G 0.7. cp 03/30 22:18 Order name: Magnesium; Complete Time: 23:31 cp 03/30 22:18 Order name: NT PRO-BNP; Complete Time: 23:31 cp 03/31 02:54 Interpretation: Abnormal: NT PRO-BNP 7962. cp 03/30 22:18 Order name: PT-INR; Complete Time: 23:31 cp 03/30 22:18 Order name: Troponin HS; Complete Time: 23:31 cp 03/30 22:18 Order name: Urinalysis W/Microscopic; Complete Time: 23:31 cp 03/31 02:54 Interpretation: Normal except: UCLA Turbid; UBLD 3+; UPH 7.5; UPROT TRACE; UUROB 1+; cp UESTR 250; UWBC 20-50; URBC >50; UBACT 20-50. 03/30 22:19 Order name: CK; Complete Time: 23:31 cp 03/30 22:50 Order name: Urine Culture EDMS 03/30 22:54 Order name: Manual Differential; Complete Time: 23:31 EDKS 03/30 23:33 Order name: Lactate w/ 2H reflex if indic.; Complete Time: 02:53 03/31 02:53 Interpretation: Reviewed. 03/30 23:33 Order name: Blood Culture Adult (2) 03/31 04:08 Order name: Urinalysis w/ reflexes EDMS 03/31 04:08 Order name: CBC with Automated Diff EDMS 03/31 04:08 Order name: CBC with Automated Diff EDMS 03/31 04:08 Order name: Comprehensive Metabolic Panel EDMS 03/31 04:08 Order name: Comprehensive Metabolic Panel EDMS 03/31 04:08 Order name: Magnesium EDMS 03/31 04:08 Order name: Magnesium EDMS 03/31 04:08 Order name: Phosphorus EDMS 03/31 04:08 Order name: Phosphorus EDMS 03/31 04:08 Order name: Troponin High Sensitivity EDMS 03/31 04:08 Order name: Troponin High Sensitivity EDMS 03/30 22:18 Order name: XRAY Pelvis 03/30 22:18 Order name: XRAY Femur RIGHT cp 03/30 22:18 Order name: XRAY Chest (1 view) 03/30 23:37 Order name: CT Traumagram (Head C Spine CAP wo con) 03/30 22:18 Order name: EKG; Complete Time: 22:19 cp 03/30 22:18 Order name: Cardiac monitoring; Complete Time: 22:35 cp 03/30 22:18 Order name: EKG - Nurse/Tech; Complete Time: 00:37 cp 03/30 22:18 Order name: IV Saline Lock; Complete Time: 22:35 cp 03/30 22:18 Order name: Labs collected and sent; Complete Time: 22:34 cp 03/30 22:18 Order name: O2 Per Protocol; Complete Time: 22:34 cp 03/30 22:18 Order name: O2 Sat Monitoring; Complete Time: 22:34 cp Administered Medications: 00:36 Drug: Rocephin IV 1 grams IV at calculated rate once; Given slow IV push per pharmacy rv instructions Route: IV; Rate: calculated rate; Site: right antecubital; 02:02 Follow up: Response: No adverse reaction; IV Status: Completed infusion rv 03:23 CANCELLED (Physician Discretion): [id number] mg IVP once; give over 2 minutes cp 04:43 Not Given (Physician Discretion): [id number] mg IVP once; give over 2 minutes rv Disposition Summary: 03/31/23 03:08 Hospitalization Ordered Notes: Hospitalization Status: Inpatient Admission cp Provider: Won Goodson cp Location: Telemetry/MedSurg (Inpatient) cp Condition: Stable cp Problem: new cp Symptoms: have improved cp Bed/Room Type: Standard cp Room Assignment: 222(03/31/23 04:20) ty Diagnosis - UTI/ Urinary tract infection, site not specified cp - Fall on same level from slipping, tripping and stumbling with subsequent striking cp against object Forms: - Medication Reconciliation Form cp - SBAR form cp - Leadership Thank You Letter cp Signatures: Dispatcher [employer] EDKS Octavio Ahuja PA PA cp Nghia Mcnair RN RN rv Abhijit Roberts Corrections: (The following items were deleted from the chart) 03/30 23:32 23:32 Normal except: WBC 19.00; RBC 3.25; HGB 10.0; HCT 30.4; RDW 18.2; YANCI% 93.4; NEUT cp A 17.8; LYMA 0.2. cp 23:52 23:36 Abdomen Pelvis Wo Con+CT.RAD.BRZ ordered. EDKS EDMS 03/31 03:23 03:22 Furosemide IVP 40 mg IVP once; give over 2 minutes ordered. cp cp 04:20 03:08 cp ty 04/01 04:34 03/31 02:54 This 77 yrs old Male presents to ER via EMS with complaints of Fall. cp cp
[2023-03-31] MEDS ORDERED: FUROSEMIDE 20 MG/ 2ML VIAL ONE (03:48)
--- NOTE | 2023-03-31 04:30 | P.HP ---
Patient History Date of Service: 03/31/23 History of Present Illness: 77-year-old male with a history of chronic A-fib on Eliquis, CKD stage III baseline cr ~1.7, hypertension, chronic diastolic heart failure and stage IV melanoma on chemotherapy was brought to the ED after he had a fall and was too weak to get up from the ground. Patient states he has been feeling weak with shortness of breath, decreased appetite, oral intake and urine output. He has also noted significant swelling of his legs and scrotum along with dysuria however denies any fever, nausea, vomiting and difficulty urinating. On arrival to the ED his vital signs were within normal limits. Abnormal lab findings include WBC 19k, H&H 10/30, BNP 7962, BUN/Cr 52/2.37 and UA suggestive of UTI. Chest x-ray including pelvic and femur x-rays were negative for acute fractures. CT trauma for head, cervical, chest, abdomen, and pelvis were also negative. Patient was given a dose of Rocephin in the ED. Allergies No Known Allergies Allergy (Verified 11/19/22 19:26) Home Medications: Apixaban [Eliquis] 5 mg PO BID 11/19/22 Cholecalciferol (Vitamin D3) [Vitamin D3] 1 cap PO DAILY 11/19/22 Ferrous Sulfate [Iron] 325 mg PO BID 11/19/22 Gabapentin 300 mg PO BID 11/19/22 Levothyroxine [Synthroid*] 50 mcg PO [id number] 11/19/22 Metoprolol Tartrate 25 mg PO BID 11/19/22 Pantoprazole [Protonix Tab*] 40 mg PO DAILY 11/19/22 Pramipexole [Mirapex*] 1 mg PO DAILY 11/19/22 Vitamin B Complex [B Complex] 1 tab PO DAILY 11/19/22 Amiodarone HCl [Cordarone*] 200 mg PO BID tab 11/30/22 Furosemide [Lasix*] 40 mg PO DAILY tab 11/30/22 - Past Medical/Surgical History Diabetic: No -: Chronic systolic distant heart failure -: Atrial fibrillation chronic anticoagulation -: Hypertension -: Stage IV melanoma -: Anemia -: Restless legs -: Melanoma removal Psychosocial/ Personal History: Lives at home with family - Family History Father -: Cancer Mother -: Seizures Brother -: Cancer Sister -: Cancer - Social History Alcohol use: No CD- Drugs: No Caffeine use: Yes Review of Systems 10-point ROS is otherwise unremarkable (Except for HPI) Physical Examination - Studies Laboratory Data (last 24 hrs) 03/30/23 03/30/23 03/30/23 22:27 22:27 22:27 WBC 19.00 H Hgb 10.0 L Hct 30.4 L Plt Count 203 PT 26.8 H INR 2.50 Sodium 142 Potassium 3.8 BUN 52 H Creatinine 2.35 H Glucose 97 Magnesium 2.7 H Total Bilirubin 1.2 H AST 28 ALT 29 Alkaline Phosphatase 92 Male Exam - Male Exam Scrotum: Edema Penile exam: Circumcised Assessment and Plan - Plan Acute on chronic renal failure stage III Acute on chronic exacerbation of diastolic heart failure Urinary tract infection Chronic A-fib on Eliquis Hypothyroidism Hypertension Plan Start IV Bumex Monitor labs, daily weights and intake and output Continue IV Rocephin, follow-up blood and urine cultures On Eliquis for A-fib Resume chronic meds of amiodarone and metoprolol as appropriate - Advance Directives Does patient have a Living Will: No Does patient have a Durable POA for Healthcare: No
[2023-03-31] MEDS ORDERED: BUMETANIDE 1 MG/4 ML VIAL IV SCH (05:00)
[2023-03-31] MEDS ORDERED: BUMETANIDE 1 MG/4 ML VIAL ONE (05:26)
[2023-03-31 06:36] VITALS: BMI 39.6
[2023-03-31] MEDS ORDERED: HEPARIN 5000 UNIT/ML 1 ML VIAL SQ SCH (09:00)
[2023-03-31] MEDS ORDERED: METOPROLOL TAR 25 MG TAB PO SCH (09:30)
[2023-03-31] MEDS ORDERED: HOME MED 1 EA UNK (Potassium Chloride [Potassium Chloride] 10 MEQ Capsule.Er) PO SCH (09:30)
[2023-03-31] MEDS: PANTOPRAZOLE 40MG TABLET PO SCH (10:24)
[2023-03-31] MEDS: FERROUS SULFATE 325 MG TAB PO SCH ×2 (10:24→20:08)
[2023-03-31] MEDS: PRAMIPEXOLE 1 MG TAB PO SCH (10:24)
[2023-03-31] MEDS: POTASSIUM CL SA 10 MEQ TAB PO SCH (11:07)
--- NOTE | 2023-03-31 16:27 | P.PN ---
Date of Service: 03/31/23 Patient seen and examined. He states he feels better No recorded fever since admission. Blood pressure readings have been soft. Patient with bilateral chronic lower extremity lymphedema. Plan: Continue antibiotic. On Bumex for anasarca. Monitor BP closely. Follow urine culture.
--- NOTE | 2023-03-31 18:02 | RAD REPORT ---
EXAM DESCRIPTION: RAD - Pelvis - 03/30/2023 11:03 pm XR Pelvis, 1 View CLINICAL HISTORY: Fall TECHNIQUE: Frontal view of the pelvis. COMPARISON: No relevant prior studies available. FINDINGS: Bones/joints: No acute fracture. Mild degenerative changes at the hip joints bilaterally . Moderate degenerative changes at the lower lumbar spine. No dislocation. Soft tissues: Unremarkable. * A single impression for all exams can be found at the end of this report EXAM DESCRIPTION: XR Right Femur, 2 Views CLINICAL HISTORY: Fall TECHNIQUE: Frontal and lateral views of the right femur. COMPARISON: No relevant prior studies available. FINDINGS: Bones/joints: No acute fracture. Mild degenerative changes at the right hip joint. Total right knee arthroplasty hardware in place. No dislocation. Soft tissues: Unremarkable. * A single impression for all exams can be found at the end of this report IMPRESSION: XR Pelvis, 1 View: No acute injury. XR Right Femur, 2 Views: No acute injury. Electronically signed by: Nahid Feliciano MD 03/30/2023 11:17 PM MATERIAL CONTROL CLERK Due to temporary technical issues with the PACS/Fluency reporting system, reports are being signed by the in house radiologists without review as a courtesy to insure prompt reporting. The interpreting radiologist is fully responsible for the content of the report.
--- NOTE | 2023-03-31 18:37 | RAD REPORT ---
EXAM DESCRIPTION: RAD - Femur Right - 03/30/2023 11:03 pm CLINICAL HISTORY: Fall TECHNIQUE: Frontal view of the pelvis. COMPARISON: No relevant prior studies available. FINDINGS: Bones/joints: No acute fracture. Mild degenerative changes at the hip joints bilaterally . Moderate degenerative changes at the lower lumbar spine. No dislocation. Soft tissues: Unremarkable. * A single impression for all exams can be found at the end of this report EXAM DESCRIPTION: XR Right Femur, 2 Views CLINICAL HISTORY: Fall TECHNIQUE: Frontal and lateral views of the right femur. COMPARISON: No relevant prior studies available. FINDINGS: Bones/joints: No acute fracture. Mild degenerative changes at the right hip joint. Total right knee arthroplasty hardware in place. No dislocation. Soft tissues: Unremarkable. * A single impression for all exams can be found at the end of this report IMPRESSION: XR Pelvis, 1 View: No acute injury. XR Right Femur, 2 Views: No acute injury. Electronically signed by: Nahid Feliciano MD 03/30/2023 11:17 PM HOUSETRAILER SERVICER Due to temporary technical issues with the PACS/Fluency reporting system, reports are being signed by the in house radiologists without review as a courtesy to insure prompt reporting. The interpreting radiologist is fully responsible for the content of the report.
--- NOTE | 2023-03-31 18:39 | RAD REPORT ---
EXAM DESCRIPTION: CT - Head C Spine Cap Wo Con - 03/31/2023 7:33 am CLINICAL HISTORY: The patient is 77 years old and is Male; fall TECHNIQUE: Axial computed tomography images of the head/brain and cervical spine without intravenous contrast. Sagittal and coronal reformatted images were created and reviewed. This CT exam was pe rformed using one or more of the following dose reduction techniques: automated exposure control, a djustment of the mA and/or kV according to patient size, and/or use of iterative reconstruction techn ique. COMPARISON: No relevant prior studies available. FINDINGS: Brain: Mild nonspecific white matter changes likely related to chronic microvascular isc hemic disease. 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 No hemorrhage. Ventricles: Unremarkable. No ventriculomegaly. Skull: Prior right parietal craniotomy. No acute fracture. Sinuses: Unremarkable as visualized. No acute sinusitis. Mastoid air cells: Unremarkable as visualized. No mastoid effusion. Vertebrae: See below. Discs/spinal canal/neural foramina: Disc space narrowing with degenerative endplate changes at C5 -6 and C6-7. Moderate spinal canal narrowing at C5-6. Moderate bilateral neural foraminal narrowing at C2-3. Moderate to severe right neural foraminal narrowing at C3-4. Moderate right neural foraminal narrowing at C4-5. Moderate to severe right neural foraminal narrowing at C5-6. Soft tissues: Subcutaneous emphysema along the left scalp. Left frontal soft tissue swelling. Other findings: Postsurgical changes in the right neck. * A single impression for all exams can be found at the end of this report EXAM DESCRIPTION: CT Chest, Abdomen and Pelvis Without Intravenous Contrast CLINICAL HISTORY: The patient is 77 years old and is Male; fall TECHNIQUE: Axial computed tomography images of the chest, abdomen and pelvis without intravenous con trast. Sagittal and coronal reformatted images were created and reviewed. This CT exam was perfor med using one or more of the following dose reduction techniques: automated exposure control, adjus tment of the mA and/or kV according to patient size, and/or use of iterative reconstruction technique . COMPARISON: No relevant prior studies available. FINDINGS: CHEST: Lungs: Unremarkable. No mass. No consolidation. Pleural space: Unremarkable. No significant effusion. No pneumothorax. Heart: Trace pericardial effusion. Coronary artery calcification. No cardiomegaly. ABDOMEN: Liver: Unremarkable. Gallbladder and bile ducts: Unremarkable. No calcified stones. No ductal dilation. Pancreas: Unremarkable. No ductal dilation. Spleen: Unremarkable. No splenomegaly. Adrenals: Unremarkable. No mass. Kidneys and ureters: Simple cysts in the kidneys. No follow-up imaging is recommended. No obstructing stones. No hydronephrosis. Stomach and bowel: Scattered colonic diverticula. No obstruction. No mucosal thickening. PELVIS: Appendix: No findings to suggest acute appendicitis. Bladder: Unremarkable. No stones. Reproductive: Bilateral hydroceles. CHEST, ABDOMEN and PELVIS: Intraperitoneal space: Unremarkable. No significant fluid collection. No free air. Bones/joints: Disc space narrowing with degenerative endplate changes in the spine. No acute fracture. No dislocation. Soft tissues: Fat-containing inguinal hernias. Diffuse subcutaneous stranding. Vasculature: Scattered atherosclerotic vascular calcifications. Lymph nodes: There are a few prominent retroperitoneal/left periaortic lymph nodes. * A single impression for all exams can be found at the end of this report IMPRESSION: CT Head and Cervical Spine Without Intravenous Contrast: No acute intracranial abnormality. No acute findings in the cervical spine. CT Chest, Abdomen and Pelvis Without Intravenous Contrast: No acute findings in the chest, abdomen or pelvis. Electronically signed by: Alber Patterson MD 03/31/2023 02:53 AM ROLLED HAM LACER Due to temporary technical issues with the PACS/Fluency reporting system, reports are being signed by the in house radiologists without review as a courtesy to insure prompt reporting. The interpreting radiologist is fully responsible for the content of the report.
--- NOTE | 2023-03-31 18:48 | RAD REPORT ---
EXAM DESCRIPTION: RAD - Chest Single View - 03/30/2023 11:03 pm CLINICAL HISTORY: 77 years Male, fall COMPARISON: None. FINDINGS: Single AP semiupright view of the chest. Cardiomegaly. No pulmonary vascular congestion. N o focal consolidation, pleural effusion, or pneumothorax. Surgical clips project over the right neck. No acute osseous abnormality. IMPRESSION: Cardiomegaly. No acute radiographic abnormality. Electronically signed by: Deepthi Hodge MD 03/30/2023 11:14 PM SERVER ADMINISTRATOR Due to temporary technical issues with the PACS/Fluency reporting system, reports are being signed by the in house radiologists without review as a courtesy to insure prompt reporting. The interpreting radiologist is fully responsible for the content of the report.
[2023-03-31] MEDS: APIXABAN 5 MG TABLET PO SCH (20:08)
[2023-03-31] MEDS: CEFTRIAXONE 1,000 MG in NA CHLORIDE 0.9% 50 ML IVPB SCH (23:43)
[2023-04-01 04:03] LABS: Absolute Lymphocytes (CBC) 0.4 K/uL (0.7-4.9); Hematocrit 27.4 % (39.6-49.0); Lymphocytes % 5.7 % (15.3-44.8); MCV 93.9 fL (80-100); MPV 8.8 fL (7.6-11.3); Platelets 161 thou/uL (152-406); RBC Red Blood Cell Count 2.92 M/uL (4.33-5.43)
[2023-04-01 04:16] LABS: Albumin 2.6 g/dL (3.4-5.0); Bilirubin Total 0.9 mg/dL (0.2-1.0); Magnesium 2.7 mg/dL (1.6-2.4); Potassium 3.8 mEq/L (3.5-5.1); Protein, Total 6.5 g/dL (6.4-8.2); Troponin High Sensitivity 23.9 pg/mL (<58.9)
[2023-04-01] MEDS: LEVOTHYROXINE SOD 0.05 MG TABLET PO SCH (05:56)
[2023-04-01] MEDS: VITAMIN D 1000 UNIT TAB PO SCH (08:47)
[2023-04-01] MEDS: PRAMIPEXOLE 1 MG TAB PO SCH (08:47)
[2023-04-01] MEDS: APIXABAN 5 MG TABLET PO SCH ×2 (08:47→20:29)
[2023-04-01] MEDS: PANTOPRAZOLE 40MG TABLET PO SCH (08:47)
[2023-04-01] MEDS: POTASSIUM CL SA 10 MEQ TAB PO SCH (08:47)
[2023-04-01] MEDS ORDERED: HOME MED 1 EA UNK (Cholecalciferol (Vitamin D3) [Vitamin D3] 2000 UNIT Capsule) PO SCH (09:00)
[2023-04-01] MEDS: FERROUS SULFATE 325 MG TAB PO SCH ×2 (09:19→20:29)
[2023-04-01] MEDS ORDERED: POTASSIUM CL SA 10 MEQ TAB PO SCH (10:00)
--- NOTE | 2023-04-01 13:33 | P.PN ---
Subjective Date of Service: 04/01/23 Patient has no new complain. He states he feels better. No recorded fever. Patient denies any shortness of breath. Physical Examination - Vital Signs Temperature: 97.0 F Blood Pressure: 117/59 Pulse: 57 Respirations: 20 Pulse Ox (%): 99 Assessment And Plan - Plan Physical examination General: Alert and oriented x3, NAD, HEENT: Conjunctiva not pale, anicteric sclera Neck: Supple, no elevated JVD Heart: Heart sounds 1 and 2 normal, regular rhythm, normal rate, 2+ bilateral lower extremity edema Lungs: Clear to auscultation bilaterally, adequate breath sounds bilaterally, no rhonchi or crackles. Abdomen: Soft, nondistended, nontender, normal bowel sounds. Extremities: No tenderness, bilateral lower extremity lymphedema. Skin: Normal skin turgor, no rash, no nodules or ulcers. Neuro: No focal motor deficit. Normal speech. Psychiatry: Normal mood, no agitation. Diagnosis: Acute cystitis without hematuria Acute on chronic diastolic heart failure Chronic atrial fibrillation Chronic anticoagulation Essential hypertension Hypothyroidism Plan: Acute cystitis without hematuria Urine cultures growing Streptococcus. Continue IV Rocephin Follow urine culture antibiotic sensitivity. Increase activity as tolerated PT consult. Acute on chronic diastolic heart failure Patient with bilateral lower extremity edema Acute renal failure IV Bumex discontinued due to borderline low blood pressure. Will resume home diuretics-Lasix and metolazone. Chronic atrial fibrillation Chronic anticoagulation Continue home medications. Essential hypertension Hypothyroidism Continue home medications. DVT prophylaxis: On apixaban.
[2023-04-01] MEDS: METOLAZONE 5 MG TABLET PO SCH (15:38)
[2023-04-01] MEDS: FUROSEMIDE 40 MG TABLET PO SCH (15:38)
[2023-04-01] MEDS: CEFTRIAXONE 1,000 MG in NA CHLORIDE 0.9% 50 ML IVPB SCH (23:33)
[2023-04-02] MEDS: LEVOTHYROXINE SOD 0.05 MG TABLET PO SCH (05:47)
[2023-04-02 07:17] LABS: Absolute Lymphocytes (CBC) 0.4 K/uL (0.7-4.9); Hematocrit 28.6 % (39.6-49.0); Lymphocytes % 5.7 % (15.3-44.8); MCV 93.6 fL (80-100); MPV 8.4 fL (7.6-11.3); Platelets 174 thou/uL (152-406); RBC Red Blood Cell Count 3.06 M/uL (4.33-5.43)
[2023-04-02 07:26] LABS: Potassium 4.3 mEq/L (3.5-5.1)
[2023-04-02] MEDS: METOLAZONE 5 MG TABLET PO SCH (08:56)
[2023-04-02] MEDS: PANTOPRAZOLE 40MG TABLET PO SCH (08:56)
[2023-04-02] MEDS: FUROSEMIDE 40 MG TABLET PO SCH (08:57)
[2023-04-02] MEDS: PRAMIPEXOLE 1 MG TAB PO SCH (08:58)
[2023-04-02] MEDS: FERROUS SULFATE 325 MG TAB PO SCH ×2 (08:58→20:33)
[2023-04-02] MEDS: APIXABAN 5 MG TABLET PO SCH ×2 (08:58→20:33)
[2023-04-02] MEDS: POTASSIUM CL SA 10 MEQ TAB PO SCH (08:58)
[2023-04-02] MEDS: VITAMIN D 1000 UNIT TAB PO SCH (08:58)
--- NOTE | 2023-04-02 13:09 | P.PN ---
Subjective Date of Service: 04/02/23 Patient has no new complain. No recorded fever. No issues overnight. Patient denies any shortness of breath. Lower extremity swellings significantly improved. Physical Examination - Vital Signs Temperature: 98.1 F Blood Pressure: 116/68 Pulse: 56 Respirations: 19 Pulse Ox (%): 98 - Studies Microbiology Data (last 24 hrs): 03/30/23 22:33 Clean Catch Urine [place] Count - Final >100,000 CFU/ML. 03/30/23 22:33 Clean Catch Urine - Final Enterococcus Faecalis Assessment And Plan - Plan Physical examination General: Alert and oriented x3, NAD, Neck: Supple, no elevated JVD Heart: Heart sounds 1 and 2 normal, regular rhythm, normal rate, bilateral lower extremity edema improved Lungs: Clear to auscultation bilaterally, adequate breath sounds bilaterally, no rhonchi or crackles. Abdomen: Soft, nondistended, nontender, normal bowel sounds. Extremities: No tenderness, bilateral lower extremity lymphedema. Skin: Normal skin turgor, no rash, no nodules or ulcers. Neuro: No focal motor deficit. Normal speech. Psychiatry: Normal mood, no agitation. Diagnosis: Acute cystitis without hematuria Acute on chronic diastolic heart failure Chronic atrial fibrillation Chronic anticoagulation Essential hypertension Hypothyroidism Plan: Acute cystitis without hematuria Urine cultures growing Enterococcus sensitive to penicillin and fluoroquinolones. Change IV Rocephin to oral Augmentin. Increase activity as tolerated PT consulted Acute on chronic diastolic heart failure Patient with bilateral lower extremity edema Acute renal failure IV Bumex discontinued due to borderline low blood pressure. Lower extremity edema improved with home diuretic regimen Continue home diuretics-Lasix and metolazone. Chronic atrial fibrillation Chronic anticoagulation Continue home medications. Essential hypertension Hypothyroidism Continue home medications. Impaired mobility Continue PT. banking services officer consulted to evaluate for skilled rehab placement DVT prophylaxis: On apixaban.
[2023-04-02] MEDS: AMOX/K CLAV 875 MG TAB PO SCH (20:32)
[2023-04-02] MEDS ORDERED: MELATONIN 5 MG TABLET PO ONE (23:49)
[2023-04-03] MEDS: LEVOTHYROXINE SOD 0.05 MG TABLET PO SCH (05:09)
[2023-04-03 06:34] LABS: Absolute Lymphocytes (CBC) 0.4 K/uL (0.7-4.9); Lymphocytes % 5.4 % (15.3-44.8); MCV 93.5 fL (80-100); MPV 8.4 fL (7.6-11.3); Platelets 180 thou/uL (152-406); RBC Red Blood Cell Count 3.21 M/uL (4.33-5.43)
[2023-04-03] MEDS: FUROSEMIDE 40 MG TABLET PO SCH (08:51)
[2023-04-03] MEDS: APIXABAN 5 MG TABLET PO SCH ×2 (08:51→20:54)
[2023-04-03] MEDS: VITAMIN D 1000 UNIT TAB PO SCH (08:51)
[2023-04-03] MEDS: PANTOPRAZOLE 40MG TABLET PO SCH (08:51)
[2023-04-03] MEDS: PRAMIPEXOLE 1 MG TAB PO SCH (08:52)
[2023-04-03] MEDS: FERROUS SULFATE 325 MG TAB PO SCH ×2 (08:52→20:54)
[2023-04-03] MEDS: METOLAZONE 5 MG TABLET PO SCH (08:52)
[2023-04-03] MEDS: POTASSIUM CL SA 10 MEQ TAB PO SCH (08:52)
[2023-04-03] MEDS: AMOX/K CLAV 875 MG TAB PO SCH ×2 (08:52→20:54)
--- NOTE | 2023-04-03 09:42 | P.PN ---
Date of Service: 04/03/23 Subjective: Feeling better today breathing okay on room air lower extremity swelling improving no nausea/vomiting/diarrhea. denies any new/worsening problems pending [facility] - SNF auth. ROS: 10 point ROS as noted above, otherwise negative Physical Exam: GEN: Alert, oriented, NAD HEENT: Normal conjunctiva, sclera anicteric CV: Regular rate and rhythm, trace b/l lower extremity edema Pulm: Nonlabored respirations on room air, clear bilaterally ABD: soft, nontender, nondistended Neuro: Normal speech, normal affect Vitals reviewed Problem List: Acute cystitis without hematuria Acute on chronic diastolic CHF SÁNCHEZ on CKD 3 Chronic atrial fibrillation; on anticoagulation SÁNCHEZ on CKD 3 Essential hypertension Hypothyroidism Acute cystitis without hematuria urine cx (03/30): MDR enterococcus faecalis Previously given ~1 day of IV rocephin (03/22). Switched to PO augmentin given culture sensitivity Continue PO augmentin (04/02-) afebrile, leukocytosis resolved PT consulted - Increase activity as tolerated Acute on chronic diastolic heart failure Patient with bilateral lower extremity edema on admission; BNP 8k IV Bumex discontinued due to borderline low blood pressure. Continue home diuretics-Lasix and metolazone. edema improving daily SÁNCHEZ on CKD 3 improving with diuresis, continue home diuretics Continue to monitor renal function Chronic atrial fibrillation; on anticoagulation Continue home eliquis Essential hypertension Hypothyroidism Continue home medications as appropriate Impaired mobility xray pelvis/femur (03/30): No acute findings or injuries seen hvac services professional consulted for SNF placement - [facility] - pending approval Continue PT. VTE: home eliquis Code: Full Dispo: SNF - pending approval
[2023-04-04] MEDS: LEVOTHYROXINE SOD 0.05 MG TABLET PO SCH (05:58)
[2023-04-04 08:06] LABS: Magnesium 2.5 mg/dL (1.6-2.4); Potassium 4.1 mEq/L (3.5-5.1)
[2023-04-04] MEDS: VITAMIN D 1000 UNIT TAB PO SCH (08:08)
[2023-04-04] MEDS: FUROSEMIDE 40 MG TABLET PO SCH (08:09)
[2023-04-04] MEDS: AMOX/K CLAV 875 MG TAB PO SCH (08:09)
[2023-04-04] MEDS: METOLAZONE 5 MG TABLET PO SCH (08:09)
[2023-04-04] MEDS: POTASSIUM CL SA 10 MEQ TAB PO SCH (08:10)
[2023-04-04] MEDS: PANTOPRAZOLE 40MG TABLET PO SCH (08:10)
[2023-04-04] MEDS: APIXABAN 5 MG TABLET PO SCH (08:10)
[2023-04-04] MEDS: FERROUS SULFATE 325 MG TAB PO SCH (08:10)
[2023-04-04] MEDS: PRAMIPEXOLE 1 MG TAB PO SCH (08:10)
--- NOTE | 2023-04-04 08:44 | P.PN ---
Date of Service: 04/04/23 Subjective: Breathing comfortably on room air denies new / worsening problems afebrile pending SNF auth ROS: 10 point ROS as noted above, otherwise negative Physical Exam: GEN: Alert, oriented, NAD HEENT: Normal conjunctiva, sclera anicteric CV: Regular rate and rhythm, trace b/l lower extremity edema Pulm: Nonlabored respirations on room air, clear bilaterally ABD: soft, nontender, nondistended Neuro: Normal speech, normal affect Vitals reviewed Problem List: Acute cystitis without hematuria Acute on chronic diastolic CHF SÁNCHEZ on CKD 3 Chronic atrial fibrillation; on anticoagulation SÁNCHEZ on CKD 3 Essential hypertension Hypothyroidism Acute cystitis without hematuria urine cx (03/30): MDR enterococcus faecalis Previously given ~1 day of IV rocephin (03/22). Switched to PO augmentin given culture sensitivity Continue PO augmentin (04/02-) afebrile, leukocytosis resolved PT consulted - Increase activity as tolerated Acute on chronic diastolic heart failure Patient with bilateral lower extremity edema on admission; BNP 8k IV Bumex discontinued due to borderline low blood pressure. Continue home diuretics-Lasix and metolazone. edema improving daily SÁNCHEZ on CKD 3 improving with diuresis, continue home diuretics Continue to monitor renal function Chronic atrial fibrillation; on anticoagulation Continue home eliquis Essential hypertension Hypothyroidism Continue home medications as appropriate Impaired mobility xray pelvis/femur (03/30): No acute findings or injuries seen professional services consultant consulted for SNF placement - [facility] - pending approval Continue PT. VTE: home eliquis Code: Full Dispo: SNF - pending approval
[2023-04-04 10:24] VITALS: O2SAT 96
[2023-04-04 12:15] VITALS: BP 116/52; TEMP 97.3
--- NOTE | 2023-04-05 06:48 | P.DS ---
Admission Date: 03/31/23 Discharge Date: 04/04/23 Disposition: TRANSFER TO SNF - REHAB Discharge Condition: GOOD Brief History of Present Illness: 77yo M, PMH: chronic A-fib on Eliquis, CKD stage III baseline cr ~1.7, hypertension, chronic diastolic heart failure and stage IV melanoma on chemotherapy Patient was brought to the ED after he had a fall and was too weak to get up from the ground. Patient states he has been feeling weak with shortness of kendy th, decreased appetite, oral intake and urine output. He has also noted significant swelling of his legs and scrotum along with dysuria however denies any fever, nausea, vomiting and difficulty urinating. On arrival to the ED his vital signs were within normal limits. Abnormal lab findings include WBC 19k, H&H 10/30, BNP 7962, BUN/Cr 52/2.37 and UA suggestive of UTI. Chest x-ray including pelvic and femur x-rays were negative for acute fractures. CT trauma for head, cervical, chest, abdomen, and pelvis were also negative. Patient was given a dose of Rocephin in the ED. Hospital Course: Problem List: Acute cystitis without hematuria Acute on chronic diastolic CHF SÁNCHEZ on CKD 3, resolved Chronic atrial fibrillation; on anticoagulation Essential hypertension Hypothyroidism Patient presented with shortness of breath, generalized weakness, lower extremity edema. Patient was found to have an acute cystitis. Urine culture grew enterococcus faecalis. Patient was started on empiric rocephin and had some improvement of his symptoms. Antibiotics were switched to oral augmentin following urine culture sensitivities. Patient was feeling better, afebrile, leukocytosis resolved and was deemed stable for discharge. Patient is to complete 5 more days of Augmentin on discharge for total 10 days. Patient was also noted to have some lower extremity edema on admission. BNP 8k. Patient had improvement with his home diuretics lasix and metolazone. Patient also recieved IV bumex briefly, but had to be discontinued secondary to borderline low-normal BP. Continued to improve on his usual home regimen. Patient with history of CKD3 noted to have SÁNCHEZ on admission. serum creatinine 2.35. Patient had improvement with his home diuretics and returned ~baseline. Creatinine on discharge: 1.51 Advised to repeat blood work in ~1 week to monitor creatinine / renal function. Medications: Augmentin twice daily for 5 more days Follow up: PCP 3-5 days Physical Exam: GEN: Alert, oriented, NAD HEENT: Normal conjunctiva, sclera anicteric CV: Regular rate and rhythm, trace b/l lower extremity edema Pulm: Nonlabored respirations on room air, clear bilaterally ABD: soft, nontender, nondistended Neuro: Normal speech, normal affect Vital Signs/Physical Exam: Temp Pulse Resp BP Pulse Ox 97.3 F 66 16 116/52 L 98 04/04/23 12:00 04/04/23 12:00 04/04/23 12:00 04/04/23 12:00 04/04/23 12:00 Laboratory Data at Discharge: WBC 7.40 thou/uL (4.3-10.9) 04/03/23 05:27 Hgb 10.0 g/dL (13.6-17.9) L 04/03/23 05:27 Hct 30.0 % (39.6-49.0) L 04/03/23 05:27 Plt Count 180 thou/uL (152-406) 04/03/23 05:27 PT 26.8 SECONDS (9.5-12.5) H 03/30/23 22:27 INR 2.50 03/30/23 22:27 Sodium 134 mEq/L (136-145) L 04/04/23 07:09 Potassium 4.1 mEq/L (3.5-5.1) 04/04/23 07:09 BUN 27 mg/dL (7-18) H 04/04/23 07:09 Creatinine 1.51 mg/dL (0.70-1.30) H 04/04/23 07:09 Glucose 85 mg/dL (74-106) 04/04/23 07:09 Phosphorus 3.0 mg/dL (2.5-4.9) 04/01/23 02:57 Magnesium 2.5 mg/dL (1.6-2.4) H 04/04/23 07:09 Total Bilirubin 0.9 mg/dL (0.2-1.0) 04/01/23 02:57 AST 23 U/L (15-37) 04/01/23 02:57 ALT 24 U/L (16-61) 04/01/23 02:57 Alkaline Phosphatase 76 U/L (45-117) 04/01/23 02:57 Home Medications: Apixaban [Eliquis] 5 mg PO BID 11/19/22 Cholecalciferol (Vitamin D3) [Vitamin D3] 1 cap PO DAILY 11/19/22 Ferrous Sulfate [Iron] 324 mg PO BID 11/19/22 Levothyroxine [Synthroid*] 50 mcg PO [id number] 11/19/22 Metoprolol Tartrate 25 mg PO BID 11/19/22 Pantoprazole [Protonix Tab*] 40 mg PO DAILY 11/19/22 Pramipexole [Mirapex*] 1 mg PO DAILY 11/19/22 Vitamin B Complex [B Complex] 1 tab PO DAILY 11/19/22 Furosemide [Lasix*] 40 mg PO DAILY tab 11/30/22 Potassium Chloride 10 meq PO DAILY 03/31/23 Ubidecarenone/Vit E Acet [Co Q-10 100 mg Softgel] 2 each PO DAILY 03/31/23 metOLazone [Metolazone] 5 mg PO DAILY 03/31/23 predniSONE [Prednisone] 20 mg PO PRN PRN 03/31/23 Amox/Clavulanate [Augmentin 875-125 Tab*] 875 mg PO BID 5 Days #10 tab 04/04/23 Physician Discharge Instructions: Patient presented with shortness of breath, generalized weakness, lower extremity edema. Patient was found to have an acute cystitis. Urine culture grew enterococcus faecalis. Patient was started on empiric rocephin and had some improvement of his symptoms. Antibiotics were switched to oral augmentin following urine culture sensitivities. Patient was feeling better, afebrile, leukocytosis resolved and was deemed stable for discharge. Patient is to complete 5 more days of Augmentin on discharge for total 10 days. Patient was also noted to have some lower extremity edema on admission. BNP 8k. Patient had improvement with his home diuretics lasix and metolazone. Patient also recieved IV bumex briefly, but had to be discontinued secondary to borderline low-normal BP. Continued to improve on his usual home regimen. Patient with history of CKD3 noted to have SÁNCHEZ on admission. serum creatinine 2.35. Patient had improvement with his home diuretics and returned ~baseline. Creatinine on discharge: 1.51 Advised to repeat blood work in ~1 week to monitor creatinine / renal function. Medications: Augmentin twice daily for 5 more days Follow up: PCP 3-5 days Followup: Unknown,U [Primary Care Provider] - Time spent managing pt's care (in minutes): 45
--- NOTE | 2023-04-05 13:50 | EKG ---
Test Date: 2023-03-30 Test Time: 23:00:54 Laborer Syrup Machine: ANA MEASUREMENT RESULTS: Intervals: Rate: 72 AL: QRSD: 74 QT: 460 QTc: 503 [place]: P: AL: QRS: -23 T: 241 INTERPRETIVE STATEMENTS: Atrial fibrillation with premature ventricular or aberrantly conducted complexes Nonspecific ST and T wave abnormality, probably digitalis effect Prolonged QT Abnormal ECG Compared to ECG 11/28/2022 14:40:26 Ventricular premature complex(es) now present ST (T wave) deviation now present Prolonged QT interval now present Sinus rhythm no longer present Atrial premature complex(es) no longer present First degree AV block no longer present Myocardial infarct finding no longer present Electronically Signed On 04-05-23 13:29:34 MOTHER REPAIRER by Adolph Elise
== END 2023-04-04 15:02 | DRG 682 ==
LOC: ER 21:26 → ERHOLD 03-31 04:02 → 4TH 03-31 04:26 → 2ND 03-31 04:27
PROVIDERS: ADMIT Internal Medicine; ATTEND Hospitalist
DX: N17.9 Acute kidney failure, unspecified (principal); I50.33 Acute on chronic diastolic (congestive) heart failure; I13.0 Hypertensive heart and chronic kidney disease with heart failure and stage 1 through stage 4 chronic kidney disease, or unspecified chronic kidney disease; I48.20 Chronic atrial fibrillation, unspecified; N30.00 Acute cystitis without hematuria; N18.30 Chronic kidney disease, stage 3 unspecified; E03.9 Hypothyroidism, unspecified; C43.9 Malignant melanoma of skin, unspecified; B95.2 Enterococcus as the cause of diseases classified elsewhere; B95.5 Unspecified streptococcus as the cause of diseases classified elsewhere; Z92.21 Personal history of antineoplastic chemotherapy; Z79.01 Long term (current) use of anticoagulants; Z79.890 Hormone replacement therapy; Z79.899 Other long term (current) drug therapy; Z85.841 Personal history of malignant neoplasm of brain; W01.10XA Fall on same level from slipping, tripping and stumbling with subsequent striking against unspecified object, initial encounter; Y93.9 Activity, unspecified; Y92.9 Unspecified place or not applicable; Y99.9 Unspecified external cause status
CPT/HCPCS: 36415; 70450; 71045; 71250; 72125; 72170; 80048; 80053; 80076; 81001; 82550; 83605; 83735; 83880; 84100; 84484; 85025; 85610; 87040; 87077; 87086; 87088; 87186; 93005; 96365; 97116; 97161; 97530; 99285; J0696; J1644; J1940